=== PATIENT | female | born 1990 | race Caucasian/White ===

== ENCOUNTER 2019-12-07 15:26 | Emergency (ER) | payer MEDICAID, SELFPAY ==
[2019-12-07 15:29] VITALS: BP 119/71; PULSE 104; RESP 18; TEMP 37.4; O2SAT 96
--- NOTE | 2019-12-07 15:37 | ED.GENADUL_ITS ---
Discharge Plan Disposition Patient Disposition: HOME Condition: Stable Discharge Details Chief Complaint: DentalOral Clinical Impression: Dental infection, Left facial swelling, Dental caries Primary Care Provider: None,None ED Provider: Mely Tyler Home Meds and New Rx's Prescriptions: New penicillin V potassium 500 mg tablet 500 mg PO QID 7 Days Qty: 28 RF: 0 Continued methadone 10 MG/ML concentrate 155 mg PO DAILY RF: 0 No Action quetiapine 300 mg Tablet 300 mg PO HS RF: 0 clonidine HCl 0.3 mg Tablet 0.3 mg PO TID RF: 0 clonidine HCl 0.2 mg Tablet 0.2 mg PO QHS RF: 0 buspirone 30 mg Tablet 30 mg PO BID RF: 0 topiramate 100 mg Tablet 100 mg PO BID RF: 0 prazosin 2 mg Capsule 4 mg PO HS RF: 0 Discharge Instructions Instructions: Dental Abscess (ED), Dental Caries (ED) Additional Instructions: Take the antibiotics until finished. Alternate tylenol and motrin as needed and directed for pain. Take the tramadol for pain not relieved with Tylenol and Motrin. Call a dentist on Monday morning to schedule a follow-up appointment for reeval uation. Return to the emergency department if you develop any worsening or new concerning symptoms. Discharge Data Discharge Date/Time-TO BE ENTERED AT DEPARTURE: 12/07/19 16:08 Discharge Physician: Mely Tyler Medical Decision Making 29yo F with L upper and lower dental pain and L sided facial swelling since yesterday. Multiple missing teeth and dental caries throughout. She has moderate L sided fa cial swelling which is mildly tender but soft to palpation without induration or fluctance. No dental abscess. No drooling, trismus or submandibular swelling. Normal oropharynx. No lymphadenopathy. Patient appears uncomfortable. We will send home with 2 tabs of tramadol. She is taking methadone and followed at the [facility]. Too late to call [facility] at this time. We will send home with a prescription for penicillin. She was given dental follow up list. Advised to return to the ED if worse. Medical Records Medical records reviewed: Yes I reviewed the patient's medical records. HPI General Mode of arrival: ambulatory . Date/Time Provider Initiated Documentation: 12/07/19 15:30 . Limitations to Documentation: no limitations . Information obtained by: patient . HPI Narrative: Pt is 29yo F who presents to the ED w/ a c/o left upper and lower dental pain and left sided facial swelling since yesterday. Pt states she does not have a dentist. She states she has not taken care of her teeth for years and has poor dental habits and broken teeth. She denies any fever. She has taken tylenol and motrin w/o relief. She denies and difficulty swallowing, difficulty breathing, or neck pain. Related Data Home Medications Medication Instructions Recorded Confirmed methadone 155 mg PO DAILY 03/09/15 03/09/15 buspirone 30 mg PO BID 12/07/19 12/07/19 clonidine HCl 0.2 mg PO QHS 12/07/19 12/07/19 clonidine HCl 0.3 mg PO TID 12/07/19 12/07/19 penicillin V potassium 500 mg PO QID 7 Days #28 tab 12/07/19 prazosin 4 mg PO HS 12/07/19 12/07/19 quetiapine 300 mg PO HS 12/07/19 12/07/19 topiramate 100 mg PO BID 12/07/19 12/07/19 Previous Rx's Medication Instructions Recorded penicillin V potassium 500 mg PO QID 7 Days #28 tab 12/07/19 Allergies Allergy/AdvReac Type Severity Reaction Status Date / Time No Known Allergies Allergy Unverified 12/07/19 15:33 General Stated Complaint: DentalOral BRADY: 4 Review of Systems All systems reviewed & are unremarkable except as noted in HPI and below Constitutional Constitutional: Reports as per HPI, Denies chills and Denies fever(s) Eyes Eyes: Denies blurry vision ENT Ears, Nose, Mouth, and Throat: Denies dizziness, Denies sore throat and Denies throat swelling Cardiovascular Cardiovascular: Denies chest pain and Denies dyspnea Respiratory Respiratory: Denies cough and Denies dyspnea Gastrointestinal Gastrointestinal: Denies abdominal pain, Denies diarrhea and Denies vomiting Genitourinary Genitourinary: Denies hematuria and Denies dysuria Musculoskeletal Musculoskeletal: Denies back pain and Denies numbness Integumentary/Breasts Skin/Breast: Denies lesions and Denies rash Neurologic Neurologic: Denies dizziness, Denies localized weakness and Denies numbness Allergic/Immunologic Allergic/Immunologic: Denies throat swelling [facility] Medical History 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) Surgical History (Updated 12/07/19 @ 16:59 by Mely Tyler DO) History of tonsillectomy (Chronic) Social History Smoking/Tobacco Use Status: Current every day Tobacco Type: cigarettes Alcohol Intake: never Drug use: Current Sobriety Do you feel safe at home: Yes Do you feel safe in your relationship?: Yes Exam Const General: cooperative, healthy appearing and uncomfortable [facility] Head: normal to inspection Ears: hearing grossly normal bilaterally, external ears normal and TM's normal bilaterally General nose exam: external nose normal Face and sinus: other Face images: 1. Moderate L sided facial swelling. Soft. Moderately tender. No induration, fluctuance, erythema noted. Mouth: oral mucosae normal Teeth and gingiva: caries and poor dentition Teeth image: 1. Small base of tooth present, black in color, and tender to palpation of surr ounding mucosa. No edema, fluctuance or induration noted. 2. Tender to palpation. Multiple teeth missing and dental caries throughout. No edema, fluctuance, induration noted. Throat: posterior oropharynx normal Eyes General: appearance normal, both eyes and all related structures Neck Neck: normal visual inspection Resp Effort & Inspection: normal respiratory effort and able to speak in complete sentences Cardio Rate: regular rate Skin General skin exam: no rashes or lesions noted Neuro General: patient alert, patient awake and patient oriented x3 Motor: muscle tone normal throughout Extrem General: normal to inspection and full ROM Psych Appearance: grossly normal Affect: normal affect Course Vital Signs Vital signs: Vital Signs Temperature 99.3 F 12/07/19 15:29 Pulse 104 H 12/07/19 15:29 Respiratory Rate 18 12/07/19 15:29 Blood Pressure 119/71 12/07/19 15:29 Pulse Oximetry 96 12/07/19 15:29 Temperature 99.3 F 12/07/19 15:29 Temperature Source Temporal Artery Scan 12/07/19 15:29 Pulse 104 H 12/07/19 15:29 Respiratory Rate 18 12/07/19 15:29 Blood Pressure 119/71 12/07/19 15:29 Blood Pressure Position Sitting 12/07/19 15:29 Pulse Oximetry 96 12/07/19 15:29 Oxygen Delivery Method Room Air 12/07/19 15:29 Oxygen Flow Rate 0 12/07/19 15:29 Pain Level 8 12/07/19 15:29
== END 2019-12-07 16:08 | disposition home or self-care (01) ==
PROVIDERS: Emergency Provider Physician Assistant
DX: R22.0 Localized swelling, mass and lump, head (principal); R68.84 Jaw pain; K04.7 Periapical abscess without sinus
CPT/HCPCS: 99283

== ENCOUNTER 2020-04-26 06:17 | Emergency (ER) | payer MEDICAID, SELFPAY ==
[2020-04-26] VITALS (46 sets, daily range): BP systolic 96–139; BP diastolic 46–79; PULSE 62–120; RESP 10–29; TEMP 36.6–36.7; O2SAT 81–100
--- NOTE | 2020-04-26 06:35 | W.ED.GENAD ---
Discharge Plan Disposition Patient Disposition: HOME Condition: Stable Discharge Details Chief Complaint: Nausea/Vomit/Diar Clinical Impression: Vomiting during Primary Care Provider: None,None ED Provider: Vamshi Goel Home Meds and New Rx's Prescriptions: Continued methadone 10 mg/mL concentrate 80 mg PO DAILY RF: 0 quetiapine 300 mg Tablet 300 mg PO HS RF: 0 clonidine HCl 0.3 mg Tablet 0.3 mg PO TID RF: 0 No Action ondansetron 8 mg tablet,disintegrating 8 mg PO Q8H PRN (Reason: nausea and vomiting) Qty: 30 RF: 2 promethazine 25 mg suppository 25 mg GA Q6H PRN (Reason: nausea and vomiting) Qty: 12 RF: 0 Discharge Instructions Instructions: First Trimester (ED) Additional Instructions: Follow-up for outpatient ultrasound as previously scheduled tomorrow. Home to rest today. Small, frequent sips of fluids to maintain hydration. Return to the ER in the interim for any acute concern. Discharge Data Discharge Date/Time-TO BE ENTERED AT DEPARTURE: 04/26/20 13:15 Medical Decision Making <Néstor Malik MD - Last Filed: 04/30/20 20:32> Patient brought in by EMS with nausea and vomiting. IV fluids and IV Zofran have been given. Continues to have dry heaves here. Will try IV Phenergan. Has a benign abdomen. Denies pelvic pain or cramping. There is no vaginal bleeding. At this point I see no need for emergent ultrasound as she is here with just nausea, vomiting, dry heaves. She has no abdominal or pelvic pain and no vaginal bleeding. Medical Records Medical records reviewed: Yes I reviewed the patient's medical records. Lab Data Lab results reviewed: Yes I reviewed the patient's lab results. <Vamshi Goel MD - Last Filed: 04/26/20 12:49> Received signout from Dr. Malik. Please see his note regarding details of initial presentation, plan of care. Patient given additional antiemetics for some persistent vomiting. She received a liter of lactated Ringer's and then was placed on maintenance fluids with D5 NS. Her laboratories note a white count of 12, hematocrit 33, platelets 136, chemistries reassuring, note anion gap of 12. Glucose 119. She does have evidence of urinary tract infection but likely contaminated. As she is we will empirically treat and she was given an IV dose of antibiotics due to her vomiting. Patient separately was able to sleep, awoke feeling subjectively improved and was able to take liquids and a popsicle without difficulty. She has follow-up planned for tomorrow for first trimester dating ultrasound. With her and methadone use, will hold on any further antiemetics as an outpatient. She is stable and improving. Lab Data Lab results reviewed: Yes I reviewed the patient's lab results. Labs: Laboratory Results - last 24 hr 04/26/20 04/26/20 04/26/20 07:20 07:47 09:30 WBC 12.24 H RBC 4.52 Hgb 11.1 L Hct 33.6 L MCV 74.3 L MCH 24.6 L MCHC 33.0 RDW 14.1 Plt Count 136 MPV 12.8 H Immature Gran % 0.3 Neutrophils % 89.9 Lymphocytes % 7.5 Monocytes % 2.0 Eosinophils % 0.1 Basophils % 0.2 Absolute Neutrophils 11.00 H Absolute Lymphocytes 0.92 L Absolute Monocytes 0.24 Absolute Eosinophils 0.01 Absolute Basophils 0.02 RBC Morphology See below Anisocytosis 1+ Microcytosis 1+ Sodium 143 Potassium 3.5 Chloride 107 Carbon Dioxide 23.9 Anion Gap 12.1 H BUN 11 Creatinine 0.80 Estimated GFR/1.73 m2 >= 60.00 Glucose 119 H Calcium 9.2 Total Bilirubin 0.4 AST 23 ALT 22 Alkaline Phosphatase 64 Total Protein 7.7 Albumin 4.0 Urine Color Alee Urine Clarity Cloudy Urine pH 6.0 Ur Specific [place] >= 1.030 H Urine Protein Negative Urine Ketones Negative Urine Blood Negative Urine Nitrite Negative Urine Bilirubin Negative Urine Urobilinogen 0.2 Ur Leukocyte Esterase Moderate H Urine RBC 0-2 Urine WBC 20-50 H Ur Epithelial Cells Many Urine Crystals Few amorphous Urine Bacteria Few Urine Casts Negative Urine Mucus Trace Urine Other Ur Culture Indicated? No/sq. contamination Urine Glucose Negative HPI <Néstor Malik MD - Last Filed: 04/30/20 20:32> General Mode of arrival: EMS. Date/Time Provider Initiated Documentation: 04/26/20 06:30. Limitations to Documentation: no limitations. Information obtained by: patient, EMS and old records reviewed. HPI Narrative: Patient presents to ED with nausea vomiting. Patient is approximately 1 month with dating ultrasound supposed to be done tomorrow. She has been doing fine. She denies any previous symptoms of morning sickness. She denies any pelvic pain or cramping. There is no vaginal bleeding. Denies any abdominal pain. Woke up approximately 90 minutes ago and has not been able to stop vomiting and retching since. Related Data Home Medications Medication Instructions Recorded Confirmed clonidine HCl 0.3 mg PO TID 12/07/19 04/27/20 quetiapine 300 mg PO HS 12/07/19 04/27/20 methadone 10 mg/mL oral concentrate 80 mg PO DAILY ml 04/16/20 04/27/20 ondansetron 8 mg disintegrating 8 mg PO Q8H PRN #30 tab 04/29/20 tablet promethazine 25 mg rectal 25 mg GA Q6H PRN #12 each 04/29/20 suppository Previous Rx's Medication Instructions Recorded ondansetron 8 mg disintegrating 8 mg PO Q8H PRN #30 tab 04/29/20 tablet promethazine 25 mg rectal 25 mg GA Q6H PRN #12 each 04/29/20 suppository Allergies Allergy/AdvReac Type Severity Reaction Status Date / Time No Known Allergies Allergy Unverified 04/27/20 09:33 General Stated Complaint: Nausea/Vomit/Diar BRADY: 3 Review of Systems <Néstor Malik MD - Last Filed: 04/30/20 20:32> Narrative: As documented in HPI otherwise negative as below. 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 Const: WDWN female dry heaving into bag. HEENT: NC/AT. Normal facial exam. Eyes: Normal conjunctiva and sclera. Neck: Supple. Trachea midline. Lungs: Normal respiratory effort. GI: Soft. NT/ND. No guarding or rebound. Neuro: A+O x 3. Normal speech, mentation. Cranial nerves II - XII grossly intact. No gross motor or sensory deficit. Skin: Warm and dry. Course <Néstor Malik MD - Last Filed: 04/30/20 20:32> Vital Signs Vital signs: Vital Signs Temperature 97.9 F 04/26/20 06:17 Pulse 75 04/26/20 06:17 Respiratory Rate 16 04/26/20 06:17 Blood Pressure 139/79 04/26/20 06:17 Pulse Oximetry 100 04/26/20 06:17 Temperature 97.9 F 04/26/20 06:17 Temperature Source Temporal Artery Scan 04/26/20 06:17 Pulse 75 04/26/20 06:17 Respiratory Rate 16 04/26/20 06:17 Blood Pressure 139/79 04/26/20 06:17 Blood Pressure Position Sitting 04/26/20 06:17 Pulse Oximetry 100 04/26/20 06:17 Oxygen Delivery Method Room Air 04/26/20 06:17 Oxygen Flow Rate 0 04/26/20 06:17 Pain Level 8 04/26/20 06:17 Sign Out <Néstor Malik MD - Last Filed: 04/30/20 20:32> Sign Out Data: Sign Out Comment: pending labs and re-evaluation Last updated by Néstor Malik MD at 04/26/20 07:43
[2020-04-26] MEDS: Normal Saline 250 ML 500 ML IV (06:46)
[2020-04-26] MEDS: Lactated Ringers 1,000 ML 1000 ML IV (07:30)
[2020-04-26] MEDS: Normal Saline Flush 10 ML SYR IVP ×2 (07:30→09:20)
[2020-04-26 07:46] LABS: ALT 22 U/L (14-59); AST 23 U/L (15-37); Alkaline Phosphatase 64 U/L (46-116); Anion Gap 12.1 mmol/L (3-11); BUN 11 mg/dL (7-18); Bilirubin, Total 0.4 mg/dL (0.2-1.0); CO2 23.9 mmol/L (21.0-32.0); Calcium 9.2 mg/dL (8.5-10.1); Chloride 107 mmol/L (98-107); Glucose 119 mg/dL (74-106); Potassium 3.5 mmol/L (3.5-5.1); Sodium 143 mmol/L (136-145); Total Protein 7.7 g/dL (6.4-8.2)
[2020-04-26 07:54] LABS: Bilirubin Negative (Negative); Blood Negative (Negative); Clarity Cloudy (Clear); Glucose Negative (Negative); Ketones Negative (Negative); Leukocyte Esterase Moderate (Negative); Nitrite Negative (Negative); Specific Gravity >= 1.030 (1.005-1.025); Urobilinogen 0.2 EU/dL (Up TO 0.2)
[2020-04-26 08:08] LABS: Bacteria Few HPF (Negative); Casts Negative LPF (Negative); Crystals Few Amorphous HPF (Negative); Epithelial Cells Many HPF (Negative); Mucus Trace (Negative); RBC 0-2 HPF (0-2); WBC 20-50 HPF (0-5)
[2020-04-26 08:09] LABS: C & S Indicated? No/Sq. Contamination
[2020-04-26] MEDS: Ondansetron 4 MG/2 ML VIAL IVP (08:18)
[2020-04-26] MEDS: diphenhydrAMINE 50 MG/ML VIAL 25 MG IVP (08:21)
[2020-04-26] MEDS: DEXTROSE 5%-0.9% SALINE 1,000 ML 150 ML IV (09:22)
[2020-04-26] MEDS: cefTRIAXone 1 GM/50 ML BAG IVPB (09:22)
[2020-04-26 09:40] LABS: Abs Immature Grans 0.04 10^3/uL (0.0-0.06); Absolute Eosinophil Count 0.01 10^3/uL (0.0-0.7); Absolute Lymphocyte Count 0.92 10^3/uL (1.2-3.4); Absolute Monocyte Count 0.24 10^3/uL (0.1-0.8); Basophils % 0.2; Eosinophils % 0.1; HCT 33.6 % (36.0-46.0); HGB 11.1 g/dL (11.2-15.7); Immature Grans % 0.3; Lymphocytes % 7.5; MCH 24.6 pg (27.0-33.0); MCV 74.3 fL (80-95); MPV 12.8 fL (8.0-11.0); Neutrophils % 89.9; Nucleated RBC 0 %; Platelet Count 136 10^3/uL (130-400); RBC 4.52 10^6/uL (3.93-5.22); RDW 14.1 % (11.7-14.6); RDW-SD 37.3 fL; WBC 12.24 10^3/uL (4.4-10.8)
[2020-04-26 09:44] LABS: Absolute Basophil Count 0.02 10^3/uL (0.0-0.2)
[2020-04-26 09:58] LABS: Anisocytosis 1+; Diff Comment RBC Morph Reviewed; Microcytosis 1+
== END 2020-04-26 13:15 | disposition home or self-care (01) ==
PROVIDERS: Emergency Medicine; Emergency Provider Emergency Medicine
DX: O23.11 Infections of bladder in pregnancy, first trimester (principal); O21.9 Vomiting of pregnancy, unspecified; O99.321 Drug use complicating pregnancy, first trimester; O99.331 Smoking (tobacco) complicating pregnancy, first trimester; Z3A.01 Less than 8 weeks gestation of pregnancy; F17.210 Nicotine dependence, cigarettes, uncomplicated; F11.20 Opioid dependence, uncomplicated
CPT/HCPCS: 36415; 36416; 80053; 96361; 96365; 96367; 96375; 96376; 99284; 81003; 81015; 85025; J0696; J1200; J2405; J7042

== ENCOUNTER 2020-05-25 12:10 | Outpatient (CLI) | payer MEDICAID, SELFPAY ==
[2020-05-25 12:45] LABS: Kit/Specimen SENT
[2020-05-25 12:56] LABS: Abs Immature Grans 0.02 10^3/uL (0.0-0.06); Absolute Basophil Count 0.02 10^3/uL (0.0-0.2); Absolute Eosinophil Count 0.09 10^3/uL (0.0-0.7); Absolute Lymphocyte Count 1.33 10^3/uL (1.2-3.4); Absolute Monocyte Count 0.26 10^3/uL (0.1-0.8); Absolute Neutrophil Count 3.88 10^3/uL (1.2-6.7); Basophils % 0.4; Eosinophils % 1.6; HCT 37.9 % (36.0-46.0); HGB 12.4 g/dL (11.2-15.7); Immature Grans % 0.4; Lymphocytes % 23.8; MCH 24.7 pg (27.0-33.0); MCHC 32.7 % (32.0-36.0); MCV 75.5 fL (80-95); MPV 11.7 fL (8.0-11.0); Monocytes % 4.6; Neutrophils % 69.2; Nucleated RBC 0 %; Platelet Count 231 10^3/uL (130-400); RBC 5.02 10^6/uL (3.93-5.22); RDW 15.5 % (11.7-14.6); RDW-SD 41.8 fL
[2020-05-25 14:56] LABS: TSH (W/Ref FT4) 1.09 uIU/mL (0.36-3.74)
[2020-05-26 08:19] LABS: Hepatitis B Surface Ag Negative (Negative)
[2020-05-26 08:49] LABS: HIV-1/2 Ag & Ab Screen Negative (Negative)
[2020-05-26 10:37] LABS: Rubella IgG Ab (UVM) Positive (See Note)
[2020-05-26 11:13] LABS: Hepatitis C Ab w Rflx HCV PCR Reactive (Negative)
[2020-05-26 13:42] LABS: Varicella IgG Antibody Equivocal (See Note)
[2020-05-27 11:08] LABS: Syphilis Total Ab w/Reflex Nonreactive (Nonreactive)
[2020-05-27 14:53] LABS: HCV RNA Qualitative Detected (Undetected)
[2020-06-01 06:37] LABS: Specimen WB Whole Blood
== END 2020-05-25 12:30 ==
PROVIDERS: Visit Provider Advanced Practice Midwife
DX: Z34.81 Encounter for supervision of other normal pregnancy, first trimester (principal); Z36.89 Encounter for other specified antenatal screening; Z11.4 Encounter for screening for human immunodeficiency virus [HIV]; Z11.59 Encounter for screening for other viral diseases; Z01.84 Encounter for antibody response examination
CPT/HCPCS: 36415; 86787; 86803; 86850; 86900; 86901; 87340; 87389; 87522; 81220; 84443; 85025; 86762; 86780; 86870

== ENCOUNTER 2020-05-25 14:28 | Outpatient (REF) | payer MEDICAID, SELFPAY ==
[2020-05-25 16:25] LABS: *AMPHETAMINES SCREEN URINE POSITIVE (Negative); *BARBITURATES SCREEN URINE Negative (Negative); *BENZODIAZEPINES SCREEN URINE Negative (Negative); Cannabinoids THC POSITIVE (Negative); Cocaine Screen,Urine POSITIVE (Negative); METHADONE URINE SCREEN Negative (Negative); OPIATES URINE SCREEN POSITIVE (Negative)
[2020-05-25 16:43] LABS: Tricyclic Antidepressants Negative (Negative)
[2020-05-26 14:52] LABS: Chlamydia Result Negative (Negative); GC Result Negative (Negative)
[2020-05-29 03:49] LABS: Benzoylecgonine 743 ng/mL (Cutoff: 50); Cocaine Negative ng/mL (Cutoff: 50); Cocaine Interpretation Positive.
[2020-05-29 06:05] LABS: Carboxy-THC Interpretation Positive.; Delta-9 CarboxyThc by LC-MS/MS 85 ng/mL (Cutoff:<3)
[2020-05-29 09:31] LABS: Amphetamine 771 ng/mL (Cutoff: 25); Amphetamines Interpretation Positive.; MDA (Ecstasy Metabolite) Negative ng/mL (Cutoff: 25); MDMA (Ecstasy) Negative ng/mL (Cutoff: 25); Methamphetamine 1826 ng/mL (Cutoff: 25); Phentermine Negative ng/mL (Cutoff: 25); Pseudoephedrine/Ephedrine Negative ng/mL (Cutoff: 25)
[2020-05-29 10:55] LABS: Buprenorphine Negative; Norbuprenorphine Negative
[2020-05-30 07:23] LABS: Codeine 279 ng/mL (Cutoff: 25); Dihydrocodeine Negative ng/mL (Cutoff: 25); Hydrocodone Negative ng/mL (Cutoff: 25); Hydromorphone 95 ng/mL (Cutoff: 25); Morphine 13966 ng/mL (Cutoff: 25); Naloxone Negative ng/mL (Cutoff: 25); Norhydrocodone Negative ng/mL (Cutoff: 25); Noroxycodone Negative ng/mL (Cutoff: 25); Noroxymorphone Negative ng/mL (Cutoff: 25); Opiates Interpretation Positive.
== END 2020-05-25 14:48 ==
LOC: LBN 14:28
PROVIDERS: Obstetrics & Gynecology; Visit Provider Advanced Practice Midwife
DX: Z34.91 Encounter for supervision of normal pregnancy, unspecified, first trimester (principal)
CPT/HCPCS: 80307; 80324; 80349; 80361; 87491; 87591; 80353; 87086

== ENCOUNTER 2020-10-15 08:48 | Emergency (ER) | payer MEDICAID, SELFPAY ==
[2020-10-15] VITALS (9 sets, daily range): BP systolic 123; BP diastolic 109; PULSE 64–79; RESP 12–28; TEMP 36.7; O2SAT 99–100
--- NOTE | 2020-10-15 08:55 | W.ED.GENAD ---
Discharge Plan Disposition Patient Disposition: HOME Condition: Stable Discharge Details Clinical Impression: Vomiting, Narcotic abuse Primary Care Provider: None,None ED Provider: Vamshi Goel Home Meds and New Rx's Prescriptions: Continued metoclopramide HCl [Reglan] 10 mg tablet 10 mg PO DAILY Qty: 30 RF: 0 quetiapine 300 mg Tablet 400 mg PO HS RF: 0 clonidine HCl 0.3 mg Tablet 0.3 mg PO TID RF: 0 methadone 10 mg/5 mL Solution 125 mg PO DAILY RF: 0 methylphenidate HCl 20 mg tablet 20 mg PO QID RF: 0 gabapentin 400 mg capsule 400 mg PO BID RF: 0 Discharge Instructions Additional Instructions: Methadone clinic advised she may take your home dose today Use the provided Reglan and Phenergan as needed for nausea. Please go to your scheduled obstetrics appointment later today. Return to the ER for any acute concerns Medical Decision Making 30-year-old female with estimated date of delivery of December 20, 2020. She has history of polysubstance abuse, hepatitis C, nausea of for which she has been taking Zofran and Reglan. Presents today with ongoing nausea and vomiting for 12 hours. She admits to some use of illicit fentanyl via injection into her hands. Currently on methadone, today has been unable to hold down her daily prescribed medications. Most concern for ketosis, dehydration, electrolyte abnormalities. IV access was established, fluids initiated as well as antiemetics. Screening laboratories obtained. heart tones 140s. Laboratories note a white count of 8, hematocrit 36, platelets 177. Chemistries with sodium 137, potassium 3.2, chloride 100, bicarb 22, BUN 10, creatinine 0.8. LFTs unremarkable. Lipase negative at 119. Potassium was supplemented until the IV infiltrated. Patient was given a warm pack. There is no induration, no erythema and no tenderness. Patient had only received seconds worth of infusion after the IV displaced. She was subsequently given oral antiemetics. She remains with emesis controlled. She requests discharge from the ER to attend her scheduled obstetrics appointment this afternoon in [place], [place]. Patient was recommended by methadone clinic to take her extra 'take home dose' today. She was given antiemetics for home use prior to discharge. HPI General Mode of arrival: ambulatory. Date/Time Provider Initiated Documentation: 10/15/20 08:49. Limitations to Documentation: no limitations. Information obtained by: patient. History of Present Illness 30 year old F presents to the emergency department with the chief complaint of Vomiting x12 hours, described as moderate and similar to prior episodes, Quality is described as dull, and is localized to the abdomen. Patient reports no radiation. Patient started experiencing this hour(s) and it has been intermittent. No relieving factors improve symptom(s), Eating worsens symptoms . Patient notes denies fever/chills. Patient did receive the following treatments prior to arrival, other (Rx) Related Data Home Medications Medication Instructions Recorded Confirmed clonidine HCl 0.3 mg PO TID 12/07/19 10/15/20 quetiapine 400 mg PO HS 12/07/19 10/15/20 metoclopramide HCl 10 mg tablet 10 mg PO DAILY #30 tab 05/22/20 10/15/20 gabapentin 400 mg PO BID 10/15/20 10/15/20 methadone 125 mg PO DAILY 10/15/20 10/15/20 methylphenidate HCl 20 mg PO QID 10/15/20 10/15/20 Previous Rx's Medication Instructions Recorded metoclopramide HCl 10 mg tablet 10 mg PO DAILY #30 tab 05/22/20 Allergies Allergy/AdvReac Type Severity Reaction Status Date / Time No Known Allergies Allergy Unverified 10/15/20 09:26 General Stated Complaint: Nausea/Vomit/Diar BRADY: 3 Review of Systems Narrative: no trauma, no vaginal bleeding or discharge. [facility] Medical History Drug abuse of mother Hepatitis C History of pyelonephritis Kidney infection Narcotic abuse in remission Surgical History History of tonsillectomy Family History Mother Diabetes Maternal Grandmother Bipolar 1 disorder Asthma COPD with asthma Maternal Grandfather Cancer Social History Smoking/Tobacco Use Status: Current every day Tobacco Type: cigarettes Tobacco: How many years used: 15 Smoking risk assessment performed?: Yes Alcohol Intake: never Drug use: Daily Substance use type: marijuana Details: pt has been using fentanyl IV x 1 year, last use 3 days ago. Methadone 125mg , last taken yesterday- take home doses from [facility] Current gender identity: female Do you feel safe at home: Yes Do you feel safe in your relationship?: Yes History History 4 Para 3 Hx # Term Pregnancies 3 Multiple births 0 Hx # Pregnancies 0 Ectopic pregnancies 0 AB induced 0 Hx Number of Living Children 3 AB spontaneous 0 Past Pregnancies Del. Date GA/Weeks # Outcome Route Wgt Sex Labor Lgth Anesthesia Location Prov [facility] 03/03/10 38 No Successful vaginal 3005.049 g Male 48 hrs [facility] 02/18/11 38 No Successful vaginal 3033.399 g Female 48 hrs [facility] 02/28/17 37 No Successful vaginal 4195.729 g Male 48 hrs [facility] other Delivery Date: 03/03/10 long labor w/o c/o. [facility] Delivery Date: 02/18/11 long labor w/o c/o. [facility] Delivery Date: 02/28/17 probable pre-eclampsia low platelets thus no epidural denies seizure. ? if mgso4 given. [facility] Exam Narrative Exam Narrative: GEN: awake, alert, oriented 3. Interactive, intermittently vomiting. HEAD: Normocephalic, atraumatic ENT: Mucous membranes dry, oropharynx with poor dentition, numerous dental caries, External ear exam unremarkable EYES: PERRL, EOMI NECK: Full ROM, no CAROLINE, no menigismus CHEST/RESP: Nontender, clear to auscultation bilateral, no wheeze/rhonchi/rales CARDIOVASCULAR: RRR, no murmur, rub rufus. 2+ Rad pulse bilateral ABDOMEN: Soft, nontender, gravid. +Bowel sounds EXT: Full ROM, no edema, no rash Neuro: Grossly normal neurologic exam, conversant, interactive. Psych: Speech fluent, thoughts congruent, affect agitated at times Course Vital Signs Vital signs: Vital Signs Temperature 36.7 C 10/15/20 08:52 Temperature 36.7 C 10/15/20 08:52 Temperature Source Skin 10/15/20 08:52
[2020-10-15] MEDS: Ondansetron 4 MG/2 ML VIAL IVP (09:17)
[2020-10-15] MEDS: Lactated Ringers 1,000 ML 1000 ML IV (09:20)
[2020-10-15 09:32] LABS: Abs Immature Grans 0.03 10^3/uL (0.0-0.06); Absolute Basophil Count 0.03 10^3/uL (0.0-0.2); Absolute Eosinophil Count 0.04 10^3/uL (0.0-0.7); Absolute Lymphocyte Count 1.36 10^3/uL (1.2-3.4); Absolute Monocyte Count 0.22 10^3/uL (0.1-0.8); Absolute Neutrophil Count 6.97 10^3/uL (1.2-6.7); Basophils % 0.3; Eosinophils % 0.5; HCT 36.7 % (36.0-46.0); HGB 11.5 g/dL (11.2-15.7); Immature Grans % 0.3; Lymphocytes % 15.7; MCHC 31.3 % (32.0-36.0); MCV 73.4 fL (80-95); Monocytes % 2.5; Neutrophils % 80.7; Nucleated RBC 0 %; Platelet Count 177 10^3/uL (130-400); RDW 14.3 % (11.7-14.6); RDW-SD 37.8 fL; WBC 8.65 10^3/uL (4.4-10.8)
--- NOTE | 2020-10-15 09:42 | NUR.NOTE ---
Nursing Note: called [facility] clinic and spoke to Nurse Amita. Pt current methadone dose was verified @ 125mg. Pt has a take home dose for todays dosing, and [facility] would prefer her to utilize that dose if she is not being admitted. Dr. Goel aware
[2020-10-15 09:44] LABS: ALT 20 U/L (14-59); AST 18 U/L (15-37); Albumin 3.6 g/dL (3.4-5.0); Alkaline Phosphatase 163 U/L (46-116); Anion Gap 14.2 mmol/L (3-11); BUN 10 mg/dL (7-18); Bilirubin, Total 0.7 mg/dL (0.2-1.0); CO2 22.8 mmol/L (21.0-32.0); Calcium 9.2 mg/dL (8.5-10.1); Chloride 100 mmol/L (98-107); Glucose 109 mg/dL (74-106); Lipase 119 U/L (73-393); Potassium 3.2 mmol/L (3.5-5.1); Sodium 137 mmol/L (136-145); Total Protein 9.2 g/dL (6.4-8.2)
[2020-10-15 09:45] LABS: CREATININE 0.8 mg/dL (0.55-1.02)
[2020-10-15] MEDS: POTASSIUM CHLORIDE 10 MEQ/100 ML BAG 100 MEQ IVPB (10:12)
[2020-10-15] MEDS: DEXTROSE 5%-0.9% SALINE 1,000 ML 100 ML IV (10:12)
[2020-10-15] MEDS: Ondansetron O.D.T. 4 MG TABEF PO (10:44)
[2020-10-15] MEDS: Metoclopramide 10 MG TAB PO (10:46)
--- NOTE | 2020-10-15 11:05 | NUR.NOTE ---
Nursing Note: Pt rang call light c/o burning at the IV site- states she had leaned forward to vomit, bent her arm and felt immediate burning in the site. All running fluids (possassium chloride and D5NS)were stopped and site has no palpable induration, no redness or warmth. Pt burning sensation did not subside after stopping of running lines. Flush attached to IV and unable to get blood return back, pain with flushing but no induration felt with 5ml normal saline . MD notified, orders received for hyaluronidase ID. Per Pharmacy medication is to be injected into an area of infiltrate- there is no obvious area of infiltrate and no longer tender or painful so per pharmacy ID injections will not be beneficial. Dr. Goel aware and cancelled order for ID injections, pt is resting quietly at this time states she has no pain at the area and refusing warm pack at this time, arm is elevated.
[2020-10-15] MEDS: Metoclopramide 10 MG TAB 20 MG PO (12:38)
== END 2020-10-15 12:40 | disposition home or self-care (01) ==
PROVIDERS: Emergency Provider Emergency Medicine
DX: O21.2 Late vomiting of pregnancy (principal); O99.283 Endocrine, nutritional and metabolic diseases complicating pregnancy, third trimester; O99.323 Drug use complicating pregnancy, third trimester; Z3A.36 36 weeks gestation of pregnancy; E87.6 Hypokalemia; O99.333 Smoking (tobacco) complicating pregnancy, third trimester; F11.20 Opioid dependence, uncomplicated; F17.210 Nicotine dependence, cigarettes, uncomplicated
CPT/HCPCS: 36415; 80053; 83690; 96361; 96365; 96367; 96375; 99284; 85025; J2405; J3480; J7042

== ENCOUNTER 2022-05-22 00:39 | Emergency (ER) | payer MEDICAID, SELFPAY ==
[2022-05-22 00:40] VITALS: BP 101/60; PULSE 81; RESP 19; TEMP 36; O2SAT 95
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
[2022-05-22 01:33] LABS: Bilirubin Small (Negative); Blood Negative (Negative); Clarity Clear (Clear); Glucose Negative (Negative); Ketones Negative (Negative); Leukocyte Esterase Negative (Negative); Nitrite Negative (Negative); Specific Gravity >= 1.030 (1.005-1.025)
[2022-05-22 01:38] LABS: Bacteria Rare HPF (Negative); C & S Indicated? No; Casts Negative LPF (Negative); Crystals Mod Calcium Oxalate HPF (Negative); Epithelial Cells Rare HPF (Negative); Mucus Moderate (Negative); RBC Negative HPF (0-2); WBC Negative HPF (0-5)
--- OUTSIDE RECORDS SUMMARY | 2022-05-22 03:24 | XMS_ITS | Encounter Summary ---
:1990 Author Organization [facility] Address [address] [place] [address] Care Team Providers Name Role Phone None, Provider Primary Care Provider Unavailable Reason for Visit Reason Onset Date Comments Pre-visit Planning 02/03/2017 Encounter Details Date Type Department Care Team Description 02/03/2017 Orders Only [facility] Jo Song [facility] of Women's Services - high-risk , Main [place] third trimester [address] (Primary Dx) [place], [place] [id number] Social History Tobacco Use Types Packs/Day Years Used Date Current Every Day Smoker Cigarettes 1.5 Justino t: 07/08/2016 Smokeless Tobacco: Never Used Comments: Smoker for years until recentl y incarcerated again Alcohol Use Standard Drinks/Week Comments No 0 (1 standard drink = 0.6 oz pure alcoho l) Sex Assigned at Date Recorded Not on file documented as of this encounter Functional Status Cognitive Status Response Date of Assessment Because of a physical, mental, or emotional condition, do Ye s 12/01/2012 you have serious difficulty concentrating, remembering, or making decisions? (5 years old or older) documented as of this encounter Progress Notes Mahogany Whitmore - 02/03/2017 0833 EDT GBS ordered documented in this encounter Plan of Treatment Not on filedocumented as of this encounter Goals Goal Patient Goal Associated Recent Patient-Stated? Author Type Problems Progress Abstain from General No Albertina Substance Use Kia Note: Reduce Substance Use Goal: Practice copi ng skills to abstain from illicit drug use Confidence level (1= Not very confident; 10 = Very confident): Not assessed Sources of support: [facility] Barriers to change: None Counseling was provided to assess readin ess, confidence and/or barriers to self-care. To learn more about your health please v isit: [email or web address]/Wellness-Resources/Cdfyiugdz-Jfaxul-Gu documented as of this encounter Results GROUP B STREP PCR (02/07/2017 11:38 EDT) Pathologist Sig nature GROUP B STREP PCR Negative [facility] Specimen Other (qualifier value) - Other Performing Organization Address City/State/ZIP Code Phon e Number [facility] [address] [place] [address] SERVICES documented in this encounter Visit Diagnoses Diagnosis Supervision of high-risk , thir d trimester - Primary documented in this encounter Care Teams Mid Level Project Manager Relationship Specialty Start Date End Date None, Provider PCP - General 02/03/17 documented as of this encounter
--- OUTSIDE RECORDS SUMMARY | 2022-05-22 03:24 | XMS_ITS | Encounter Summary ---
:1990 Author Organization [facility] Address [address] [place] [address] Care Team Providers Name Role Phone Unknown, Provider Primary Care Provider Reason for Visit Reason Comments Depression Encounter Details Date Type Department Care Team Description 02/01/2017 Office Visit [facility] Emilia Caal MD PTSD (post-traumatic stress disorder) (P rimary Dx); [facility] [address] [facility], [address] [place] [address] [place], [place] [phone] (Wo rk) Social History Tobacco Use Types Packs/Day Years [...] or older) documented as of this encounter Ordered Prescriptions Prescription Sig Dispensed Refills Start Date End Date QUEtiapine (SEROQUEL) 200 Take 1 Tab by mouth 30 Tab 2 0 02/01/2017 mg tablet at bedtime. documented in this encounter Progress Notes Emilia Caal MD - 02/01/2017 1130 EDT [facility] Psychiatry Follow Up Name: Amaya Mary : 1990 Chief Complaint: Chief Complaint Patient presents with ??? Depression Interim History: Amaya reports a very difficult last week. She lost a friend in a car accident, had an aunt pass away and she regretfully admits getting together with her ex-, who is still using. Amaya tested positive for cocaine and states that was likely secondary to kissing her ex- who had been using heavily. Amaya feels very low now because she is receiving strong consequences for the positive UA, including with her fire management officer and she is realizing she may not be able to moveto [place] when the baby is born. She says that before that her mood had been fairly stable though her sleep had been very poor. Amaya believes that more seroquel would be helpful for sleep and she will pursue an increase in her subutex, which she also hopes will help with sleep. Amaya is also upset that her clinical shoe caser is leaving [place]. She feels very connected with[facility], saying she hasn't been able to open up to anyone the way she has with [facility]. Amaya is apprehensive about the potential match they have offered her as a replacement and plans to advocate forsomeone else she knows from her groups. Current Medications: Current Outpatient Prescriptions Medication Sig Dispense Refill ??? acetaminophen (TYLENOL) 500 mg tablet Take 2 Tabs by mouth every 6 hours as needed for Pain. (Patient not taking: Reported on 01/09/2017) 200 Tab 3 ??? buprenorphine HCl (SUBUTEX) [address] 2 Tabs under the tongue daily for 7 days. Daily Max: 4 mg 14 Tab 0 ??? buprenorphine HCl (SUBUTEX) [address] 1 Tab under the tongue daily for 2 days. Daily Max: 8 mg 2 Tab 0 ??? diphenhydrAMINE (BENADRYL) 25 mg capsule Take 50 mg by mouth at bedtime as needed. ??? multivitamin vit-iron fumarate-FA (STUARTNATAL) 27 mg iron- 1 mg tablet tablet Take 1 Tab by mouth daily. 100 Tab 2 ??? omeprazole (PRILOSEC OTC) 20 mg tablet Take 1 Tab by mouth daily. 28 Tab 1 ??? ondansetron (ZOFRAN-ODT) 4 mg disintegrating tablet Take 1 Tab by mouth daily as needed for Nausea. 30 Tab 1 ??? pyridoxine, vitamin B6, (VITAMIN B6) 50 mg tablet Take 1 Tab by mouth daily. 90 Tab 4 ??? QUEtiapine (SEROQUEL XR) 200 mg XR tablet Take 1 Tab by mouth daily. 30 Tab 2 ??? QUEtiapine (SEROQUEL) 200 mg tablet Take 1 Tab by mouth at bedtime. 30 Tab 2 No current facility-administered medications for this visit. Other Health & Personal Information: Amaya is actively in a relationship with a female partner who plans to help raise the child when Amaya graduates from the [employer]. Physical Examination: Vital Signs: There were no vitals taken for this visit. Musculoskeletal: Muscle strength: Normal and Gait: Normal Mental Status Exam: Orientation: Person, Time, Place and Situation Attention: able to focus during the interview Concentration: Normal, though looked like attention would start to wander on a topic for too long Appearance: multiple piercings and tattoos on her neck. she is casually groomed with good hygeine, wearing makeup. 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 Assessment: Formulation: This is a 26 year old woman presenting with depression and anxiety. She has been diagnosed with Bipolar Disorder in the past as well as PTSD and ADHD. Amaya appears anxious and depressed in the context of a series of stressful events. She denies relapse, but nevertheless she appears athigher risk for relapse at this point, given her level of disappointment. She will benefit from the therapeutic groups at [place], and we agreed to an increase of 100 mg of seroquel at night to improve sleep, which should also help with depression and anxiety. In terms of her new shoe caser, I encouraged her to advocate for herself as her instinct to find someone she connects with might be best. Irma nging through relationships that are difficult is a great clinical skill, but Amaya may be too fragile at this time. She is already aware of the potential risks of seroquel during . Initial Treatment Plan/Goals: 1. Medication: Seroquel 200 mg XL formulation (to better cover the daytime); Seroquel 200 mg IR (forsleep); 2. Continue [place] Programming; 20-25 min of brisk walking daily 3. Therapy with [facility] (will have new shoe caser) 4. Subutex through MAT 5. Return in 3 weeks to psychiatry Emilia Caal MD 02/02/2017, 21:43 I spent a total of 25 minutes in face to face time with this patient today and 18 minutes of that time was spent in counseling and coordination of care as described in the progress note. documented in this encounter Plan of Treatment Not on filedocumented as of this encounter Goals Goal Patient Goal Associated Recent Patient-Stated? Author Type Problems Progress Abstain from General No Zimnie, Substance Use Kia Note: Reduce Substance Use Goal: Practice copi ng skills to abstain from illicit drug use Confidence level (1= Not very confident; 10 = Very confident): Not assessed Sources of support: [facility] Barriers to change: None Counseling was provided to assess readin ess, confidence and/or barriers to self-care. To learn more about your health please v isit: [email or web address]/Pages/Wellness-Resources/Mkxclghnn-Mqdrzo-Ek documented as of this encounter Visit Diagnoses Diagnosis PTSD (post-traumatic stress disorder) - Primary Posttraumatic stress disorder Primary insomnia Persistent disorder of initiating or juliana ntaining sleep documented in this encounter Discontinued Medications Medication Sig Discontinue Reason Start Date End Date QUEtiapine (SEROQUEL) 100 Take 1 Tab by mouth Reorder 12/20/19 17 02/01/2017 mg tablet at bedtime. documented as of this encounter Care Teams Personnel Supervisor Relationship Specialty Start Date End Date Unknown, Provider, PCP - General 01/23/17 02/02/17 documented as of this encounter
--- OUTSIDE RECORDS SUMMARY | 2022-05-22 03:24 | XMS_ITS | Encounter Summary ---
:1990 Author Organization [facility] Address [address] [place] [address] Care Team Providers Name Role Phone Unknown, Provider Primary Care Provider Reason for Visit Reason Onset Date Comments Medications Refill 02/01/2017 Encounter Details Date Type Department Care Team Description 02/01/2017 Orders Only [facility] Women's Fara Munroe , RN Services - [address] [address] Social History Tobacco Use Types Packs/Day Years [...] Sig Dispensed Refills Start Date End Date buprenorphine HCl Place 1 Tab under 2 Tab 0 02/01/2017 02/03/2017 (SUBUTEX) 8 mg sublingual the tongue daily tablet for 2 days. Daily Max: [address] 2 Tabs under 14 Tab 0 02/01/2017 02/07/2017 (SUBUTEX) 2 mg sublingual the tongue daily tablet for 7 days. Daily Max: 4 mg documented in this encounter Progress Notes Fara Munroe RN - 02/01/2017 0823 EDT Prescription called into pharmacy. Dispense 7 days of 2 mg tablets and 2 days of 8 mg tablets. Startdate 02/03/17. Delivery date 02/01/17. documented in this encounter Plan of Treatment Not on filedocumented as of this encounter Goals Goal Patient Goal Associated Recent Patient-Stated? Author Type Problems Progress Abstain from General No Zimnie, Substance Use Kia Note: Reduce Substance Use Goal: Practice copi ng skills to abstain from illicit drug use Confidence level (1= Not very confident; 10 = Very confident): Not assessed Sources of support: [facility] Barriers to change: None Counseling was provided to assess readin ess, confidence and/or barriers to self-care. To learn more about your health please v isit: [email or web address]/Pages/Wellness-Resources/Bdxewdueg-Kwwrew-Ne documented as of this encounter Visit Diagnoses Not on filedocumented in this encounter Discontinued Medications Medication Sig Discontinue Reason Start Date End Date buprenorphine HCl Place 2 Tabs under Reorder 01/19/201701/10 (SUBUTEX) 2 mg sublingual the tongue daily tablet for 14 days. Daily Max: [address] 1 Tab under Reorder 01/19/201702/01 (SUBUTEX) 8 mg sublingual the tongue daily tablet for 14 days. Daily Max: 8 mg documented as of this encounter Care Teams Hairspring Studder Relationship Specialty Start Date End Date Unknown, Provider, PCP - General 01/23/17 02/02/17 documented as of this encounter
--- OUTSIDE RECORDS SUMMARY | 2022-05-22 03:24 | XMS_ITS | Encounter Summary ---
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 those at HIGH MODERATE RISK: N/A RAPT TOOL: N/A SBIRT: SASQ (Single Alcohol Screening Question) How many times in the past year have you had 4 or more drinks in a single day?: Never How many times in the past year have you used an illegal drug or used a prescription medication for non-medical reasons?: More than once Intervention in place/initiated?: No, not indicated, deferred- pt incarcerated, will have full assessment by outpatient providers. FUNCTIONAL STATUS: Activities patient requires assistance: None Assistive Device: None COMMUNITY RESOURCES/SUPPORTS: Primary Care Provider: Provider None PCP Verified: No Specialists: None Type of Home Health Services: None DME Provider: None Pharmacy: [facility] 600 [facility] 600 [facility] [id number] - [place] [facility] [address] [facility] [id number] [id number] - [place], [place] - [address] [place] [address] [address] [facility] [id number] Home Health: None Other: DCF/CPS, Other (enter in comments) ([facility]) POST HOSPITAL TRANSITION PLAN: Amaya will d/c back to [facility], baby will d/c following 96 hour MELITA scoring and placement by [facility]. Pushpa Toscano [facility] 03/01/2017 10:13 #[id number] Addendum 10:51: ARABELLA received message from Maicol Michele at [facility]- court will be happening at 1pm and Maicol will call pt. She will update SW after court. Anita Aguilar MD - 03/01/2017 0646 EDT Progress Note CC: s/p Vaginal delivery S: Doing well. Having some pain from cramping while nursing. Tolerating regular diet without nausea/vomiting, ambulating and voiding independently without difficulty. Lochia minimal. Breast feeding going well. The patient denies CP/SOB/N/V/PEÑA/Dizziness/F/C/LE pain. O: BP 110/67 (BP Cuff Location: Left arm, Patient Position: Semi fowlers) Temp 37.2 ??C (99 ??F) (Tympanic) Resp 18 Ht 157.5 cm (62.01) Wt 73.1 kg (161 lb 2.5 oz) SpO2 97% ? Unknown BMI 29.47 kg/m2 Intake/Output Summary (Last 24 hours) at 03/01/17 0646 Last data filed at 03/01/17 0600 Gross per 24 hour Intake 3000 ml Output 4175 ml Net -1175 ml Gen: NAD Resp: Non-labored breathing CV: Regular pulse Abd: soft, nondistended, nontender, fundus firm @ umbilicus Ext: WWP, 2+DPs, 2+ edema bilaterally A/P: Amaya Mary is a 26 y.o. PPD#1 s/p at 39w3d. *Continue routine post-op/post- care. *Febrile to 38.2 at 0244 on 03/01: subsequently defervesced. Has been afebrile since. Continue to closely monitor. *Bipolar disorder: continue seroquel. * depression: pt aware of si/sx of pp depression. At particularly high risk given infant is being taken into custody and she is going to correction. Will continue to closely monitor *GHTN: Based on elevated blood pressures, met criteria for GHTN. Most recently normotensive, although intermittent mild range overnight. Will continue to closely watch blood pressures. If persistently mild range pressures, would treat with antihypertensives. *Gestational thrombocytopenia: Last platelets stable at 94. No need to further trend during this admission. Will follow up post . *Contraception: discussed with patient on PPD#1. Since she is in a same sex relationship, patient states that she does not need contraception. *Opiate Dependence: continue subutex 14 mg daily. *Varicella non-immune: Varivax prior to discharge *LSIL pap: needs colposcopy 6 wk pp *Continue current pain regimen. *Encourage ambulation, PO intake, support . *Dispo: to Intermediate pending clinical course Carissa MD Clari CHANGE BOOTH ATTENDANT PGY-4 03/01/17 6:52 Pt seen and agree with above. Likely gestational thrombocytopenia; needs pp follow up of plts -- no NSAIDs. Anita Lora MD Fara Major RN - 03/01/2017 0043 EDT 0:43 vomited her tylenol and motrin. Mery Corley RN - 02/28/2017 2343 EDT DCF made aware of the . Plan is for baby to remain with Mom throughout stay until medically clear. Pt plans on breast feeding. There is a court hearing set for tomorrow. Call DCF if anything concerning comes up. Jammie Felix MD - 02/28/2017 2200 EDT Labor Progress Note S: Comfortable with epidural, just reporting some discomfort with catheter. O: BP 112/60 Temp 36.4 ??C (97.5 ??F) (Tympanic) Resp 16 Ht 157.5 cm (62.01) Wt 73.1 kg (161 lb 2.5 oz) BMI 29.47 kg/m2 EFM: BL 120 bpm, mod variability, pos accels, no decels, Cat I FHT TOCO: q 1.5-3 min SVE: 5/100/-1, AROM for clear fluid at 22:00 I&O By Type - 3 Shifts Including Current In: 3000 [I.V.:3000] Out: 2124 [Urine:2124] Recent Labs 02/27/17 1704 02/28/17 0630 WBC 7.02 6.55 HCT 33.7* 34.1* HGB 11.8 12.0 PLT 94* 94* CREATININE 0.59 -- ALT 28 -- AST 41 -- URICACID 6.5 -- LDH 458 -- FIBRINOGEN 464* -- A/P: 26 y.o. at 39w3d with c/b opioid dependence, hep C, bipolar disorder, h/o infective endocarditis undergoing IOL for gestational thrombocytopenia. Cat I FHT IOL - s/p buccal miso x2, now on pitocin at 10, increase per protocol as tolerated - anticipate progress per multigravida once in labor ?? Gestational thrombocytopenia - platelets 141 in beginning of -> 94 on presentation and stable on repeat - normal PT, PTT ?? 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 Pain - comfortable with epidural - hx of opioid dependence, thrombocytopenia Flank pain - no dysuria, but reports hx of recurrent UTIs - UA pending ?? Hx of elevated BPs - one severe range BP, one mild range BP taken at correction, no further elevated BPs seen, no hx of priorelevated BPs - PEC labs largely wnl, with neg P/C, with exception of platelets - continue to monitor, low suspicion for hypertensive disease currently ?? Hx of bacterial endocarditis - nl echo this - plan for 2g amoxicillin 30-60 min prior to delivery ?? Opioid dependence - continue subutex 14 mg daily - neg UDS on admission ?? Hep C - viral load pending, last 2.3 million - AST/ALT wnl - avoid prolonged ROM, FSE, OVD - GI referral ?? Bipolar disorder/PTSD - continue seroquel 300 mg QHS ?? Tobacco dependence - nicotine replacement PRN ?? Global hemorrhage risk: Medium Rh neg, cord blood at delivery GBS neg Immunizations indicated : Varicella Jammie Golden MD 02/28/2017 22:00 Tiffany David RN - 02/28/20171927 EDT 1921 Received report from Becki Deleon RN. Patient here for IOL for thrombocytopenia. Patient currently very uncomfortable with contractions. Plan for epidural. Turned pitocin down to 4ml/hr until epidural in. FHR Cat 1. 1927 Anesthesia said they would be in soon, fluid bolus started. 1934 patient up to bathroom to void and change into gown 1953 epidural placed, patient positioned to left side. 2158 AROM for clear by Dr. Chico ROTH 5/100/-1 [address] Ch[place] ROTH 7/100/0 anesthesia notified for top off 2249 Anesthesia at bedside for top off. 0 Dr. Chico Roth 10100/+1 starting to push Jammie Felix MD - 02/28/20171925 EDT Labor Progress Note S: Teary with contractions, requesting epidural. Also reporting right flank pain. O: BP 128/78 Temp 36.3 ??C (97.3 ??F) (Tympanic) Resp 20 Ht 157.5 cm (62.01) Wt 73.1 kg (161 lb 2.5 oz) BMI 29.47 kg/m2 EFM: BL 120 bpm, mod variability, pos accels, no decels, Cat I FHT TOCO: q 1-3 min SVE: 3/-1 I&O By Type - 3 Shifts Including Current In: 1999 [I.V.:1999] Out: 2124 [Urine:2124] Recent Labs 02/27/17 1704 02/28/17 0630 WBC 7.02 6.55 HCT 33.7* 34.1* HGB 11.8 12.0 PLT 94* 94* CREATININE 0.59 -- ALT 28 -- AST 41 -- URICACID 6.5 -- LDH 458 -- FIBRINOGEN 464* -- A/P: 26 y.o. at 39w3d with c/b opioid dependence, hep C, bipolar disorder, h/o infective endocarditis undergoing IOL for gestational thrombocytopenia. Cat I FHT IOL - s/p buccal miso x2, now on pitocin at 6 with occasional tachy-systole, FHT tolerating well; continue to increase pitocin per protocol and watch FHT for distress - delayed AROM due to Hep C, plan to AROM once in good pattern again after epidural placement - anticipate progress per multigravida once in labor ?? Gestational thrombocytopenia - platelets 141 in beginning of -> 94 on presentation and stable on repeat - s/p anesthesia consult, normal PT, PTT ?? 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 Pain - s/p anesthesia consult, requesting epidural now, anesthesia notified - hx of opioid dependence, thrombocytopenia Flank pain - no dysuria, but reports hx of recurrent UTIs - UA pending ?? Hx of elevated BPs - one severe range BP, one mild range BP taken at correction, no further elevated BPs seen, no hx of priorelevated BPs - PEC labs largely wnl, with neg P/C, with exception of platelets - continue to monitor, low suspicion for hypertensive disease currently ?? Hx of bacterial endocarditis - nl echo this - plan for 2g amoxicillin 30-60 min prior to delivery ?? Opioid dependence - continue subutex 14 mg daily - neg UDS on admission ?? Hep C - viral load pending, last 2.3 million - AST/ALT wnl - avoid prolonged ROM, FSE, OVD - GI referral ?? Bipolar disorder/PTSD - continue seroquel 300 mg QHS ?? Tobacco dependence - nicotine replacement PRN ?? Global hemorrhage risk: Medium Rh neg, cord blood at delivery GBS neg Immunizations indicated : Varicella Jammie Golden MD 02/28/2017 19:26 Kenneth Reyna - 02/28/2017 1743 EDT Labor Progress Note S: Feeling contractions but no change in intensity, no rectal pressure. Urinating frequently. O: BP 125/80 Temp 36.1 ??C (97 ??F) (Tympanic) Resp 18 Ht 157.5 cm (62.01) Wt 73.1 kg (161 lb 2.5 oz) BMI 29.47 kg/m2 EFM: BL 135 bpm, mod variability, pos accels, no decels, Cat I FHT TOCO: q 1-3 min SVE: deferred - last /-3 I&O By Type - 3 Shifts Including Current In: 1999 [I.V.:1999] Out: 1525 [Urine:1525] Recent Labs 02/27/17 1704 02/28/17 0630 WBC 7.02 6.55 HCT 33.7* 34.1* HGB 11.8 12.0 PLT 94* 94* CREATININE 0.59 -- ALT 28 -- AST 41 -- URICACID 6.5 -- LDH 458 -- FIBRINOGEN 464* -- A/P: 26 y.o. at 39w3d with c/b opioid dependence, hep C, bipolar disorder, h/o infective endocarditis undergoing IOL for gestational thrombocytopenia. Cat I FHT IOL - s/p buccal miso x2, now on pitocin at 3 with occasional tachy-systole but no cervical change. Willattempt to increase pit past 3 and watch strip for distress -delayed arom due to Hep C but if can not increase pit would plan for AROM in next 1-2 hours. - anticipate progress per multigravida once in labor ?? Gestational thrombocytopenia - platelets 141 in beginning of -> 94 on presentation and stable on repeat - s/p anesthesia consult, normal PT, PTT ?? 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 Pain - s/p anesthesia consult, desires epidural in labor - hx of opioid dependence, thrombocytopenia ?? Hx of elevated BPs - one severe range BP, one mild range BP taken at correction, no further elevated BPs seen, no hx of priorelevated BPs - PEC labs largely wnl, with neg P/C, with exception of platelets - continue to monitor, low suspicion for hypertensive disease currently ?? Hx of bacterial endocarditis - nl echo this - plan for 2g amoxicillin 30-60 min prior to delivery ?? Opioid dependence - continue subutex 14 mg daily - neg UDS on admission ?? Hep C - viral load pending, last 2.3 million - AST/ALT wnl - avoid prolonged ROM, FSE, OVD - GI referral ?? Bipolar disorder/PTSD - continue seroquel 300 mg QHS ?? Tobacco dependence - nicotine replacement PRN ?? Global hemorrhage risk: Medium Rh neg, cord blood at delivery GBS neg Immunizations indicated : Varicella Kenneth Pedro MD 02/28/2017 17:43 Kenneth Reyna - 02/28/2017 1411 EDT Labor Progress Note S: Feeling contractions still not uncomfortable. Really not ready to have her baby but knows it willhappen soon. O: BP 114/70 Temp 36 ??C (96.8 ??F) (Tympanic) Resp 18 Ht 157.5 cm (62.01) Wt 73.1 kg (161 lb 2.5 oz) BMI 29.47 kg/m2 EFM: BL 135 bpm, mod variability, pos accels, no decels, Cat I FHT - has had some late decels over the past few hours, but currently cat I TOCO: q 1-3 min SVE: 2/80/-3 Recent Labs 02/27/17 1704 02/28/17 0630 WBC 7.02 6.55 HCT 33.7* 34.1* HGB 11.8 12.0 PLT 94* 94* CREATININE 0.59 -- ALT 28 -- AST 41 -- URICACID 6.5 -- LDH 458 -- FIBRINOGEN 464* -- A/P: 26 y.o. at 39w3d with c/b opioid dependence, hep C, bipolar disorder, h/o infective endocarditis undergoing IOL for gestational thrombocytopenia. Cat I FHT IOL - s/p buccal miso x2, now on pitocin at 3 with occasional tachy-systole -delayed arom due to Hep C - anticipate progress per multigravida once in labor -hold pit temporarily for food. ?? Gestational thrombocytopenia - platelets 141 in beginning of -> 94 on presentation and stable on repeat - s/p anesthesia consult, normal PT, PTT ?? 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 Pain - s/p anesthesia consult, desires epidural in labor - hx of opioid dependence, thrombocytopenia ?? Hx of elevated BPs - one severe range BP, one mild range BP taken at correction, no further elevated BPs seen, no hx of priorelevated BPs - PEC labs largely wnl, with neg P/C, with exception of platelets - continue to monitor, low suspicion for hypertensive disease currently ?? Hx of bacterial endocarditis - nl echo this - plan for 2g amoxicillin 30-60 min prior to delivery ?? Opioid dependence - continue subutex 14 mg daily - neg UDS on admission ?? Hep C - viral load pending, last 2.3 million - AST/ALT wnl - avoid prolonged ROM, FSE, OVD - GI referral ?? Bipolar disorder/PTSD - continue seroquel 300 mg QHS ?? Tobacco dependence - nicotine replacement PRN ?? Global hemorrhage risk: Medium Rh neg, cord blood at delivery GBS neg Immunizations indicated : Varicella Kenneth Pedro MD 02/28/2017 14:11 Pushpa Mckenzie - 02/28/2017 1123 EDT ARABELLA notified DCF worker (Maicol Michele) that pt is here to deliver. She will be in contact with ARABELLA regarding the plan for this baby. ARABELLA will meet with Amaya post delivery. Please page with any needs. Pushpa Toscano, [id number] Kenneth Reyna - 02/28/2017 1120 EDT Labor Progress Note S: Feeling contractions but not too uncomfortable. No LOF. Still okay without an epidural. O: BP 115/76 Temp 36.5 ??C (97.7 ??F) (Tympanic) Resp 18 Ht 157.5 cm (62.01) Wt 73.1 kg (161 lb 2.5 oz) BMI 29.47 kg/m2 EFM: BL 135 bpm, mod variability, pos accels, no decels, Cat I FHT - has had some late decels over the past few hours, but currently cat I TOCO: q 1-3 min SVE: deferred Recent Labs 02/27/17 1704 02/28/17 0630 WBC 7.02 6.55 HCT 33.7* 34.1* HGB 11.8 12.0 PLT 94* 94* CREATININE 0.59 -- ALT 28 -- AST 41 -- URICACID 6.5 -- LDH 458 -- FIBRINOGEN 464* -- A/P: 26 y.o. at 39w3d with c/b opioid dependence, hep C, bipolar disorder, h/o infective endocarditis undergoing IOL for gestational thrombocytopenia. Cat I FHT IOL - s/p buccal miso x2, now on pitocin at 2.5 with occasional tachy-systole -delayed arom due to Hep C - anticipate progress per multigravida once in labor ?? Gestational thrombocytopenia - platelets 141 in beginning of -> 94 on presentation and stable on repeat - s/p anesthesia consult, normal PT, PTT ?? 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 Pain - s/p anesthesia consult, desires epidural in labor - hx of opioid dependence, thrombocytopenia ?? Hx of elevated BPs - one severe range BP, one mild range BP taken at correction, no further elevated BPs seen, no hx of priorelevated BPs - PEC labs largely wnl, with neg P/C, with exception of platelets - continue to monitor, low suspicion for hypertensive disease currently ?? Hx of bacterial endocarditis - nl echo this - plan for 2g amoxicillin 30-60 min prior to delivery ?? Opioid dependence - continue subutex 14 mg daily - neg UDS on admission ?? Hep C - viral load pending, last 2.3 million - AST/ALT wnl - avoid prolonged ROM, FSE, OVD - GI referral ?? Bipolar disorder/PTSD - continue seroquel 300 mg QHS ?? Tobacco dependence - nicotine replacement PRN ?? Global hemorrhage risk: Medium Rh neg, cord blood at delivery GBS neg Immunizations indicated : Varicella Kenneth Pedro MD 02/28/2017 11:21 Radha العلي RN - 02/28/2017 4986 EDT 0730: assume care of the pt from Mayank Luna RN from carding supervisor. Pt is a here for IOL at 39+3 weeks. Pt is incarcerated for violation of her parol. There is a senior network security engineer present in the room. Start pitocin at 2 mu/min at this time. Pt is requesting an anesthesia consult at this time. Pt has NKDA. GBS-, A- blood type. Pt PLT are 94 this am labs. 0737: DCF is involved social work has been notified of pt being admitted. Pt is pleasant and answering questions freely. Pt had breakfast this am prior to pitocin augmentation. 0800:Dr. Pedro in room to assess pt and discuss plan of care 0910: 14 mg of buprenorphine given SL. 0933: Decrease pitocin to 2 mu/min due to hyperstimulation. 1330:pitocin is off for pt to eat. 1346: EFM off for pitocin being off. 1500:Pitocin started at 2 mu/min EFM placed on. 1900: Pt requesting anesthesia at this time. 191: dr. Golden in room to assess pt. 1915: Anesthesia called by Dr. Golden. 2: Report off to Elayne Cummins RN Jammie Felix MD - 02/28/2017 0613 EDT R3 Labor Progress Note S: Starting to feel some contractions. Would like to eat breakfast this morning O: BP 115/71 Temp 36 ??C (96.8 ??F) (Tympanic) Resp 16 Ht 157.5 cm (62.01) Wt 73.1 kg (161 lb 2.5 oz) BMI 29.47 kg/m2 EFM: BL 135 bpm, mod variability, no accels, no decels, Cat I FHT TOCO: q 3-4 min SVE: 2/80/-2 Recent Labs 02/27/17 1704 WBC 7.02 HCT 33.7* HGB 11.8 PLT 94* CREATININE 0.59 ALT 28 AST 41 URICACID 6.5 LDH 458 FIBRINOGEN 464* A/P: 26 y.o. at 39w3d with c/b opioid dependence, hep C, bipolar disorder, h/o infective endocarditis undergoing IOL for gestational thrombocytopenia. Cat I FHT IOL - s/p buccal miso x2, now lana too frequently for additional dose - start pitocin after breakfast, titrate up per protocol, AROM when able - anticipate progress per multigravida once in labor ?? Gestational thrombocytopenia - platelets 141 in beginning of -> 94 on presentation - s/p anesthesia consult - repeat CBC pending ?? 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 Pain - s/p anesthesia consult, desires epidural in labor - hx of opioid dependence, thrombocytopenia ?? Hx of elevated BPs - one severe range BP, one mild range BP taken at correction this morning, no further elevated BPs seen, no hx of prior elevated BPs - PEC labs largely wnl, with neg P/C, with exception of platelets - continue to monitor, low suspicion for hypertensive disease currently ?? Hx of bacterial endocarditis - nl echo this - plan for 2g amoxicillin 30-60 min prior to delivery ?? Opioid dependence - continue subutex 14 mg daily - neg UDS on admission ?? Hep C - viral load pending, last 2.3 million - AST/ALT wnl - avoid prolonged ROM, FSE, OVD - GI referral ?? Bipolar disorder/PTSD - continue seroquel 300 mg QHS ?? Tobacco dependence - nicotine replacement PRN ?? Global hemorrhage risk: Medium Rh neg, cord blood at delivery GBS neg Immunizations indicated : Varicella Pitocin Augmentation Bundle 39w3d Indication: gestational thrombocytopenia EFW: 7.5 lbs Reassuring FHT?: Y Tachysystole?: N Assessment of Pelvic Adequacy: Y Active T&S? Y Informed Consent: Y Attending Concurs: Y Jammie Golden MD 02/28/2017 7:06 Carlie Wheeler MD - 02/28/2017 0010 EDT R3 Labor Progress Note S: Very comfortable. Coming to terms with the need for induction in labor. Reminiscing about labor courses with prior infants. She was in labor for 4 days with the first and had a fast labor with the second. She is not feeling contractions. O: BP 127/70 Temp 36.7 ??C (98.1 ??F) Resp 16 Ht 157.5 cm (62.01) Wt 73.1 kg (161 lb 2.5 oz) BMI 29.47 kg/m2 EFM: BL 135 bpm, mod variability, prolonged accel to 160-170s for 16 min with return to new bl 150 ,no decels, Cat I FHT TOCO: Irritable ctx q 2-4 min SVE: deferred Recent Labs 02/27/17 1704 WBC 7.02 HCT 33.7* HGB 11.8 PLT 94* CREATININE 0.59 ALT 28 AST 41 URICACID 6.5 LDH 458 FIBRINOGEN 464* A/P: 26 y.o. at 39w3d with c/b opioid dependence, hep C, bipolar disorder, h/o infective endocarditis undergoing IOL for gestational thrombocytopenia. Cat I FHT #IOL: S/p buccal miso x1 at 2200, continue q 4hr hours. Plan pit to AROM with cervical dilation. # Gestational thrombocytopenia. Plts 141 08/2016--> 94 on admission. Severe range bps at correction, but normotensive here. Pre-eclampsia labs otherwise wnl and P:C 0.12. Monitor closely for elevated bps. # H/o infective endocarditis: mitral valve vegetation . Bl echo wnl. Plan amoxicillin for SBE ppx when in active labor. #FWB: Cat I FHT, CEFM. EFW 36%ile at 32 wks with posterior placenta. # Opioid dependence: Continue subutex 14mg, UDS neg # Hep C: LFTs enl, VL 2 million 12/12 # Bipolar disorder: Continue seroquel 100mg IR qhs # Hemorrhage Risk: medium risk due toIOL, active T&S, HCT 33.7 #Global:GBS neg, Rh neg #Pain: S/p anesthesia consult. Will need plt level prior to epidural. Consider early catheter placement. Carlie Bains M.D. PGY3 Pager [phone] Mayank Saldaña RN - 02/27/2017 7983 EDT 2309: Report from DOMO Aldana, care assumed. Patient resting in bed. 232: Pt resting in bed; states that she is not feeling ctx 0216: Ok to give 2nd miso dose per MD Golden, patient resting in bed. States she does not feel contractions. 0500: Patient continues to rest in bed; states that she does not feel contractions and is able to sleep. MD Golden states ok for patient to have toast/crackers. 0610: Dr. Golden in room to see patient; SVE=2/80/-2. Plan to have patient order and eat breakfast, and then start pitocin. Patient ordered food and it will arrive to unit at 0700. 07: Report given to DOMO Deleon. Care transferred ion, Willa Jones RN - 02/27/20171957 EDT 1924 assumed care of pt. Pt is a at 39+2 wga admitted for evaluation of elevated BP. Pt's plt 94, Dr. Calderon and Dr. Golden at bedside discussing with pt the POC. Per Dr. Calderon the pt will be admitted for IOL. Pt denies VB, n/v, epigastric pain, vision change at this time. Pt states she has had h/a through out the . Pt is currently incarcerated with a air pollution inspector at bedside. Pt states that she does not want to have her baby yet until she figures out what is going to happen to her.).. Ptstates that she knows that she will have to hand her baby off to [facility]. Pt stated that she went to correction on after being kicked out of [facility] after a person reported that she had a strip of subutex2 months ago. RN gave support, and is waiting for pt to call out with her decision. 1999 pt requesting primary c/s. RN explained that that would not be the best option for her with thecircumstances (subutex). Explained to pt that she will having a harder time with pain control after c/s, and risks to future pregnancies. D/W Dr. Golden. Dr. Golden will talk with pt if needed. 2054 Anes resident Cristian COHEN at bedside 2123 Dr. Golden at bedside. SVE unable to reach cerix 2127 vertex by U/S 2140 pt moved to room 6 for IOL 2211 PIV placed x 3 attempts 2215 miso 25 mcg placed buccal HYATKaur Wright RN - 02/27/2017 1803 EDT Pt here for increased BP's-incarcerated.120/68 and 121/76.Pre-eclamptic labs sent off Urine obtained at 1810.Security here with pt. 1809-Urine sent off 1822-114/[id number] 185-Eating dinner HYATClari, Carissa Dietz MD - 02/27/2017 1718 EDT L&D Triage Note C/C: Elevated blood pressures HPI: Amaya Mary is a 26 y.o. @ 39w2d who presents with elevated blood pressures at the correction. The first one was this morning and it was 166/110, and the second one was 156/92. At that point the correction called the nursing line who advised her to come into L&D. On L&D, she feels well. She is hungry, because she was about to eat dinner but then had to leave. She states that she has daily headaches since being , but they improve with tylenol and shehas had nothing outside of the norm for her recently. She denies any abdominal pain, chest pain, or SOB. She endorses good movement. She denies any contractions, LOF, or VB. O: BP 120/68 Temp 36.7 ??C (98.1 ??F) Resp 18 FHT: 120 baseline, mod variability, - accels, - decels; Category I tracing [place]: none Gen: NAD, appears comfortable Lungs: no increased work of breathing Heart: Regular pulse Abd: soft, gravid uterus, non-tender to palpation Ext: WWP, NT, 1+ PE bilaterally; 2+ patellar DTRs A/P: Amaya Mary is a 26 y.o. @ 39w2d presenting for a pre- eclampsia workup after having elevated blood pressures at correction. Category I tracing. Normotensive on admission, AVSS. - Will obtain preE labs, urine P:C - Based on the results of labs, will either discharge home or admit for induction of labor. 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 Discussed with Dr. Fantasma Montague MD [employer] ATTENDANT PGY-4 02/27/17 17:18 documented in this encounter H&P Notes Hudson Calderon MD - 02/27/2017 EDT Department of Obstetrics History & Physical Admit Date: 02/27/2017 Chief Complaint Patient presents with ??? Hypertension first high BP in correction today around 11am Admission indication: Other (comment) Maternal transport/Outside delivery: No HPI: Amaya Mary is a 26 y.o. at 39w2d by 8+4 week scan who presents to L&D from correction after two documented high blood pressures, 166/110 followed by 156/92. After these blood pressures it was advised that she come to L&D for further evaluation. On presentation she feels well. She has the same daily headache that she has had throughout , and she denies abdominal pain, chest pain, or SOB. She endorses good movement and denies contractions, loss of fluid or vaginalbleeding. She is stating she is not ready to have her baby because she does not have infant childcare provider set up for him yet and she is still incarcerated. 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 8) arrhythmia seen on detailed US, with normal echo 9) current incarceration Review of Systems: See HPI Current Complications: Does patient have any current complications?: No Substance abuse: Opioids - buprenorphine- COGS Substance abuse treatment: Treatment started prepregnancy Prior admission for PTL (this ): No Prior : None growth abnormality: None Multiple gestation: No, Adames Second or third trimester bleeding: Other (comment) (Subchorionic hematoma noted early in ) Abnormal placentation/cord: None Alloimmunization: None Testing: Genetic screening: None Genetic screening abnormalities: None Maternal/ imaging: First trimester US; echo;Detailed US (Underwent a echo for PACs on detailed) Congenital anomalies: Renal (Duplicated renal collecting system) Dx requiring follow-up: Renal procedures: None procedures: None Selective reduction: None Medication Exposure: Significant medication exposure: Other (comment) (Seroquel) Labs: Rh neg/ Antibody screen neg / Rubella immune / Varicella non-immune / RPR NR / Gonorrhea neg / Chlamydia neg / Hepatitis B neg/ Hepatitis C pos / HIV neg / 1hr GTT not done / GBS neg Ultrasound Date GA EFW BRYCE An[facility] Dopplers 10/17/2016 20+2 Subchorionic hemorrhage, male fetus, infrequent PACs, R kidney duplicated collecting system 01/09/2017 32+2 1966g, 36%ile 19 Posterior placenta, FOB History: Father of the baby medical history: Unknown OB History Para Term AB SAB TAB Ectopic Multiple Living 3 2 2 2 # Outcome Date GA Lbr Getachew/2nd Weight Sex Delivery Anes PTL Lv 3 Current 2 Term 02/2011 3033 g (6 lb 11 oz) F Vag-Spont Y 1 Term 02/2010 3005 g (6 lb 10 oz) M Vag-Spont Y Previous Complications: Has patient had any prior complications?: No Prior delivery: None : None growth abnormality: None Multiple gestation: No, Adames Past Medical History Past Surgical History Past Medical History: Diagnosis Date ??? Bipolar affective ??? Endocarditis, bacterial, acute/subacute 4 years ago/ will need PPX on delivery ??? Hepatitis C virus Past Surgical History: Procedure Laterality Date ??? TONSILLECTOMY AND ADENOIDECTOMY 12yo Past Gynecological History Social History Most recent pap LGSIL, HR HPV, plan for PP colpo No hx of HSV Social History Substance Use Topics ??? Smoking status: Current Every Day Smoker Packs/day: 1.50 Types: Cigarettes Last attempt to quit: 07/08/2016 ??? Smokeless tobacco: Never Used Comment: Smoker for years until recently incarcerated again ??? Alcohol use No has no drug history on file. Medications Allergies Prescriptions Prior to Admission Medication Sig Dispense Refill Last Dose ??? acetaminophen (TYLENOL) 500 mg tablet Take 2 Tabs by mouth every 6 hours as needed for Pain. 200Tab 3 02/27/2017 ??? buprenorphine HCl (SUBUTEX) [address] 3 Tabs under the tongue daily for 6 days. Daily Max: 6 mg 18 Tab 0 02/27/2017 ??? buprenorphine HCl (SUBUTEX) [address] 1 Tab under the tongue daily for 7 days. Daily Max: 8 mg 7 Tab 0 02/27/2017 ??? diphenhydrAMINE (BENADRYL) 25 mg capsule Take 50 mg by mouth at bedtime as needed. 02/27/2017 ??? multivitamin vit-iron fumarate-FA (STUARTNATAL) 27 mg iron- 1 mg tablet tablet Take 1 Tab by mouth daily. 100 Tab 2 02/27/2017 ??? naloxone 4 mg/actuation spray,non-aerosol 4 mg by nasal route as needed (Daily). 2 Each 3 ??? omeprazole (PRILOSEC OTC) 20 mg tablet Take 1 Tab by mouth daily. 28 Tab 1 02/27/2017 ??? ondansetron (ZOFRAN-ODT) 4 mg disintegrating tablet Take 1 Tab by mouth daily as needed for Nausea. 12 Tab 1 Past Month ??? pyridoxine, vitamin B6, (VITAMIN B6) 50 mg tablet Take 1 Tab by mouth daily. 90 Tab 4 02/27/2017 ??? QUEtiapine (SEROQUEL XR) 200 mg XR tablet Take 1 Tab by mouth daily. 30 Tab 2 02/27/2017 ??? QUEtiapine (SEROQUEL) 100 mg tablet Take 1 Tab by mouth at bedtime. 30 Tab 2 02/27/2017 ??? QUEtiapine (SEROQUEL) 200 mg tablet Take 1 Tab by mouth at bedtime. 30 Tab 2 02/27/2017 Allergies Allergen Reactions ??? Bee Pollens Objective: Weights Weight : 73.1 kg (161 lb 2.5 oz) Patient Vitals for the past 8 hrs: BP Heart Rate Resp Temp 02/27/172021 127/70 86 BPM - 02/27/17 1931 115/64 77 BPM 16 - 02/27/17 1821 - - - 02/27/17 1746 121/76 77 BPM - 02/27/17 1731 - - 02/27/17 1652 120/68 78 BPM 18 36.7 ??C (98.1 ??F) General: NAD Cardiovascular: regular rate Respiratory: no increased work of breathing Abdomen: soft, gravid, non-tender cephalic by Portillo's, EFW 7 lbs Extremities: wwp, 1+ PE bilaterally, 2+ patellar DTR Physical Lie: Longitudinal Presentation: Vertex FHT: 125 baseline. mod variability, + accels, - decels; Cat I tracing. TOCO: flat SSE: deferred SVE: 1/60/-2, cephalic by bedside US 02/27/2017 17:04 Sodium 134 (L) Potassium 4.3 CO2 22 Chloride 103 Creatinine 0.59 ALT 28 GFR, Calculated 128 Glucose, Serum 112 (H) AST 41 LDH 458 Uric Acid 6.5 02/27/2017 17:04 WBC 7.02 RBC 4.08 Hemoglobin 11.8 HCT 33.7 (L) MCV 83 MCH 28.9 MCHC 35.0 RDW-CV 13.3 RDW-SD 40.0 PLT 94 (L) MPV 13.2 (H) Smear scan only: Slide was examine... Fibrinogen 464 (H) 02/27/2017 17:05 Color Yellow Clarity, UA Clear Specific [place], Urine 1.015 pH, UA 6.0 Glucose, UA Neg Bilirubin, UA Neg Ketones Neg Blood, UA Neg Protein, UA Neg Urobilinogen, UA 1.0 Nitrite, UA Neg Leuk Esterase 1+ (A) Culture if Indicated Culture indicated... BACTERIAL CULTURE, URINE Rpt (IN PROCESS) Creatinine, Urn Elsie 74.9 Tot Prot,Ur Random 9 UPRO mg/mg Cr, Ur 0.12 Assessment/Problems/Plan: Amaya Brenda Mary is a 26 y.o. at 39w2d by 8 week scan presentingfor pre-eclampsia work-up. Low concern for pre-eclampsia given largely normal labs and normal blood pressures on L&D, however with new gestational thrombocytopenia. Plan for induction given decreasing platelets, concern for previously elevated BPs in correction, and term . Cat I FHT. IOL - admit to L&D, T&S, place IV - given low justice score and that patient lana less than 3/10 min, plan to start induction with misoprostol - re-evaluate in four hours for additional misoprostol vs transition to pitocin - anticipate progress per multigravida once in labor Gestational thrombocytopenia - platelets 141 in beginning of -> 94 on presentation - early consult with anesthesia for epidural FWB - continuous EFM 2/2 induction, cat I FHT - suspected cardiac arrhythmia, with normal echo - suspected right renal duplicated collecting system - 32+2: 1966g, 36%ile, posterior placenta Pain - consult anesthesia, as patient would like epidural in labor - hx of opioid dependence, thrombocytopenia Hx of elevated BPs - one severe range BP, one mild range BP taken at correction this morning, no further elevated BPs seen, no hx of prior elevated BPs - PEC labs all wnl, with neg P/C, with exception of platelets - continue to monitor, low suspicion for hypertensive disease currently Hx of bacterial endocarditis - nl echo this - plan for 2g amoxicillin 30-60 min prior to delivery Opioid dependence - continue subutex 14 mg daily - neg UDS on admission Hep C - viral load pending, last 2.3 million - AST/ALT wnl - avoid prolonged ROM, FSE, OVD - GI referral Bipolar disorder/PTSD - continue seroquel 300 mg QHS Tobacco dependence - nicotine replacement PRN Patient plans to breastfeed?: Yes Breastmilk contraindication: None Planning: Prior uterine surgery: No candidate?: Not applicable Waterbirth planned: No Home : No Global hemorrhage risk: Medium Rh neg, cord blood at delivery GBS neg Immunizations indicated : Varicella Discussed with Carlie Bains MD and Hudson Calderon MD. Jammie Golden MD 02/27/2017 21:36 OB Attending Attestation Attestation: I saw and examined the patient myself on 02/27/17 and I agree with the findings and plan of care documented in the resident's note. Plan to admit for likely gestational thrombocytopenia at 39+2 in the setting of elevated pressures at an outside facility and poor access to care given incarcerated status. Plan for anesthesia consult and timing of antibiotics for bacterial endocarditis. Hudson Calderon MD 02/28/2017 7:09 documented in this encounter Miscellaneous Notes Plan of Care - Radha Yuan RN - 03/03/2017 1719 EDT Problem: Daily Care Plan Goals Goal: Care Plan Documentation 03/03/17 0829 Care Plan Focus Area of Focus Discharge Plan Goal This Shift Discharge plan to be established today D: Day 3 s/p vaginal delivery. Pt is a stable PP. Pt is appropriately upset about leaving baby here. A: Asked MDs about keeping pt as a boarder to care for baby. SW asked corrections and they declined. Foster mom here at bedside and supportive. Report given to [facility] charge nurse Dony. R: Teary mom at discharge. Discharged at 1730 to correctional facility with guards. Plan of Care - Pita Hickman RN - 03/03/2017 0318 EDT Problem: Daily Care Plan Goals Goal: Care Plan Documentation Outcome: Ongoing 03/02/17 2121 Care Plan Focus Area of Focus Pain/ Comfort Goal This Shift patient will become more comfortable Data: Patient is a , GBS -, A- mother who had an on 02/28/17 at 2321 at 39 weeks 3 days afterIOL for gestational hypertension and gestation thrombocytopenia. Patient has stable vitals and assessments. Patient rates pain at a 5-8/10 for lower back pain/uterine cramping and has taken t ylenol 1000 mg for it, does not want ice or heat therapy. Patient is . Patient has a history of opiate dependence and is on subutex 14 mg daily. She is currently incarcerated and DCF has taken custody of baby, but she is still allowed to care for him while in the hospital. She has hepatitis C with a high viral load. She has a history of bipolar disorder with PTSD, bacterial endocarditis (received antibiotics prior to delivery), and was exposed to parovirus. Action: Vitals and assessments per orders, 1000 mg tylenol PO q 6, patient educated on and assistance given as needed, encouragement of a low stimulation environment, heat packs and ice packs offered, emotional support given, hourly rounding completed. Response: Pain level high but we cannot given ibuprofen due to platelet level and patient has statedshe does not want narcotics (and we do not have any order for them anyway), patient is also declining non-pharmacological interventions, is voiding well, verbalized understanding of MELITA education and is doing well at keeping a low stimulation environment/reporting symptoms to RN, is napping for short periods of time in between needs. Mother understands she might be discharged today but was hoping not to be because she wants to be here while the is still a patient so she can breastfeed and take care of . Stable, continue current care and education. Pita Hickman RN 03/03/2017 3:10 Problem: Lifecycle: : Goal: Chance of risk for complications during the period will decrease Outcome: Met This Shift lan of Care - Radha Yuan RN - 03/02/2017 1720 EDT Problem: Daily Care Plan Goals Goal: Care Plan Documentation 03/02/17 0841 Care Plan Focus Area of Focus Education Goal This Shift PP education completed D: Day 2 . complicated by opiate dependence: subutex. Also: chronic HCV; Bipolar disorder; PTSD; low platelets; other more remote issues. Pt. Incarcerated and baby boy in DCF custody. Pt has stable PP check and VS wnl. Likely return to [facility] tomorrow. A: Observed positive, safe and supportive infant care. Pt was appropriate at all times today. Gave verbal maternal discharge education and will reinforce with video. Gave positive reinforcement and encouragement. Plan in place for close friend to have foster custody at discharge. R: Pt appears to be coping well and verbalizes a hopeful future after her release. Continued awareness of high risk for Post Depression. Plan of Care - Pita Hickman RN - 03/02/2017 0350 EDT Problem: Daily Care Plan Goals Goal: Care Plan Documentation Outcome: Met This Shift 03/01/17 2106 Care Plan Focus Area of Focus Pain/ Comfort Goal This Shift plan will be made w/ pt and treatment team about which pain interventions are appropriate Data: Patient is a , GBS -, A- mother who had an on 02/28/17 at 2321 at 39 weeks 3 days afterIOL for gestational hypertension and gestation thrombocytopenia. Patient has stable vitals and assessments. Patient rates pain at a 3-7/10 for lower back pain/uterine cramping and has taken t ylenol 1000 mg for it as well as using [employer] heat pads. Patient plans to exclusively breastfeed. Patient has a history of opiate dependence and is on subutex 14 mg daily. She is currently incarcerated and DCF has taken custody of baby, but she is still allowed to care for him while in the hospital. She has hepatitis C with a high viral load. She has a history of bipolar disorder with PTSD, bacterial endocarditis (received antibiotics prior to delivery), and was exposed to parovirus. Action: Vitals and assessments per orders, patient was unhappy that she could not have motrin due to platelet level, this RN asked charge nurse to page MD to see if we could have another level drawn to see if we could restart motrin, 1000 mg tylenol PO given per MD order, patient educated on and assistance given as needed, MELITA scoring education (emphasizing on low stimulationenvironment), hourly rounding completed. Response: Pain level tolerable at this moment, is voiding well, verbalized understanding of MELITA education and is doing well at keeping a low stimulation environment/reporting symptoms to RN, is nappingfor short periods of time in between needs. Mother understands she might be discharged todaybut was hoping not to be because she wants to be here while the is still a patient so she can breastfeed and take care of . Stable, continue current care and education. Pita Hickman RN 03/02/2017 3:30 Problem: Lifecycle: : Goal: Chance of risk for complications during the period will decrease Outcome: Met This Shift lan of Care - Chanda Givens RN - 03/01/2017 1740 EDT Problem: Daily Care Plan Goals Goal: Care Plan Documentation Outcome: Ongoing 03/01/17 1600 Care Plan Focus Area of Focus Pain/ Comfort Goal This Shift pain will be managable D: Patient delivered yesterday at 2326, reports her pain between 3 & 5/10. Pain worse with breast feading & also reports coccyx pain.Medicated with tylenol at 1524. A: Offered heat or ice for her back pain, or heat to her abdomen. Both were declined. Motrin was discontinued today due to her platelets. R: Dr Montague was called to see if the motrin could be reordered. Continue offering the tylenol & comfort measures for now. lan of Omid - Milena Kilgore RN - 03/01/2017 1446 EDT Problem: Daily Care Plan Goals Goal: Care Plan Documentation Outcome: Met This Shift 03/01/17 0719 Care Plan Focus Area of Focus Pain/ Comfort Goal This Shift Pain will be well controlled Data: Stable Day 1 s/p IOL for gestational hypertension and gestation thrombocytopenia. Hx opiate dependence and is on subutex 14 mg daily. She is currently incarcerated and DCF is involved. Hepatitis C + /c high viral load. Hx bipolar disorder with PTSD, bacterial endocarditis (received antibiotics prior to delivery), and was exposed to parovirus while . Action: Vitals and assessments per orders, assistance PRN. Response: Pain level tolerable. Stable, continue current care and education. nesthesia Post-Eval - Filiberto Lopez DO - 03/01/2017 1322 EDT Anesthesia Post op Note Amaya Mary [id number] Anesthesia received: Neuraxial; No residual block Vital Signs: Temp: 36.6 ??C (97.9 ??F), Heart Rate: 70 BPM, BP: 109/76, Resp: 18, SpO2: 97 % Vital signs Stable: Yes Consciousness: Recovered to baseline Patient's participation in evaluation:Able to participate Temperature Status: Normothermic Respiratory Status: Airway patent Supplemental O2: Room air Oxygen Saturation: Within patient's normal range Cardiovascular Status: Within patient's normal range Post-op Hydration: Adequate Nausea / Vomiting: None Pain Control: Adequate Current Pain Score: Numeric Pain Level (Scale 1-10): 4 Post-op Assessment: Tolerated procedure well Disposition: Inpatient Complications: No apparent anesthetic complications Filiberto Lopez DO 03/01/2017 13:22 lan of Care - Pita Hickman RN - 03/01/2017 0546 EDT Problem: Daily Care Plan Goals Goal: Care Plan Documentation Outcome: Met This Shift 03/01/17 0244 Care Plan Focus Area of Focus Pain/ Comfort Goal This Shift will achieve adequate pain level and patient will experience periods of rest Data: Patient is a , GBS -, A- mother who had an on 02/28/17 at 2321 at 39 weeks 3 days afterIOL for gestational hypertension and gestation thrombocytopenia. Patient has stable vitals and assessments (intact perineum), with exception of a temperature of 38.3 and then a recheck of 37.8 (patient has miso buccal 1 hr post delivery for multiple gushes). Patient rates pain at a 4-6/10 for perineal pain and took tylenol and motrin after giving zofran time to work since she was nauseous and vomiting after delivery. Patient plans to exclusively breastfeed. Patient has a history of opiatedependence and is on subutex 14 mg daily. She is currently incarcerated and DCF is involved. She hashepatitis C with a high viral load. She has a history of bipolar disorder with PTSD, bacterial endocarditis (received antibiotics prior to delivery), and was exposed to parovirus. Action: Admitted to unit and room (call tsai, emergency button, staff badges, hugs system, safe sleep, hourly rounding, schedule of vital signs, bathroom/pram contents), vitals and assessments per orders, intake and output recorded, tylenol/motrin given, zofran given for nausea, patient educated on and assistance given with attempt, MELITA scoring education, hourlyrounding completed, will get POCT glucose, will encourage patient to get up and void again. Response: Pain level tolerable, has voided once for 700 mL, nausea resolved, understood MELITA education, has had one nap since delivery. Stable, continue current care and education. Pita Hickman RN 03/01/2017 5:23 Problem: Lifecycle: : Goal: Chance of risk for complications during the period will decrease Outcome: Met This Shift &D Delivery Note - Hudson Calderon MD - 02/28/2017 4957 EDT Delivery Information Amaya Mary is a 26 y.o. at 39w3d delivered by Spontaneous Vaginal Delivery . Labor and Delivery comments: Amaya Mary is a 26 yo at 39+3 with complicated by opioid dependence, hepatitis C, PTSD, history of bacterial endocarditis, and suspected arrhythmia and duplicated collecting system who presented to L&D from correction with reports of severe range blood pressures. Her blood pressures were normal here, and pre-eclampsia workup was negative, but she was found to have gestational thrombocytopenia. The decision was made to proceed with induction oflabor. Induction was started with two doses of buccal misoprostol. She then was started on pitocin. She received an epidural for pain control, was AROMed for clear fluid, and progressed to complete. She received 2 g of amoxicillin for a history of bacterial endocarditis approximately 45 minutes prior to delivery. She pushed effectively to deliver a vigorous male infant weighing 3868 g with apgars of 7/9. pitocin was started, placenta was delivered spontaneously intact, and she was found to have no lacerations. EBL was 250 cc. Stephanie Mary [phone] at Gestational Age: 39w3d delivered by Spontaneous Vaginal Delivery weighed 3868 g (8 lb 8.4 oz), 7 /9 , sent to nursery after delivery. Maternal: Delivery Plan Outcome Planned home ? Not planned External cephalic version attempt indicated? Not indicated Delivery as waterbirth? No MADELAINE after : Not applicable Delivery Indications Maternal Indications for delivery/comments: Other (Comment) gestational thrombocytopenia Indications for delivery/comments: Not applicable Intrapartum Medication Intrapartum preeclampsia: No Intrapartum Mg: No Intrapartum Mg Indication: N/A Labor Labor onset: Induced Cervical ripening/induction agent: Misoprostol;AROM;Oxytocin Labor augmentation: None Augmentation indication/comments: N/A Infection/Risk of Sepsis GBS Status: Negative GBS treatment: PROM > or = 18 Hours: N/A Maternal Fever > or = 38 C: N/A Maternal Tachycardia > 100 bpm: N/A Tachycardia > 160 bpm: N/A Uterine tenderness: N/A Foul odor of amniotic fluid: N/A Chorioamnionitis: N/A HIV Status/treatment: Not indicated Hepatitis B Surface Antigen: Negative Assessment monitoring: Contiunous - External heart rate characteristics/comments: Cat 1 demise: N/A Anesthesia Labor analgesia: Epidural, Delivery anesthesia: Epidural, Adjunctive analgesia: None Anesthetic complications: None Additional comments: Maternal Delivery Delivery type: Spontaneous Vaginal Delivery Presentation: Vertex Position: MARCUS indication: Forceps Attempted: No Vacuum Attempted: No Operative Vaginal Delivery Indication: N/A Station ??? Initial Application: N/A Details of Shoulder Dystocia (if applicable) Dystocia Present? No Maneuvers Performed (if applicable) Placenta Delivered: 02/28 23:35 Delivery method: Spontaneous;Controlled Cord Traction Morphology: Normal Disposition: Refrigerator Cord Details Vessels: 3 Vessels Complications: None Nuchal intervention: Nuchal cord description: Cord around: Number of loops: Gases Sent? No Cord Blood Sent: Blood type / Rh Stem cell collection (by )? No Comments: Lacerations/Episiotomy Lacerations: No Periurethral: N/A Additional Lacerations: N/A Episiotomy: None Indication: N/A Repair Suture: None Procedures Additional Procedures: None Hemorrhage (if applicable) hemorrhage: None Estimated blood loss (mL): 250.00 Uterotonics/PPH Procedures: Uterine massage, Oxytocin, Blood Products Transfused: (if applicable) Labor Length Duration of 1st Stage: hours minutes Duration of 2nd Stage: hours minutes Duration of 3rd Stage: 0 hours 13 minutes Duration of Cord Clamp Delay: 240 seconds Precipitous Labor (<3 hours): No Prolonged Labor (>20 hours): No [place]: Date of : 02/28/2017 Time of : 2321 Sex: male Weight (grams): 3868 g (8 lb 8.4 oz) Length (in): 20.5 Head circumference (in): 14.173 Observed anomalies, comments: Meconium Present at Delivery: No (<37 wks): No Late (34-37 wks): No Steroid Course: Not indicated Indication: N/A PPROM Gestational Age: N/A APGARS Totals: 7 /9 /-/-/- Resuscitation Resuscitation: N/A Delivery Personnel Delivering Clinician: HUDSON CALDERON Additional Personnel: JAMMIE GOLDEN;FARA HAMLIN;TIFFANY CUMMINS ROM Duration: (Delivered) 1h 22m Induction Duration (if applicable): Attestation statement: I was present for the entire delivery procedure. I agree with the documentation as stated by the resident. Hudson Calderon MD 03/01/2017 7:18 nesthesia Pre-Eval - Bennett Fall 02/27/2017 2111 EDT Obstetric Anesthesia Consult Name: AMAYA MARY : 1990 Date: 02/27/2017 Age: 26 y.o. GA: 39w2d Marine Superintendent: Anita Lora MD Obstetric History: Obstetric History Complications during : Complicated By: Complicated by: gestational thrombocytopenia, hypertension Allergies Allergen Reactions ??? Bee Pollens Anesthetic History: Anesthesia History Previous Patient or Family Problems with Anesthesia: None Airway Evaluation: Airway Evaluation Mallampati: 1 Mouth Opening: Normal Jaw Thrust: Normal Thyro-Mental Distance: Normal Neck Eval: ROM Normal Teeth: Endentulous Review of Systems: Smoker: Quit Productive Cough: No Quit Date: 02/20/17 History of Respiratory Infections: No Asthma: No Heart Murmur: No history of endocarditis a few years ago, resolved with antibiotics, no residual problems High Blood Pressure: Yes Onset of Hypertension: Only with Angina/Palpitations: No Blood Vessel Disease: No Neurological Disease: No PTSD, depression, BPD Backpain/Neckpain: No Reflux/Heartburn/Hiatial Hernia: Yes GI Additional Info: Taking Medication, Controlled Liver Disease: Yes Type of Liver Disease: Hep C Thyroid Disease: No Kidney Disease: No Diabetes: No Anemia: Yes Onset of Anemia: Preganacy Induced gestational thrombocytopenia, platelets 94 Bleeding Disorders: No Previous Anesthesia for Childbirth: Yes Previous Types of Anesthesia: Epidural, Worked Well Infectious Disease: Yes Type of Infectious Disease: Hep C. Controlled without medications Opioid Dependency: Yes, on buprenorphine since June Past Surgical History: Procedure Laterality Date ??? TONSILLECTOMY AND ADENOIDECTOMY 12yo No current facility-administered medications for this encounter. Outpatient Prescriptions Marked as Taking for the 02/27/17 encounter (Hospital Encounter) with Anita Lora MD Medication Sig Dispense Refill ??? acetaminophen (TYLENOL) 500 mg tablet Take 2 Tabs by mouth every 6 hours as needed for Pain. 200Tab 3 ??? buprenorphine HCl (SUBUTEX) [address] 3 Tabs under the tongue daily for 6 days. Daily Max: 6 mg 18 Tab 0 ??? buprenorphine HCl (SUBUTEX) [address] 1 Tab under the tongue daily for 7 days. Daily Max: 8 mg 7 Tab 0 ??? diphenhydrAMINE (BENADRYL) 25 mg [...] by mouth daily as needed for Nausea. 12 Tab 1 ??? pyridoxine, vitamin B6, (VITAMIN B6) 50 mg tablet Take 1 Tab by mouth daily. 90 Tab 4 ??? QUEtiapine (SEROQUEL XR) 200 mg XR tablet Take 1 Tab by mouth daily. 30 Tab 2 ??? QUEtiapine (SEROQUEL) 100 mg tablet Take 1 Tab by mouth at bedtime. 30 Tab 2 ??? QUEtiapine (SEROQUEL) 200 mg tablet Take 1 Tab by mouth at bedtime. 30 Tab 2 Vital Signs: BP 127/70 Temp 36.7 ??C (98.1 ??F) Resp 16 Ht 157.5 cm (62.01) Wt 73.1 kg (161 lb 2.5 oz) BMI 29.47 kg/m2 Labs: Lab Results Component Value Date WBC 7.02 02/27/2017 HGB 11.8 02/27/2017 HCT 33.7 (L) 02/27/2017 MCV 83 02/27/2017 PLT 94 (L) 02/27/2017 NA 134 (L) 02/27/2017 K 4.3 02/27/2017 CL 103 02/27/2017 CO2 22 02/27/2017 BUN 13 12/04/2012 CREATININE 0.59 02/27/2017 INR 1.0 12/04/2012 PROTIME 11.9 12/04/2012 Blood/Cultures: Recent Results (from the past 1008 hour(s)) GROUP B STREP PCR Collection Time: 02/07/17 11:38 Result Value Ref Range Status GROUP B STREP PCR Negative Final ASA Classification: Grade III Plan: epidural, general, spinal mode(s) of anesthesia were discussed. Risks discussed included: Bleeding, Infection, Nerve Injury, Spinal headaches, low blood pressures with underperfusion, high spinals, hematomas, failure and replacement. All of Amaya Mary's questions were answered to her satisfaction. Unless otherwise noted, follow standard anesthesia pre-operative protocol. Gabriella Foster MD 02/27/2017 Attestation statement: I saw and examined the patient with the resident/fellow. I agree with the findings and plan of care documented in the resident's/fellow's note. documented in this encounter Plan of Treatment Scheduled Referrals Name Type Priority Associated Diagnoses Order S chedule AMB CONS/FOLLOW UP Outpatient Routine Low grade squamous Ord ered: GYNECOLOGY Referral intraepithelial lesion 03/03 on cytologic smear of cervix (LGSIL) PROVIDER FOLLOW-UP Outpatient Routine Ordered: INSTRUCTIONS Referral 03/03/2017 documented as of this encounter Goals Goal Patient Goal Associated Recent Patient-Stated? Author Type Problems Progress Abstain from General No Zimnie, Substance Use Kia Note: Reduce Substance Use Goal: Practice copi ng skills to abstain from illicit drug use Confidence level (1= Not very confident; 10 = Very confident): Not assessed Sources of support: [facility] Barriers to change: None Counseling was provided to assess readin ess, confidence and/or barriers to self-care. To learn more about your health please v isit: [email or web address] documented as of this encounter Procedures Procedure Name Priority Date/Time Associated Comments Diagnosis URINALYSIS WITH Routine 03/03/2017 11:55 Results for this MICROSCOPIC IF EDT procedure are in POSITIVE the results section. UA REFLEX Routine 03/03/2017 11:55 Results for this EDT procedure are i n the results section. URINE CULTURE IF Routine 03/03/2017 11:55 Results for this POSITIVE EDT procedure are i n the results section. BACTERIAL CULTURE, Routine 03/03/2017 11:55 Resul ts for this URINE EDT procedure are i n the results section. COMPLETE BLOOD COUNT Routine 03/01/2017 22:51 Res ults for this EDT procedure are i n the results section. GLUCOSE, GLUCOMETER Routine 03/01/2017 6:12 Resul ts for this EDT procedure are i n the results section. PTT Routine 02/28/2017 8:20 Results for this EDT procedure are i n the results section. PROTIME Routine 02/28/2017 8:20 Results for this EDT procedure are i n the results section. SMEAR REVIEW Routine 02/28/2017 6:30 Results for this EDT procedure are i n the results section. COMPLETE BLOOD COUNT STAT 02/28/2017 6:30 Resu lts for this EDT procedure are i n the results section. INPATIENT ADD-ON Routine 02/28/2017 2:45 Results for this EDT procedure are i n the results section. INPATIENT ADD-ON Routine 02/28/2017 1:10 Results for this EDT procedure are i n the results section. INPATIENT ADD-ON STAT 02/27/2017 18:10 Results for this EDT procedure are i n the results section. INPATIENT ADD-ON STAT 02/27/2017 18:05 Results for this EDT procedure are i n the results section. BLOOD BANK HOLD STAT 02/27/2017 17:20 Results for this EDT procedure are i n the results section. TYPE AND SCREEN Routine 02/27/2017 17:20 Results for this EDT procedure are i n the results section. PROTEIN/CREATININE STAT 02/27/2017 17:05 Resul ts for this RATIO, URINE EDT procedure are i n the results section. DRUG SCREEN 11, URINE Routine 02/27/2017 17:05 Re sults for this EDT procedure are i n the results section. URINALYSIS WITH STAT 02/27/2017 17:05 Results for this MICROSCOPIC IF EDT procedure are in POSITIVE the results section. UA REFLEX Routine 02/27/2017 17:05 Results for this EDT procedure are i n the results section. URINE CULTURE IF STAT 02/27/2017 17:05 Results for this POSITIVE EDT procedure are i n the results section. BACTERIAL CULTURE, Routine 02/27/2017 17:05 Resul ts for this URINE EDT procedure are i n the results section. HCV RNA DETECT QUANT Routine 02/27/2017 17:04 Res ults for this EDT procedure are i n the results section. SMEAR REVIEW Routine 02/27/2017 17:04 Results for this EDT procedure are i n the results section. FIBRINOGEN STAT 02/27/2017 17:04 Results for this EDT procedure are i n the results section. COMPLETE BLOOD COUNT STAT 02/27/2017 17:04 Res ults for this EDT procedure are i n the results section. URIC ACID STAT 02/27/2017 17:04 Results for this EDT procedure are i n the results section. ALT Routine 02/27/2017 17:04 Results for this EDT procedure are i n the results section. AST STAT 02/27/2017 17:04 Results for this EDT procedure are i n the results section. LDH STAT 02/27/2017 17:04 Results for this EDT procedure are i n the results section. GLUCOSE, SERUM Routine 02/27/2017 17:04 Results f or this EDT procedure are i n the results section. CREATININE STAT 02/27/2017 17:04 Results for this EDT procedure are i n the results section. ELECTROLYTES STAT 02/27/2017 17:04 Results for this EDT procedure are i n the results section. documented in this encounter Results BACTERIAL CULTURE, URINE (03/03/2017 11:55 EDT) Pathologist Sig nature Result No growth [facility] SERVICES Specimen Urine Performing Organization Address City/State/ZIP Code Phon e Number [facility] [address] [phone] SERVICES UA REFLEX (03/03/2017 11:55 EDT) Pathologist Sig nature UA Billing Microscopic not [facility] indicated. LABORATORY SERVICES Specimen Urine Performing Organization Address City/[facility]/ZIP Code Phon e Number [facility] [address] [place] [address] SERVICES (ABNORMAL) URINALYSIS WITH MICROSCOPIC IF POSITIVE (03/03/2017 11:55 EDT) Pathologist Sig nature Color, UA Yellow [facility] SERVICES Clarity, UA Hazy [facility] SERVICES Glucose, UA Neg Neg [facility] SERVICES Bilirubin, UA Neg Neg [facility] SERVICES Ketones, UA Neg [facility] LABORATORY SERVICES Specific [place], <1.005 1.001 - 1.035 [facility] Urine LABORATORY SERVICES Blood, UA 3+ (A) [facility] LABORATORY SERVICES pH, UA 7.0 4.6 - 8.0 [facility] SERVICES Protein, UA 1+ (A) [facility] LABORATORY SERVICES Urobilinogen, UA 0.2 0.2 - 1.0 [facility] E.U./dl LABORATORY SERVICES Nitrite, UA Neg Neg [facility] SERVICES Leuk Esterase 3+ (A) [facility] LABORATORY SERVICES Specimen Urine Performing Organization Address City/[facility]/ZIP Code Phon e Number [facility] [address] [place] [address] SERVICES URINE CULTURE IF UA POSITIVE - NON POCT URINALYSIS ONLY (03/03/2017 11:55 EDT) Culture if Culture indicated [facility] Indicated by urinalysis LABORATORY SERVICES results. Specimen Urine (substance) - Other Performing Organization Address City/State/ZIP Code Phon e Number [facility] [address] [place] [address] SERVICES (ABNORMAL) HEMAGRAM (03/01/2017 22:51 EDT) Pathologist Sig nature WBC 11.65 4.0 - 12.4 K/cmm [facility] SERVICES RBC 3.83 (L) 3.86 - 5.04 M/cmm [facility] SERVICES Hemoglobin 11.1 (L) 11.6 - 15.2 gm/dl [facility] SERVICES HCT 31.5 (L) 34.9 - 44.4 % [facility] SERVICES MCV 82 81 - 98 fl [facility] SERVICES MCH 29.0 26.7 - 33.3 pg [facility] SERVICES MCHC 35.2 32.1 - 35.9 gm/dl [facility] SERVICES RDW-CV 13.2 <14.7 % [facility] SERVICES RDW-SD 39.4 <50.4 fl [facility] SERVICES PLT 97 (L) 141 - 377 K/cmm [facility] SERVICES MPV 12.8 (H) 9.5 - 12.7 fl [facility] SERVICES Specimen Blood Performing Organization Address [facility] e Number [facility] [address] [place] [address] SERVICES GLUCOSE, GLUCOMETER (03/01/2017 6:12 EDT) Glucose, 94 70 - 100 [facility] Fingerstick mg/dl LABORATORY SERVICES Proj Engineer ID [id number]: [facility] Test Performed by LABORATORY Nursing Services SERVICES Specimen Blood Performing Organization Address [facility] e [facility] LABORATORY [address] [place] [address] SERVICES (ABNORMAL) PROTIME (02/28/2017 8:20 EDT) Pro Time 10.2 (L) 10.3 - 13.1 [facility] secs LABORATORY SERVICES I.N.R. 0.9 0.9 - 1.1 [facility] Comment: Ratio LABORATORY SERVICES Moderate Intensity Coumadin INR = 2.0-3.0 Adjustments in anticoagulant therapy dose should be based upon the INR and NOT the Pro Time. Specimen Blood specimen (specimen) - Blood Performing Organization Address [facility] Phon e Number [facility] [address] [phone] SERVICES PTT (02/28/2017 8:20 EDT) Pathologist Sig nature PTT 28 26 - 37 secs [facility] Specimen Blood specimen (specimen) - Blood Performing Organization Address City/[facility] Phon e Number [facility] [address] [place] [address] SERVICES SMEAR REVIEW (02/28/2017 6:30 EDT) Smear scan only: Slide was examined by [facility] a technologist to LABORATORY verify the WBC and/or SERVICES platelet count. Specimen Other Performing Organization Address [facility] Phon e Number [facility] [address] [place] [address] SERVICES (ABNORMAL) HEMAGRAM (02/28/2017 6:30 EDT) Pathologist Sig nature WBC 6.55 4.0 - 12.4 K/cmm [facility] SERVICES RBC 4.16 3.86 - 5.04 M/cmm [facility] SERVICES Hemoglobin 12.0 11.6 - 15.2 gm/dl [facility] SERVICES HCT 34.1 (L) 34.9 - 44.4 % [facility] SERVICES MCV 82 81 - 98 fl [facility] SERVICES MCH 28.8 26.7 - 33.3 pg [facility] SERVICES MCHC 35.2 32.1 - 35.9 gm/dl [facility] SERVICES RDW-CV 13.5 <14.7 % [facility] SERVICES RDW-SD 40.0 <50.4 fl [facility] SERVICES PLT 94 (L) 141 - 377 K/cmm [facility] SERVICES MPV 12.9 (H) 9.5 - 12.7 fl [facility] SERVICES Specimen Blood specimen (specimen) - Blood Performing Organization Address City/[facility]/ZIP [facility] Phon e Number [facility] [address] [place] [address] SERVICES INPATIENT ADD-ON (02/28/2017 2:45 EDT) Pathologist Sig nature Tests to be added HEP C VIRAL [facility] LOAD LABORATORY SERVICES Number for problems Not Given [facility] SERVICES Accession number [id number] [facility] SERVICES Specimen Other Performing Organization Address [facility]/ZIP Code Phon e Number [facility] [address] [place] [address] SERVICES INPATIENT ADD-ON (02/28/2017 1:10 EDT) Pathologist Sig nature Tests to be added GLUCOSE [facility] SERVICES Number for problems Not Given [facility] SERVICES Accession number [id number] [facility] SERVICES Specimen Other Performing Organization Address City/[facility]/ZIP Code Phon e Number [facility] [address] [place] [address] SERVICES INPATIENT ADD-ON (02/27/2017 18:10 EDT) Pathologist Sig nature Tests to be added UDSComment: 6 [facility] SERVICES Number for problems [id number] [facility] SERVICES Accession number [id number] ORDER [facility] UDS11 LABORATORY SERVICES Specimen Other Performing Organization Address City/[facility]/ZIP Code Phon e Number [facility] [address] [place] [address] SERVICES INPATIENT ADD-ON (02/27/2017 18:05 EDT) Pathologist Sig nature Tests to be added ALT [facility] SERVICES Number for problems [id number] [facility] SERVICES Accession number [id number] [facility] SERVICES Specimen Other Performing Organization Address City/[facility]/ZIP Code Phon e Number [facility] [address] [place] [address] SERVICES TYPE AND SCREEN (02/27/2017 17:20 EDT) ABO A [facility] BLOOD B[facility] Rh Factor Negative [facility] Antibody Screen Negative [facility] Specimen Expires: 03/02/2017 @ 23:59 [facility] R BLOOD BANK Specimen Performing Organization Address City/[facility]/ZIP Code Phon e Number [facility] BLOOD BANK [address] [place], [place] [phone] [place] [address] BLOOD BANK BLOOD BANK SPECIMEN HOLD (02/27/2017 17:20 EDT) Pathologist Sig nature Hold BB Spec will exp at [facility] 23:59, 3 days from BLOOD BANK collect date Specimen Blood specimen (specimen) Performing Organization Address City/[facility]/ZIP Code Phon e Number [facility]OD [facility] [address] [place], [place] [phone] [place] [address] BLOOD BANK BACTERIAL CULTURE, URINE (02/27/2017 17:05 EDT) Pathologist Sig nature Result No growth [facility] Specimen Urine Performing Organization Address City/[facility]/ZIP Code Phon e Number [facility] [address] [place] [address] SERVICES UA REFLEX (02/27/2017 17:05 EDT) Pathologist Sig nature UA Billing Microscopic not [facility] indicated. LABORATORY SERVICES Specimen Urine Performing Organization Address City/State/ZIP Code Phon e Number [facility] [address] [place] [address] SERVICES DRUG SCREEN 11, URINE (02/27/2017 17:05 EDT) Amphetamine Screen Negative screen. [facility] Comment: [facility]ORY Confirmation testing available upon request. SERVICES New methodology in use 01/18/17. Suitable for medical purposes only. Will not detect all drugs within class. Cutoff = 500 ng/ml Specimen type is urine. Barbituate Screen Negative screen. [facility] Comment: [facility] Confirmation testing available upon request. SERVICES New methodology in use 01/18/17. Suitable for medical purposes only. Will not detect all drugs within class. Cutoff = 200 ng/ml Specimen type is urine. Benzodiazepine Scrn Negative screen. [facility] Comment: [facility] Confirmation testing available upon request. SERVICES New methodology in use 01/18/17. Suitable for medical purposes only. Will not detect all drugs within class. Cutoff = 150 ng/ml Specimen type is urine. Cannabinoids Screen Negative screen. [facility] Comment: [facility] Confirmation testing available upon request. SERVICES New methodology in use 01/18/17. Suitable for medical purposes only. Will not detect all drugs within class. Cutoff = 50 ng/ml Specimen type is urine. Methadone Screen Negative screen. [facility] Comment: [facility] Confirmation testing available upon request. SERVICES New methodology in use 01/18/17. Suitable for medical purposes only. Will not detect all drugs within class. Cutoff = 200 ng/ml Specimen type is urine. Opiates Screen Negative screen. [facility] Comment: [facility] Confirmation testing available upon request. SERVICES New methodology in use 01/18/17. Suitable for medical purposes only. Will not detect all drugs within class. Cutoff = 100 ng/ml Specimen type is urine. Oxycodone Screen Negative screen. [facility] Comment: [facility] Confirmation testing available upon request. SERVICES New methodology in use 01/18/17. Suitable for medical purposes only. Will not detect all drugs within class. Cutoff = 100 ng/ml Specimen type is urine. Cocaine Metabolites Negative screen. [facility] Comment: [facility] Confirmation testing available upon request. SERVICES New methodology in use 01/18/17. Suitable for medical purposes only. Will not detect all drugs within class. Cutoff = 150 ng/ml Specimen type is urine. Buprenorph and Metab Presumptive positive, interpret with caution. [facility] Comment: [facility] Confirmation testing available upon request. SERVICES New methodology in use 01/18/17. Suitable for medical purposes only. Will not detect all drugs within class. Cutoff = 10 ng/ml Specimen type is urine. Methamphetamine Scrn Negative screen. [facility] Comment: [place] [facility] Confirmation testing available upon request. SERVICES New methodology in use 01/18/17. Suitable for medical purposes only. Will not detect all drugs within class. Cutoff = 500 ng/ml Specimen type is urine. Propoxyphene Screen Negative screen. [facility] Comment: [place] [facility] Confirmation testing available upon request. SERVICES New methodology in use 01/18/17. Suitable for medical purposes only. Will not detect all drugs within class. Cutoff = 300 ng/ml Specimen type is urine. Specimen Urine Performing Organization Address City/[facility]/ZIP Code Phon e Number [facility] [address] [place] [address] SERVICES PROTEIN/CREATININE RATIO, URINE (02/27/2017 17:05 EDT) Tot Prot,Ur 9Comment: Note mg/dl [facility] Random original LABORATORY methodology back in SERVICES use 01/26/17 Creatinine, Urn 74.9 mg/dl [facility] Elsie LABORATORY SERVICES UPRO mg/mg Cr, Ur 0.12 <0.16 mg/mg [facility] Crea LABORATORY SERVICES Specimen Urine (substance) - Urine Performing Organization Address City/State/ZIP Code Phon e Number [facility] [address] [place] [address] SERVICES URINE CULTURE IF UA POSITIVE - NON POCT URINALYSIS ONLY (02/27/2017 17:05 EDT) Culture if Culture indicated [facility] Indicated by urinalysis LABORATORY SERVICES results. Specimen Urine (substance) - Other Performing Organization Address City/State/ZIP Code Phon e Number [facility] [address] [place] [address] SERVICES (ABNORMAL) URINALYSIS WITH MICROSCOPIC IF POSITIVE (02/27/2017 17:05 EDT) Pathologist Sig nature Color, UA Yellow [facility] SERVICES Clarity, UA Clear [facility] SERVICES Glucose, UA Neg Neg [facility] SERVICES Bilirubin, [facility] LABORATORY SERVICES Ketones, Neg [facility] LABORATORY SERVICES Specific [place], 1.015 1.001 - 1.035 [facility] Urine LABORATORY SERVICES Blood, UA Neg [facility] LABORATORY SERVICES pH, UA 6.0 4.6 - 8.0 [facility] SERVICES Protein, UA Neg Neg [facility] SERVICES Urobilinogen, UA 1.0 0.2 - 1.0 [facility] E.U./dl LABORATORY SERVICES Nitrite, UA [facility] LABORATORY SERVICES Leuk Esterase 1+ (A) Neg [facility] SERVICES Specimen Urine (substance) - Urine Performing Organization Address [facility] Phon e Number [facility] LABORATORY [address] [place] [address] SERVICES (ABNORMAL) HCV RNA DETECT QUANT (02/27/2017 17:04 EDT) Pathologist [facility] HCV RNA Detect [id number] (A) Undetected IU/mL [facility] Comment: CENTER Reference Range: ??Undetected LABORATORY The quantification range of this assay is 15 SERVICES IU/mL to 100,000,000 IU/mL. Testing was performed by the [employer] Ampliprep/Fabi TaqMan HCV v2.0 ([employer] Specimen Blood Performing Organization Address [facility]/ZIP [facility] Phon e Number [facility] [address] [place] [address] SERVICES (ABNORMAL) GLUCOSE, SERUM (02/27/2017 17:04 EDT) Glucose, Serum 112 (H) 70 - 100 mg/dl [facility] Comment: LABORATORY SERVICES Slight hemolysis Results may be affected due to hemolysis. Specimen Blood Performing Organization Address [facility]/ZIP [facility] Phon e Number [facility] [address] [place] [address] SERVICES ALT (02/27/2017 17:04 EDT) Pathologist Sig nature ALT 28 <53 U/L [facility] Comment: LABORATORY SERVICES Slight hemolysis Results may be affected due to hemolysis. Specimen Blood Performing Organization Address [facility]/ZIP [facility] Phon e Number [facility] [address] [place] [phone] SERVICES SMEAR REVIEW (02/27/2017 17:04 EDT) Smear scan only: Slide was examined by [facility] a technologist to LABORATORY verify the WBC and/or SERVICES platelet count. Specimen Other Performing Organization Address [facility]/ZIP Code Phon e Number [facility] [address] [place] [address] SERVICES LDH (02/27/2017 17:04 EDT) Pathologist Sig nature LDH [phone] U/L [facility] Comment: LABORATORY SERVICES Slight hemolysis Results may be affected due to hemolysis. Specimen Blood specimen (specimen) - Blood Performing Organization Address [facility]/ZIP [facility] Phon e Number [facility] [address] [place] [address] SERVICES (ABNORMAL) FIBRINOGEN (02/27/2017 17:04 EDT) Pathologist Sig nature Fibrinogen 464 (H) 171 - 384 mg/dl [facility] SERVICES Specimen Blood specimen (specimen) - Blood Performing Organization Address [facility] Phon e Number [facility] [address] [place] [address] SERVICES AST (02/27/2017 17:04 EDT) Pathologist Sig [facility] AST 41 15 - 46 U/L [facility] Comment: LABORATORY SERVICES Slight hemolysis Results may be affected due to hemolysis. Specimen Blood specimen (specimen) - Blood Performing Organization Address [facility]/ZIP [facility] Phon e Number [facility] [address] [place] [address] SERVICES URIC ACID (02/27/2017 17:04 EDT) Pathologist Sig nature Uric Acid 6.5Comment: Slight 2.2 - 7.7 mg/dl [facility] hemolysis LABORATORY SERVICES Specimen Blood specimen (specimen) - Blood Performing Organization Address [facility]/ZIP [facility] [place] Number [facility] [address] [place] [address] SERVICES (ABNORMAL) ELECTROLYTES (02/27/2017 17:04 EDT) Pathologist Sig nature Sodium 134 (L)Comment: 136 - 145 mEq/L [facility] Slight hemolysis LABORATORY SERVICES Potassium 4.3 3.5 - 5.0 mEq/L [facility] Comment: LABORATORY SERVICES Slight hemolysis Hemolysis may elevate potassium result. Chloride 103Comment: Slight 96 - 110 mEq/L [facility] hemolysis LABORATORY SERVICES CO2 22Comment: Slight 22 - 32 mEq/L [facility] hemolysis LABORATORY SERVICES Specimen Blood specimen (specimen) - Blood Performing Organization Address City/[facility]/ZIP Code Phon e Number [facility] [address] [place] [address] SERVICES CREATININE (02/27/2017 17:04 EDT) Creatinine 0.59Comment: Slight 0.52 - 1.04 [facility] hemolysis mg/dl LABORATORY SERVICES GFR, Calculated 128 >60 [facility] Comment: ml/min/1.73m2 LABORATORY eGFR calculated using CKD-EPI equation for SERVICES non Americans. Multiply eGFR by 1.16 for Americans. Specimen Blood specimen (specimen) - Blood Performing Organization Address [facility] Phon e Number [facility] [address] [place] [address] SERVICES (ABNORMAL) HEMAGRAM (02/27/2017 17:04 EDT) Pathologist Sig nature WBC 7.02 4.0 - 12.4 K/cmm [facility] SERVICES RBC 4.08 3.86 - 5.04 M/cmm [facility] SERVICES Hemoglobin 11.8 11.6 - 15.2 gm/dl [facility] SERVICES HCT 33.7 (L) 34.9 - 44.4 % [facility] SERVICES MCV 83 81 - 98 fl [facility] SERVICES MCH 28.9 26.7 - 33.3 pg [facility] SERVICES MCHC 35.0 32.1 - 35.9 gm/dl [facility] SERVICES RDW-CV 13.3 <14.7 % [facility] SERVICES RDW-SD 40.0 <50.4 fl [facility] SERVICES PLT 94 (L) 141 - 377 K/cmm [facility] SERVICES MPV 13.2 (H) 9.5 - 12.7 fl [facility] SERVICES Specimen Blood specimen (specimen) - Blood Performing Organization Address City/State/ZIP [facility] Phon e Number [facility] [address] [place] [address] SERVICES documented in this encounter Visit Diagnoses Diagnosis Supervision of high risk in th ird trimester - Primary Unspecified high-risk Elevated blood pressure affecting pregna ncy in third trimester, antepartum Supervision of high risk in rst trimester Unspecified high-risk Low grade squamous intraepithelial lesio n on cytologic smear of cervix (LGSIL) Papanicolaou smear of cervix with low gr chantel squamous intraepithelial lesion (LGSIL) documented in this encounter Administered Medications Inactive Administered Medications - up to 3 most recent administrations Medication Order MAR Action Action Date Dose Rate Site acetaminophen (TYLENOL) tablet Given 03/03/2017 6:05 EDT 1,000 m g 1,000 mg 1,000 mg, oral, EVERY 6 HOURS, First dose (after last modification) on Varsha 03/02/17 at 0015, Until Discontinued, Routine Given 03/03/2017 0:46 EDT 1,000 mg Given 03/02/2017 19:49 EDT 1,000 mg acetaminophen (TYLENOL) tablet 325-650 m g Given 03/01/2017 15:24 EDT 650 mg 325-650 mg, oral, EVERY 4 HOURS PRN, Starting on Mon03/01/17 at 0245, Until Mon03/01/17 at 2348, Pain, Routine Given 03/01/2017 8:28 EDT 650 mg Given 03/01/2017 4:30 EDT 650 mg acetaminophen (TYLENOL) tablet 650 mg Given 03/01/2017 0:38 EDT 650 mg 650 mg, oral, PRN, Starting on 02/27/17 at 2117, Until Mon03/01/17 at 0246, Pain, , Routine Given 02/28/2017 12:54 EDT 650 mg amoxicillin (AMOXIL) capsule 2,000 mg Given 02/28/2017 22:30 EDT 2,000 mg 2,000 mg, oral, Once (NO Time Specified), 1 dose, Starting on Mon02/28/17 at 0000, Until Mon02/28/17 at 2230, Routine bupivacaine-fentanyl in NS 0.0625 %-2 mcg/mL 250 New Bag 7 20:07 EDT mL epidural epidural, CONTINUOUS, Starting on Mon02/28/17 at 1945, Until Mon03/01/17 at 0245, PCEA Dose: 8 mL LOCKOUT Interval: 10 minutes ONE HOUR Dose Limit: 36 mL BASAL Rate: 10 mL/hr, Routine, Recovery (only) buprenorphine HCl (SUBUTEX) SUBLINGUAL TABLET 14 Given 03/03/2017 8:12 EDT 14 mg mg 14 mg, sublingual, DAILY, First dose on Mon02/28/17 at 0900, Until Discontinued, Routine Given 03/02/2017 8:54 EDT 14 mg Given 03/01/2017 8:27 EDT 14 mg ibuprofen (MOTRIN) tablet 400 mg Given 03/01/2017 0:39 EDT 400 mg 400 mg, oral, PRN, Starting on Mon02/27/17 at 2117, Until Mon03/01/17 at 0246, Pain, , Routine ibuprofen (MOTRIN) tablet 400 mg Given 03/01/2017 4:31 EDT 400 mg 400 mg, oral, EVERY 4 HOURS PRN, Starting on Mon03/01/17 at 0245, Until Mon03/01/17 at 0653, Pain, Routine ibuprofen (MOTRIN) tablet 400 mg Given 03/01/2017 8:27 EDT 400 mg 400 mg, oral, EVERY 4 HOURS, First dose (after last modification) on Mon03/01/17 at 0845, Until Discontinued, Routine lactated ringers (LR) infusion New Bag 02/28/2017 20:18 EDT 200 mL/hr at 150-200 mL/hr, intravenous, CONTINUOUS, Starting on Mon02/28/17 at 0945, Until Mon03/01/17 at 0246, Routine New Bag 02/28/2017 17:31 EDT 150 mL/hr miSOPROStol (CYTOTEC) tablet 200 mcg Given 03/01/2017 0:11 EDT 200 mcg 200 mcg, buccal, PRN, Starting on Mon02/27/17 at 2117, Until Mon03/01/17 at 0246, Other, , Routine misoprostol (CYTOTEC) tablet 25 mcg Given 02/28/2017 2:16 EDT 25 mcg 25 mcg, buccal, EVERY 4 HOURS, First dose on Mon02/27/17 at 2215, Until Discontinued, Routine Given 02/27/2017 22:16 EDT 25 mcg multivitamin vit-iron fumarate-FA Given 03/02/2017 8:54 EDT 1 Tablet (STUARTNATAL) 27 mg iron- 1 mg tablet 1 Tab 1 Tablet, oral, DAILY, First dose on Mon03/01/17 at 0900, Until Discontinued, Routine Given 03/01/2017 8:27 EDT 1 Tablet ondansetron (ZOFRAN-ODT) disintegrating tablet 4 Given 03/01 3:02 EDT 4 mg mg 4 mg, oral, EVERY 4 HOURS PRN, Starting on Mon03/01/17 at 0259, Until Mon03/03/17 at 1939, Nausea, Routine oxyCODONE (ROXICODONE) immediate release tablet 5 Given 03/01/2017 18:16 EDT 5 mg mg 5 mg, oral, Once (NO Time Specified), 1 dose, Starting on Mon03/01/17 at 1739, Until Mon03/01/17 at 1816, Routine oxytocin in lactated ringers 30 Given 02/28/2017 23:35 EDT 1 2 Units/hr 200 mL/hr units/500 ml 200 mL/hr, intravenous, Once (NO Time Specified), 1 dose, Starting on Mon02/27/17 at 2117, Until Mon02/28/17 at 2335, Routine oxytocin in lactated ringers 30 Given 03/01/2017 0:35 EDT 8. 1 Units/hr 135 mL/hr units/500 ml 135 mL/hr, intravenous, Once (NO Time Specified), 1 dose, Starting on Mon02/27/17 at 2117, Until Mon03/01/17 at 0035, Routine oxytocin in lactated Rate Change 02/28/2017 21:32 10 bernard-units/min 10 mL/hr ringers 30 units/500 ml EDT 1-30 bernard-units/min (1-30 mL/hr), intravenous, CONTINUOUS, Starting on Mon02/28/17 at 0730, Until Mon03/01/17 at 0246, Routine Rate Change 02/28/2017 20:50 EDT 8 bernard-units/min 8 mL/hr Rate Change 02/28/2017 20:18 EDT 6 bernard-units/min 6 mL/hr QUEtiapine (SEROQUEL) tablet 300 mg Given 02/27/2017 22:51 EDT 300 mg 300 mg, oral, AT BEDTIME, First dose on Mon02/27/17 at 2215, Until Discontinued, Routine documented in this encounter Discontinued Medications Medication Sig Discontinue Reason Start Date End Date diphenhydrAMINE (BENADRYL) Take 50 mg by 03/03/2017 25 mg capsule mouth at bedtime as needed. QUEtiapine (SEROQUEL XR) Take 1 Tab by 02/13/2017 200 mg XR tablet mouth daily. documented as of this encounter Active and Recently Administered Medications Times are shown in EDT. Scheduled Medication Order 03/01/2017 03/02/2017 03/03/2017 acetaminophen (TYLENOL) tablet 1,000 mg 0001 (Given - Provider: Pita Hickman RN)0555 (Given - Provider: Pita Hickman RN)1213 (Given - Provider: Radha Yuan, DOMO)1949 (Given - Provider: Pita Hickman, RN) 0046 (Given - Provider: Pita Hickman RN)0605 (Given - Provider: Pita Hickman RN)1200 (Canceled Entry - Provider: Jhoan Job User Admin - Comment: Automatically canceled at discontinue of medication order) 1,000 mg, oral, EVERY 6 HOURS, First dos e on Mon03/02/17 at 0015, Until Discontinued, Routine buprenorphine HCl (SUBUTEX) SUBLINGUAL TABLET 14 mg 08 27 (Given - Provider: Milena Kilgore RN) 0854 (Given - Provider: Radha Yuan RN) 0812 (Given - Provider: Radha Yuan RN) 14 mg, sublingual, DAILY, First dose on Mon02/28/17 at 0900, Until Discontinued, Routine ibuprofen (MOTRIN) tablet 400 mg (CANCELED) 08 (Give n - Provider: Milena Kilgore RN) 400 mg, oral, EVERY 4 HOURS, First dose on Mon03/01/17 at 0845, Until Discontinued, Routine multivitamin vit-iron fumarate- FA (STUARTNATAL) 27 mg iron- 1 mg tablet 1 Tab 08 (Given - Provider: Milena Kilgore RN) 0854 (Giv en - Provider: Radha Yuan RN) 0900 (Canceled Entry - Provider: Jhoan J ob User Admin - Comment: Automatically canceled at discontinue of medication order) 1 Tab, oral, DAILY, First dose on Mon at 0900, Until Discontinued, Routine oxyCODONE (ROXICODONE) immediate release tablet 5 mg ( COMPLETED) 1815 (Given - Provider: Chanda Givens RN) 5 mg, oral, ONCE, 1 dose, Starting Mon at 1739, Until Mon03/01/17 at 1816, Routine oxytocin in lactated ringers 30 units/500 ml (COMPLETE D) 0035 (Given - Provider: Fara Hamlin RN) 135 mL/hr, intravenous, ONCE, 1 dose, St arting Mon02/27/17 at 2117, Until Discontinued, Routine QUEtiapine (SEROQUEL) tablet 300 mg 43 (Hold - Provi citlaly: Fara Hamlin RN - Reason: Patient/family refused)2137 (Not Given - Provider: Pita Hickman RN - Reason: Patient/family refused) 2100 (Not Given - Provider: Pita Hickman RN - Reason: Patient/family refused) 300 mg, oral, AT BEDTIME, First dose on Mon02/27/17 at 2215, Until Discontinued, Routine varicella vaccine live (PF) (VARIVAX) 1, 350 unit/0.5 mL subcutaneous injection 0.5 mL 0.5 mL, subcutaneous, ONCE, 1 dose, Star ting Mon03/01/17 at 0245, Until Mon03/03/17 at 1939, Routine PRN Medication Order 03/01/2017 03/02/2017 03/03/2017 acetaminophen (TYLENOL) tablet 325-650 mg (CANCELED) 0 430 (Given - Provider: Pita Hickman RN)0828 (Given - Provider: Milena Kilgore RN)1524 (Given - Provider: Milena Kilgore RN) 325-650 mg, oral, EVERY 4 HOURS PRN, Sta rting Mon03/01/17 at 0245, Until Mon03/01/17 at 2348, Pain, Routine acetaminophen (TYLENOL) tablet 650 mg (CANCELED) 0038 (Given - Provider: Fara Hamlin RN) 650 mg, oral, PRN, Starting Mon02/27/17 at 2117, Until Mon03/01/17 at 0246, Pain, , Routine calcium carbonate (TUMS) 200 mg calcium (500 mg) per chewable tablet tablet,chewable 1-2 Tab 1-2 Tab, oral, EVERY 2 HOURS PRN, Starti ng Mon03/01/17 at 0245, Until Mon03/03/17 at 1939, Heartburn, Indigestion, Routine docusate sodium (COLACE) capsule 100 mg 100 mg, oral, 2 TIMES DAILY PRN, Startin g Mon03/01/17 at 0245, Until Mon03/03/17 at 1939, Constipation, Routine ibuprofen (MOTRIN) tablet 400 mg (CANCELED) 0039 (Give n - Provider: Fara Hamlin, DOMO) 400 mg, oral, PRN, Starting 02/27/17 at 2117, Until Mon03/01/17 at 0246, Pain, , Routine ibuprofen (MOTRIN) tablet 400 mg (CANCELED) 0431 (Give n - Provider: Pita Hickman, DOMO) 400 mg, oral, EVERY 4 HOURS PRN, Startin g Mon03/01/17 at 0245, Until Mon03/01/17 at 0653, Pain, Routine lansinoh HPA lanolin topical, PRN, Starting Mon03/01/17 at 0245, Until Mon03/03/17 at 1939, Other miSOPROStol (CYTOTEC) tablet 200 mcg (CANCELED) 0011 ( Given - Provider: Fara Hamlin RN) 200 mcg, buccal, PRN, Starting Mon at 2117, Until Mon03/01/17 at 0246, Other, , Routine ondansetron (ZOFRAN-ODT) disintegrating tablet 4 mg 03 02 (Given - Provider: Pita Hickman, DOMO) 4 mg, oral, EVERY 4 HOURS PRN, Starting Mon03/01/17 at 0259, Until Mon03/03/17 at 1939, Nausea, Routine documented in this encounter Orders Medications Ordered That Might Not Have Count Last Ord ered Date First Ordered Date Been Administered calcium carbonate (TUMS) 200 mg calcium 1 03/01/20 17 (500 mg) per chewable tablet tablet,chewable 1-2 Tab docusate sodium (COLACE) capsule 100 mg 1 03/01/20 17 lansinoh HPA lanolin 1 03/01/2017 varicella vaccine live (PF) (VARIVAX) 1 03/01/2017 1,350 unit/0.5 mL subcutaneous injection 0.5 mL bupivacaine (PF) (MARCAINE) 0.25 % (2.5 1 02/29/20 17 mg/mL) injection lidocaine (XYLOCAINE) 2 % jelly 1 02/28/2017 buprenorphine HCl (SUBUTEX) 2 mg 1 02/27/2017 SUBLINGUAL TABLET 6 mg buprenorphine HCl (SUBUTEX) 8 mg 1 02/27/2017 SUBLINGUAL TABLET 8 mg carboprost (HEMABATE) intramuscular 1 02/27/2017 injection 250 mcg methylergonovine (METHERGINE) injection 1 02/28/20 17 200 mcg miSOPROStol (CYTOTEC) tablet 800 mcg 1 02/27/2017 QUEtiapine (SEROQUEL) tablet 100 mg 1 02/27/2017 QUEtiapine (SEROQUEL) tablet 200 mg 1 02/27/2017 Lab Orders Without Results Count Last Ordered Date Fir st Ordered Date POCT GLUCOSE 1 03/01/2017 Diet Count Last Ordered Date First Ordered Date DISCHARGE DIET 1 03/03/2017 Nursing Count Last Ordered Date First Ordered Date ACTIVITY INSTRUCTIONS 3 03/03/2017 BATHING INSTRUCTIONS 2 03/03/2017 Admission Count Last Ordered Date First Ordered Date STATUS: NON-MEDICARE OB INPATIENT 1 02/27/2017 ADMISSION STATUS: OUTPATIENT OBSERVATION SERVICES 1 02/28/20 17 Transfer Count Last Ordered Date First Ordered Date NOTIFY PPS OF DISCHARGE COMPLETE 03/03/2017 UR LEVEL OF CARE CHANGE INPATIENT STATUS 1 017 PPS NOTIFICATION OF PATIENT ARRIVAL ON 7 UNIT PPS NOTIFICATION OF SENDING PATIENT OFF 1 03/01/20 17 THE UNIT NOTIFY PPS OF ROOM CHANGE COMPLETE 02/27/2017 Discharge Count Last Ordered Date First Ordered Date DISCHARGE PATIENT 1 03/03/2017 Legal Count Last Ordered Date First Ordered Date MISCELLANEOUS DISCHARGE INSTRUCTIONS 3 03/03/2017 documented in this encounter Care Teams Team Assembly Line Machine Operator Relationship Specialty Start Date End Date None, Provider PCP - General 02/03/17 documented as of this encounter
--- OUTSIDE RECORDS SUMMARY | 2022-05-22 03:24 | XMS_ITS | Encounter Summary ---
:1990 Author Organization [facility] Address [address] [place] [address] Care Team Providers Name Role Phone None, Provider Primary Care Provider Unavailable Encounter Details Date Type Department Care Team Description 05/25/2020 Lab Requisition [facility] Outr Resulting Lab, Pathology & Laboratory Provider [facility] [address] [place] [address] Social History Tobacco Use Types Packs/Day Years Used Date Never Assessed Sex Assigned at Date Recorded Not on file documented as of this encounter Functional Status Cognitive Status Response Date of Assessment Because of a physical, mental, or emotional condition, do Ye s 12/01/2012 you have serious difficulty concentrating, remembering, or making decisions? (5 years old or older) documented as of this encounter Plan of Treatment Not on filedocumented as of this encounter Goals Goal Patient Goal Associated Recent Patient-Stated? Author Type Problems Progress Abstain from General No Zimnie, Substance Use Kia Note: Reduce Substance Use Goal: Practice copi ng skills to abstain from illicit drug use Confidence level (1= Not very confident; 10 = Very confident): Not assessed Sources of support: [facility] Barriers to change: None Counseling was provided to assess readin ess, confidence and/or barriers to self-care. To learn more about your health please v isit: [email or web address] documented as of this encounter Procedures Procedure Name Priority Date/Time Associated Diagnosis Comme nts RUBELLA IGG Routine 05/25/2020 12:25 Results for this ANTIBODY EDT procedure are i n the results section. VARICELLA IGG Routine 05/25/2020 12:25 Results fo r this ANTIBODY EDT procedure are i n the results section. documented in this encounter Results VARICELLA IGG ANTIBODY (05/25/2020 12:25 EDT) Varicella IgG Ab EquivocalComment: See Note [facility] Recommend LABORATORY SERVICES collecting a second sample for testing in no less than one to two weeks. Specimen Blood - Venous blood (substance) Performing Organization Address City/[facility]/ZIP Code Phon e Number [facility] [address] [place] [address] SERVICES RUBELLA IGG ANTIBODY (05/25/2020 12:25 EDT) Rubella IgG Ab PositiveComment: See Note [facility] Positive for IgG LABORATORY SERVICES antibodies to Rubella virus. Specimen Blood - Venous blood (substance) Performing Organization Address [facility] Phon e Number [facility] [address] [place] [address] SERVICES documented in this encounter Visit Diagnoses Not on filedocumented in this encounter Care Teams Chief Technical Officer Relationship Specialty Start Date End Date None, Provider PCP - General 02/03/17 documented as of this encounter
--- OUTSIDE RECORDS SUMMARY | 2022-05-22 03:24 | XMS_ITS | Encounter Summary ---
:1990 Author Organization [facility] Address [address] [place] [address] Care Team Providers Name Role Phone None, Provider Primary Care Provider Unavailable Encounter Details Date Type Department Care Team Description 05/25/2020 Lab Requisition [facility] Outr Resulting Lab, Pathology & Laboratory Provider [facility] [address] [place] [address] Social History Tobacco Use Types [...] Very confident): Not assessed Sources of support: [facility] Barriers to change: None Counseling was provided to assess readin ess, confidence and/or barriers to self-care. To learn more about your health please v isit: [email or web address] documented as of this encounter Procedures Procedure Name Priority Date/Time Associated Comments Diagnosis CHLAMYDIA/N. Routine 05/25/2020 11:35 Results for this GONORRHOEAE AMPLIFIED EDT proced ure are in RNA the results section. documented in this encounter Results CHLAMYDIA/N. GONORRHOEAE AMPLIFIED RNA (05/25/2020 11:35 EDT) Pathologist Sig nature Gonococcus Result Negative Negative [facility] Chlamydia Result Negative Negative [facility] SERVICES Specimen Swab - Entire wall of cervix (body struc ture) Performing Organization Address City/State/ZIP Code Phon e Number [facility] [address] [place] [address] SERVICES documented in this encounter Visit Diagnoses Not on filedocumented in this encounter Care Teams Employee Operations Examiner Relationship Specialty Start Date End Date None, Provider PCP - General 02/03/17 documented as of this encounter
--- OUTSIDE RECORDS SUMMARY | 2022-05-22 03:24 | XMS_ITS | Encounter Summary ---
:1990 Author Organization [facility] Address [address] [place] [address] Care Team Providers Name Role Phone None, Provider Primary Care Provider Unavailable Encounter Details Date Type Department Care Team Description 05/25/2020 Lab Requisition [facility] Outr Resulting Lab, Pathology & Laboratory Provider [facility] [address], [place] [id number] Social History Tobacco Use Types Packs/Day Years [...] Not assessed Sources of support: [facility] Barriers to change: None Counseling was provided to assess readin ess, confidence and/or barriers to self-care. To learn more about your health please v isit: [email or web address] documented as of this encounter Procedures Procedure Name Priority Date/Time Associated Comments Diagnosis HIV 1/2 ANTIGEN AND Routine 05/25/2020 12:25 Resu lts for this ANTIBODY, 4TH EDT procedure are in GENERATION the results section. documented in this encounter Results HIV 1/2 ANTIGEN AND ANTIBODY, 4TH GENERATION (05/25/2020 12:25 EDT) HIV 1 and 2 Negative Negative [facility] Antibody/p24 Comment: LABORATORY Antigen, 4th If acute HIV-1 infection is suspected in a high risk ??patient, submit plasma specimen for HIV-1 RNA quantitation test. SERV ICES Generation Fourth Generation assay performed on the Siemens Where's Upa ur. Specimen Blood - Venous blood (substance) Performing Organization Address City/State/ZIP Code Phon e Number [facility]OR[facility]ORY [address] [place] [address] SERVICES documented in this encounter Visit Diagnoses Not on filedocumented in this encounter Care Teams Fuels Sales Representative Relationship Specialty Start Date End Date None, Provider PCP - General 02/03/17 documented as of this encounter
--- OUTSIDE RECORDS SUMMARY | 2022-05-22 03:24 | XMS_ITS | Encounter Summary ---
:1990 Author Organization [facility] Address [address] [place] [address] Care Team Providers Name Role Phone None, Provider Primary Care Provider Unavailable Encounter Details Date Type Department Care Team Description 05/02/2017 Documentation Visit [facility] Sa mariela Babcock MD Women's Services - [address] [place] [address] [address] [place] [address] [phone] Social History Tobacco Use Types Packs/Day Years [...] this encounter Progress Notes Mahogany Whitmore - 05/02/2017 0957 EDT Refusal of treatment letter received from [facility] 05/02/2017. Sentto scans. Mahogany Whitmore MA documented in this encounter Plan of Treatment Not on filedocumented as of this encounter Goals Goal Patient Goal Associated Recent Patient-Stated? Author Type Problems Progress Abstain from General No Zimnie, Substance Use Kia Note: Reduce Substance Use Goal: Practice copi ng skills to abstain from illicit drug use Confidence level (1= Not very confident; 10 = Very confident): Not assessed Sources of support: [facility] Barriers to change: None Counseling was provided to assess readin ess, confidence and/or barriers to self-care. To learn more about your health please v isit: https://www.[facility].org/medcenter/Pages/Wellness-Resources/Iazoaxbtf-Ongwjj-Zg documented as of this encounter Visit Diagnoses Not on filedocumented in this encounter Care Teams Robotics Systems Engineer Relationship Specialty Start Date End Date None, Provider PCP - General 02/03/17 documented as of this encounter
--- OUTSIDE RECORDS SUMMARY | 2022-05-22 03:24 | XMS_ITS | Encounter Summary ---
:1990 Author Organization [facility] Address [address] [place] [address] Care Team Providers Name Role Phone Unknown, Provider Primary Care Provider Reason for Visit Reason Onset Date Comments Results 02/02/2017 Encounter Details Date Type Department Care Team Description 02/02/2017 Telephone [facility] Women's Letty Kennedy RN Results Services - [facility] [address] [place], [place] [id number] Social History Tobacco Use Types Packs/Day Years [...] or older) documented as of this encounter Miscellaneous Notes Telephone Encounter - Jackie Kennedy - 02/02/2017 1343 EDT Call from Shana Rangel RN at [facility]. On 01/30 Amaya had a preliminary + UDS for cocaine. Awaitingconfirmation. [facility] will update DCF following confirmation. Pt denies use. Will review dangers of cocaine use in with pt at next visit. documented in this encounter Plan of Treatment Not on filedocumented as of this encounter Goals Goal Patient Goal Associated Recent Patient-Stated? Author Type Problems Progress Abstain from General No Albertina, Substance Use Kia Note: Reduce Substance Use Goal: Practice copi ng skills to abstain from illicit drug use Confidence level (1= Not very confident; 10 = Very confident): Not assessed Sources of support: [facility] Barriers to change: None Counseling was provided to assess readin ess, confidence and/or barriers to self-care. To learn more about your health please v isit: https://[facility].org/medcenter/Pages/Wellness-Resources/Huxzdaate-Ctfyvs-Zy documented as of this encounter Visit Diagnoses Not on filedocumented in this encounter Care Teams Levelman Relationship Specialty Start Date End Date Unknown, Provider, PCP - General 01/23/17 02/02/17 documented as of this encounter
--- OUTSIDE RECORDS SUMMARY | 2022-05-22 03:24 | XMS_ITS | Encounter Summary ---
:1990 Author Organization [facility] Address [address] [place] [address] Care Team Providers Name Role Phone Unknown, Provider Primary Care Provider Reason for Visit Reason Comments Routine Visit -LOF, -VB, -CTX, +FM Encounter Details Date Type Department Care Team Description 01/23/2017 Routine [facility] Perla Phillip MD [address] [place] [phone] GA: 34w2d Women's Services - Jammie Wallace MD [address] [place] [address] [place] [address] [place], [place] [id number] Social History Tobacco Use Types Packs/Day Years [...] Sign Reading Time Taken Comments Blood Pressure 108/80 01/23/2017 1127 EDT Pulse - - Temperature - - Respiratory Rate - - Oxygen Saturation - - Inhaled Oxygen Concentration - - Weight 69.9 kg (154 lb) 01/23/2017 1127 EDT Height 157.5 cm (5' 2.01) 01/23/2017 1127 EDT Body Mass Index 28.16 01/23/2017 1127 EDT documented in this encounter Functional Status Cognitive Status Response Date of Assessment Because of a physical, mental, or emotional condition, do Ye s 12/01/2012 you have serious difficulty concentrating, remembering, or making decisions? (5 years old or older) documented as of this encounter Ordered Prescriptions Prescription Sig Dispensed Refills Start Date End Date omeprazole (PRILOSEC OTC) Take 1 Tab by mouth 28 Tab 1 0 01/23/2017 20 mg tablet daily. documented in this encounter Progress Notes Mike Phillip MD - 01/23/2017 1120 EDT Attestation statement: I discussed the patient with the resident at the time of the visit. I agree with the findings and the plan of care documented in the resident's note. Mike Phillip MD Jammie Felix MD - 01/23/2017 1120 EDT Antepartum [facility] Note CC: Amaya Mary is a 26 y.o. @ 34w2d by 8+4 wk US Subjective: Amaya is feeling okay. She reports increasing heartburn that is not relieved by zantac. She was on L&D last week for nausea and vomiting, and has been feeling much better since then.She reports good movement and denies vaginal bleeding, loss of fluid, and contractions. She issick of being . Objective: Vitals: BP: 108/80 Height: 157.5 cm (62.01) Weight : 69.9 kg (154 lb) BMI: 28.219 Fundal Height (cm): 34 cm Heart Rate: 130 Movement: Present Assessment/Plan: Amaya Mary is a 26 y.o. @ 34w2d by 8+4 wk US Bipolar disease in - mood stable on Seroquel XL 200 mg/seroquel IR 100 mg, denies SI/HI - sees Dr. Caal, last saw 12/19 - patient instructed to make follow up appointment w Dr. Caal, per notes was to be seen q 3 weeks Opiate dependence - stable on subutex 12 mg through [facility] - UDS collected at [facility] due to PTSD Tobacco use - continue to encourage cessation, no interest in cutting back further at this time - 32 week growth scan 36%ile Chronic hepatitis C virus infection - GI referral PP History of bacterial endocarditis - SBE prophylaxis in labor Supervision of high risk in first trimester - encouraged to complete GTT after visit today, patient reports she will go to lab - Rh neg, s/p rhogam - discussed GBS collection at next visit - still having heartburn symptoms, zantac dc'd, omeprazole ordered to pharmacy Exposure to parvovirus - child with parvovirus at [facility] home - Ab testing pending RTC [address] Phillip. Jammie Golden MD 01/23/2017 14:17 MD Opiate Dependence Visit Chief Complaint: Opiate Dependence in Withdrawal Symptoms: none Used drugs in last 2 weeks? No Seen substance abuse counselor in past 2 weeks? Yes Seen social work faculty member in past 4 weeks? Yes UDS: done at [facility] If the patient does not have a substance abuse counselor, she must see the social work faculty member or have a nurse from our office arrange counseling through [facility] Assessment: Stable Rx called in for: 12 mg Jammie Golden MD documented in this encounter Miscellaneous Notes Assessment & Plan Note - Jammie Golden MD - 01/23/2017 1416 EDTAssociated Problem(s): Exposure to parvovirus - child with parvovirus at [facility] home - Ab testing pending ssessment & Plan Note - Jammie Golden MD - 01/23/2017 1350 EDT Associated Problem(s): Supervision of high risk in third trimester - encouraged to complete GTT after visit today, patient reports she will go to lab - Rh neg, s/p rhogam - discussed GBS collection at next visit - still having heartburn symptoms, zantac dc'd, omeprazole ordered to pharmacy ssessment & Plan Note - Jammie Golden MD - 01/23/2017 1348 EDTAssociated Problem(s): History of bacterial endocarditis - SBE prophylaxis in labor ssessment & Plan Note - Jammie Golden MD - 01/23/2017 1348 EDTAssociated Problem(s): Chronic hepatitis C virus infection (HCC-CMS) ([facility]) - GI referral PP ssessment & Plan Note - Jammie Golden MD - 01/23/2017 1347 EDTAssociated Problem(s): Tobacco use - continue to encourage cessation, no interest in cutting back further at this time - 32 week growth scan 36%ile ssessment & Plan Note - Jammie Golden MD - 01/23/2017 1347 EDTAssociated Problem(s): Opiate dependence ([facility]-CMS) ([facility]) - stable on subutex 12 mg through [facility] - UDS collected at [facility] due to PTSD ssessment & Plan Note - Jammie Golden MD - 01/23/2017 1344 EDTAssociated Problem(s): Bipolar disease in ([facility]) ([facility]) - mood stable on Seroquel XL 200 mg/seroquel IR 100 mg, denies SI/HI - sees Dr. Caal, last saw 12/19 - patient instructed to make follow up appointment w Dr. Caal, per notes was to be seen q 3 weeks documented in this encounter Plan of Treatment [...] Not assessed Sources of support: [facility] Barriers to change: None Counseling was provided to assess readin ess, confidence and/or barriers to self-care. To learn more about your health please v isit: https://www.[facility].org/medcenter/Pages/Wellness-Resources/Rtejzkppr-Znwony-Bq documented as of this encounter Visit Diagnoses Diagnosis Supervision of high-risk , thir d trimester - Primary documented in this encounter Discontinued Medications Medication Sig Discontinue Reason Start Date End Date ranitidine (ZANTAC) 150 Take 1 Tab by mouth Alternate therapy 12/2601/23/2017 mg tablet at bedtime. documented as of this encounter Care Teams Sponge Clipper Relationship Specialty Start Date End Date Unknown, Provider, PCP - General 01/23/17 02/02/17 documented as of this encounter
--- OUTSIDE RECORDS SUMMARY | 2022-05-22 03:24 | XMS_ITS | Encounter Summary ---
:1990 Author Organization [facility] Address [address] [place] [address] Care Team Providers Name Role Phone None, Provider Primary Care Provider Unavailable Encounter Details Date Type Department Care Team Description 08/27/2019 Lab Requisition [facility] Cornelio Sow E ncounter for other Pathology & MD general examination Laboratory Medicine [facility] [address] [place] [address], [place] [address] Social History Tobacco Use Types Packs/Day Years [...] more about your health please v isit: https://www.[facility].org/medcenter/Pages/Wellness-Resources/Oihoizcsc-Blplsx-Rb documented as of this encounter Procedures Procedure Name Priority Date/Time Associated Diagnosis Comme nts METHADONE AND Today 08/27/2019 8:22 EST Encounter for other Results for this METABOLITES, SERUM general examination pr ocedure are in the results section. documented in this encounter Results METHADONE AND METABOLITES, SERUM (08/27/2019 8:22 EST) Methadone, S 822.2 Not Established [facility] ng/mL LABORATORIES EDDP 105.3 Not Established [facility] Comment: ng/mL LABORATORIES Test Performed by: [facility] [address] [place] [id number] Physics Tutor: Andre Villafana M.D. Ph.D.; CLIA# [id number] Specimen Blood - Venous blood (substance) Performing Organization Address City/State/ZIP Code Phon e Number [facility] [address] [place] [address] documented in this encounter Visit Diagnoses Diagnosis Encounter for other general examination documented in this encounter Care Teams Bushel Worker Relationship Specialty Start Date End Date None, Provider PCP - General 02/03/17 documented as of this encounter
--- OUTSIDE RECORDS SUMMARY | 2022-05-22 03:24 | XMS_ITS | Encounter Summary ---
:1990 Author Organization [facility] Address [address] [place] [address] Care Team Providers Name Role Phone Md NOEL Castle Primary Care Provider Unavailable Reason for Visit Reason Onset Date Comments Other 01/19/2017 Exposure to parvovir us Encounter Details Date Type Department Care Team Description 01/19/2017 Telephone [facility] Radha Kennedy (Ex posure to Women's Services - Cade Mejia RN par vovirus) [place] [address] [place], [place] [phone] Social History Tobacco Use Types Packs/Day Years [...] Notes Telephone Encounter - Jackie Kennedy - 01/19/2017 1337 EDT Call from DOMO Bustamante at [facility]. [facility] had a child with recent parvovirus infection. Child has been removed from [facility] for duration of acute infection per recommendations of Dept of Health. Amaya is currently 33w5d with possible exposure d/t close contact with virus. Discussed with Dr. Bailey, will order an tibody screen for pts at [facility] to determine immunity. Order placed. Reviewed importance of hand hygiene and general exposure precautions. documented in this encounter Plan of Treatment Not on filedocumented as of this encounter Goals Goal Patient Goal Associated Recent Patient-Stated? Author Type Problems Progress Abstain from General No Albertina Substance Use Kia Note: Reduce Substance Use Goal: Practice copi ng skills to abstain from illicit drug use Confidence level (1= Not very confident; 10 = Very confident): Not assessed Sources of support: [facility] Barriers to change: None Counseling was provided to assess readin ess, confidence and/or barriers to self-care. To learn more about your health please v isit: https://www.[facility].org/medcenter/Pages/Wellness-Resources/Bqbnaakar-Mwgvga-Sq documented as of this encounter Visit Diagnoses Not on filedocumented in this encounter Care Teams Geotechnical Field Technician Relationship Specialty Start Date End Date Md Castle MD PCP - General 10/06/16 01/22/17 documented as of this encounter
--- OUTSIDE RECORDS SUMMARY | 2022-05-22 03:24 | XMS_ITS | Encounter Summary ---
:1990 Author Organization [facility] Address [address] [place] [address] Care Team Providers Name Role Phone None, Provider Primary Care Provider Unavailable Reason for Visit Reason Onset Date Comments Drug Screen 02/22/2017 Encounter Details Date Type Department Care Team Description 02/22/2017 Telephone [facility] Women's Letty Kennedy RN Drug Screen Services - [facility] [address] [place], [place] [address] Social History Tobacco Use Types Packs/Day Years [...] Notes Telephone Encounter - Jackie Kennedy - 02/22/2017 1216 EDT Call from Shana OLIVEROS at [facility] to report + naloxone in recent UDS. [facility] will make DCF report. Notified MAT Team. documented in this encounter Plan of Treatment Not on filedocumented as of this encounter Goals Goal Patient Goal Associated Recent Patient-Stated? Author Type Problems Progress Abstain from General No Albertina, Substance Use Kia Note: Reduce Substance Use Goal: Practice copi ng skills to abstain from illicit drug use Confidence level (1= Not very confident; 10 = Very confident): Not assessed Sources of support: [facility] Barriers to change: None Counseling was provided to assess readin ess, confidence and/or barriers to self-care. To learn more about your health please v isit: https://www.[facility].org/medcenter/Pages/Wellness-Resources/Xigpbmirz-Xvyzag-Db documented as of this encounter Visit Diagnoses Not on filedocumented in this encounter Care Teams Director Cpg Relationship Specialty Start Date End Date None, Provider PCP - General 02/03/17 documented as of this encounter
--- OUTSIDE RECORDS SUMMARY | 2022-05-22 03:24 | XMS_ITS | Encounter Summary ---
:1990 Author Organization [facility] Address [address] [place] [address] Care Team Providers Name Role Phone None, Provider Primary Care Provider Unavailable Encounter Details Date Type Department Care Team Description 02/13/2017 Orders Only [facility] Hermilo's Emilia Caal MD Services - Main [facility] [address] [facility] [address] [facility] [place] [address] [place] [phone] (Wo rk) Social History Tobacco Use [...] Dispensed Refills Start Date End Date QUEtiapine (SEROQUEL XR) Take 1 Tab by mouth 30 Tab 2 03/03/2017 200 mg XR tablet daily. documented in this encounter Plan of Treatment [...] more about your health please v isit: https://www.[facility].org/medcenter/Pages/Wellness-Resources/Bonhhrygr-Dmyuhx-Tn documented as of this encounter Visit Diagnoses Not on filedocumented in this encounter Discontinued Medications Medication Sig Discontinue Reason Start Date End Date QUEtiapine (SEROQUEL XR) Take 1 Tab by mouth Reorder 7 02/13/2017 200 mg XR tablet daily. documented as of this encounter Care Teams Apparel Rental Clerk Relationship Specialty Start Date End Date None, Provider PCP - General 02/03/17 documented as of this encounter
--- OUTSIDE RECORDS SUMMARY | 2022-05-22 03:24 | XMS_ITS | Encounter Summary ---
:1990 Author Organization [facility] Address [address] [place] [address] Care Team Providers Name Role Phone Unknown, Provider Primary Care Provider Reason for Referral Referral (Routine/Next Available) - Closed Specialty Diagnoses / Procedures Referred By Contact Refer red To Contact Chiropractic Medicine Diagnoses related back pain, antepartum, third trimester Patricia Layne, Radha Dominguez MD [place] [address] [facility] [address] [place] [address] 4 [phone] [place], [place] Phone: [phone] Referral ID Status Reason Start Date Expiration Date Visits V isits Requested Authorized [id number] Closed Specialty 01/25/2017 1 1 Services Required Question Answer Reason for Request: 34 weeks with back/ neck pain Comments Chiropractor's phone number is [phone]. RN called, but no answer. LM for return call with fax # to send referral. KF Reason for Visit Reason Onset Date Comments Prior Auth, Other (i.e. radiology, etc.) 01/25/2017 Encounter Details Date Type Department Care Team Description 01/25/2017 Telephone [facility] Stephane, Aut h, Other (i.e. Women's Services - [facility] DOMO Witt radi ology, etc.) [place] [address] [place], [place] [address] Social History Tobacco Use Types Packs/Day Years [...] this encounter Miscellaneous Notes Telephone Encounter - Miryam Calderón RN - 01/25/2017 1133 EDT Received call back from Shana @ [facility]. Confirmed that reason for chiropractic appt was back pain/general discomfort. Referral placed to Radha Martins's office per patient's request. Called Chiropractor's phone # [phone] with no answer. LM for her to call back with fax # to received referral. elephone Encounter - Miryam Calderón RN - 01/25/2017 1042 EDT Received TC from Shana at [facility] who is wanting to know the status of the PA that was sent on 01/18 for Chiropractic services. Referral was not placed at that time. Spoke with [facility] staff who advised that PA is not needed for this service. Call placed to Shana and a message was left asking the reasonfor the referral and where the patient intends to go for these services. Awaiting call back for thisinformation and then will place referral in [facility]. documented in this encounter Plan of Treatment Scheduled Referrals Name Type Priority Associated Order Schedule Diagnoses AMB CONS/FOLLOW UP Outpatient Referral Routine relat ed Ordered: CHIROPRACTIC back pain, 01/25/2017 antepartum, third trimester documented as of this encounter Goals Goal Patient Goal Associated Recent Patient-Stated? Author Type Problems Progress Abstain from General No Zimnie, Substance Use Kia Note: Reduce Substance Use Goal: Practice copi ng skills to abstain from illicit drug use Confidence level (1= Not very confident; 10 = Very confident): Not assessed Sources of support: [facility] Barriers to change: None Counseling was provided to assess readin ess, confidence and/or barriers to self-care. To learn more about your health please v isit: https://www.[facility].org/medcenter/Pages/Wellness-Resources/Hcxzbzjrx-Qksolw-Nh documented as of this encounter Visit Diagnoses Diagnosis related back pain, antepartum, third trimester - Primary documented in this encounter Care Teams Brands Editor Relationship Specialty Start Date End Date Unknown, Provider, PCP - General 01/23/17 02/02/17 documented as of this encounter
--- OUTSIDE RECORDS SUMMARY | 2022-05-22 03:24 | XMS_ITS | Encounter Summary ---
:1990 Author Organization [facility] Address [address] [place] [address] Care Team Providers Name Role Phone Unselected, Md COHEN Primary Care Provider Unavailable Unknown, Provider Primary Care Provider None, Provider Primary Care Provider Unavailable Encounter Details Date Type Department Care Team Description 01/20/2017 Phlebotomy Only [facility] Advertising Vice President, Expos ure to - [facility] Outpatient parvovirus (Primary [address]) [place] [address] Social History Tobacco Use Types Packs/Day Years [...] Not assessed Sources of support: [facility] Barriers to change: None Counseling was provided to assess readin ess, confidence and/or barriers to self-care. To learn more about your health please v isit: https://www.[facility].org/medcenter/Pages/Wellness-Resources/Nrsnakitr-Cuyeuo-Ze documented as of this encounter Procedures Procedure Name Priority Date/Time Associated Comments Diagnosis PARVOVIRUS B19 AB, Routine 01/20/2017 14:31 Exposure to Resul ts for this IGG, IGM, S EDT parvovirus procedure are i n the results section. documented in this encounter Results (ABNORMAL) PARVOVIRUS ANTIBODY (01/20/2017 14:31 EDT) Parvovirus B19 Ab, 7.43 (H) <0.90 index [facility] IgG, S Comment: [facility] (Note) SERVICES Positive Parvovirus B19 Ab, 0.07 <0.90 index [facility] IgM, S Comment: [facility] (Note) SERVICES Negative Parvovirus (Note) [facility] Interpretation Comment: [facility] Results suggest past infection. SERVICES Performed by: [facility]: [address], [place] [address], Lab Dir: Andre Villafana II, M.D., Ph.D. Specimen Blood specimen (specimen) - Blood Performing Organization Address City/State/[facility] Code Phon e Number [facility] [address] [place] [address] SERVICES documented in this encounter Visit Diagnoses Diagnosis Exposure to parvovirus - Primary Contact with or exposure to other viral diseases documented in this encounter Care Teams Receiving Weigher Relationship Specialty Start Date End Date Md Castle MD PCP - General 10/06/16 01/22/17 Unknown, MD Joey PCP - General 01/23/17 02/02/17 None, Provider PCP - General 02/03/17 documented as of this encounter
--- OUTSIDE RECORDS SUMMARY | 2022-05-22 03:24 | XMS_ITS | Encounter Summary ---
:1990 Author Organization [facility] Address [address] [place] [address] Care Team Providers Name Role Phone None, Provider Primary Care Provider Unavailable Reason for Visit Reason Onset Date Comments Hypertension 02/27/2017 Encounter Details Date Type Department Care Team Description 02/27/2017 Telephone [facility] Women's Letty Kennedy, Hypertension Services - [facility] RN [address], [place] [id number] Social History Tobacco Use Types Packs/Day Years [...] Notes Telephone Encounter - Jackie Kennedy - 02/27/2017 1604 EDT Call from nurse at [facility] reporting that Amaya, 39w2d, has had 2 elevated blood pressure readings today, 166/110 this am and 156/92 this afternoon. Advised that pt should come to L&D for evaluation. Nurse voices understanding and notes that transport should take ~20-[address] Montague and L&D aware. documented in this encounter Plan of Treatment Not on filedocumented as of this encounter Goals Goal Patient Goal Associated Recent Patient-Stated? Author Type Problems Progress Abstain from General No Albertina Substance Use Kia Note: Reduce Substance Use Goal: Practice copi ng skills to abstain from illicit drug use Confidence level (1= Not very confident; 10 = Very confident): Not assessed Sources of support: [facility] Barriers to change: None Counseling was provided to assess readin ess, confidence and/or barriers to self-care. To learn more about your health please v isit: https://www.[facility].org/medcenter/Pages/Wellness-Resources/Hxpruzkfk-Akaerp-Sd documented as of this encounter Visit Diagnoses Not on filedocumented in this encounter Care Teams Disulfurizer Tender Relationship Specialty Start Date End Date None, Provider PCP - General 02/03/17 documented as of this encounter
--- OUTSIDE RECORDS SUMMARY | 2022-05-22 03:24 | XMS_ITS | Encounter Summary ---
:1990 Author Organization [facility] Address [address] [place] [address] Care Team Providers Name Role Phone None, Provider Primary Care Provider Unavailable Reason for Visit Reason Onset Date Comments Medications Refill 02/22/2017 Encounter Details Date Type Department Care Team Description 02/22/2017 Orders Only [facility] Women's Fara Munroe , RN Services - [address] [id number] Social History Tobacco Use Types Packs/Day Years [...] Date buprenorphine HCl Place 1 Tab under 7 Tab 0 02/23/2017 03/02/2017 (SUBUTEX) 8 mg sublingual the tongue daily tablet for 7 days. Daily Max: [address] 3 Tabs under 18 Tab 0 02/23/2017 03/01/2017 (SUBUTEX) 2 mg sublingual the tongue daily tablet for 6 days. Daily Max: 6 mg documented in this encounter Progress Notes Fara Munroe, RN - 02/22/2017 1028 EDT Prescription called into pharmacy. Dispense 7 days worth of 8 mg tablets with no refills. Dispense 6days worth of 2 mg tablets with no refills- patient should have 3 extra 2 mg tablets at [facility] due to not being dosed at 14mg on 02/17, 02/18, and 02/19. Delivery date 02/22/17. Start date 02/23/17. documented in this encounter Plan of Treatment [...] Not assessed Sources of support: [facility] Barriers to change: None Counseling was provided to assess readin ess, confidence and/or barriers to self-care. To learn more about your health please v isit: https://www.[facility].org/medcenter/Pages/Wellness-Resources/Usnsdffzj-Lvwkmw-Tf documented as of this encounter Visit Diagnoses Not on filedocumented in this encounter Discontinued Medications Medication Sig Discontinue Reason Start Date End Date buprenorphine HCl Place 3 Tabs under Reorder 02/16/201702/09 (SUBUTEX) 2 mg sublingual the tongue daily tablet for 7 days. Daily Max: [address] 1 Tab under Reorder 02/16/201702/22 (SUBUTEX) 8 mg sublingual the tongue daily tablet for 7 days. Daily Max: 8 mg documented as of this encounter Care Teams Microfilm Clerk Relationship Specialty Start Date End Date None, Provider PCP - General 02/03/17 documented as of this encounter
--- OUTSIDE RECORDS SUMMARY | 2022-05-22 03:24 | XMS_ITS | Encounter Summary ---
:1990 Author Organization [facility] Address [address] [place] [address] Care Team Providers Name Role Phone None, Provider Primary Care Provider Unavailable Reason for Visit Reason Comments Mood Problems Encounter Details Date Type Department Care Team Description 02/20/2017 Office Visit [facility] Emilia Caal MD PTSD (post-traumatic stress disorder) (P rimary Dx); Women's Services - [address] [facility] [address] [facility] [address] [facility], [address] [place], [place] [id number] [place] [address] [phone] (Wo rk) Social History Tobacco Use [...] Refills Start Date End Date QUEtiapine (SEROQUEL) 100 Take 1 Tab by mouth 30 Tab 2 0 02/20/2017 mg tablet at bedtime. documented in this encounter Progress Notes Emilia Caal MD - 02/20/2017 1300 EDT [facility] Psychiatry Follow Up Name: Amaya Mary : 1990 Chief Complaint: Chief Complaint Patient presents with ??? Mood Problems Interim History: Amaya still is having a hard time sleeping at night. She wakes about eight times a night, finallysleeping soundly from about 5 am on. She believes the long acting seroquel is making things worse for her as she has never been on it before now. She is down a lot during the day, partly tired, but also having a hard time to find things to look forward to and feeling badly that people believe she had a drug slip when she is adamant that she didn't. On she will find out what the court is going to do with her [place]. She is hoping once the baby is born she will feel a little better, and looks forward to having the break from the programming at [place] that comes with maternity leave. Current Medications: Current Outpatient Prescriptions Medication Sig Dispense Refill ??? acetaminophen (TYLENOL) 500 mg tablet Take 2 Tabs by mouth every 6 hours as needed for Pain. (Patient not taking: Reported on 02/20/2017) 200 Tab 3 ??? buprenorphine HCl (SUBUTEX) [address] 3 Tabs under the tongue daily for 7 days. Daily Max: 6 mg 21 Tab 0 ??? buprenorphine HCl (SUBUTEX) 8 [...] the child when Amaya graduates from the [employer]. Physical Examination: Vital Signs: There were no [...] Judgement: good Language: Normal Fund of Knowledge: credit representative of her education level Short-term Memory: [...] as well as PTSD and ADHD. Amaya continues to appear slightlydepressed as well as fatigued. She has stated that in the past, the short acting seroquel has been most helpful for mood and sleep so we will stop the XR and switch to 300 mg IR at night. We discussed how this may not help as much during the day for her, but she feels so tired that she is struggling to get through the day as it is. Initial Treatment Plan/Goals: 1. Medication: Discontinue Seroquel 200 mg XL formulation; Increase Seroquel to 300 mg IR (for sleep); May need to increase to 400 mg IR but didn't want to change that dose too abruptly before the babyis born. 2. Continue [facility] Programming; 20-25 min of brisk walking daily; recommend napping in the day 3. Therapy with [facility] Donato (will have new briefcase sewer) 4. Subutex through [facility] 5. Return in 3 weeks to psychiatry Emilia Caal MD 02/20/2017, 14:10 I spent a total of 30 minutes in face to face time with this patient today and 20 minutes of that time was spent in [...] confident): Not assessed Sources of support: [facility] Barriers to change: None Counseling was provided to assess readin ess, confidence and/or barriers to self-care. To learn more about your health please v isit: https://www.[facility].org/medcenter/Pages/Wellness-Resources/Rbeigpfqw-Bundcj-Iq documented as of this encounter Visit Diagnoses Diagnosis PTSD (post-traumatic stress disorder) - Primary Posttraumatic stress disorder Primary insomnia Persistent disorder of initiating or juliana ntaining sleep documented in this encounter Care Teams Fine Artist Relationship Specialty Start Date End Date None, Provider PCP - General 02/03/17 documented as of this encounter
--- OUTSIDE RECORDS SUMMARY | 2022-05-22 03:24 | XMS_ITS | Encounter Summary ---
:1990 Author Organization [facility] Address [address] [place] [address] Care Team Providers Name Role Phone None, Provider Primary Care Provider Unavailable Encounter Details Date Type Department Care Team Description 08/27/2019 Lab Requisition [facility] Cornelio Sow E ncounter for other Pathology & MD general examination Laboratory Medicine [facility] [address] [place] [id number], [place] [address] Social History Tobacco Use Types Packs/Day Years [...] Not assessed Sources of support: [facility] Barriers to change: None Counseling was provided to assess readin ess, confidence and/or barriers to self-care. To learn more about your health please v isit: https://www.[facility].org/medcenter/Pages/Wellness-Resources/Dcpulmbbn-Dyzfgl-Xn documented as of this encounter Procedures Procedure Name Priority Date/Time Associated Diagnosis Comme nts METHADONE AND Today 08/27/2019 4:20 EST Encounter for other Results for this METABOLITES, SERUM general examination pr ocedure are in the results section. documented in this encounter Results METHADONE AND METABOLITES, SERUM (08/27/2019 4:20 EST) Methadone, S 434.1 Not Established [facility] ng/mL LABORATORIES EDDP 53.4 Not Established [facility] Comment: ng/mL LABORATORIES Test Performed by: [facility] [address] [place] [address] Director Commercial Sales: Andre Villafana M.D. Ph.D.; CLIA# [id number] Specimen Blood - Venous blood (substance) Performing Organization Address City/State/ZIP Code Phon e Number [facility] [address] [place] [address] documented in this encounter Visit Diagnoses Diagnosis Encounter for other general examination documented in this encounter Care Teams Usability Architect Relationship Specialty Start Date End Date None, Provider PCP - General 02/03/17 documented as of this encounter
--- OUTSIDE RECORDS SUMMARY | 2022-05-22 03:24 | XMS_ITS | Encounter Summary ---
:1990 Author Organization [facility] Address [address] [place] [address] Care Team Providers Name Role Phone None, Provider Primary Care Provider Unavailable Reason for Visit Reason Comments Routine Visit Woud like to talk about incr ease in Subutex Encounter Details Date Type Department Care Team Description 02/13/2017 Routine [facility] Perla Phillip MD [address] [address] [place]: 37w2d Women's Services - Pushpa Schumacher MD [place] [address] [place] [phone] Social History Tobacco Use Types Packs/Day Years [...] Sign Reading Time Taken Comments Blood Pressure 118/70 02/13/2017 1122 EDT Pulse - - Temperature - - Respiratory Rate - - Oxygen Saturation - - Inhaled Oxygen Concentration - - Weight 72.1 kg (159 lb) 02/13/2017 1122 EDT Height - - Body Mass Index 29.07 01/23/2017 1127 EDT documented in this encounter Functional Status Cognitive Status Response Date of Assessment Because of a physical, mental, or emotional condition, do Ye s 12/01/2012 you have serious difficulty concentrating, remembering, or making decisions? (5 years old or older) documented as of this encounter Progress Notes Mike Phillip MD - 02/13/2017 1120 EDT Attestation statement: I discussed the patient with the resident at the time of the visit. I agree with the findings and the plan of care documented in the resident's note. Mike Phillip MD Pushpa Peacock MD - 02/13/2017 1120 EDT Antepartum COGS Clinic Note CC: Amaya Mary is a 26 y.o. @ 37w2d Subjective: Very ready to have her baby. Had several hours of regular contractions over the weekend but these spontaneously resolved. No VB or LOF. Normal movement. Does feel shaky, restless, andhaving increased yawning; wondering about a dose increase of Subutex. Objective: Vitals: BP: 118/70 Weight : 72.1 kg (159 lb) Fundal Height (cm): 37 cm Heart Rate: 130 Movement: Present Assessment/Plan: Amaya Mary is a 26 y.o. @ 37w2d arrhythmia affecting , antepartum Normal echocardiogram. Normal hear trate today on dop tones. Opiate dependence Receives Subutex via [facility]. Has been having increasing symptoms of withdrawal. Recommend dosage increase. Will increase from 12 mg to 14 mg daily; to start on 02/17/17 due to medication dispensing rules at [place]. Bipolar disease in Mood stable. No SI/HI. Currently on Seroquel XL 200 mg daily and IR 200 mg daily, as managed by Dr. Caal. Tobacco use Still smoking several cigarettes per day. Fetus AGA at 32 week growth. Chronic hepatitis C virus infection Consider obtaining viral load and LFTs at next visit (not ordered). Patient unable to go to the lab today. LFTs on 12/12 were WNL. Detectable viral load; avoid operative vaginal delivery/FSC if possible. Supervision of high risk in first trimester Has not gotten glucose tolerance test yet. POC glucose last week was 124. Patient left clinic beforeobtaining POC glucose at today's visit could be discussed. Otherwise, care is UTD. GBS negative. Discussed labor precautions. Will give SBE prophylaxis in labor. RTC [address] Phillip. Pushpa Simon MD 02/13/2017 11:57 MD Opiate Dependence Visit Chief Complaint: Opiate Dependence in Withdrawal Symptoms: Yes, see HPI Used drugs in last 2 weeks? No Seen substance abuse counselor in past 2 weeks? Yes Seen social work faculty member in past 4 weeks? Yes UDS: Collected at [place] If the patient does not have a substance abuse counselor, she must see the social work faculty member or have a nurse from our office arrange counseling through [place] or [facility] Assessment: Stable Rx given for: 12 mg -- will increase to 14 mg on 02/17/17 Pushpa Simon MD documented in this encounter Miscellaneous Notes Assessment & Plan Note - Pushpa Simon MD - 02/13/2017 1154 EDTAssociated Problem(s): Supervision of high risk in third trimester Has not gotten glucose tolerance test yet. POC glucose last week was 124. Patient left clinic beforeobtaining POC glucose at today's visit could be discussed. Otherwise, care is UTD. GBS negative. Discussed labor precautions. Will give SBE prophylaxis in labor. ssessment & Plan Note - Pushpa Simon MD - 02/13/2017 1152 EDTAssociated Problem(s): Chronic hepatitis C virus infection (HCC-CMS) (HCC) Consider obtaining viral load and LFTs at next visit (not ordered). Patient unable to go to the lab today. LFTs on 12/12 were WNL. Detectable viral load; avoid operative vaginal delivery/FSC if possible. Assessment & Plan Note - Pushpa Simon MD - 02/13/2017 1150 EDTAssociated Problem(s): Tobacco use Still smoking several cigarettes per day. Fetus AGA at 32 week growth. ssessment & Plan Note - Pushpa Simon MD - 02/13/2017 1150 EDTAssociated Problem(s): Bipolar disease in ([facility] Mood stable. No SI/HI. Currently on Seroquel XL 200 mg daily and IR 200 mg daily, as managed by Dr. Caal. Assessment & Plan Note - Pushpa Simon MD - 02/13/2017 1148 EDTAssociated Problem(s): Opiate dependence ([facility] ([facility]) Receives Subutex via [facility]. Has been having increasing symptoms of withdrawal. Recommend dosage increase. Will increase from 12 mg to 14 mg daily; to start on 02/17/17 due to medication dispensing rules at [place]. ssessment & Plan Note - Pushpa Simon MD - 02/13/2017 1147 EDTAssociated Problem(s): arrhythmia affecting , antepartum Normal echocardiogram. Normal hear trate today on dop tones. documented in this encounter Plan of Treatment Not on filedocumented as of this encounter Goals Goal Patient Goal Associated Recent Patient-Stated? Author Type Problems Progress Abstain from General No Zimnie, Substance Use Kia Note: Reduce Substance Use Goal: Practice copi ng skills to abstain from illicit drug use Confidence level (1= Not very confident; 10 = Very confident): Not assessed Sources of support: [facility] Barriers to change: None Counseling was provided to assess readin ess, confidence and/or barriers to self-care. To learn more about your health please v isit: https://www.[facility].org/medcenter/Pages/Wellness-Resources/Nciiedzrr-Pkmzca-Qt documented as of this encounter Visit Diagnoses Diagnosis Supervision of high risk in th ird trimester - Primary Unspecified high-risk documented in this encounter Care Teams Votator Machine Operator Relationship Specialty Start Date End Date None, Provider PCP - General 02/03/17 documented as of this encounter
--- OUTSIDE RECORDS SUMMARY | 2022-05-22 03:24 | XMS_ITS | Encounter Summary ---
:1990 Author Organization [facility] Address [address] [place] [address] Care Team Providers Name Role Phone None, Provider Primary Care Provider Unavailable Encounter Details Date Type Department Care Team Description 02/07/2017 Orders Only [facility] Women's Letty Kennedy, [facility] RN [address] [place] [address] Social History Tobacco Use Types [...] Date buprenorphine HCl Place 1 Tab under 9 Tab 0 02/07/2017 02/15/2017 (SUBUTEX) 8 mg sublingual the tongue daily. tablet Daily Max: [address] 2 Tabs under 12 Tab 0 02/07/2017 02/13/2017 (SUBUTEX) 2 mg sublingual the tongue daily tablet for 6 days. Daily Max: 4 mg documented in this encounter Progress Notes Jackie Kennedy - 02/07/2017 1555 EDT Subutex 8 mg x 9 days, subutex 4 mg x 3 days called in to pharmacy per MAT DOMO, Fara Munroe. documented in this encounter Plan of Treatment Not on filedocumented as of this encounter Goals Goal Patient Goal Associated Recent Patient-Stated? Author Type Problems Progress Abstain from General No Albertina Substance Use Kia Note: Reduce Substance Use Goal: Practice copi ng skills to abstain from illicit drug use Confidence level (1= Not very confident; 10 = Very confident): Not assessed Sources of support: [facility] Barriers to change: None Counseling was provided to assess readin ess, confidence and/or barriers to self-care. To learn more about your health please v isit: https://[facility]org/medcenter/Pages/Wellness-Resources/Cwepggmuq-Nakvhf-Ti documented as of this encounter Visit Diagnoses Not on filedocumented in this encounter Discontinued Medications Medication Sig Discontinue Reason Start Date End Date buprenorphine HCl Place 2 Tabs under Reorder 02/01/201701/11 (SUBUTEX) 2 mg sublingual the tongue daily tablet for 7 days. Daily Max: 4 mg documented as of this encounter Care Teams Program Director Scouting Relationship Specialty Start Date End Date None, Provider PCP - General 02/03/17 documented as of this encounter
--- OUTSIDE RECORDS SUMMARY | 2022-05-22 03:24 | XMS_ITS | Encounter Summary ---
:1990 Author Organization [facility] Address [address] [place] [address] Care Team Providers Name Role Phone None, Provider Primary Care Provider Unavailable Reason for Visit Reason Onset Date Comments Coordination Of Care 02/23/2017 Encounter Details Date Type Department Care Team Description 02/23/2017 Telephone [facility] Axel Kennedy [facility] Women's Services - Cade Mejia RN [place] [address] [place] [address] Social History Tobacco Use Types Packs/Day [...] Notes Telephone Encounter - Jackie Kennedy - 02/23/2017 1144 EDT Call from Shana Rangel RN at [facility], to report that Amaya was incarcerated this am. She was dosed with 14 mg of subutex prior to incarceration. Will coordinate upcoming APVs with [facility]. documented in this encounter Plan of Treatment [...] Not assessed Sources of support: [facility] Barriers to change: None Counseling was provided to assess readin ess, confidence and/or barriers to self-care. To learn more about your health please v isit: https://www.[facility].org/medcenter/Pages/Wellness-Resources/Prsrikndd-Nlugfc-My documented as of this encounter Visit Diagnoses Not on filedocumented in this encounter Care Teams It Technical Support Specialist Relationship Specialty Start Date End Date None, Provider PCP - General 02/03/17 documented as of this encounter
--- OUTSIDE RECORDS SUMMARY | 2022-05-22 03:24 | XMS_ITS | Encounter Summary ---
:1990 Author Organization [facility] Address [address] [place] [address] Care Team Providers Name Role Phone None, Provider Primary Care Provider Unavailable Encounter Details Date Type Department Care Team Description 07/18/2018 Hospital Encounter [facility]- Jose Terry MD [address] [phone] (Wo rk) Social History Tobacco Use Types [...] as of this encounter Discharge Diagnoses Diagnosis B18.2 Chronic viral hepatitis C-B18.2[IC D-10-CM] documented in this encounter Medications at Time [...] for Pain. multivitamin Take 1 Tab by mouth 100 Tab 2 10/26 vit-iron fumarate-FA daily. (STUARTNATAL) 27 mg iron- 1 mg tablet tablet naloxone 4 mg/actuation 4 mg by nasal route 2 Each 3 spray,non-aerosol as needed (Daily). omeprazole (PRILOSEC OTC) 20 Take 1 Tab by mouth 28 Tab 1 01/23/2017 mg tablet daily. ondansetron (ZOFRAN-ODT) 4 Take 1 Tab by mouth 12 Tab 1 02/20/2017 mg disintegrating tablet daily as needed for Nausea. pyridoxine, vitamin B6, Take 1 Tab by mouth 90 Tab 4 02/2017 (VITAMIN B6) 50 mg tablet daily. QUEtiapine (SEROQUEL) 100 mg Take 1 Tab by mouth 30 Tab 2 02/20/2017 tablet at bedtime. QUEtiapine (SEROQUEL) 200 mg Take 1 Tab by mouth 30 Tab 2 02/01/2017 tablet at bedtime. documented as of this encounter Discharge Disposition Disposition Code Departure Means Destination Home or Self Care documented in this encounter Plan of Treatment Not on filedocumented as of this encounter Goals Goal Patient Goal Associated Recent Patient-Stated? Author Type Problems Progress Abstain from General No Albertina Substance Use Kia Note: Reduce Substance Use Goal: Practice copi ng skills to abstain from illicit drug use Confidence level (1= Not very confident; 10 = Very confident): Not assessed Sources of support: [facility] Barriers to change: None Counseling was provided to assess readin ess, confidence and/or barriers to self-care. To learn more about your health please v isit: https://www.[facility].org/medcenter/Pages/Wellness-Resources/Ftspbtqgd-Kfbrst-Mi documented as of this encounter Visit Diagnoses Not on filedocumented in this encounter Care Teams Mainframe Applications Developer Relationship Specialty Start Date End Date None, Provider PCP - General 02/03/17 documented as of this encounter
--- OUTSIDE RECORDS SUMMARY | 2022-05-22 03:24 | XMS_ITS | Encounter Summary ---
:1990 Author Organization [facility] Address [address] [place] [address] Care Team Providers Name Role Phone None, Provider Primary Care Provider Unavailable Reason for Visit Reason Onset Date Comments Appointment Related 05/10/2017 Encounter Details Date Type Department Care Team Description 05/10/2017 Telephone [facility] Edward Kennedy nt Related Women's Services - Cade Mejia RN [place] [address], [place] [id number] Social History Tobacco Use Types Packs/Day Years [...] Notes Telephone Encounter - Jackie Kennedy - 05/10/2017 3907 EDT TC to Ledy at DOC to follow up on Amaya's recent cancelled colpo. Ledy had checked in with Amaya to see if she wanted to reschedule. Pt declines to reschedule at this time. Per Ledy, pt aware of recommendation to have colposcopy. Pt/DOC may call back anytime to reschedule. documented in this encounter Plan of Treatment Not on filedocumented as of this encounter Goals Goal Patient Goal Associated Recent Patient-Stated? Author Type Problems Progress Abstain from General No Albertina Substance Use Kia Note: Reduce Substance Use Goal: Practice copi ng skills to abstain from illicit drug use Confidence level (1= Not very confident; 10 = Very confident): Not assessed Sources of support: [facility] Barriers to change: None Counseling was provided to assess readin ess, confidence and/or barriers to self-care. To learn more about your health please v isit: [email or web address]/medcenter/Pages/Wellness-Resources/Xlxpxlilf-Agqkqp-Am documented as of this encounter Visit Diagnoses Not on filedocumented in this encounter Care Teams Training Assistant Relationship Specialty Start Date End Date None, Provider PCP - General 02/03/17 documented as of this encounter
--- OUTSIDE RECORDS SUMMARY | 2022-05-22 03:24 | XMS_ITS | Encounter Summary ---
:1990 Author Organization [facility] Address [address] [place] [address] Care Team Providers Name Role Phone None, Provider Primary Care Provider Unavailable Reason for Visit Reason Onset Date Comments Medications Refill 02/15/2017 Encounter Details Date Type Department Care Team Description 02/15/2017 Orders Only [facility] Women's Fara Munroe , RN Services - [address] [phone] Social History Tobacco Use Types Packs/Day Years [...] Date buprenorphine HCl Place 3 Tabs under 21 Tab 0 02/16/2017 02/22/2017 (SUBUTEX) 2 mg sublingual the tongue daily tablet for 7 days. Daily Max: [address] 1 Tab under 7 Tab 0 02/16/2017 02/22/2017 (SUBUTEX) 8 mg sublingual the tongue daily tablet for 7 days. Daily Max: 8 mg documented in this encounter Progress Notes Fara Munroe, RN - 02/15/2017 0856 EDT Prescription called into pharmacy. Dispense 7 days with no refills. Delivery date 02/16/17. Start date6/9/17. documented in this encounter Plan of Treatment Not on filedocumented as of this encounter Goals Goal Patient Goal Associated Recent Patient-Stated? Author Type Problems Progress Abstain from General No Albertina Substance Use Kia Note: Reduce Substance Use Goal: Practice copi ng skills to abstain from illicit drug use Confidence level (1= Not very confident; 10 = Very confident): Not assessed Sources of support: [facility] Barriers to change: None Counseling was provided to assess readin ess, confidence and/or barriers to self-care. To learn more about your health please v isit: https://www.[email or web address]/medcenter/Pages/Wellness-Resources/Utzeultxj-Rjmklu-Eu documented as of this encounter Visit Diagnoses Not on filedocumented in this encounter Discontinued Medications Medication Sig Discontinue Reason Start Date End Date buprenorphine HCl Place 1 Tab under Reorder 02/07/201702/15 (SUBUTEX) 8 mg sublingual the tongue daily. tablet Daily Max: 8 mg documented as of this encounter Care Teams Multimedia Authoring Specialist Relationship Specialty Start Date End Date None, Provider PCP - General 02/03/17 documented as of this encounter
--- OUTSIDE RECORDS SUMMARY | 2022-05-22 03:25 | XMS_ITS | Encounter Summary ---
:1990 Author Organization [facility] Address [address] [place] [address] Care Team Providers Name Role Phone Md NOEL Castle Primary Care Provider Unavailable Encounter Details Date Type Department Care Team Description 01/18/2017 Documentation Visit [facility] Humberto Hebert, Women's Services - RN [address] [facility] [address] [place] [address] [place], [place] [id number] Social History Tobacco Use Types Packs/Day Years [...] documented as of this encounter Progress Notes Ena Hebert RN - 01/18/2017 1236 EDT Prior authorization for Chiropractic Services submitted. documented in this encounter Plan of Treatment [...] more about your health please v isit: [email or web address]/medcenter/Pages/Wellness-Resources/Grfdmahsq-Fpwneb-Lv documented as of this encounter Visit Diagnoses Not on filedocumented in this encounter Care Teams Furnace Erector Relationship Specialty Start Date End Date Md Castle MD PCP - General 10/06/16 01/22/17 documented as of this encounter
--- OUTSIDE RECORDS SUMMARY | 2022-05-22 03:25 | XMS_ITS | Encounter Summary ---
:1990 Author Organization [facility] Address [address] [place] [address] Care Team Providers Name Role Phone Md NOEL Castle Primary Care Provider Unavailable Reason for Referral (Routine) - Closed Specialty Diagnoses / Procedures Referred By Contact Refer red To Contact Amanda Garcia M D [address] [place] [address] Referral ID Status Reason Start Date Expiration Date Visits V isits Requested Authorized [id number] Closed Specialty 01/16/2017 1 1 Services Required Reason for Visit Reason Comments Emesis Encounter Details Date Type Department Care Team Description 01/15/2017 - Hospital [facility] Medical [place] Kenneth Mcfadden MD [address] [place] [phone] Supervision of high risk in fi rst trimester (Primary Dx); 01/16/2017 Encounter [facility] Jose Ware MD [address] [phone] Vomiting of , after 22 weeks, a ntepartum Unit [address] [place] [phone] Social History Tobacco Use Types Packs/Day Years [...] Sign Reading Time Taken Comments Blood Pressure 110/65 01/15/2017 2247 EDT Pulse - - Temperature 35.9 ??C (96.6 ??F) 01/15/2017 2130 EDT Respiratory Rate 18 01/15/2017 2247 EDT Oxygen Saturation - - Inhaled Oxygen Concentration - - Weight - - Height - - Body Mass Index - - documented in this encounter Functional Status Cognitive Status Response Date of Assessment Because of a physical, mental, or emotional condition, do Ye s 12/01/2012 you have serious difficulty concentrating, remembering, or making decisions? (5 years old or older) documented as of this encounter Discharge Diagnoses Diagnosis O26.893 Other specified relate d conditions, third trimester-O26.893[ICD-10-CM] R11.2 Nausea with vomiting, unspecified- R11.2[ICD-10-CM] F31.9 Bipolar disorder, unspecified-F31. 9[ICD-10-CM] O99.323 Drug use complicating , third trimester-O99.323[ICD-10-CM] F11.20 Opioid dependence, uncomplicated- F11.20[ICD-10-CM] Z3A.33 33 weeks gestation of -Z 3A.33[ICD-10-CM] Z79.899 Other senior living (current) drug t herapy-Z79.899[ICD-10-CM] documented in this encounter Medications at Time [...] 27 mg iron- 1 mg tablet tablet pyridoxine, vitamin B6, Take 1 Tab by 90 Tab 4 7 (VITAMIN B6) 50 mg tablet mouth daily. buprenorphine HCl (SUBUTEX) Place 3 Tabs under 18 Tab 0 03/03/2017 03/09/2017 2 mg sublingual tablet the tongue daily for 6 days. Daily Max: 6 mg buprenorphine HCl (SUBUTEX) Place 2 Tabs under 28 Tab 0 01/05/2017 01/19/2017 2 mg sublingual tablet the tongue daily for 14 days. Daily Max: 4 mg buprenorphine HCl (SUBUTEX) Place 1 Tab under 7 Tab 0 0 03/03/2017 03/10/2017 8 mg sublingual tablet the tongue daily for 7 days. Daily Max: 8 mg buprenorphine HCl (SUBUTEX) Place 1 Tab under 14 Tab 0 0 01/05/2017 01/19/2017 8 mg sublingual tablet the tongue daily for 14 days. Daily Max: 8 mg diphenhydrAMINE (BENADRYL) Take 50 mg by 0 03/03/2017 25 mg capsule mouth at bedtime as needed. ondansetron (ZOFRAN-ODT) 4 Take 1 Tab by 30 Tab 1 201602/20/2017 mg disintegrating tablet mouth daily as needed for Nausea. QUEtiapine (SEROQUEL XR) Take 1 Tab by 30 Tab 2 10/31/19 17 02/13/2017 200 mg XR tablet mouth daily. QUEtiapine (SEROQUEL) 100 Take 1 Tab by 30 Tab 2 017 02/01/2017 mg tablet mouth at bedtime. ranitidine (ZANTAC) 150 mg Take 1 Tab by 30 Tab 1 201601/23/2017 tablet mouth at bedtime. documented as of this encounter Discharge Disposition Disposition Code Departure Means Destination Home or Self Care documented in this encounter Progress Notes Amanda Garcia MD - 01/15/2017 2213 EDT L&D Triage Note C/C: nausea/vomiting Amaya Mary is a 26 y.o. @ 33w1d HPI: Patient reports vomiting since 8am this morning. The patient reports taking dramamine, zofran and still having vomiting and can't keep liquids or solids down. Patient declines diarrhea, fever, reports feeling warm. Patient has voided twice today. Thinks someone at [facility] has a stomach flu, doesn't think she ate anything that was bad or could give her food poisoning. complicated by opiatedependence on subutex through [facility], h/o BPD on seroquel, and early first trimester bleeding with a retroplacental hematoma. O: BP 117/76 Temp 35.9 ??C (96.6 ??F) (Tympanic) Resp 20 FHT: 140 baseline, mod variability, no accels, no decels; Category I tracing [place]: flat SSE: n/a SVE: n/a GEN: NAD, pale Resp: CTAB CV: RRR ABD: soft, gravid, nontender, +BS A/P: Amaya Mary is a 26 y.o. @ 33w1d presenting with nausea/vomiting related to . Category I tracing. *Admit for observation *Place IV, 1,000cc LR bolus, PO/IV zofran and IV phenergan *Electrolytes, U/A to evaluate level of dehydration *Monitor and rehydrate and discharge once able to tolerate PO fluids/crackers Discussed with Dr. Jeanie Garcia MD 01/15/2017 22:13 Addendum: - Patient feeling much better after 3L of IVF, zofran, phenergan. Tolerating PO fluids and crackers - Cat I FHT, however with single variable deceleration to 100 then immediate return to baseline, 20+min after with Cat I FHT - Patient requesting melt-away tablets for zofran for home, a start pack was given Discussed with Dr. Jeanie Garcia MD 01/16/2017 1:21 documented in this encounter Miscellaneous Notes Plan of Care - Atiya Russ, RN - 01/15/2017 2308 EDT 21:43 Pt admitted to [facility] for N/V from [facility]. Pt denies headache, blurred vision, ctx, vaginal bleeding, gush of vaginal fluid. Reports not being able to tolerate any PO since AM; vomiting throughout day. Abdomen soft upon palpation. EFM and toco in place. FHT cat 1. Uterus irritable. 22:08 Pt vomitting. IV nurse to bedside. PIV placed; labs drawn per . LR bolus. 22:24 IM Phenergan and IV Zofran per MD orders. 22:50 Pt states she is 'feeling better'. No vomit since IV medications. Given [place] and crackers. 0:04 Pt oob to void. Clean catch urine sample obtained and to lab per . Urine tea colored. MD Garcia aware. 1:05 Cont monitor removed after reactive fht. MD Garcia aware. Pt given Tums and Zofran tablet perMD orders. 1:24 Reviewed AVS w/ patient. IV removed. Pt given Zofran starter pack per MD Garcia. Pt ambulatedoff unit with [facility] Rep to return to [facility]. Will continue to monitor and intervene as needed. documented in this encounter Plan of Treatment Scheduled Referrals Name Type Priority Associated Order Schedule Diagnoses PROVIDER FOLLOW-UP Outpatient Referral Routine Or dered: INSTRUCTIONS 01/16/2017 documented as of this encounter Goals Goal Patient Goal Associated Recent Patient-Stated? Author Type Problems Progress Abstain from General No Zimnie, Substance Use Kia Note: Reduce Substance Use Goal: Practice copi ng skills to abstain from illicit drug use Confidence level (1= Not very confident; 10 = Very confident): Not assessed Sources of support: [facility] Barriers to change: None Counseling was provided to assess readin ess, confidence and/or barriers to self-care. To learn more about your health please v isit: https://www.[email or web address]/medcenter/Pages/Wellness-Resources/Nypdhdqui-Istrxs-Ff documented as of this encounter Procedures Procedure Name Priority Date/Time Associated Comments Diagnosis URINALYSIS WITH STAT 01/15/2017 23:56 Results for this MICROSCOPIC IF EDT procedure are in POSITIVE the results section. UA REFLEX Routine 01/15/2017 23:56 Results for this EDT procedure are i n the results section. URINE CULTURE IF STAT 01/15/2017 23:56 Results for this POSITIVE EDT procedure are i n the results section. BACTERIAL CULTURE, Routine 01/15/2017 23:56 Resul ts for this URINE EDT procedure are i n the results section. ELECTROLYTES STAT 01/15/2017 22:13 Results for this EDT procedure are i n the results section. documented in this encounter Results BACTERIAL CULTURE, URINE (01/15/2017 23:56 EDT) Pathologist Sig nature Result Less than 10,000 CFU/ml [facility] Usual urogenital jose m. LABORATORY SERVIC ES Specimen Urine Performing Organization Address [facility]/ZIP Code Phon e Number [facility] [address] [place] [address] SERVICES UA REFLEX (01/15/2017 23:56 EDT) Pathologist Sig nature UA Billing Microscopic not [facility] indicated. LABORATORY SERVICES Specimen Urine Performing Organization Address [facility] Phon e Number [facility] [address] [place] [address] SERVICES URINE CULTURE IF UA POSITIVE - NON POCT URINALYSIS ONLY (01/15/2017 23:56 EDT) Culture if Culture indicated [facility] Indicated by urinalysis LABORATORY SERVICES results. Specimen Urine (substance) - Other Performing Organization Address [facility] Phon e Number [facility] [address] [place] [address] SERVICES (ABNORMAL) URINALYSIS WITH MICROSCOPIC IF POSITIVE (01/15/2017 23:56 EDT) Color, UA Yellow [facility] SERVICES Clarity, UA Hazy [facility] SERVICES Glucose, UA Neg [facility] LABORATORY SERVICES Bilirubin, UA 1+ (A) [facility] LABORATORY SERVICES Ketones, UA 2+ (A) [facility] LABORATORY SERVICES Specific Hester, >1.030 1.001 - 1.035 [facility] Urine LABORATORY SERVICES Blood, UA Trace (A) [facility] LABORATORY SERVICES pH, UA 6.0 4.6 - 8.0 [facility] SERVICES Protein, UA 1+ (A) [facility] LABORATORY SERVICES Urobilinogen, UA 2.0 (H) 0.2 - 1.0 [facility] E.U./dl LABORATORY SERVICES Nitrite, UA Neg [facility] LABORATORY SERVICES Leuk Esterase Trace (A) [facility] LABORATORY SERVICES Refractometer SG,Urine 1.030 1.001 - 1.035 [facility] LABORAT[facility] SERVICES Specimen Urine (substance) - Urine Performing Organization Address City/[facility]/ZIP Code Phon e Number [facility] [address] [place] [address] SERVICES (ABNORMAL) ELECTROLYTES (01/15/2017 22:13 EDT) Pathologist Sig nature Sodium 137Comment: Slight 136 - 145 mEq/L [facility] hemolysis LABORATORY SERVICES Potassium 4.3 3.5 - 5.0 mEq/L [facility] Comment: LABORATORY SERVICES Slight hemolysis Hemolysis may elevate potassium result. Chloride 104Comment: Slight 96 - 110 mEq/L [facility] hemolysis LABORATORY SERVICES CO2 20 (L)Comment: 22 - 32 mEq/L [facility] Slight hemolysis LABORATORY SERVICES Specimen Blood specimen (specimen) - Blood Performing Organization Address City/State/ZIP Code Phon e Number [facility] [address] [place] [address] SERVICES documented in this encounter Visit Diagnoses Diagnosis Vomiting of , after 22 weeks, a ntepartum - Primary Late vomiting of , antepartum Supervision of high risk in rst trimester Unspecified high-risk documented in this encounter Administered Medications Inactive Administered Medications - up to 3 most recent administrations Medication Order MAR Action Action Date Dose Rate Site calcium carbonate (TUMS) 200 mg Given 01/16/2017 1:06 EDT 1 Tabl et calcium (500 mg) per chewable tablet tablet,chewable 1 Tab 1 Tablet, oral, 4 TIMES DAILY PRN, Starting on Mon01/16/17 at 0052, Until Mon01/16/17 at 0339, Heartburn, Routine lactated ringers (LR) infusion New Bag 01/15/2017 23:13 EDT 200 mL/hr at 150-200 mL/hr, intravenous, CONTINUOUS, Starting on Mon01/15/17 at 2215, Until Mon01/16/17 at 0339, Routine New Bag 01/15/2017 22:30 EDT 200 mL/hr lactated ringers BOLUS 1,000 mL Given 01/15/2017 22:12 EDT 1,000 mL 1,000 mL, intravenous, NOW X1, 1 dose, On Mon01/15/17 at 2215, Routine ondansetron (PF) (ZOFRAN) injection 4 mg Given 01/15/2017 22:23 EDT 4 mg 4 mg, intravenous, EVERY 4 HOURS PRN, Starting on Mon01/15/17 at 2150, Until Mon01/16/17 at 0339, Nausea, Routine ondansetron (ZOFRAN-ODT) disintegrating tablet 4 Given 01/16 1:06 EDT 4 mg mg 4 mg, oral, EVERY 4 HOURS PRN, Starting on 01/15/17 at 2212, Until Mon01/16/17 at 0339, Nausea, Routine ondansetron 4 mg ODT tab STARTER PACK 1 Package, oral, Once (NO Time Specified ), 1 dose, Starting on 01/16/17 at 0111, Until Mon01/16/17 at 0339, STAT promethazine (PHENERGAN) injection 12.5 mg Given 01/15/2017 22:22 EDT 12.5 mg 12.5 mg, intramuscular, EVERY 6 HOURS PRN, Starting on 01/15/17 at 2150, Until Mon01/16/17 at 0339, Nausea, Routine documented in this encounter Active and Recently Administered Medications Times are shown in EDT. Scheduled Medication Order 01/14/2017 01/15/2017 01/16/2017 lactated ringers BOLUS 1,000 mL (COMPLETED) 2212 (Given - Provider: Atyia Russ RN) 1,000 mL, intravenous, NOW X1, 1 dose, 01/15/17 at 2215, Routi ne ondansetron 4 mg ODT tab STARTER PACK 1 Package, oral, ONCE, 1 dose, Starting 01/16/17 at 0111, Until Mon01/16/17 at 0339, STAT Continuous Medication Order 01/14/2017 01/15/2017 01/16/2017 lactated ringers (LR) infusion 2230 (New Bag - Provider: Socorro George RN)2313 (New Bag - Provider: Socorro George RN) at 150-200 mL/hr, intravenous, CONTINUOU S, Starting 01/15/17 at 2215, Until Mon01/16/17 at 0339, Routine PRN Medication Order 01/14/2017 01/15/2017 01/16/2017 calcium carbonate (TUMS) 200 mg calcium (500 mg) per chewable tablet tablet,chewable 1 Tab 0106 (Given - Prov ider: Atiya Russ RN) 1 Tab, oral, 4 TIMES DAILY PRN, Starting 01/16/17 at 0052, Until 01/16/17 at 0339, Heartburn, Routine ondansetron (PF) (ZOFRAN) injection 4 mg 2223 (Given - Provider: Atiya Russ RN) 4 mg, intravenous, EVERY 4 HOURS PRN, St arting 01/15/17 at 2150, Until 01/16/17 at 0339, Nausea, Routine ondansetron (ZOFRAN-ODT) disintegrating tablet 4 mg 0106 (Given - Provider: Atiya Russ RN) 4 mg, oral, EVERY 4 HOURS PRN, Starting 01/15/17 at 2212, Until 01/16/17 at 0339, Nausea, Routine promethazine (PHENERGAN) injection 12.5 mg 2222 (Given - Provider: Atiya Russ RN) 12.5 mg, intramuscular, EVERY 6 HOURS RI N, Starting 01/15/17 at 2150, Until 01/16/17 at 0339, Nausea, Routine documented in this encounter Orders Medications Ordered That Might Not Have Count Last Ord ered Date First Ordered Date Been Administered ondansetron 4 mg ODT tab STARTER PACK 1 01/16/2017 Diet Count Last Ordered Date First Ordered Date DISCHARGE DIET 2 01/16/2017 Nursing Count Last Ordered Date First Ordered Date ACTIVITY INSTRUCTIONS 1 01/16/2017 BATHING INSTRUCTIONS 1 01/16/2017 IV Count Last Ordered Date First Ordered Date IV REQUEST 1 01/15/2017 Admission Count Last Ordered Date First Ordered Date STATUS: OUTPATIENT OBSERVATION SERVICES 1 01/16/20 17 Transfer Count Last Ordered Date First Ordered Date NOTIFY PPS OF DISCHARGE COMPLETE 1 01/16/2017 Discharge Count Last Ordered Date First Ordered Date DISCHARGE PATIENT 1 01/16/2017 Legal Count Last Ordered Date First Ordered Date MISCELLANEOUS DISCHARGE INSTRUCTIONS 1 01/16/2017 documented in this encounter Care Teams Mains And Service Supervisor Relationship Specialty Start Date End Date Md Castle MD PCP - General 10/06/16 01/22/17 documented as of this encounter
--- OUTSIDE RECORDS SUMMARY | 2022-05-22 03:25 | XMS_ITS | Encounter Summary ---
:1990 Author Organization [facility] Address [address] [place] [address] Care Team Providers Name Role Phone Md NOEL Castle Primary Care Provider Unavailable Encounter Details Date Type Department Care Team Description 10/06/2016 Documentation Visit [facility] Women's Services - Cade Mejia RN [place] [address] [place] [address] Social History Tobacco Use Types Packs/Day Years Used Date Former Smoker Cigarettes 1.5 Quit: 07/08/20 16 Smokeless Tobacco: Never Used Comments: Smoker for [...] documented as of this encounter Progress Notes Jackie Kennedy - 10/06/2016 0929 EST Notes from [facility] Medical r/t vaginal bleeding - which was presumed to be self harm and therefore pt did not get rhogam - see scans/media. Added to results console. In scans/media. documented in this encounter Plan of Treatment Not on filedocumented as of this encounter Goals Goal Patient Goal Associated Recent Patient-Stated? Author Type Problems Progress Abstain from General No Nicholase, Substance Use Kia Note: Reduce Substance Use Goal: Practice copi ng skills to abstain from illicit drug use Confidence level (1= Not very confident; 10 = Very confident): Not assessed Sources of support: [facility] Barriers to change: None Counseling was provided to assess readin ess, confidence and/or barriers to self-care. To learn more about your health please v isit: [email or web address]/medcenter/Pages/Wellness-Resources/Ywastjgor-Cungjt-Mc documented as of this encounter Procedures Procedure Name Priority Date/Time Associated Diagnosis Comme nts PAP TEST- RESULT ONLY Routine 07/14/2016 Result s for this procedure are i n the results section . documented in this encounter Results PAP TEST- RESULT ONLY (07/14/2016) Pathologist Sig nature Other Pap Screen, LGSILComment: POINT OF CARE External +HRHPV; Tested too early - needs repeat co-testing 07/2017 Specimen Performing Organization Address City/State/ZIP Code Phon e Number [facility] POINT OF CARE POINT OF CARE documented in this encounter Visit Diagnoses Not on filedocumented in this encounter Care Teams Buzzsaw Operator Relationship Specialty Start Date End Date Md Castle MD PCP - General 10/06/16 01/22/17 documented as of this encounter
--- OUTSIDE RECORDS SUMMARY | 2022-05-22 03:25 | XMS_ITS | Encounter Summary ---
:1990 Author Organization [facility] Address [address] [place] [address] Care Team Providers Name Role Phone Md NOEL Castle Primary Care Provider Unavailable Reason for Visit Reason Onset Date Comments Medication Management 11/25/2016 Seroquel Encounter Details Date Type Department Care Team Description 11/25/2016 Telephone [facility] Edyta Calderón Women's Services - Cade Witt RN (Ser oquel) [place] [address] [place] [address] Social History Tobacco Use Types [...] Telephone Encounter - Miryam Calderón RN - 11/25/2016 1143 EDT Received TC from Amaya who states that she has not been able to start the Seroquel 200 mg XL. They are having trouble getting the PA approved. She would like permission to be able to the the Seroquel 200 mg (short acting) until she can get the other dosing. Advised that I would speak with Dr. Caal and call Shana (AJ) back with her recommendations. Spoke with Dr. Caal re: Seroquel. She states that she can take 200 mg of her current medication until she can get the XL. PSS staff working on PA now. Shana is aware. documented in this encounter Plan of [...] Very confident): Not assessed Sources of support: [facility] Barriers to change: None Counseling was provided to assess readin ess, confidence and/or barriers to self-care. To learn more about your health please v isit: https://www[facility].org/medcenter/Pages/Wellness-Resources/Frfibjtjb-Msuhrn-Bi documented as of this encounter Visit Diagnoses Not on filedocumented in this encounter Care Teams Cream Cheese Maker Relationship Specialty Start Date End Date Md Castle MD PCP - General 10/06/16 01/22/17 documented as of this encounter
--- OUTSIDE RECORDS SUMMARY | 2022-05-22 03:25 | XMS_ITS | Encounter Summary ---
:1990 Author Organization [facility] Address [address] [place] [address] Care Team Providers Name Role Phone Md NOEL Castle Primary Care Provider Unavailable Reason for Visit Reason Onset Date Comments Medications Refill 12/21/2016 Encounter Details Date Type Department Care Team Description 12/21/2016 Orders Only [facility] Women's Fara Munroe , RN Services - [address] [id number] Social History Tobacco Use Types Packs/Day Years [...] Date buprenorphine HCl Place 1 Tab under 14 Tab 0 12/22/2016 01/05/2017 (SUBUTEX) 8 mg sublingual the tongue daily tablet for 14 days. Daily Max: [address] 1 Tab under 14 Tab 0 12/22/2016 01/05/2017 (SUBUTEX) 2 mg sublingual the tongue daily tablet for 14 days. Daily Max: 2 mg documented in this encounter Progress Notes Fara Munroe, RN - 12/21/2016 1017 EDT Prescription called into pharmacy. Dispense 14 days with no refills. Start date 12/23/16. Delivery date to [place] 12/22/16. documented in this encounter Plan of Treatment [...] health please v isit: https://www.[facility].org/medcenter/Pages/Wellness-Resources/Qspplxkeo-Gayfjr-Yg documented as of this encounter Visit Diagnoses Not on filedocumented in this encounter Care Teams Video Operator Relationship Specialty Start Date End Date Md Castle MD PCP - General 10/06/16 01/22/17 documented as of this encounter
--- OUTSIDE RECORDS SUMMARY | 2022-05-22 03:25 | XMS_ITS | Encounter Summary ---
:1990 Author Organization Health system Address [address] [place] [address] Care Team Providers Name Role Phone Md NOEL Castle Primary Care Provider Unavailable Reason for Visit Reason Comments Addiction Problem Encounter Details Date Type Department Care Team Description 10/06/2016 Nurse Only [facility] Romina Mccarthy, Opioid dependence Women's Services - ELECTRONICS INSTRUCTOR with withdrawal [facility] [address] [facility] ([facility]) (Primary [address] [facility], Main Dx) [place] [address] [address], [place] [phone] (Wo rk) Social History Tobacco Use Types [...] Sign Reading Time Taken Comments Blood Pressure 124/64 10/06/2016 1350 EST Pulse - - Temperature - - Respiratory [...] or older) documented as of this encounter Patient Instructions Patient InstructionsRomina Mccarthy ANP - 10/06/2016 13:45 EST Images from the original note were not included. [facility] Patient Instructions During : Exercises Your Care Instructions Here are some examples of exercises to do during your . Start each exercise slowly. Ease off the exercise if you start to have pain. Your doctor or physical therapist will tell you when you can start these exercises and which ones will work best for you. How to do the exercises Neck rotation 1. Sit in a firm chair, or stand up straight. 2. Keeping your chin level, turn your head to the right, and hold for 15 to 30 seconds. 3. Turn your head to the left and hold for 15 to 30 seconds. 4. Repeat 2 to 4 times to each side. Forward neck flexion 1. Sit in a firm chair, or stand up straight. 2. Bend your head forward. 3. Hold for 15 to 30 seconds. 4. Repeat 2 to 4 times. Back press 1. Place your feet 10 to 12 inches from the wall. 2. Rest your back flat against the wall and slide down the wall until your knees are slightly bent. 3. Press your lower back against the wall by pulling in your stomach muscles. 4. Hold for 6 seconds, and then relax your stomach muscles and slide back up the wall. 5. Repeat 8 to 12 times. Full body twist 1. Sit with your legs crossed. 2. Reach your left hand toward your right foot, and place your right hand at your side for support. 3. Slowly twist your torso to your right. 4. Switch your hands and twist to your left. 5. Repeat 2 to 4 times. Pelvic rocking 1. Kneeling on hands and knees, place your hands directly under your shoulders and your knees under your hips. 2. Breathe in deeply. Tuck your head downward and round your back up, making a curve with your back in the shape of the letter C. Hold this position for a count of 6. 3. Breathe out slowly and bring your head back up. Relax, keeping your back straight (don't allow itto curve toward the floor). Hold this for a count of 6. 4. Do this exercise 8 times or to your comfort level. Pelvic tilt Note: This exercise strengthens your lower back and pelvis. It is for use during the first 4 months of . After this point, lying on your back is not recommended, because it can cause blood flow problems for you and your baby. 1. Lie on your back. 2. Keep your knees relaxed. 3. Tighten your belly and buttocks muscles. 4. At the same time, gently shift your pelvis upward. This should flatten the curve in your back. 5. Hold for 6 seconds and then relax. 6. Gradually increase the number of tilts you do each day, to your comfort level. Backward stretch 1. Kneel on hands and knees with your knees 8 to 10 inches apart, hands directly under your shoulders, and arms and back straight. 2. Keeping your arms straight, slowly lower your buttocks toward your heels and tuck your head toward your knees. Hold for 15 to 30 seconds. 3. Slowly return to the kneeling position. 4. Repeat 2 to 4 times. Forward bend 1. Sit comfortably in a chair, with your arms relaxed. 2. Slowly bend forward, allowing your arms to hang down in front of you. Lean only as far as you canwithout feeling discomfort or pressure on your belly. 3. Hold for 15 to 30 seconds and then slowly sit up straight. 4. Repeat 2 to 4 times or to your comfort level. Leg lift crawl 1. Kneeling on hands and knees, place your hands directly under your shoulders and straighten your arms. 2. Tighten your belly muscles by pulling in your belly button toward your spine. Be sure you continue to breathe normally and do not hold your breath. 3. Lift your left knee and bring it toward your elbow. 4. Slowly extend your leg behind you without completely straightening it. Be careful not to let yourhip drop down. Avoid arching your back. 5. Hold your leg behind you for about 6 seconds. 6. Return to your starting position. 7. Do the same exercise with your other leg. 8. Repeat 8 to 12 times for each leg. Tailor sitting 1. Sit on the floor. 2. Bring your feet close to your body while crossing your ankles. 3. Hold this position for as long as you are comfortable. Tailor stretching 1. Sit on the floor with your back straight, legs about 12 inches apart, and feet relaxed outward. 2. Stretch your hands forward toward your left foot, then sit up. 3. Stretch your hands straight forward, then sit up. 4. Stretch your hands forward toward your right foot, then sit up. 5. Hold each stretch for 15 to 30 seconds. 6. Repeat 2 to 4 times. documented in this encounter Ordered Prescriptions Prescription Sig Dispensed Refills Start Date End Date ondansetron (ZOFRAN) 4 mg Take 1-2 Tabs by 20 Tab 1 09/1210/10/2016 tablet mouth daily as needed for Nausea. documented in this encounter Discharge Disposition Disposition Code Departure Means Destination Auto Discharge documented in this encounter Progress Notes Romina Mccarthy ANP - 10/06/2016 1345 EST [facility] / Nurse or ELECTRONICS INSTRUCTOR Chief Complaint: Opiate Dependence in Amaya Mary 18w5d presents for opiate addiction visit. Currently taking 4 mg subutex daily. Was on [address]oxone pills but has been on 4 mg subutex for approximately 2 months while incarcerated. States initially was placed on 2 mg but eventually was able to get 4 mg daily. Current Outpatient Prescriptions Medication Sig Dispense Refill ??? acetaminophen (TYLENOL) 325 mg tablet Take 650 mg by mouth 2 times daily. Reported on 10/06/2016 ??? buprenorphine HCl (SUBUTEX) [address] 2 Tabs under the tongue daily for 1 dose. Daily Max: 4 mg 2 Tab 0 ??? ondansetron (ZOFRAN) 4 mg tablet Take 1-2 Tabs by mouth daily as needed for Nausea. 20 Tab 1 ??? PNV95/FERROUS FUMARATE/FA ( ORAL) Take by mouth. ??? QUEtiapine (SEROQUEL) 50 mg tablet Take 50 mg by mouth 2 times daily 75mg in am/125mg in pm . No current facility-administered medications for this visit. Vitals: 10/06/16 1350 BP: 124/64 Withdrawal Symptoms: Sweating, Diarrhea and vomiting, anorexia, chills. Also c/o low back pain radiating down right buttock. Urine Screen Results: none Has the patient used drugs in the last 2 weeks? no Name of Counselor: [facility] Frequency: weekly Counseling Compliance: Yes-per patient Assessment:Withdrawal - needs increased dose. Patient Education: use vaseline to perianal area before diarrhea to protect skin. String cheese for snacks is good protein, calcium and helps with diarrhea. Right buttock/back pain sounds like sciatica, common in . Given recommended stretching exercises to do during . See patient inst ructions. Notes for MD to review:needs zofran renewed; may need preauthorization for more. Currently has no money to buy OTC B6 or pyridoxine. Witnessed UDS collection: yes Prescription given: will call in script for 6 mg to begin tomorrow Days: 4. May need more on Monday,but can re-evaluate then. Flow sheet updated: yes Next Appointment: Monday Nurse: no MD: yes Face to face encounter lasted 25 minutes; 25 minutes spent in counseling, teaching and coordination of care documented in this encounter Plan of Treatment [...] Not assessed Sources of support: [facility] Barriers to change: None Counseling was provided to assess readin ess, confidence and/or barriers to self-care. To learn more about your health please v isit: https://www.[facility].org/medcenter/Pages/Wellness-Resources/Lroucvkoh-Fgnpss-Ws documented as of this encounter Visit Diagnoses Diagnosis Opioid dependence with withdrawal (HCC-C MS) (HCC) - Primary Drug withdrawal documented in this encounter Discontinued Medications Medication Sig Discontinue Reason Start Date End Date citalopram (CELEXA) 20 Take 20 mg by mouth Patient Stopped 10/06/2016 mg tablet daily. Reported on Taking 10/06/2016 cetirizine (ZYRTEC) 10 Take 10 mg by mouth Patient Stopped 10/06/2016 mg tablet daily. Reported on Taking 09/22/2016 pantoprazole (PROTONIX) Take 40 mg by mouth Patient Stopped 10/06/2016 20 mg tablet daily. Reported on Taking 10/06/2016 ranitidine (ZANTAC) 150 Take 150 mg by Patient Stopped 10/06/2016 mg tablet mouth 2 times Taking daily. Reported on 10/06/2016 ondansetron (ZOFRAN) 4 Take 1-2 Tabs by Reorder 08/15/2016 0 10/06/2016 mg tablet mouth daily as needed for Nausea. documented as of this encounter Care Teams Public Works Technician Relationship Specialty Start Date End Date Md Castle MD PCP - General 10/06/16 01/22/17 documented as of this encounter
--- OUTSIDE RECORDS SUMMARY | 2022-05-22 03:25 | XMS_ITS | Encounter Summary ---
:1990 Author Organization [facility] Address [address] [place] [address] Care Team Providers Name Role Phone Md NOEL Castle Primary Care Provider Unavailable Reason for Visit Reason Comments Depression Encounter Details Date Type Department Care Team Description 12/19/2016 Office Visit [facility] Unknown, Lorne manjarrez MD PTSD (post-traumatic stress disorder) (P rimary Dx); Women's Services - Mike Phillip MD [address] [place] [phone] Primary insomnia [place] Emilia Caal MD [address] [facility], [address] [place] [phone] [address] [place], [place] [phone] Social History Tobacco Use Types Packs/Day Years [...] Tab by mouth 30 Tab 2 0 12/19/2016 02/01/2017 mg tablet at bedtime. documented in this encounter Progress Notes Emilia Caal MD - 12/19/2016 1330 EDT [facility] Psychiatry Follow Up Name: Amaya Mary : 1990 Chief Complaint: Chief Complaint Patient presents with ??? Depression Interim History: Amaya says she has been having a harder time sleeping since starting the seroquel XR. She used to have fragmented sleep but now she can't fall asleep at all until 2 am or so, and always has to wake up by 8. She notes that her mood is generally good- she has the energy to attend groups and she has started school. Her anxiety is about the same, and she finds it manageable. She is only concerned that her sleep deprivation will continue and make it hard when the baby is born and she is waking to breastfeed. Amaya notes she has tried many strategies- she walks for over an hour a day, she doesn't use screens before bed, and she doesn't take naps. [place] has supported her in locking her door (to feel safe) turning lights on and leaving the closet door open to help from a trauma point of view, but nothing has helped. The prazosin hasn't made a difference. Amaya doesn't like relaxation or meditation exercises. Current Medications: Current Outpatient Prescriptions Medication Sig Dispense Refill ??? acetaminophen (TYLENOL) 500 mg tablet Take 2 Tabs by mouth every 6 hours as needed for Pain. 200Tab 3 ??? buprenorphine HCl (SUBUTEX) [address] 1 Tab under the tongue daily for 14 days. Daily Max: 2 mg 14 Tab 0 ??? buprenorphine HCl (SUBUTEX) [address] 1 Tab under the tongue daily for 14 days. Daily Max: 8 mg 14 Tab 0 ??? diphenhydrAMINE (BENADRYL) 25 mg capsule Take 50 mg by mouth at bedtime as needed. ??? hydrocortisone (ANUSOL-HC) 2.5 % rectal cream Apply to hemorrhoid 2-4 times daily as needed after washing and drying area 1 Tube 1 ??? multivitamin vit-iron fumarate-FA (STUARTNATAL) 27 mg iron- 1 mg tablet tablet Take 1 Tab by mouth daily. 100 Tab 2 ??? ondansetron (ZOFRAN-ODT) 4 mg disintegrating tablet Take 1 Tab by mouth daily as needed for Nausea. 30 Tab 1 ??? Prazosin (MINIPRESS) 1 mg capsule Take 1 Cap by mouth at bedtime for 30 days. 30 Cap 2 ??? pyridoxine, vitamin B6, (VITAMIN B6) 50 [...] the child when Amaya graduates from the [employer]. 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 Amaya looks brighter today and reports fairly stable mood and anxiety and she is functioning fairly well but concerned about worsening insomnia. She was sleeping marginally better with the IR dose of seroquel, so we discussed adding IR to the XR, as the XR seems to have improved her mood and anxiety and daily functioning. At her last visit she had said she had been spending most of her day in her room. We will try the mixed seroquel strategy to avoid polypharmacy and discontinue the prazosin. Initial Treatment Plan/Goals: 1. Medication: Seroquel 200 mg XL formulation (to better cover the daytime); Add Seroquel 100 mg IR;Discontinue Prazosin 1 mg qHS 2. Continue [place] Programming; 20-25 min of brisk walking daily; body scan meditations at night 3. Therapy with Shell Donato 4. Subutex through MAT 5. Return in 3 weeks to psychiatry Emilia aCal MD 12/20/2016, 13:39 I spent a total of 30 minutes [...] Very confident): Not assessed Sources of support: [facility] Barriers to change: None Counseling was provided to assess readin ess, confidence and/or barriers to self-care. To learn more about your health please v isit: https://www.[facility].org/medcenter/Pages/Wellness-Resources/Mrkbcquus-Yvdehq-Fe documented as of this encounter Visit Diagnoses Diagnosis PTSD (post-traumatic stress disorder) - Primary Posttraumatic stress disorder Primary insomnia Persistent disorder of initiating or juliana ntaining sleep documented in this encounter Care Teams Psychodramatist Relationship Specialty Start Date End Date Md Castle MD PCP - General 10/06/16 01/22/17 documented as of this encounter
--- OUTSIDE RECORDS SUMMARY | 2022-05-22 03:25 | XMS_ITS | Encounter Summary ---
:1990 Author Organization [facility] Address [address] [place] [address] Care Team Providers Name Role Phone Md NOEL Castle Primary Care Provider Unavailable Reason for Visit Reason Comments Addiction Problem Encounter Details Date Type Department Care Team Description 11/21/2016 Nurse Only [facility] Mary Mendoza, SAP BUSINESS OBJECTS DEVELOPER Drug addiction Women's Services - [address] [facility] (Primary [place], [place] ) [address] [facility], [address] [place], [place] [id number] [place] [address] [phone] (Wo rk) Social History Tobacco Use Types [...] Sign Reading Time Taken Comments Blood Pressure 118/72 11/21/2016 1123 EDT Pulse - - Temperature - - [...] documented as of this encounter Progress Notes Ирина Mendoza FNP - 11/21/2016 1100 EDT [facility] Drug Evaluation / Nurse or SAP BUSINESS OBJECTS DEVELOPER Chief Complaint: Opiate Dependence in Amaya Mary 26w2d presents for opiate addiction visit. Taking Subutex 10mg daily. FHR regularand 146 bpm. Outpatient Encounter Prescriptions as of 11/21/2016 Medication Sig Dispense Refill ??? acetaminophen (TYLENOL) [...] tablet Take 1 Tab by mouth daily. (Patient not taking: Reported on 11/07/2016) 30 Tab 2 ??? QUEtiapine (SEROQUEL) 50 mg tablet Take 1 Tab by mouth 2 times daily for 14 days. 28 Tab 1 No facility-administered encounter medications on file as of 11/21/2016. Withdrawal Symptoms: none Urine Screen Results: UDS negative 10/27/16. Has the patient used drugs in the last 2 weeks? no Name of Counselor: Shell Cabrera at [place] [facility] Frequency: weekly Counseling Compliance: Yes-per patient Assessment: Stable dose - no change/. Patient Education: continue counseling Notes for MD to review: 26w2d presents for opiate addiction visit. Taking Subutex 10mg daily. FHR regular and 146 bpm. Witnessed UDS collection: no. U'As done at [place] Prescription given: no Days: 7 Flow sheet updated: no Next Appointment: 1 week Nurse: yes MD: no PERNELL Lovelace I spent a total of 15 minutes in face to face time with this patient and 15 minutes of that time wasspent in counseling and coordination of care as [...] Very confident): Not assessed Sources of support: [facility] Barriers to change: None Counseling was provided to assess readin ess, confidence and/or barriers to self-care. To learn more about your health please v isit: https://www.[facility].org/medcenter/Pages/Wellness-Resources/Yxlnyqrye-Muzpkp-Am documented as of this encounter Visit Diagnoses Diagnosis Drug addiction (HCC-CMS) (HCC) - Primary Unspecified drug dependence, unspecified documented in this encounter Care Teams Supervisor Microbiology Technologists Relationship Specialty Start Date End Date Md Castle MD PCP - General 10/06/16 01/22/17 documented as of this encounter
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
--- OUTSIDE RECORDS SUMMARY | 2022-05-22 03:25 | XMS_ITS | Encounter Summary ---
:1990 Author Organization [facility] Address [address] [place] [address] Care Team Providers Name Role Phone Md NOEL Castle Primary Care Provider Unavailable Reason for Referral Consult (Routine) - Specialty Report Received Specialty Diagnoses / Procedures Referred By Contact Refer red To Contact Neonatology Diagnoses Addiction to drug ([facility]) ([facility]) Lotus Rodriguez MD Ep[facility] [address] [place] [id number] [facility], [address] [place], [place] Fax: [phone] Referral ID Status Reason Start Expiration Visits Visits Date Date Requested Authorized [id number] Specialty Specialty 10/31/2016 1 1 Report Services Received Required Question Answer Reason for Request: COGS pt, living at [place], re uests [facility] visit. Scheduling Comments (optional ? UZMA 03/04/17 describe specific scheduling needs if applicable): Encounter Details Date Type Department Care Team Description 10/27/2016 Orders Only [facility] Stella Akhtar, Addic tion to drug Women's Services - [facility] ([facility]) (Primary Dx) [place] [address] [place] [address] [phone] Social History Tobacco Use Types Packs/Day Years [...] as of this encounter Plan of Treatment Scheduled Referrals Name Type Priority Associated Order Schedule Diagnoses AMB CONS/FOLLOW UP Outpatient Referral Routine Addiction to dr guerrero Ordered: NEONATOLOGY ([facility] 10/31/2016 documented as of this encounter Goals Goal Patient Goal Associated Recent Patient-Stated? Author Type Problems Progress Abstain from General No Albertina, Substance Use Kia Note: Reduce Substance Use Goal: Practice copi patel skills to abstain from illicit drug use Confidence level (1= Not very confident; 10 = Very confident): Not assessed Sources of support: [facility] Barriers to change: None Counseling was provided to assess readin ess, confidence and/or barriers to self-care. To learn more about your health please v isit: https://www.[facility].org/medcenter/Pages/Wellness-Resources/Umqugmfby-Sldfuk-Cy documented as of this encounter Procedures Procedure Name Priority Date/Time Associated Diagnosis Comme nts DRUG SCREEN 11, Routine 10/27/2016 16:47 Addiction to drug Res ults for this URINE EST ([facility]) procedure are i n the results section. documented in this encounter Results DRUG SCREEN COMPREHENSIVE (10/27/2016 16:47 EST) Amphetamine Screen, Negative screen. [facility] Urine Comment: [facility] Confirmation testing available upon request. SERVICES Suitable for medical purposes only. Will not detect all drugs within class. Cutoff = 1000 ng/ml Specimen type is urine. Barbiturate Screen, Negative screen. [facility] Urine Comment: [facility] Confirmation testing available upon request. SERVICES Suitable for medical purposes only. Will not detect all drugs within class. Cutoff = 300 ng/ml Specimen type is urine. Benzodiazepine Negative screen. [facility] Screen, Urine Comment: [facility] Confirmation testing available upon request. SERVICES Suitable for medical purposes only. Will not detect all drugs within class. Assay less sensitive to Lorazepam and metabolites. Cutoff = 200 ng/ml Specimen type is urine. Cannabinoid Scrn, Ur Negative screen. [facility] Comment: [facility] Confirmation testing available upon request. SERVICES Suitable for medical purposes only. Will not detect all drugs within class. Cutoff = 50 ng/ml Specimen type is urine. Methadone Screen Negative screen. [facility] Comment: [facility] Confirmation testing available upon request. SERVICES Suitable for medical purposes only. Will not detect all drugs within class. Cutoff = 300 ng/ml Specimen type is urine. Opiate Scrn, Ur Negative screen. [facility] Comment: [facility] Confirmation testing available upon request. SERVICES Suitable for medical purposes only. Will not detect all drugs within class. Cutoff = 300 ng/ml Assay less sensitive to oxycodone and metabolites. Assay does not detect methadone. Specimen type is urine. Oxycodone Screen Negative screen. [facility] Comment: [facility] Confirmation testing available upon request. SERVICES Suitable for medical purposes only. Will not detect all drugs within class. Cutoff = 300 ng/ml Specimen type is urine. Cocaine Metabolites, Negative screen. [facility] Ur Comment: [facility] Confirmation testing available upon request. SERVICES Suitable for medical purposes only. Will not detect all drugs within class. Cutoff = 300 ng/ml Specimen type is urine. Specimen Urine (substance) - Urine Performing Organization Address City/State/[facility] Code Phon e Number [facility] [address] [place] [address] SERVICES documented in this encounter Visit Diagnoses Diagnosis Addiction to drug ([facility]) (HCC) - Prim micheal Unspecified drug dependence, unspecified documented in this encounter Care Teams Sdv Pilot/Navigator/Dds Operator Relationship Specialty Start Date End Date Md Castle MD PCP - General 10/06/16 01/22/17 documented as of this encounter
--- OUTSIDE RECORDS SUMMARY | 2022-05-22 03:25 | XMS_ITS | Encounter Summary ---
:1990 Author Organization [facility] Address [address] [place] [address] Care Team Providers Name Role Phone Md NOEL Castle Primary Care Provider Unavailable Reason for Visit Reason Onset Date Comments Medications Refill 10/10/2016 Encounter Details Date Type Department Care Team Description 10/10/2016 Orders Only [facility] Women's Fara Munroe , RN Services - [facility] [address] [place], [place] [id number] Social History Tobacco Use Types Packs/Day Years [...] Date buprenorphine HCl Place 1 Tab under 6 Tab 0 10/11/2016 10/17/2016 (SUBUTEX) 8 mg sublingual the tongue daily tablet for 6 days. Daily Max: 8 mg documented in this encounter Progress Notes Fara Munroe RN - 10/10/2016 1433 EST Prescription called into pharmacy. Dispense 6 days with no refills. Start date 10/11/16. documented in this encounter Plan of Treatment [...] confident): Not assessed Sources of support: [facility] Barriers to change: None Counseling was provided to assess readin ess, confidence and/or barriers to self-care. To learn more about your health please v isit: https://www.[facility].org/medcenter/Pages/Wellness-Resources/Rcyyebfom-Vjdmiv-Px documented as of this encounter Visit Diagnoses Not on filedocumented in this encounter Care Teams [employer] Relationship Specialty Start Date End Date Md Castle MD PCP - General 10/06/16 01/22/17 documented as of this encounter
--- OUTSIDE RECORDS SUMMARY | 2022-05-22 03:25 | XMS_ITS | Encounter Summary ---
:1990 Author Organization [facility] Address [address] [place] [address] Care Team Providers Name Role Phone Md NOEL Castle Primary Care Provider Unavailable Reason for Visit Reason Onset Date Comments Medication Problem 10/21/2016 Encounter Details Date Type Department Care Team Description 10/21/2016 Telephone [facility] Ena Hebert M edication Problem Women's Services - [facility] [place] [address] [facility] [address] [place] [address] [place] [address] Social History Tobacco Use Types Packs/Day Years [...] this encounter Miscellaneous Notes Telephone Encounter - Ena Hebert, RN - 10/21/2016 1817 EST Amaya states that the nurse did several evaluations for withdrawal sx and was to communicate her findings to this office so that her dose could be increased. Am unable to locate any documentation at this time. Call to [facility] nurse who said that there would be communication from [place] Nurse and this office on Monday, 10/24 at which time a decision would be made regarding a dose increase. This was communicated to Amaya. documented in this encounter Plan of Treatment Not on filedocumented as of this encounter Goals Goal Patient Goal Associated Recent Patient-Stated? Author Type Problems Progress Abstain from General Marychuy Eng Substance Use Kia Note: Reduce Substance Use Goal: Practice copi ng skills to abstain from illicit drug use Confidence level (1= Not very confident; 10 = Very confident): Not assessed [facility] support[facility] Barriers to change: None Counseling was provided to assess readin ess, confidence and/or barriers to self-care. To learn more about your health please v isit: https://www.[facility].org/medcenter/Pages/Wellness-Resources/Bsumgpiuz-Lcmpti-Lq documented as of this encounter Visit Diagnoses Not on filedocumented in this encounter Care Teams Cracker Off Relationship Specialty Start Date End Date Md Castle MD PCP - General 10/06/16 01/22/17 documented as of this encounter
--- OUTSIDE RECORDS SUMMARY | 2022-05-22 03:25 | XMS_ITS | Encounter Summary ---
:1990 Author Organization [facility] Address [address] [place] [address] Care Team Providers Name Role Phone Md NOEL Castle Primary Care Provider Unavailable Encounter Details Date Type Department Care Team Description 01/12/2017 Orders Only [facility] Women's KennedyLetty clemons, [facility] RN [address] [place] [address] Social History Tobacco Use Types [...] Very confident): Not assessed Sources of support: [facility] Barriers to change: None Counseling was provided to assess readin ess, confidence and/or barriers to self-care. To learn more about your health please v isit: https://www.[facility].org/medcenter/Pages/Wellness-Resources/Yxgwyruiz-Pwarvc-Kn documented as of this encounter Visit Diagnoses Not on filedocumented in this encounter Discontinued Medications Medication Sig Discontinue Reason Start Date End Date hydrocortisone Apply to hemorrhoid Error 01/09/20172016 (ANUSOL-[facility]) 2.5 % rectal 2-4 times daily as cream needed after washing and drying area PEG 3350-Electrolytes Take 17 g by mouth Error 01/09/2017 01/12/2017 (MIRALAX) 17 gram packet daily. documented as of this encounter Care Teams Cutting Supervisor Relationship Specialty Start Date End Date Md Castle MD PCP - General 10/06/16 01/22/17 documented as of this encounter
--- OUTSIDE RECORDS SUMMARY | 2022-05-22 03:25 | XMS_ITS | Encounter Summary ---
:1990 Author Organization [facility] Address [address] [place] [address] Care Team Providers Name Role Phone Md NOEL Castle Primary Care Provider Unavailable Reason for Referral Cardiology (Routine/Next Available) - Closed Specialty Diagnoses / Procedures Referred By Contact Refer red To Contact Pediatric Cardiology Diagnoses arrhythmia affecting , antepartum Kenneth Mcfadden Ep4 P susana Cardiology Procedures [facility] ECHOCARDIOGRAM (PEDI CARD) MD Becca [address] [facility] [address] [place], [place] [address] [facility] Fax: [place], [address] [place] [address] Referral ID Status Reason Start Date Expiration Date Visits Requ ested Visits Authorized [id number] Closed 10/17/2016 1 1 Reason for Visit Reason Comments Advice Only Encounter Details Date Type Department Care Team Description 10/17/2016 Initial consult [facility] Kenneth Mcfadden arrhythmia Obstetrics & MD Becca affecting , Midwifery - [address] antepart[address] m (Primary [address]) [address] [place], [place], [address] [address] [place], [place] [phone] (Wo rk) Social History Tobacco Use [...] documented as of this encounter Progress Notes Kenneth Mcfadden MD - 10/17/2016 1000 EST October 17, 2016 Lotus Rodriguez MD COGS Re: Amaya Mary Dear Dr. Rodriguez: I had the pleasure of meeting with Ms. Mary. As you know, she is a 26-year-old woman, 3 para 2001, presently at 20w2d. She was referred for a follow-up ultrasound with the request we consult on abnormal findings. She says she has a cousin that had multiple heart surgeries. Otherwise, she denies a family history for herself or her partner of aneuploidy, genetic diseases/syndromes, defects, multiple miscarriage, stillbirth or mental retardation/developmental delay She underwent a detailed scan today after an arrhythmia was noted. Please see the separate enclosed report. The findings were normal with the exception of infrequent irregular premature atrial contractions (PACs) and a right kidney that was suspicious for a duplicated collecting system. PACs are generally a benign arrhythmia that resolves at or soon after . Occasionally it resolves prenatally. It can rarely trigger a supraventricular tachycardia (SVT). Given that remote possibility, the appropriate follow-up is weekly heart rate checks (as is done at normal visits). An SVT is usually ?240 bpm. Should that be detected, referral for a repeat echocardiogram is warranted. There are a few environmental factors that may increase the risk of PACs. They include smoking (nicotine), decongestants (eg, pseudoephedrine), caffeine and other stimulants. Consequently, we have toldher to avoid decongestants and drink only decaffeinated beverages. She says she has one cup of coffee per day. That would seem unlikely to cause this, but it would still be best to avoid caffeine. The right kidney appears to have 2 small pelves that do not connect rather than one central pelvis. Neither is abnormally dilated. This is suggestive of a duplicated collecting system, which is a benign variant so long as there is no obstruction. If this appearance persists throughout the , Iwould recommend a scan of the to sort it out after . As noted above, the findings we observed are generally. Thank you for referring this nice couple andallowing me to participate in their care. I spent entire 15- minute session counseling her on the themanagement of PACs and a possible duplicated collecting system. She indicated that she understood the issues that we discussed and that her questions had been answered. Should you have any questions or concerns, please feel free to contact me. Best regards, Kenneth Mcfadden MD Director, Diagnostic Center Professor of Obstetrics, Gynecology & Reproductive Sciences [facility], Dept. of OBGYN Division of Maternal??? Medicine [phone] documented in this encounter Plan of Treatment [...] more about your health please v isit: https://www.[email or web address].org/medcenter/Pages/Wellness-Resources/Tdzftqowv-Bmrbju-Vh documented as of this encounter Procedures Procedure Name Priority Date/Time Associated Comments Diagnosis [facility] Routine 11/02/2016 10:49 arrhythmia Results for this ECHOCARDIOGRAM (PEDI EST affecting procedu re are in CARD) , the results antepartum section. documented in this encounter Results [facility] ECHOCARDIOGRAM (PEDI CARD) (11/02/2016 10:49 EST) Specimen Narrative [facility] [facility] - 11/02/2016 13:01 EST Pediatric Cardiology [address] [place] [address] Date of study: 11/02/2016 Transabdominal Echocardiography Complete 2D, complete spectral Doppler, and color Doppler *STUDY CONCLUSIONS* Summary: - echocardiogram at 22weeks +4days gestation. - Normal chamber size and function. - Normal arterial and venous connections . - Normal Doppler study. - No arrhythmias noted during the exam. No evidence of premature atrial ??or ventricular contractions. - No evidence of hydrops. - The results of the study, its limitati ons and the limitations of ??echocardiography in general were revi ewed. The inability to diagnose ??patent ductus arteriosus, some atrial defects, ventricular septal ??defects and coarctation was discussed . Further echocardiography ??is not recommended unless new concern s arise. *PATIENT PRESENTATION* Age: ?26yr Height: ? () S/D Pressure: Weight: ? () BSA: Location: Facility: ? [facility] Attending: ?Kenneth Mcfadden Referring: ?Md Kenneth Mcfadden Performing: ?? Md Landry Ordering: ? Kenneth Mcfadden Test start time: ??Test start time: 10:3 5 AM. Test stop time: ??Test stop time: 11:20 AM. *PROCEDURE DATA* Procedure information: ??Pertinent image s and digital data are archived for permanent storage and are available for subsequent review. ??Study status: ??Routine. Transabdominal echocardiography. ??Complete 2D, complete spectral Doppler, and color Dop pler. ??Transabdominal echocardiography for congenital heart di sease evaluation. Views were limited by position and acti vity. ??Maternal age: ?26yr. : ?3. ??Parity: ?2. ??E xpected delivery date: ?03/04/2017. Gestational age: ?22wk. ??Study comp letion: ??The patient tolerated the procedure well. *INDICATIONS AND HISTORY* Indications: ??(I49.1) Atrial premature depolarization. Suspected history of PACs. *CARDIAC ANATOMY* DESCRIPTION ? One fetus is pre sent. Fetus: The rhythm is sinus rhythm, with no apparent ectopy, an atrial rate of 146bpm, an AV conduction interval of 124ms, a ventricular rate of 146bpm, and a heart rate of 146b pm. No evidence of premature atrial or ventricular contractions. Norm al Doppler pattern of the ductus venosus, umbilical artery, and vein VEINS AND ATRIA Atrial septum: ??There is a patent regis en ovale. There is a muvkf-vt-emxh shunt. Left atrium: ??The atrium is normal in s ize. Right atrium: ??The atrium is normal in size. Systemic veins: ??Normal systemic venous drainage. Pulmonary veins: ??At least one pulmonar y vein is seen entering the left atrium from each side. A-V CANAL Tricuspid valve: ??The annulus is normal -sized. ?There is normal biphasic inflow spectral Doppler. There is no significant regurgitation. Mitral valve: ??The annulus is normal-si zed. ?There is normal biphasic inflow spectral Doppler. There is no reg urgitation. VENTRICLES Right ventricle: ??The cavity size is no rmal. Systolic function is qualitatively normal. Ventricular septum: ?? No evidence for a significant ventricular septal defect. Left ventricle: ??The cavity size is nor mal. Systolic function is qualitatively normal. CONOTRUNCUS Aortic valve: ? Transvalvular veloci ty is within the normal range. There is no regurgitation. Pulmonary valve: ?Transvalvular v elocity is within the normal range. There is no regurgitation. GREAT ARTERIES Aorta: ?? Normal unobstructed left-sided aortic arch. Pulmonary arteries: ?? The proximal bran ch pulmonary arteries are normal. Systemic-pulmonary shunts: Patent ductus arteriosus. Shunt flow is right to left. PERICARDIUM There is no significant pericardial effu scott. *MEASUREMENT TABLES* Fetus ? Value ?Referen ce ?? Z TrV annulus ? 0.65 ??cm 0.44 - 0.71 1.1 MiV annulus ? 0.59 ??cm 0.43 - 0.68 0.5 Legend: (L) ??and ??(H) ??william values outside sp ecified reference range. I have personally reviewed the images an d have reviewed and edited the reported findings. Electronically signed by Raheem Alatorre 11/02/2016 13:01 Procedure Note Raheem Alatorre MD - 11/02/2016 Pediatric Cardiology [address] [place] [address] Date of study: 11/02/2016 Transabdominal Echocardiography Complete 2D, complete spectral Doppler, and color Doppler *STUDY CONCLUSIONS* Summary: - echocardiogram at 22weeks +4days gestation. - Normal chamber size and function. - Normal arterial and venous connections . - Normal Doppler study. - No arrhythmias noted during the exam. No evidence of premature atrial or ventricular contractions. - No evidence of hydrops. - The results of the study, its limitati ons and the limitations of echocardiography in general were review ed. The inability to diagnose patent ductus arteriosus, some atrial d efects, ventricular septal defects and coarctation was discussed. Further echocardiography is not recommended unless new concerns arise. *PATIENT PRESENTATION* Age: 26yr Height: () S/D Pressure: Weight: () BSA: Location: Facility: [facility] Attending: Kenneth Mcfadden Referring: Md Kenneth Mcfadden Performing: Md Landry Ordering: Kenneth Mcfadden Test start time: Test start time: 10:35 AM. Test stop time: Test stop time: 11:20 AM . *PROCEDURE DATA* Procedure information: Pertinent images and digital data are archived for permanent storage and are available for subsequent review. Study status: Routine. Transabdominal ec hocardiography. Complete 2D, complete spectral Doppler, and color Dop pler. Transabdominal echocardiography for congenital heart di [facility] evaluation. Views were limited by position and acti vity. Maternal age: 26yr. : 3. Parity: 2. Expected delive ry date: 03/04/2017. Gestational age: 22wk. Study completion: The patient tolerated the procedure well. *INDICATIONS AND HISTORY* Indications: (I49.1) Atrial premature de polarization. Suspected history of PACs. *CARDIAC ANATOMY* DESCRIPTION One fetus is present. Fetus: The rhythm is sinus rhythm, with no apparent ectopy, an atrial rate of 146bpm, an AV conduction interval of 124ms, a ventricular rate of 146bpm, and a heart rate of 146b pm. No evidence of premature atrial or ventricular contractions. Norm al Doppler pattern of the ductus venosus, umbilical artery, and vein VEINS AND ATRIA Atrial septum: There is a patent foramen ovale. There is a hnqfa-kt-iomh shunt. Left atrium: The atrium is normal in siz e. Right atrium: The atrium is normal in si ze. Systemic veins: Normal systemic venous d rainage. Pulmonary veins: At least one pulmonary vein is seen entering the left atrium from each side. A-V CANAL Tricuspid valve: The annulus is normal-s ized. There is normal biphasic inflow spectral Doppler. There is no significant regurgitation. Mitral valve: The annulus is normal-size d. There is normal biphasic inflow spectral Doppler. There is no reg urgitation. VENTRICLES Right ventricle: The cavity size is norm al. Systolic function is qualitatively normal. Ventricular septum: No evidence for a si gnificant ventricular septal defect. Left ventricle: The cavity size is ellen l. Systolic function is qualitatively normal. CONOTRUNCUS Aortic valve: Transvalvular velocity is within the normal range. There is no regurgitation. Pulmonary valve: Transvalvular velocity is within the normal range. There is no regurgitation. GREAT ARTERIES Aorta: Normal unobstructed left-sided ao rtic arch. Pulmonary arteries: The proximal branch pulmonary arteries are normal. Systemic-pulmonary shunts: Patent ductus arteriosus. Shunt flow is right to left. PERICARDIUM There is no significant pericardial effu scott. *MEASUREMENT TABLES* Fetus Value Reference Z TrV annulus 0.65 cm 0.44 - 0.71 1.1 MiV annulus 0.59 cm 0.43 - 0.68 0.5 Legend: (L) and (H) william values outside specifie d reference range. I have personally reviewed the images an d have reviewed and edited the reported findings. Electronically signed by Raheem Alatorre 11/02/2016 13:01 Performing Organization Address City/State/ZIP Code Phon e Number [facility] [place] documented in this encounter Visit Diagnoses Diagnosis arrhythmia affecting , an tepartum - Primary Abnormality in heart rate/rhythm, antepartum condition or complication documented in this encounter Care Teams Optimization Consultant Relationship Specialty Start Date End Date Md Castle MD PCP - General 10/06/16 01/22/17 documented as of this encounter
--- OUTSIDE RECORDS SUMMARY | 2022-05-22 03:25 | XMS_ITS | Encounter Summary ---
:1990 Author Organization [facility] Address [address] [place] [address] Care Team Providers Name Role Phone Md NOEL Castle Primary Care Provider Unavailable Reason for Visit Reason Onset Date Comments Medications Refill 11/10/2016 Encounter Details Date Type Department Care Team Description 11/10/2016 Orders Only [facility] Women's Fara Murnoe , RN Services - [address] [phone] Social History Tobacco Use Types Packs/Day Years [...] Place 1 Tab under 14 Tab 0 11/12/2016 11/26/2016 (SUBUTEX) 8 mg sublingual the tongue daily tablet for 14 days. Daily Max: [address] 1 Tab under 14 Tab 0 11/12/2016 11/26/2016 (SUBUTEX) 2 mg sublingual the tongue daily tablet for 14 days. Daily Max: 2 mg documented in this encounter Progress Notes Fara Munroe, RN - 11/10/2016 1530 EST Prescription called into pharmacy. Dispense 14 days worth of medication with no refills. Start date 11/14/16. Pharmacy asked to deliver medication on 11/12/16 so patient will have it in the morning on 11/14/16. documented in this encounter Plan of Treatment [...] confident): Not assessed Sources of support: [facility] Barriers to change: None Counseling was provided to assess readin ess, confidence and/or barriers to self-care. To learn more about your health please v isit: https://www.[facility].org/medcenter/Pages/Wellness-Resources/Gaunzivjg-Bmyiof-Sc documented as of this encounter Visit Diagnoses Not on filedocumented in this encounter Care Teams Personal Property Assessor Relationship Specialty Start Date End Date Md Castle MD PCP - General 10/06/16 01/22/17 documented as of this encounter
--- OUTSIDE RECORDS SUMMARY | 2022-05-22 03:25 | XMS_ITS | Encounter Summary ---
:1990 Author Organization [facility] Address [address] [place] [address] Care Team Providers Name Role Phone Md NOEL Castle Primary Care Provider Unavailable Reason for Visit Reason Onset Date Comments Medications Refill 10/07/2016 Encounter Details Date Type Department Care Team Description 10/07/2016 Refill [facility] Ena Hebert, RN Medications Refill Women's Services - Main [address] [place] [address] [address] [place] [address] Social History Tobacco Use Types Packs/Day Years [...] Date buprenorphine HCl Place 3 Tabs under 12 Tab 0 10/07/2016 10/11/2016 (SUBUTEX) 2 mg sublingual the tongue daily tablet for 4 days. Daily Max: 6 mg documented in this encounter Miscellaneous Notes Telephone Encounter - Ena Hebert, RN - 10/07/2016 8758 EST /subutex 6 mg X 4 days [address] signed by Ena Hebert, RN at 10/07/2016 10:00 ESTdocumented in this encounter Plan of Treatment Not [...] Not assessed Sources of support: [facility] Barriers to change: None Counseling was provided to assess readin ess, confidence and/or barriers to self-care. To learn more about your health please v isit: https://www.[facility].org/medcenter/Pages/Wellness-Resources/Isihpvqdl-Qmzfzx-Un documented as of this encounter Visit Diagnoses Not on filedocumented in this encounter Discontinued Medications Medication Sig Discontinue Reason Start Date End Date buprenorphine HCl Place 2 Tabs under Order modification 10/06/2016 10/07/2016 (SUBUTEX) 2 mg sublingual the tongue daily tablet for 1 dose. Daily Max: 4 mg documented as of this encounter Care Teams Mint Wafer Depositor Relationship Specialty Start Date End Date Md Castle MD PCP - General 10/06/16 01/22/17 documented as of this encounter
--- OUTSIDE RECORDS SUMMARY | 2022-05-22 03:25 | XMS_ITS | Encounter Summary ---
:1990 Author Organization [facility] Address [address] [place] [address] Care Team Providers Name Role Phone Md NOEL Castle Primary Care Provider Unavailable Reason for Visit Reason Onset Date Comments Medications Refill 01/04/2017 Encounter Details Date Type Department Care Team Description 01/04/2017 Orders Only [facility] Women's Fara Munroe , RN Services - [address] [phone] Social History Tobacco Use Types Packs/Day Years [...] Place 1 Tab under 14 Tab 0 01/05/2017 01/19/2017 (SUBUTEX) 8 mg sublingual the tongue daily tablet for 14 days. Daily Max: [address] 2 Tabs under 28 Tab 0 01/05/2017 01/19/2017 (SUBUTEX) 2 mg sublingual the tongue daily tablet for 14 days. Daily Max: 4 mg documented in this encounter Progress Notes Fara Munroe, RN - 01/04/2017 1311 EDT Prescription called into pharmacy. Dispense 14 days with no refills. Start date 01/05/17. documented in this encounter Plan of Treatment Not on filedocumented as of this encounter Goals Goal Patient Goal Associated Recent Patient-Stated? Author Type Problems Progress Abstain from General No Albertina Substance Use Kia Note: Reduce Substance Use Goal: Practice copi ng skills to abstain from illicit drug use Confidence level (1= Not very confident; 10 = Very confident): Not assessed Sources of support: [facility] Barriers to change: None Counseling was provided to assess readin ess, confidence and/or barriers to self-care. To learn more about your health please v isit: https://www.[facility].org/medcenter/Pages/Wellness-Resources/Zyrecfsdd-Ornjks-Pi documented as of this encounter Visit Diagnoses Not on filedocumented in this encounter Care Teams Residential Real Estate Agent Relationship Specialty Start Date End Date Md Castle MD PCP - General 10/06/16 01/22/17 documented as of this encounter
--- OUTSIDE RECORDS SUMMARY | 2022-05-22 03:25 | XMS_ITS | Encounter Summary ---
:[address] [facility] Address [address] [place] [address] Care Team Providers Name Role Phone Md NOEL Castle Primary Care Provider Unavailable Encounter Details Date Type Department Care Team Description 11/10/2016 Documentation Visit [facility] Fara Munroe RN Women's [facility] [address] [place] [address] Social History Tobacco Use Types [...] documented as of this encounter Progress Notes Fara Munroe RN - 11/10/2016 0908 EST Fax received from [employer] with confirmation results of 11/04/16 UDS. Positive Buprenorphine and Norbuprenorphine. Sent to scans. documented in this encounter Plan of Treatment Not on filedocumented as of this encounter Goals Goal Patient Goal Associated Recent Patient-Stated? Author Type Problems Progress Abstain from General No Albertina, Substance Use Kia Note: Reduce Substance Use Goal: Practice copi ng skills to abstain from illicit drug use Confidence level (1= Not very confident; 10 = Very confident): Not assessed Sources of support: [facility] Barriers to change: None Counseling was provided to assess readin ess, confidence and/or barriers to self-care. To learn more about your health please v isit: https://www.[facility].org/medcenter/Pages/Wellness-Resources/Nxeyekkdw-Yeqcdk-Wf documented as of this encounter Visit Diagnoses Not on filedocumented in this encounter Care Teams Marketing Research Intern Relationship Specialty Start Date End Date Md Castle MD PCP - General 10/06/16 01/22/17 documented as of this encounter
--- OUTSIDE RECORDS SUMMARY | 2022-05-22 03:25 | XMS_ITS | Encounter Summary ---
:1990 Author Organization [facility] Address [address] [place] [address] Care Team Providers Name Role Phone Md NOEL Castle Primary Care Provider Unavailable Reason for Visit Reason Onset Date Comments Medications Refill 10/28/2016 Encounter Details Date Type Department Care Team Description 10/28/2016 Orders Only [facility] Women's Fara Munroe , RN Services - [address] [phone] Social History Tobacco Use Types Packs/Day Years [...] Date buprenorphine HCl Place 1 Tab under 17 Tab 0 10/28/2016 11/14/2016 (SUBUTEX) 2 mg sublingual the tongue daily tablet for 17 days. Daily Max: [address] 1 Tab under 14 Tab 0 10/28/2016 11/11/2016 (SUBUTEX) 8 mg sublingual the tongue daily tablet for 14 days. Daily Max: [address] 1 Tab under 16 Tab 0 10/28/2016 10/28/2016 (SUBUTEX) 2 mg sublingual the tongue daily tablet for 16 days. Daily Max: 2 mg documented in this encounter Progress Notes Fara Munroe, RN - 10/28/2016 1156 EST Patient approved for 2 mg dose increase, making daily dose 10 mg. Prescription called into pharmacy for 2 week supply of medication to start on 10/31/16 as well as 3 x 2 mg extra to be added to her doses for 10/28/16, 10/29/16, and 10/30/16. documented in this encounter Plan of Treatment Not on filedocumented as of this encounter Goals Goal Patient Goal Associated Recent Patient-Stated? Author Type Problems Progress Abstain from General No Albertina, Substance Use Kia Note: Reduce Substance Use Goal: Practice copi ng skills to abstain from illicit drug use Confidence level (1= Not very confident; 10 = Very confident): Not assessed Sources of support: [facility] [address] Barriers to change: None Counseling was provided to assess readin ess, confidence and/or barriers to self-care. To learn more about your health please v isit: https://www.[facility].org/medcenter/Pages/Wellness-Resources/Yfjydobrd-Xquirf-Mr documented as of this encounter Visit Diagnoses Not on filedocumented in this encounter Discontinued Medications Medication Sig Discontinue Reason Start Date End Date buprenorphine HCl Place 1 Tab under Order modification 10/28/2016 10/28/2016 (SUBUTEX) 2 mg sublingual the tongue daily tablet for 16 days. Daily Max: 2 mg documented as of this encounter Care Teams Panelboard Tank Pumper Relationship Specialty Start Date End Date Md Castle MD PCP - General 10/06/16 01/22/17 documented as of this encounter
--- OUTSIDE RECORDS SUMMARY | 2022-05-22 03:25 | XMS_ITS | Encounter Summary ---
:[address] [facility] Address [address] [place] [address] Care Team Providers Name Role Phone Md NOEL Castle Primary Care Provider Unavailable Reason for Visit Reason Onset Date Comments Medications Refill 11/08/2016 Encounter Details Date Type Department Care Team Description 11/08/2016 Refill [facility] Ena Hebert RN Medications Refill Women's Services - Main [address] [place] [address] [address] [place] [address] Social History Tobacco Use Types Packs/Day Years [...] Refills Start Date End Date QUEtiapine (SEROQUEL) 50 Take 1 Tab by mouth 28 Tab 1 11/21/2016 mg tablet 2 times daily for 14 days. documented in this encounter Plan of Treatment Not on filedocumented as of this encounter Goals Goal Patient Goal Associated Recent Patient-Stated? Author Type Problems Progress Abstain from General Marychuy Eng Substance Use Kia Note: Reduce Substance Use Goal: Practice copi ng skills to abstain from illicit drug use Confidence level (1= Not very confident; 10 = Very confident): Not assessed Sources of support: [facility] Barriers to change: None Counseling was provided to assess readin ess, confidence and/or barriers to self-care. To learn more about your health please v isit: https://www.[facility].org/medcenter/Pages/Wellness-Resources/Vhrbbxgad-Asaybr-Kg documented as of this encounter Visit Diagnoses Not on filedocumented in this encounter Discontinued Medications Medication Sig Discontinue Reason Start Date End Date QUEtiapine (SEROQUEL) Take 50 mg by mouth 2 Reorder 11/08/2016 50 mg tablet times daily. Reported on 11/07/2016 documented as of this encounter Care Teams Carroter Relationship Specialty Start Date End Date Md Castle MD PCP - General 10/06/16 01/22/17 documented as of this encounter
--- OUTSIDE RECORDS SUMMARY | 2022-05-22 03:25 | XMS_ITS | Encounter Summary ---
:[address] [facility] Address [address] [place] [address] Care Team Providers Name Role Phone Yadira Hernandez MD Primary Care Provider [phone] Reason for Visit Reason Onset Date Comments Medication Management 10/05/2016 Encounter Details Date Type Department Care Team Description 10/05/2016 Telephone [facility] Ena Hebert M edication Management Women's Services - RN Main [facility] [address] [facility] [address] [place], [place] [id number] [place] [id number] Social History Tobacco Use Types Packs/Day Years Used Date Former Smoker Cigarettes 1.5 Quit: 07/08/20 16 Comments: Smoker for years until recentl y [...] encounter Miscellaneous Notes Telephone Encounter - Ena Hebert RN - 10/05/2016 1344 EST Dianne called with Amaya present. Amaya reports that she is having insomnia, restless legs,sweating, nausea, vomiting, and weight loss. Dianne confirmed that she looks unwell. Will schedule COS Nurse appt.for tomorrow. Dianne will fax the last dose letter documenting present dose. documented in this encounter Plan of Treatment Not on filedocumented as of this encounter Visit Diagnoses Not on filedocumented in this encounter Care Teams Production Mechanic Relationship Specialty Start Date End Date Yadira Hernandez MD PCP - General 08/30/16 10/05/16 documented as of this encounter
--- OUTSIDE RECORDS SUMMARY | 2022-05-22 03:25 | XMS_ITS | Encounter Summary ---
:1990 Author Organization [facility] Address [address] [place] [address] Care Team Providers Name Role Phone Md NOEL Castle Primary Care Provider Unavailable Reason for Visit Reason Comments Addiction Problem Encounter Details Date Type Department Care Team Description 11/07/2016 Nurse Only [facility] Carole Butler vision of high- risk , second trimester (Primary Dx); Women's Services - KUSUM Fuchs Opioid dependence with withdrawal (CMS-H CC) [address] [place] [address] [address], [place] [id number] (Wo rk) Social History Tobacco Use Types [...] Sign Reading Time Taken Comments Blood Pressure 102/60 11/07/2016 1112 EST Pulse - - Temperature - - [...] documented as of this encounter Progress Notes Carole Butler PA - 11/07/2016 1100 EST [facility] Drug Evaluation / Nurse or TELEVISION ACTOR Chief Complaint: Opiate Dependence in Amaya Mary 23w2d presents for opiate addiction visit. 10 mg subutex, stable dose. Has questions today regarding Seraquel prescription, prescribed by Dr. Caal. Sounds as though needs clarification of prior authorization. Also has had increased N/V for past 2 days, also with URI symptoms, sounds as though GI bug has gonethrough [place]. One episode of emesis today. Also has FHT weekly due to detection of arryhythmia on her ultrasound. FHT 144 today Outpatient Encounter Prescriptions as of 11/07/2016 Medication Sig Dispense Refill ??? acetaminophen (TYLENOL) 325 mg tablet Take 650 mg by mouth 2 times daily. Reported on 10/06/2016 ??? buprenorphine HCl (SUBUTEX) [address] 1 Tab under the tongue daily for 17 days. Daily Max: 2 mg 17 Tab 0 ??? buprenorphine HCl (SUBUTEX) 8 [...] mouth daily. 100 Tab 2 ??? ondansetron (ZOFRAN) 4 mg tablet Take 1-2 Tabs by mouth daily as needed for Nausea. 20 Tab 1 ??? QUEtiapine (SEROQUEL XR) 200 mg XR tablet Take 1 Tab by mouth daily. (Patient not taking: Reported on 11/07/2016) 30 Tab 2 ??? QUEtiapine (SEROQUEL) 50 mg tablet Take 50 mg by mouth 2 times daily. Reported on 11/07/2016 No facility-administered encounter medications on file as of 11/07/2016. Withdrawal Symptoms: none Urine Screen Results: Amphetamine Screen, Urine Date Value Ref Range Status 10/27/2016 Negative screen. Final Comment: Confirmation testing available upon request. Suitable for medical purposes only. Will not detect all drugs within class. Cutoff = 1000 ng/ml Specimen type is urine. 09/10/2016 Negative screen. Final Comment: Confirmation testing available upon request. Suitable for medical purposes only. Will not detect all drugs within class. Cutoff = 1000 ng/ml Specimen type is urine. Barbiturate Screen, Urine Date Value Ref Range Status 10/27/2016 Negative screen. Final Comment: Confirmation testing available upon request. Suitable for medical purposes only. Will not detect all drugs within class. Cutoff = 300 ng/ml Specimen type is urine. 09/10/2016 Negative screen. Final Comment: Confirmation testing available upon request. Suitable for medical purposes only. Will not detect all drugs within class. Cutoff = 300 ng/ml Specimen type is urine. Benzodiazepine Screen, Urine Date Value Ref Range Status 10/27/2016 Negative screen. Final Comment: Confirmation testing available upon request. Suitable for medical purposes only. Will not detect all drugs within class. Assay less sensitive to Lorazepam and metabolites. Cutoff = 200 ng/ml Specimen type is urine. 09/10/2016 Negative screen. Final Comment: Confirmation testing available upon request. Suitable for medical purposes only. Will not detect all drugs within class. Assay less sensitive to Lorazepam and metabolites. Cutoff = 200 ng/ml Specimen type is urine. Cannabinoid Scrn, Ur Date Value Ref Range Status 10/27/2016 Negative screen. Final Comment: Confirmation testing available upon request. Suitable for medical purposes only. Will not detect all drugs within class. Cutoff = 50 ng/ml Specimen type is urine. 09/10/2016 Negative screen. Final Comment: Confirmation testing available upon request. Suitable for medical purposes only. Will not detect all drugs within class. Cutoff = 50 ng/ml Specimen type is urine. Cocaine Metabolites, Ur Date Value Ref Range Status 10/27/2016 Negative screen. Final Comment: Confirmation testing available upon request. Suitable for medical purposes only. Will not detect all drugs within class. Cutoff = 300 ng/ml Specimen type is urine. 09/10/2016 Negative screen. Final Comment: Confirmation testing available upon request. Suitable for medical purposes only. Will not detect all drugs within class. Cutoff = 300 ng/ml Specimen type is urine. Opiate Scrn, Ur Date Value Ref Range Status 10/27/2016 Negative screen. Final Comment: Confirmation testing available upon request. Suitable for medical purposes only. Will not detect all drugs within class. Cutoff = 300 ng/ml Assay less sensitive to oxycodone and metabolites. Assay does not detect methadone. Specimen type is urine. 09/10/2016 Negative screen. Final Comment: Confirmation testing available upon request. Suitable for medical purposes only. Will not detect all drugs within class. Cutoff = 300 ng/ml Assay less sensitive to oxycodone and metabolites. Assay does not detect methadone. Specimen type is urine. Oxycodone Screen Date Value Ref Range Status 10/27/2016 Negative screen. Final Comment: Confirmation testing available upon request. Suitable for medical purposes only. Will not detect all drugs within class. Cutoff = 300 ng/ml Specimen type is urine. 09/10/2016 Negative screen. Final Comment: Confirmation testing available upon request. Suitable for medical purposes only. Will not detect all drugs within class. Cutoff = 300 ng/ml Specimen type is urine. Methadone Screen Date Value Ref Range Status 10/27/2016 Negative screen. Final Comment: Confirmation testing available upon request. Suitable for medical purposes only. Will not detect all drugs within class. Cutoff = 300 ng/ml Specimen type is urine. 09/10/2016 Negative screen. Final Comment: Confirmation testing available upon request. Suitable for medical purposes only. Will not detect all drugs within class. Cutoff = 300 ng/ml Specimen type is urine. ] Has the patient used drugs in the last 2 weeks? no Name of Counselor: Shell Wagner at [place] Counseling Frequency: weekly plus daily as needed Counseling Compliance: Yes-per patient Assessment: Stable dose - no change/. Patient Education: Continue counseling, reviewed PRN dosing for Mary (was told could only take once daily, let her know as written can take twice daily, and if needed we can increase for her. Notes for MD to review: none Witnessed UDS collection: no , she does her UDS at [place] Prescription given: yes Days: 7 days, called in Flow sheet updated: yes Next Appointment: 7 days Nurse: no MD: yes I spent 15 minutes with patient; 15 minutes was spent in counseling and coordination of care. documented in this encounter Plan of Treatment Not on filedocumented as of this encounter Goals Goal Patient Goal Associated Recent Patient-Stated? Author Type Problems Progress Abstain from General No Albertina Substance Use Kia Note: Reduce Substance Use Goal: Practice copi ng skills to abstain from illicit drug use Confidence level (1= Not very confident; 10 = Very confident): Not assessed Sources of support: [facility] Barriers to change: None Counseling was provided to assess readin ess, confidence and/or barriers to self-care. To learn more about your health please v isit: https://www.[facility].org/medcenter/Pages/Wellness-Resources/Ubbtjbzgt-Eiysjd-Mx documented as of this encounter Visit Diagnoses Diagnosis Supervision of high-risk , seco nd trimester - Primary Opioid dependence with withdrawal (HCC-C [facility]) (HCC) Drug withdrawal documented in this encounter Care Teams Automobile Parker Relationship Specialty Start Date End Date Md Castle MD PCP - General 10/06/16 01/22/17 documented as of this encounter
--- OUTSIDE RECORDS SUMMARY | 2022-05-22 03:25 | XMS_ITS | Encounter Summary ---
:1990 Author Organization [facility] Address [address] [place] [address] Care Team Providers Name Role Phone Md NOEL Castle Primary Care Provider Unavailable Encounter Details Date Type Department Care Team Description 10/10/2016 Orders Only [facility] Stephani Kennedy isease in Women's Services - Cade Mejia RN pre gnancy, unspecified [place] trimester ([facility]) [address] [facility] (Primary Dx) [place], [place] [address] Social History Tobacco Use Types Packs/Day Years [...] Not assessed Sources of support: [facility] Barriers to change: None Counseling was provided to assess readin ess, confidence and/or barriers to self-care. To learn more about your health please v isit: https://www.[email or web address]/medcenter/Pages/Wellness-Resources/Vjrhfjjnc-Ezouyo-Zn documented as of this encounter Visit Diagnoses Diagnosis Bipolar disease in , unspecifie d trimester ([facility] ([facility]) - Primary documented in this encounter Care Teams Gardener Florist Relationship Specialty Start Date End Date Md Castle MD PCP - General 10/06/16 01/22/17 documented as of this encounter
--- OUTSIDE RECORDS SUMMARY | 2022-05-22 03:25 | XMS_ITS | Encounter Summary ---
:1990 Author Organization [facility] Address [address] [place] [address] Care Team Providers Name Role Phone Unselected, Md Primary Care Provider Unavailable Unknown, Provider MD Primary Care Provider None, Provider Primary Care Provider Unavailable Encounter Details Date Type Department Care Team Description 11/21/2016 Orders Only [facility] Hermilo'Emilia Harrison MD Services - Main [facility] 1 [facility] [address] [facility] [place] [address] [place] [phone] (Wo rk) Social History Tobacco Use [...] Date End Date QUEtiapine (SEROQUEL) 50 Take 2 Tabs by 60 Tab 1 017 12/05/2016 mg tablet mouth 2 times daily for 14 days. documented [...] Not assessed Sources of support: [facility] Barriers to change: None Counseling was provided to assess readin ess, confidence and/or barriers to self-care. To learn more about your health please v isit: https://www.[facility].org/medcenter/Pages/Wellness-Resources/Eukmrupet-Jzkmkr-Ej documented as of this encounter Visit Diagnoses Not on filedocumented in this encounter Discontinued Medications Medication Sig Discontinue Reason Start Date End Date QUEtiapine (SEROQUEL) 50 Take 1 Tab by mouth Reorder 7 11/21/2016 mg tablet 2 times daily for 14 days. documented as of this encounter Care Teams Material Engineer Relationship Specialty Start Date End Date Md Castle MD PCP - General 10/06/16 01/22/17 Unknown, ProviderMD PCP - General 01/23/17 02/02/17 None, Provider PCP - General 02/03/17 documented as of this encounter
--- OUTSIDE RECORDS SUMMARY | 2022-05-22 03:25 | XMS_ITS | Encounter Summary ---
:1990 Author Organization [facility] Address [address] [place] [address] Care Team Providers Name Role Phone Md NOEL Castle Primary Care Provider Unavailable Reason for Visit Reason Onset Date Comments Medication Management 12/22/2016 Encounter Details Date Type Department Care Team Description 12/22/2016 Orders Only [facility] Women's Fara Munroe , RN Services - [address] [phone] Social History Tobacco Use Types Packs/Day Years [...] Date buprenorphine HCl Place 2 Tabs under 14 Tab 0 12/29/2016 01/12/2017 (SUBUTEX) 2 mg sublingual the tongue daily tablet for 14 days. Daily Max: 4 mg documented in this encounter Progress Notes Fara Munroe, RN - 12/22/2016 0830 EDT Prior Authorization for dose increase to 12 mg approved. Prescription called into pharmacy to add to14 day supple of 10 mg called in on 12/21/16. Dispense 14 days worth of 2 mg tablets on 12/29/16 with no refills. This will have patient dosing through 01/05/17. documented in this encounter Plan of [...] Not assessed Sources of support: [facility] Barriers to change: None Counseling was provided to assess readin ess, confidence and/or barriers to self-care. To learn more about your health please v isit: https://www.[facility].org/medcenter/Pages/Wellness-Resources/Hhmqqreas-Dsdnfy-Fe documented as of this encounter Visit Diagnoses Not on filedocumented in this encounter Care Teams Body And Fender Mechanic Apprentice Relationship Specialty Start Date End Date Md Castle MD PCP - General 10/06/16 01/22/17 documented as of this encounter
--- OUTSIDE RECORDS SUMMARY | 2022-05-22 03:25 | XMS_ITS | Encounter Summary ---
:1990 Author Organization [facility] Address [address] [place] [address] Care Team Providers Name Role Phone Md NOEL Castle Primary Care Provider Unavailable Reason for Visit Reason Comments Routine Visit Encounter Details Date Type Department Care Team Description 10/10/2016 Routine [facility] Perla Phillip MD [address] [place] [address] [place]: 19w2d [facility] Jammie Golden MD [address] [place] [place] [address] [place] [address] [place] [address] Social History Tobacco Use Types Packs/Day Years [...] Reading Time Taken Comments Blood Pressure 102/60 10/10/2016 1133 EST Pulse - - Temperature - - Respiratory Rate - - Oxygen Saturation - - Inhaled Oxygen Concentration - - Weight 64.2 kg (141 lb 9.6 oz) 10/10/2016 1133 EST Height 157.5 cm (5' 2.01) 10/10/2016 1133 EST Body Mass Index 25.89 10/10/2016 1133 EST documented in this encounter Functional Status Cognitive [...] Take 1-2 Tabs by 20 Tab 1 09/1310/27/2016 tablet mouth daily as needed for Nausea. documented in this encounter Progress Notes Mike Phillip MD - 10/10/2016 1120 EST Attestation statement: I discussed the patient with the resident at the time of the visit. I agree with the findings and the plan of care documented in the resident's note. Mike Phillip MD Jammie Narvaez MD - 10/10/2016 1120 EST [facility] Note CC: Amaya Mary is a 26 y.o. @ 19w2d by 8+3 wk Subjective: Amaya has been feeling a lot of withdrawal symptoms. She feels her dose wear off around noon or 1 pm, and has a hard time participating in activities at [facility] after that. Feeling frustrated and a little smothered at [facility], but happy to have support. She feels good movement, hasn't had any vaginal bleeding since she was seen here last. No contractions, no loss of fluid. Objective: Vitals: BP: 102/60 Height: 157.5 cm (62.01) Weight : 64.2 kg (141 lb 9.6 oz) BMI: 25.946 Movement: Present Assessment/Plan: Amaya Mary is a 26 y.o. @ 19w2d by 8+6 wk US Bipolar disease in Currently on seroquel 100mg BID for bipolar disorder. Worrying that her mood has been too unstable and is interested in seeing Dr. Caal for dose adjustment - no SI/HI today Opiate dependence - reports withdrawal symptoms daily including nausea/vomiting, fatigue, muscle aches. Overall feels terrible starting around 1 pm after morning dose wears off - given increased plasma volume and kidney filtration during , need for increased dosing not surprising - consider increasing subutex dose Chronic hepatitis C virus infection - avoid OVD, FSE, prolonged ROM during labor - consider GI referral Subchorionic hemorrhage in second trimester - no bleeding for past two weeks - assess at routine scan next week - rhogam given 09/10/2016 Supervision of high risk in first trimester - patient plans to have blood work prior to 20w6d for quad marker screening - routine scan at 20 weeks - follow up with Dr. Caal regarding dosing of seroquel RTC [address] Phillip. Jammie Golden MD 10/10/2016 14:02 documented in this encounter Miscellaneous Notes Assessment & Plan Note - Jammie Golden MD - 10/10/2016 1355 ESTAssociated Problem(s): Supervision of high risk in third trimester - patient plans to have blood work prior to 20w6d for quad marker screening - routine scan at 20 weeks - follow up with Dr. Caal regarding dosing of seroquel ssessment & Plan Note - Jammie Golden MD - 10/10/2016 1355 ESTAssociated Problem(s): Subchorionic hemorrhage in second trimester - no bleeding since last visit - assess at routine scan next week - rhogam given 09/10/2016 ssessment & Plan Note - Jammie Golden MD - 10/10/2016 1354 EST Associated Problem(s): Chronic hepatitis C virus infection (HCC-CMS) (HCC) - avoid OVD, FSE, prolonged ROM during labor - consider GI referral postpartum ssessment & Plan Note - Jammie Golden MD - 10/10/2016 1352 ESTAssociated Problem(s): Opiate dependence (HCC-CMS) (HCC) - reports withdrawal symptoms daily including nausea/vomiting, fatigue, muscle aches. Overall feels terrible starting around 1 pm after morning dose wears off - given increased plasma volume and kidney filtration during , need for increased dosing not surprising - consider increasing subutex dose ssessment & Plan Note - Jammie Golden MD - 10/10/2016 1351 ESTAssociated Problem(s): Bipolar disease in ([facility]) (HCC) Currently on seroquel 100mg BID for bipolar disorder. Worrying that her mood has been too unstable and is interested in seeing Dr. Caal for dose adjustment - no SI/HI today documented in this encounter Plan of Treatment [...] more about your health please v isit: https://www.[facility].org/medcenter/Pages/Wellness-Resources/Nspacrhdy-Jzyord-Kn documented as of this encounter Visit Diagnoses Diagnosis Supervision of high-risk , unsp ecified trimester - Primary documented in this encounter Discontinued Medications Medication Sig Discontinue Reason Start Date End Date ondansetron (ZOFRAN) 4 mg Take 1-2 Tabs by Reorder 10/06/2016 10/10/2016 tablet mouth daily as needed for Nausea. documented as of this encounter Care Teams Quality Assurance Clerk Relationship Specialty Start Date End Date Md Castle MD PCP - General 10/06/16 01/22/17 documented as of this encounter
--- OUTSIDE RECORDS SUMMARY | 2022-05-22 03:25 | XMS_ITS | Encounter Summary ---
:1990 Author Organization [facility] Address [address] [place] [address] Care Team Providers Name Role Phone Md NOEL Castle Primary Care Provider Unavailable Reason for Visit Reason Comments Routine Visit Encounter Details Date Type Department Care Team Description 11/14/2016 Routine [facility] Perla Phillip MD [address] [place] [address] [place]: 24w2d Women's Services - Pushpa Schumacher MD [place] [address] [place] [id number] Social History Tobacco Use Types Packs/Day [...] Sign Reading Time Taken Comments Blood Pressure 124/62 11/14/2016 1131 EST Pulse - - Temperature - - Respiratory Rate - - Oxygen Saturation - - Inhaled Oxygen Concentration - - Weight 66.7 kg (147 lb) 11/14/2016 1131 EST Height 157.5 cm (5' 2.01) 11/14/2016 1131 EST Body Mass Index 26.88 11/14/2016 1131 EST documented in this encounter Functional Status Cognitive Status Response Date of Assessment Because of a physical, mental, or emotional condition, do Ye s 12/01/2012 you have serious difficulty concentrating, remembering, or making decisions? (5 years old or older) documented as of this encounter Ordered Prescriptions Prescription Sig Dispensed Refills Start Date End Date acetaminophen (TYLENOL) 500 Take 2 Tabs by 200 Tab 3 02/2017 mg tablet mouth every 6 hours as needed for Pain. pyridoxine, vitamin B6, Take 1 Tab by 90 Tab 4 7 (VITAMIN B6) 50 mg tablet mouth daily. ondansetron (ZOFRAN-ODT) 4 Take 1 Tab by 30 Tab 1 201602/20/2017 mg disintegrating tablet mouth daily as needed for Nausea. documented in this encounter Progress Notes Mike Phillip MD - 11/14/2016 1120 EST Attestation statement: I discussed the patient with the resident at the time of the visit. I agree with the findings and the plan of care documented in the resident's note. Mike Phillip MD Pushpa Sloan MD - 11/14/2016 1120 EST Antepartum [facility] Clinic Note CC: Amaya Mary is a 26 y.o. @ 24w2d by 8+3 week Subjective: Continues to struggle with nausea. States that the ODT form of Zofran worked better thanthe oral tablet. Also has been having daily headaches; pain retro-orbital and worsen as the day progresses. No visual disturbances. Was recently given reading glasses by her eye doctor but has been wearing them inconsistently. Only allowed to take 500 mg of acetaminophen daily at [facility]. No contractions, VB, or LOF. +FM. Needs refill of Seroquel - prior authorization from Dr. Caal's office denied. Objective: Vitals: BP: 124/62 Height: 157.5 cm (62.01) Weight : 66.7 kg (147 lb) BMI: 26.936 Fundal Height (cm): 24 cm Heart Rate: 140 Movement: Present Assessment/Plan: Amaya Mary is a 26 y.o. @ 24w2d by 8+3 week arrhythmia affecting , antepartum Normal echocardiogram. FHR 140 today. Has follow-up ultrasound scheduled. Opiate dependence Has some nausea but no other signs or symptoms of withdrawal. Stable on 10 mg Subutex. Bipolar disease in No SI/HI. Saw Dr. Caal recently who recommended 200 mg XL Seroquel. Prior authorization denied by Medicaid. Patient is out of Seroquel. Will discuss prescribing with Dr. Caal (the prescribing physician) this afternoon. Tobacco use Smoking 2 cigarettes daily. 32 week growth scan ordered today. Supervision of high risk in first trimester care up to date. Continues to decline flu vaccine. Will be due for RhoGam and glucose tolerance test in the next month. Given B6 and Zofran ODT for nausea. Patient taking diphenhydramine every night. Script for acetaminophen given; patient with retro-orbital pain/eye strain related to reading. Encouraged consistent use of reading glasses (prescribed by her eye doctor). RTC [address] Phillip. Pushpa Simon MD 11/14/2016 12:17 MD Opiate Dependence Visit Chief Complaint: Opiate Dependence in Withdrawal Symptoms: No (nausea appears to be isolated) Used drugs in last 2 weeks? No Seen substance abuse counselor in past 2 weeks? Yes Seen social service technician in past 4 weeks? Yes UDS: Collected If the patient does not have a substance abuse counselor, she must see the social service technician or have a nurse from our office arrange counseling through [facility] or [facility] Assessment: Stable Rx called in for: 12 mg Pushpa Simon MD documented in this encounter Miscellaneous Notes Assessment & Plan Note - Pushpa Simon MD - 11/14/2016 1215 EST Associated Problem(s): Supervision of high risk in third trimester care up to date. Continues to decline flu vaccine. Will be due for RhoGam and glucose tolerance test in the next month. Given B6 and Zofran ODT for nausea. Patient taking diphenhydramine every night. Script for acetaminophen given; patient with retro-orbital pain/eye strain related to reading. Encouraged consistent use of reading glasses (prescribed by her eye doctor). ssessment & Plan Note - Pushpa Simon MD - 11/14/2016 1214 ESTAssociated Problem(s): Tobacco use Smoking 2 cigarettes daily. 32 week growth scan ordered today. ssessment & Plan Note - Pushpa Simon MD - 11/14/2016 1213 ESTAssociated Problem(s): Bipolar disease in ([facility]) ([facility]) No SI/HI. Saw Dr. Caal recently who recommended 200 mg XL Seroquel. Prior authorization denied by Medicaid. Patient is out of Seroquel. Will discuss prescribing with Dr. Caal this afternoon. ssessment & Plan Note - Pushpa Simon MD - 11/14/2016 1212 ESTAssociated Problem(s): Opiate dependence ([facility]) ([facility]) Has some nausea but no other signs or symptoms of withdrawal. Stable on 10 mg Subutex. ssessment & Plan Note - Pushpa Simon MD - 11/14/2016 1212 ESTAssociated Problem(s): arrhythmia affecting , antepartum Normal echocardiogram. FHR 140 today. Has follow-up ultrasound scheduled. documented in this encounter Plan of Treatment [...] Not assessed Sources of support: [facility] Barriers to change: None Counseling was provided to assess readin ess, confidence and/or barriers to self-care. To learn more about your health please v isit: https://www.[facility].org/medcenter/Pages/Wellness-Resources/Gvasnivtm-Jovvii-Cc documented as of this encounter Visit Diagnoses Diagnosis Supervision of high risk in se cond trimester - Primary Unspecified high-risk documented in this encounter Discontinued Medications Medication Sig Discontinue Reason Start Date End Date acetaminophen (TYLENOL) Take 650 mg by Dose adjustment 11/14/2016 325 mg tablet mouth 2 times daily. Reported on 10/06/2016 ondansetron (ZOFRAN) 4 mg Take 1-2 Tabs by Dose adjustment 10/27/19 17 11/14/2016 tablet mouth daily as needed for Nausea. documented as of this encounter Care Teams Patrol Man Relationship Specialty Start Date End Date Md Castle MD PCP - General 10/06/16 01/22/17 documented as of this encounter
--- OUTSIDE RECORDS SUMMARY | 2022-05-22 03:25 | XMS_ITS | Encounter Summary ---
:[address] [facility] Address [address] [place] [address] Care Team Providers Name Role Phone Md NOEL Castle Primary Care Provider Unavailable Reason for Visit Reason Onset Date Comments Medications Refill 12/09/2016 Encounter Details Date Type Department Care Team Description 12/09/2016 Orders Only [facility] Women's Fara Munroe , RN Services - [address] [id number] Social History Tobacco Use Types Packs/Day Years [...] Place 1 Tab under 14 Tab 0 12/09/2016 12/23/2016 (SUBUTEX) 8 mg sublingual the tongue daily tablet for 14 days. Daily Max: [address] 1 Tab under 14 Tab 0 12/09/2016 12/23/2016 (SUBUTEX) 2 mg sublingual the tongue daily tablet for 14 days. Daily Max: 2 mg documented in this encounter Progress Notes aFra Munroe, RN - 12/09/2016 0945 EDT Prescription called into pharmacy. Dispense 14 days with no refills. Start date 12/09/16. documented in this encounter Plan of Treatment Not on filedocumented as of this encounter Goals Goal Patient Goal Associated Recent Patient-Stated? Author Type Problems Progress Abstain from General No Albertina Substance Use Kia Note: Reduce Substance Use Goal: Practice copi ng skills to abstain from illicit drug use Confidence level (1= Not very confident; 10 = Very confident): Not assessed Sources of support: [facility] Barriers to change: None Counseling was provided to assess readin ess, confidence and/or barriers to self-care. To learn more about your health please v isit: https://www.[facility].org/medcenter/Pages/Wellness-Resources/Aqbgvsgbb-Jsanvu-Jf documented as of this encounter Visit Diagnoses Not on filedocumented in this encounter Care Teams General Hardware Salesperson Relationship Specialty Start Date End Date Md Castle MD PCP - General 10/06/16 01/22/17 documented as of this encounter
--- OUTSIDE RECORDS SUMMARY | 2022-05-22 03:25 | XMS_ITS | Encounter Summary ---
:1990 Author Organization [facility] Address [address] [place] [address] Care Team Providers Name Role Phone Md NOEL Castle Primary Care Provider Unavailable Reason for Visit Reason Comments Depression Encounter Details Date Type Department Care Team Description 11/28/2016 Office Visit [facility] Unknown, Lorne manjarrez MD PTSD (post-traumatic stress disorder) (P rimary Dx); Women's Services - Emilia Caal MD [address] [place] [address], [address] [place] [phone] Bipolar 1 disorder, depressed ([facility] Main [place] [address] [place] [phone] Social History Tobacco Use Types Packs/Day Years [...] Sig Dispensed Refills Start Date End Date Prazosin (MINIPRESS) 1 mg Take 1 Cap by mouth 30 Cap 2 0 11/28/2016 12/02/2016 capsule 3 times daily. documented in this encounter Progress Notes Emilia Caal MD - 11/28/2016 1400 EDT [facility] Psychiatry Follow Up Name: Amaya Mary : 1990 Chief Complaint: No chief complaint on file. Interim History: Amaya is a 26 year old woman 26 weeks . She says she has had very little energy and has had a hard time engaging in the programming at [facility]. She has been sleeping very poorly at night, waking regularly. It has never been this bad before. She hadn't had nightmares for a couple of months but had one this week. Amaya says her mood is depressed much of the time, or up and down, but not upfor much of the time. Amaya also has a lot of anxiety about being in the milieu at [facility] and has been eating her dinner in her room. She isn't sure what the biggest racecar driver for her isolation is, whether it is poor sleep, depressed mood or anxiety but she says she was doing better when I was in halfway. She remains excited to have her baby and hopes that things improve when she delivers. She hasn't been walking much. Appetite is low, poor sleep. She is still taking short-acting seroquel as we haven't gotten the long-acting authorized. If not listed, the other features were negative. Current Medications: Current Outpatient Prescriptions Medication Sig [...] mg capsule Take 1 Cap by mouth 3 times daily. 30 Cap 2 ??? pyridoxine, vitamin B6, (VITAMIN B6) 50 mg tablet Take 1 Tab by mouth daily. 90 Tab 4 ??? QUEtiapine (SEROQUEL XR) 200 mg XR tablet Take 1 Tab by mouth daily. 30 Tab 2 ??? QUEtiapine (SEROQUEL) 50 mg tablet Take 2 Tabs by mouth 2 times daily for 14 days. (Patient not taking: Reported on 11/28/2016) 60 Tab 1 No current facility-administered medications for this visit. Other Health & Personal Information: Amaya is actively in a relationship with a female partner who plans to help raise the child when Amaya graduates from the [employer]. Physical Examination: Vital Signs: There [...] normal rate, tone and volume Psychomotor Activity: Slightly fidgety Mood: Depressed and Anxious Affect: Congruent and restricted Thought process: goal directed and tight associations Thought content: intact thought content and no evidence of perceptual distortion and/or psychosis Perceptual Disturbances: no perceptual disturbances Impulses: appropriately resists or modulates impulses Insight: Understands problem, causes and consequences Judgement: good Language: Normal Fund of Knowledge: operations representative of her education level Short-term Memory: Intact Long-term Memory: Intact Suicidal Ideation: did not express suicidal ideation or report suicidal intent or plan Suicide Risk Assessment Low risk acutely, chronic risk low to moderate (given family history and past attempt) would increase if patient returned to using. Initial Assessment: Formulation: This is a 26 year old woman presenting with depression and anxiety at 26 weeks gestation. She has been diagnosed with Bipolar Disorder in the past as well as PTSD and ADHD. She has been taking the seroquel 200 mg IR with little effect. If anything her mood appears more depressed than it has been. In the past she has found seroquel more helpful for mood, however because she is on the IR it has worn off by the day time. She finds it too sedating to take in the day so we will switch to XR. She has had such choppy, interrupted sleep at night, which she feels is undermining her ability to participate in programming. We discussed adding prazosin for PTSD symptoms at night (she understands that it is not well studied in ) and her blood pressure has been in normal range, so the BP lo wering effect is not likely to cause too much dizziness. She was given the option to try lifestyle changes such as 20 minutes of regular exercise per day and body scan meditations at night first, or start the medicine right away and she chose to start prazosin. Initial Treatment Plan/Goals: 1. Medication: Seroquel 200 mg XL formulation (to better cover the daytime); Prazosin 1 mg qHS 2. Continue [facility] Programming; 20-25 min of brisk walking daily; body scan meditations at night 3. Therapy with Shell Donato 4. Subutex through [facility] 5. Return in 3 weeks to psychiatry Emilia Caal MD 11/28/2016, 14:28 I spent a total of 30 minutes [...] Not assessed Sources of support: [facility] Barriers to change: None Counseling was provided to assess readin ess, confidence and/or barriers to self-care. To learn more about your health please v isit: https://www.[facility].org/medcenter/Pages/Wellness-Resources/Scsornzbb-Cbjciz-Fu documented as of this encounter Visit Diagnoses Diagnosis PTSD (post-traumatic stress disorder) - Primary Posttraumatic stress disorder Bipolar 1 disorder, depressed (HCC-CMS) (HCC) Bipolar I disorder, most recent episode (or current) depressed, unspecified documented in this encounter Care Teams Card Stripper Relationship Specialty Start Date End Date Md Castle MD PCP - General 10/06/16 01/22/17 documented as of this encounter
--- OUTSIDE RECORDS SUMMARY | 2022-05-22 03:25 | XMS_ITS | Encounter Summary ---
:[address] [facility] Address [address] [place] [address] Care Team Providers Name Role Phone Md NOEL Castle Primary Care Provider Unavailable Reason for Visit Reason Comments Addiction Problem Encounter Details Date Type Department Care Team Description 12/19/2016 Nurse Only [facility] Mary Mendoza, [facility] [employer] [facility] Drug addiction Women's Services - [address] [facility] (Primary [facility] [place] [facility] [place], Main ) [address] [facility], [address] [place], [place] [id number] [place] [address] [phone] (Wo rk) Social History Tobacco Use [...] Sign Reading Time Taken Comments Blood Pressure 126/68 12/19/2016 1042 EDT Pulse - - Temperature - - [...] encounter Progress Notes Ирина Mendoza FNP - 12/19/2016 1030 EDT Opiate Clinic Drug Evaluation / Nurse or [facility] [employer] [facility] Chief Complaint: Opiate Dependence in Amaya Mary 29w2d presents for opiate addiction visit. Taking Subutex 10mg daily. Starting tofeel like crap again in the afternoon. Feeling hot and cold sweats, restless, not sleeping. Restless, loss of appetite.Pt on every 2 week visits. FHR today is 136bpm. Outpatient Encounter Prescriptions as of 12/19/2016 Medication Sig Dispense Refill ??? acetaminophen (TYLENOL) [...] Tab by mouth daily. 30 Tab 2 No facility-administered encounter medications on file as of 12/19/2016. Withdrawal Symptoms: none Urine Screen Results: 10/27/16 UDS negative. Has the patient used drugs in the last 2 weeks? no Name of Counselor: Ana Lilia and appt with Dr. Caal Counseling Frequency: 2-3 times per week Counseling Compliance: Yes-per patient Assessment: Stable dose - no change/. Patient Education: continue counseling Notes for MD to review: 29w2d presents for opiate addiction visit. Taking Subutex 10mg daily. Starting to feel like crap again in the afternoon. Feeling hot and cold sweats, restless, not sleeping. Restless, loss of appetite.Pt on every 2 week visits. FHR today is 136bpm. Will increase pt's Subutex dose to 12mg daily starting this Monday12/23/16. Witnessed UDS collection: no Prescription given: no Days: has enough until 12/23. Flow sheet updated: yes Next Appointment: 2 weeks Nurse: no MD: yes PERNELL Lovelace I spent a total of [...] your health please v isit: https://www.[facility].org/medcenter/Pages/Wellness-Resources/Magqbazoy-Uhbwur-Ov documented as of this encounter Visit Diagnoses Diagnosis Drug addiction (HCC-CMS) (HCC) - Primary Unspecified drug dependence, unspecified documented in this encounter Care Teams Sandblaster Stone Relationship Specialty Start Date End Date Md Castle MD PCP - General 10/06/16 01/22/17 documented as of this encounter
--- OUTSIDE RECORDS SUMMARY | 2022-05-22 03:25 | XMS_ITS | Encounter Summary ---
:1990 Author Organization [facility] Address [address] [place] [address] Care Team Providers Name Role Phone Md NOEL Castle Primary Care Provider Unavailable Reason for Visit Reason Onset Date Comments Medications Refill 01/18/2017 Encounter Details Date Type Department Care Team Description 01/18/2017 Orders Only [facility] Women's Fara Munroe , RN Services - [address] [phone] Social History Tobacco Use Types Packs/Day Years [...] Place 1 Tab under 14 Tab 0 01/19/2017 02/01/2017 (SUBUTEX) 8 mg sublingual the tongue daily tablet for 14 days. Daily Max: [address] 2 Tabs under 28 Tab 0 01/19/2017 02/01/2017 (SUBUTEX) 2 mg sublingual the tongue daily tablet for 14 days. Daily Max: 4 mg documented in this encounter Progress Notes Fara Munroe, RN - 01/18/2017 0856 EDT Prescription called into pharmacy. Dispense 14 days with no refills. Start date 01/19/17. documented in this encounter Plan of Treatment [...] Not assessed Sources of support: [facility] Barriers to change: None Counseling was provided to assess readin ess, confidence and/or barriers to self-care. To learn more about your health please v isit: https://www.[facility].org/medcenter/Pages/Wellness-Resources/Ibevhcmlv-Ifeobz-Um documented as of this encounter Visit Diagnoses Not on filedocumented in this encounter Care Teams Continuous Still Operator Relationship Specialty Start Date End Date Md Castle MD PCP - General 10/06/16 01/22/17 documented as of this encounter
--- OUTSIDE RECORDS SUMMARY | 2022-05-22 03:25 | XMS_ITS | Encounter Summary ---
:1990 Author Organization [facility] Address [address] [place] [address] Care Team Providers Name Role Phone Md NOEL Castle Primary Care Provider Unavailable Reason for Visit Reason Onset Date Comments Paperwork request 11/04/2016 Encounter Details Date Type Department Care Team Description 11/04/2016 Telephone [facility] Women's Dillan Calderón, Paperwork request Services - [facility] RN [address] [place] [address] Social History Tobacco Use Types [...] encounter Miscellaneous Notes Telephone Encounter - Miryam Calderón, DOMO - 11/04/2016 1134 EST Refaxed high risk form per AJ's request to [phone]. Confirmation received. documented in this encounter Plan of Treatment Not on filedocumented as of this encounter Goals Goal Patient Goal Associated Recent Patient-Stated? Author Type Problems Progress Abstain from General No Nicholase, Substance Use Kia Note: Reduce Substance Use Goal: Practice copi ng skills to abstain from illicit drug use Confidence level (1= Not very confident; 10 = Very confident): Not assessed Sources of support: [facility] Barriers to change: None Counseling was provided to assess readin ess, confidence and/or barriers to self-care. To learn more about your health please v isit: https://www.[facility].org/medcenter/Pages/Wellness-Resources/Yedffqoew-Znlyzp-Bb documented as of this encounter Visit Diagnoses Not on filedocumented in this encounter Care Teams Laborer Rags Relationship Specialty Start Date End Date Md Castle MD PCP - General 10/06/16 01/22/17 documented as of this encounter
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
--- OUTSIDE RECORDS SUMMARY | 2022-05-22 03:25 | XMS_ITS | Encounter Summary ---
:1990 Author Organization [facility] Address [address] [place] [address] Care Team Providers Name Role Phone Md NOEL Castle Primary Care Provider Unavailable Encounter Details Date Type Department Care Team Description 12/12/2016 Phlebotomy Only [facility] Telesales Team Leader, Super vision of high- risk , unspecified trimester; - [facility] Supervision of high-risk pre gnancy, second trimester; [address] [facility] Hepatitis C virus infection without hepatic coma, [place] [address] Social History Tobacco Use Types Packs/Day Years [...] confident): Not assessed Sources of support: [facility] Barriers to change: None Counseling was provided to assess readin ess, confidence and/or barriers to self-care. To learn more about your health please v isit: [email or web address]/medcenter/Pages/Wellness-Resources/Iolquiyvo-Nkfwnv-Cj documented as of this encounter Procedures Procedure Name Priority Date/Time Associated Diagnosis Comme nts QUAD SCREEN (SECOND Routine 12/12/2016 13:16 Supervision of Re sults for this TRIMESTER) EDT high-risk , procedu re are in MATERNAL, S unspecified the results trimester section. COMPLETE BLOOD Routine 12/12/2016 13:16 Supervision of Results for this COUNT EDT high-risk , procedu re are in second trimester the results section. ALT Routine 12/12/2016 13:16 Hepatitis C virus Result s for this EDT infection without procedure are in hepatic coma, the results unspecified section. chronicity AST Routine 12/12/2016 13:16 Hepatitis C virus Result s for this EDT infection without procedure are in hepatic coma, the results unspecified section. chronicity ANTIBODY SCREEN Routine 12/12/2016 13:06 Supervision of Result s for this EDT high-risk , procedu re are in second trimester the results section. documented in this encounter Results AST (12/12/2016 13:16 EDT) Pathologist Sig nature AST 25 15 - 46 U/L [facility] LABORATOR Y SERVICES Specimen Blood specimen (specimen) - Blood Performing Organization Address City/State/ZIP Code Phon e Number [facility] [address] [place] [address] SERVICES ALT (12/12/2016 13:16 EDT) Pathologist Sig nature ALT 31 <53 U/L [facility] LABORATOR Y SERVICES Specimen Blood specimen (specimen) - Blood Performing Organization Address City/State/ZIP Code Phon e Number [facility] [address] [place] [address] SERVICES (ABNORMAL) HEMAGRAM (12/12/2016 13:16 EDT) Pathologist Sig nature WBC 6.09 4.0 - 12.4 K/cmm [facility] LABORATORY SERVICES RBC 3.92 3.86 - 5.04 M/cmm [facility] SERVICES Hemoglobin 11.3 (L) 11.6 - 15.2 gm/dl [facility] SERVICES HCT 32.4 (L) 34.9 - 44.4 % [facility]OR[facility]ORY SERVICES MCV 83 81 - 98 fl [facility] SERVICES MCH 28.8 26.7 - 33.3 pg [facility]ORATORY SERVICES MCHC 34.9 32.1 - 35.9 gm/dl [facility] LABORATORY SERVICES RDW-CV 12.6 11.7 - 14.6 % [facility] LABORATORY SERVICES RDW-SD 37.3 (L) 37.6 - 50.3 [facility] LABORATORY SERVICES PLT 133 (L) 141 - 377 K/cmm [facility] LABORATORY SERVICES MPV 11.6 9.5 - 12.7 [facility] LABORATORY SERVICES Specimen Blood specimen (specimen) - Blood Performing Organization Address City/State/ZIP Code Phon e Number [facility] [address] [place] [address] SERVICES QUAD SCREEN (SECOND TRIMESTER) MATERNAL, S (12/12/2016 13:16 EDT) Pts Estim Due Date ,[phone] [facility] SERVICES Method used for UZMA ULTRASOUND [facility] SERVICES Patient Weight 63 [facility] SERVICES Units KILOGRAM (KG) [facility] SERVICES Number of Chorions NOT APPLICABLE [facility] SERVICES IVF Egg Donor Blood [facility] SERVICES IVF Egg, Embryo Fr Dt Blood [facility] SERVICES Prev Down NO [facility] SERVICES Prev w NTD NO [facility] SERVICES Pt or Father has NTD NO [facility] SERVICES Phys Phone Number [phone] [facility] Comment: CENTER 847 LABORATORY 1400 SERVICES Calc age at UZMA 26 years [facility] SERVICES Maternal Weight lbs 139 lbs [facility] SERVICES Maternal Weight kg 63 kg [facility] SERVICES Insulin dep diabetes NO [facility] SERVICES Black race NON BLACK [facility] SERVICES Number of Fetuses 1 [facility] SERVICES IVF NO [facility] SERVICES UZMA by U/S scan 03/04/17 [facility] LABOR[facility] SERVICES GA on letty by U/S 28,2 wk,d [facility] SERVICES GA used in risk est Scan estimate [facility] LABOR[facility]ORY SERVICES AFP 85.8 ng/mL [facility] SERVICES uE3 3.47 ng/mL [facility] LABORATORY SERVICES hCG, Total 6.2 IU/mL [facility] SERVICES Inhibin 587 pg/mL [facility] LABORATORY SERVICES Interpretation Sample drawn too [facility] late. [facility] SERVICES Recommend Follow Up (Note) [facility] Comment: [facility] First-trimester screening is available between 10,0 an d LABORATORY 13,6 (weeks,days), which corresponds to CRL measuremen ts SERVICES between 31 and 80 mm. Second-trimester screening for D own syndrome and trisomy 18 is available between 14,0 and 22,6. Screening for neural tube defects is available between 15,0 and 22,6. General Test Info (Note) [facility] Comment: [facility] This screening provides an estimation of risk, not a LABORATORY diagnosis. Incorrect or incomplete information may SERVICES significantly alter results. Risks are adjusted for do nor eggs, frozen embryos, and IVF. . Results may be unreliable in twin pregnancies with a f etal demise. Results are not available for pregnancies with triplets and higher-order multiples. . A positive result occurs when the risk for Down syndro me equals or exceeds 1 in 270, when the risk for trisomy 18 equals or exceeds 1 in 100, or when the AFP MoM equals or exceeds 2.5. . Screen results and family history influence individual risk. If there is a family history of a neural tube de fect, chromosome abnormality, or other inherited condition, consider the option of a genetic consultation. . For further information, please contact the maternal screening laboratory at . . ADDITIONAL INFORMATION ------ This test was developed and its performance characteri stics determined by [facility] in a manner consistent with CLIA requirements. This test has not been cleared or approv ed by the U.S. Food and Drug Administration. Performed by: [facility] Labs: [address], [place] [address], Lab Dir: Andre Villafana II, M.D., Ph.D. Specimen Blood specimen (specimen) - Blood Performing Organization Address City/State/ZIP Code Phon e Number [facility] [address] [place] [address] SERVICES ANTIBODY SCREEN (12/12/2016 13:06 EDT) Antibody Screen Negative [facility] BLOOD BANK Specimen Expires: 12/15/2016 @ 23:59 [facility] BLOOD BANK Specimen Blood specimen (specimen) Performing Organization Address City/State/ZIP Code Phon e Number [facility] BLOOD BANK [address] [place], [place] [id number] [place] [address] BLOOD BANK documented in this encounter Visit Diagnoses Diagnosis Supervision of high-risk , unsp ecified trimester Supervision of high-risk , seco nd trimester Hepatitis C virus infection without hepa tic coma, unspecified chronicity documented in this encounter Care Teams Dba Manager Relationship Specialty Start Date End Date Md Castle MD PCP - General 10/06/16 01/22/17 documented as of this encounter
--- OUTSIDE RECORDS SUMMARY | 2022-05-22 03:25 | XMS_ITS | Encounter Summary ---
:1990 Author Organization [facility] Address [address] [place] [address] Care Team Providers Name Role Phone Md NOEL Castle Primary Care Provider Unavailable Reason for Visit Reason Onset Date Comments Medications Refill 10/14/2016 Encounter Details Date Type Department Care Team Description 10/14/2016 Orders Only [facility] Women's Fara Munroe , RN Services - [facility] [address] [place], [place] [address] Social History Tobacco Use Types Packs/Day Years [...] Place 1 Tab under 14 Tab 0 10/17/2016 10/31/2016 (SUBUTEX) 8 mg sublingual the tongue daily tablet for 14 days. Daily Max: 8 mg documented in this encounter Progress Notes Fara Munroe RN - 10/14/2016 0932 EST Prescription called into pharmacy. Dispense 14 days with no refills. Start date 10/17/16. Can be delivered to [facility] on 10/15/16. documented in this encounter Plan of Treatment Not on filedocumented as of this encounter Goals Goal Patient Goal Associated Recent Patient-Stated? Author Type Problems Progress Abstain from General No Albertina Substance Use Kia Note: Reduce Substance Use Goal: Practice copi ng skills to abstain from illicit drug use Confidence level (1= Not very confident; 10 = Very confident): Not assessed Sources of support: [facility] Barriers to change: None Counseling was provided to assess readin ess, confidence and/or barriers to self-care. To learn more about your health please v isit: https://www.[email or web address]/medcenter/Pages/Wellness-Resources/Zrehdzrgb-Mxdvuv-Xe documented as of this encounter Visit Diagnoses Not on filedocumented in this encounter Care Teams Physician Coding Specialist Relationship Specialty Start Date End Date Md Castle MD PCP - General 10/06/16 01/22/17 documented as of this encounter
--- OUTSIDE RECORDS SUMMARY | 2022-05-22 03:25 | XMS_ITS | Encounter Summary ---
:1990 Author Organization [facility] Address [address] [place] [address] Care Team Providers Name Role Phone Yadira Hernandez MD Primary Care Provider [phone] Reason for Visit Reason Onset Date Comments Vaginal Bleeding 09/14/2016 Encounter Details Date Type Department Care Team Description 09/14/2016 Telephone [facility] Women's Paco Gar, Vaginal Bleeding Services - Main [facility] RN [address] [place] [address] Social History Tobacco Use Types [...] this encounter Miscellaneous Notes Telephone Encounter - Vanessa Gar, RN - 09/14/2016 0920 EST PC from Lisa @ [facility] reporting that Amaya has resumed bleeding after none for 1 day. Seen in [facility] 09[facility]/16 and dx with subchorionic hemorrhage . Bleeding resumed last night, soaked through 5 pads over night per patient, not visualized by medical staff. She is mildly crampy. Vital signs stable, heart tones detected 140-[address] Layne. She advised bleeding may continue offand on and she could be monitored there for now. Should call back for heavy bright red bleeding, severe pain, or inability to detect FHT. Lisa and [facility] provider are in agreement and will call as needed. Amaya has previously scheduled appointment on 09/22/16 and can follow up at that time if not seen sooner. documented in this encounter Plan of Treatment Not on filedocumented as of this encounter Visit Diagnoses Not on filedocumented in this encounter Care Teams Floor Manager Relationship Specialty Start Date End Date Yadira Hernandez MD PCP - General 08/30/16 10/05/16 documented as of this encounter
--- OUTSIDE RECORDS SUMMARY | 2022-05-22 03:25 | XMS_ITS | Encounter Summary ---
:1990 Author Organization [facility] Address [address] [place] [address] Care Team Providers Name Role Phone Md NOEL Castle Primary Care Provider Unavailable Reason for Visit Reason Onset Date Comments Routine Visit 10/28/2016 Encounter Details Date Type Department Care Team Description 10/28/2016 Orders Only [facility] Jammie Golden MD Supervision of Women's Services - [address] second trimester [address] [place], [place] (Primary Dx) [place] [address] [phone] Social History Tobacco Use Types Packs/Day Years [...] this encounter Progress Notes Mahogany Whitmore - 10/28/2016 1028 EST 1hr GTT, CBC, and ABS ordered documented in this encounter Plan of [...] Very confident): Not assessed Sources of support: [facility] Barriers to change: None Counseling was provided to assess readin ess, confidence and/or barriers to self-care. To learn more about your health please v isit: [email or web address]/Pages/Wellness-Resources/Isgbslfim-Bwljqv-Am documented as of this encounter Results (ABNORMAL) HEMAGRAM (12/12/2016 13:16 EDT) Pathologist Sig nature WBC 6.09 4.0 - 12.4 K/cmm [facility] LABORATORY SERVICES RBC 3.92 3.86 - 5.04 M/cmm [facility] LABORATORY SERVICES Hemoglobin 11.3 (L) 11.6 - 15.2 gm/dl [facility] LABORATORY SERVICES HCT 32.4 (L) 34.9 - 44.4 % [facility] LABORATORY SERVICES MCV 83 81 - 98 fl [facility] LABORATORY SERVICES MCH 28.8 26.7 - 33.3 pg [facility] LABORATORY SERVICES MCHC 34.9 32.1 - 35.9 gm/dl [facility] LABORATORY SERVICES RDW-CV 12.6 11.7 - 14.6 % [facility] LABORATORY SERVICES RDW-SD 37.3 (L) 37.6 - 50.3 fl [facility] LABORATORY SERVICES PLT 133 (L) 141 - 377 K/cmm [facility] LABORATORY SERVICES MPV 11.6 9.5 - 12.7 fl [facility] LABORATORY SERVICES Specimen Blood specimen (specimen) - Blood Performing Organization Address City/State/ZIP Code Phon e Number [facility] LABORATORY [address] [place] [address] SERVICES ANTIBODY SCREEN (12/12/2016 13:06 EDT) Antibody Screen Negative [facility] BLOOD BANK Specimen Expires: 12/15/2016 @ 23:59 [facility] BLOOD BANK Specimen Blood specimen (specimen) Performing Organization Address City/[facility]/ZIP Code Phon e Number [facility] BLOOD BANK [address] [facility] [place] [address] [facility] BLOOD BANK documented in this encounter Visit Diagnoses Diagnosis Supervision of high-risk , seco nd trimester - Primary documented in this encounter Care Teams Salesperson Flying Squad Relationship Specialty Start Date End Date Md Castle MD PCP - General 10/06/16 01/22/17 documented as of this encounter
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
--- OUTSIDE RECORDS SUMMARY | 2022-05-22 03:25 | XMS_ITS | Encounter Summary ---
:1990 Author Organization [facility] Address [address] [place] [address] Care Team Providers Name Role Phone Md NOEL Castle Primary Care Provider Unavailable Reason for Referral Consult (Routine) - Closed Specialty Diagnoses / Procedures Referred By Contact Refer red To Contact Obstetrics Diagnoses Bipolar disease during , unspecified trimester ([facility]) ([facility]) Mike Phillip MD Guth, Sarah E, MD [address] [place], [place] [address] [facility] Level [address] [place] [address] Phone: Fax: Referral ID Status Reason Start Date Expiration Date Visits V isits Requested Authorized [id number] Closed Specialty 10/10/2016 1 1 Services Required Question Answer Reason for Request: bipolar disorder Encounter Details Date Type Department Care Team Description 10/10/2016 Orders Only [facility] [place], Bipolar d isease during Women's Services - Cade Mejia RN pre gnancy, unspecified [place] trimester ([facility]) [address] [facility] (Primary Dx) [place] [address] Social History Tobacco Use Types [...] Order S chedule AMB CONS/FOLLOW UP Outpatient Referral Routine Bipolar disease Ordered: PSYCH (ADULT during , 10/10/2016 PC/FAM unspecified trimester MED/OB/NEURO OR ([facility]) EXTERNAL REF) documented as of this encounter Goals Goal Patient Goal Associated Recent Patient-Stated? Author Type Problems Progress Abstain from General No Albertina Substance Use Kia Note: Reduce Substance Use Goal: Practice copi ng skills to abstain from illicit drug use Confidence level (1= Not very confident; 10 = Very confident): Not assessed Sources of support: [facility] Barriers to change: None Counseling was provided to assess readin ess, confidence and/or barriers to self-care. To learn more about your health please v isit: https://www.[facility].org/medcenter/Pages/Wellness-Resources/Oflnbgamz-Vtqsda-Ge documented as of this encounter Visit Diagnoses Diagnosis Bipolar disease during , unspec ified trimester ([facility]) ([facility]) - Primary documented in this encounter Care Teams Supervisor Gas Meter Repair Relationship Specialty Start Date End Date Md Castle MD PCP - General 10/06/16 01/22/17 documented as of this encounter
--- OUTSIDE RECORDS SUMMARY | 2022-05-22 03:25 | XMS_ITS | Encounter Summary ---
:1990 Author Organization [facility] Address [address] [place] [address] Care Team Providers Name Role Phone Md NOEL Castle Primary Care Provider Unavailable Reason for Visit Reason Onset Date Comments Medications Refill 12/02/2016 Encounter Details Date Type Department Care Team Description 12/02/2016 Refill [facility] Ena Hebert RN Medications Refill Women's Services - Main [address] [place] [address] [address] [place] [address] Social History Tobacco Use Types Packs/Day Years [...] Cap by mouth 30 Cap 2 0 12/02/2016 01/01/2017 capsule at bedtime for 30 days. documented in this encounter Plan of [...] Very confident): Not assessed Sources of support: [facility] Barriers to change: None Counseling was provided to assess readin ess, confidence and/or barriers to self-care. To learn more about your health please v isit: https://www.[facility] centerMedall[facility] Softwareth.org/medcenter/Pages/Wellness-Resources/Olezwzsla-Mqgbjl-Rh documented as of this encounter Visit Diagnoses Not on filedocumented in this encounter Discontinued Medications Medication Sig Discontinue Reason Start Date End Date Prazosin (MINIPRESS) 1 mg Take 1 Cap by mouth Error 11/29/19 17 12/02/2016 capsule 3 times daily. documented as of this encounter Care Teams Bench Assembler Battery Relationship Specialty Start Date End Date Md Castle MD PCP - General 10/06/16 01/22/17 documented as of this encounter
--- OUTSIDE RECORDS SUMMARY | 2022-05-22 03:25 | XMS_ITS | Encounter Summary ---
:1990 Author Organization [facility] Address [address] [place] [address] Care Team Providers Name Role Phone Md NOEL Castle Primary Care Provider Unavailable Encounter Details Date Type Department Care Team Description 10/26/2016 Orders Only [facility] Ena Hebert RN Women's Services - Main [address] [place] [address] [address] [place] [address] Social History Tobacco Use Types Packs/Day Years [...] Sig Dispensed Refills Start Date End Date multivitamin Take 1 Tab by mouth 100 Tab 2 10/26 vit-iron fumarate-FA daily. (STUARTNATAL) 27 mg iron- 1 mg tablet tablet documented in this encounter Plan of Treatment [...] more about your health please v isit: https://www.[facility].org/medcenter/Pages/Wellness-Resources/Vqudjzmhh-Hwihie-Iw documented as of this encounter Visit Diagnoses Not on filedocumented in this encounter Discontinued Medications Medication Sig Discontinue Reason Start Date End Date PNV95/FERROUS FUMARATE/FA Take by mouth. Alternate therapy 10/26/2016 ( ORAL) documented as of this encounter Care Teams Cloth Shrinking Tester Relationship Specialty Start Date End Date Md Castle MD PCP - General 10/06/16 01/22/17 documented as of this encounter
--- OUTSIDE RECORDS SUMMARY | 2022-05-22 03:25 | XMS_ITS | Encounter Summary ---
:1990 Author Organization [facility] Address [address] [place] [address] Care Team Providers Name Role Phone Md NOEL Castle Primary Care Provider Unavailable Reason for Visit Reason Onset Date Comments Medications Refill 11/02/2016 Encounter Details Date Type Department Care Team Description 11/02/2016 Orders Only [facility] Women's Fara Munroe , RN Services - [address] [id number] Social History Tobacco Use Types Packs/Day Years [...] Date buprenorphine HCl Place 1 Tab under 3 Tab 0 11/02/2016 11/05/2016 (SUBUTEX) 2 mg sublingual the tongue daily tablet for 3 days. Daily Max: 2 mg documented in this encounter Progress Notes Fara Munroe RN - 11/02/2016 0004 EST Per DOMO Saldana, patient needed 3 x 2 mg tablets delivered to [facility] as her last delivery was 3 tablets short. Prescription called into pharmacy for 3 x 2 mg tablets with no refills. OK to deliver on 11/03/16. documented in this encounter Plan of Treatment [...] more about your health please v isit: https://www.[facility].org/medcenter/Pages/Wellness-Resources/Rhvffusfa-Jggazb-Rj documented as of this encounter Visit Diagnoses Not on filedocumented in this encounter Care Teams Lobster Catcher Relationship Specialty Start Date End Date Md Castle MD PCP - General 10/06/16 01/22/17 documented as of this encounter
--- OUTSIDE RECORDS SUMMARY | 2022-05-22 03:25 | XMS_ITS | Encounter Summary ---
:1990 Author Organization [facility] Address [address] [place] [address] Care Team Providers Name Role Phone Yadira Hernandez MD Primary Care Provider [phone] Reason for Visit Reason Onset Date Comments Follow-up 09/26/2016 Encounter Details Date Type Department Care Team Description 09/26/2016 Orders Only [facility] Cleo Guthrie S upervision of Women's Services - high-risk , Main [place] [address] [facility] second trimester [address] [place] [address] (Primary Dx) [place] [address] [phone] Social History Tobacco Use Types Packs/Day Years [...] filedocumented as of this encounter Visit Diagnoses Diagnosis Supervision of high-risk , seco nd trimester - Primary documented in this encounter Care Teams Department Traffic Freight Router Relationship Specialty Start Date End Date Yadira Hernandez MD PCP - General 08/30/16 10/05/16 documented as of this encounter
--- OUTSIDE RECORDS SUMMARY | 2022-05-22 03:25 | XMS_ITS | Encounter Summary ---
:1990 Author Organization [facility] Address [address] [place] [address] Care Team Providers Name Role Phone Unselected, Md COHEN Primary Care Provider Unavailable Unknown, Provider Primary Care Provider None, Provider Primary Care Provider Unavailable Encounter Details Date Type Department Care Team Description 11/29/2016 Orders Only [facility] Sa mariela Caal MD Child Psychiatry - [address] [place] [address], Level [address] [place], [place] [phone] (Wo rk) Social History Tobacco Use [...] Not assessed Sources of support: [facility] Barriers to change: None Counseling was provided to assess readin ess, confidence and/or barriers to self-care. To learn more about your health please v isit: https://www.[facility].org/medcenter/Pages/Wellness-Resources/Bnekgnmtx-Ccqwzn-Cj documented as of this encounter Visit Diagnoses Not on filedocumented in this encounter Care Teams [facility] Relationship Specialty Start Date End Date Md Castle MD PCP - General 10/06/16 01/22/17 Unknown, ProviderMD PCP - General 01/23/17 02/02/17 None, Provider PCP - General 02/03/17 documented as of this encounter
--- OUTSIDE RECORDS SUMMARY | 2022-05-22 03:26 | XMS_ITS | Encounter Summary ---
:1990 Author Organization [facility] Address [address] [place] [address] Care Team Providers Name Role Phone None, Provider Primary Care Provider Unavailable Reason for Visit Reason Comments Initial Visit Encounter Details Date Type Department Care Team Description 08/15/2016 Initial [facility] Perla Phillip MD [address] [place] [address] [place]: 11w2d [facility] [address], [place] [id number] [place] [address], [place] [id number] Social History Tobacco Use Types Packs/Day Years [...] as of this encounter Discharge Diagnoses Diagnosis O09.91 Supervision of high risk pregnanc y, unspecified, first trimester-O09.91[ICD-10-CM] documented in this encounter Ordered Prescriptions Prescription Sig Dispensed Refills Start Date End Date ondansetron (ZOFRAN) 4 mg Take 1-2 Tabs by 20 Tab 1 12/01/201610/06/2016 tablet mouth daily as needed for Nausea. documented in this encounter Discharge Disposition Disposition Code Departure Means Destination Auto Discharge documented in this encounter Progress Notes Néstor Cai MD - 08/15/2016 0800 EST Attestation statement: I discussed the patient with the resident/fellow at the time of the visit. I agree with the findings and the plan of care documented in the resident's/fellow's note. Néstor Cai MD ips, Cleo Conde MD - 08/15/2016 0800 EST CC: Initial antepartum visit Subjective Amaya Mary is a 25 y.o. @ 11w2d by early US done at facility (facility now apparently not allowing US at [facility] as they are done at the correctional facility). She is feeling well except for nausea. No bleeding or cramping. Occasional flutters. Unintended but desired . Was incarcerated 4 years, then out for 6 months (pt states she was on escape), then re-incarcerated last month after using meth for 4 days straight. Thinks she will get out in a month's time and be living in [place]. Past Medical History: Past Medical History Diagnosis Date ??? Abnormal Pap smear of cervix 07/2016 LGSIL 07/2016 --> needs repeat cotesting 07/2017 ??? Bipolar affective ??? Hepatitis C ??? 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 with infective embolization to left radial artery, requiring Vanco --> Ceftriazone and Lovenox Past Surgical History: Tonsillectomy Obstetrical History: G1: 2009 IOL, at term, 6lb 10oz male - adopted out G2: 2010 labor, at term, 6lb 11 oz female infant - adopted out G3: current No h/o HTN or GDM in any pregnancies Gynecological History: ASCUS Pap + HRHPV (no 16/18) in 11/2015 LGSIL Pap + HRHPV in 07/2016 - repeated too early in fdc Needs 1 year cotesting in 07/2017 - no need for colpo at this time Denies h/o STIs No h/o HSV Family History: Unsure of Family history, but think unlikely h/o developmental disabilities, genetic disorders, bleeding or clotting disorders H/o cervical cancer but no uterine, breast, ovarian, colon, lung, pancreas Social History: Currently incarcerated Has in [place], happy relationship Feels safe at [facility]dc but thinks she'll get out in the next month and live in [facility] h/o IVDU - heroin/cocaine/meth (4 days straight prior to recent incarceration) and pill use (mainly percocet) - has been on maintenance therapy for years with suboxone or methadone Medications: Seroquel 100mg BID Subutex 4mg - Dr. Hernandez Tylenol PRN PNV Allergies: Allergies Allergen Reactions ??? Bee Pollens Objective BP 110/68 Gen: NAD, shackles on wrists and ankles, guards present except during breast exam HEENT: NCAT, no lymphadenopathy or thyroid mass, very poor dentition with many teeth missing but no active evidence of caries or infection Breast: No lumps, no axillary lymphadenopathy, normal nipples with no discharge or bleeding or inversion Resp: CTAB CV: RRR, no evidence of murmur Abdomen: Soft, NTTP, skin changes noted (spots of more pale skin) Speculum: deferred - recently done in fdc Pelvic exam: deferred - recently done in fdc Assessment/Plan Amaya Brenda Tyra is a 25 y.o. @ 11w2d by first trimester scan done at fdc History of bacterial endocarditis H/o Infective endocarditis in 2012 - related to IVDU Was hospitalized at [facility] for fevers to 104 F and arterial embolism in left radial artery 5x3mm vegetation on leaflet of mitral valve with embolization Treated with Vanco --> Ceftriaxone --> discontinued on discharge with no further abx treatment Treated with Lovenox inpatient --> discontinued and now no longer on anticoagulation [ ] No treatment at this time with , but will need to continue to discuss Supervision of high risk in first trimester Dating by fdc scan - apparently fdc not allowing pts to have regular scans at [facility] - always get canceled Sequential testing ordered today Detailed US at 20 wga ordered today Collected urine culture, sent to lab for labs, Hep C VL, ALT/AST, Cr Declined flu shot today. Written Rx for Zofran written for fdc due to nausea associated with Opiate dependence Currently 4mg subutex through facility- Dr. Hernandez Chronic hepatitis C virus infection Diagnosed Hep C at 20 yo - IVDU Never sought treatment, never seen specialist [ ] VL, ALT/AST q trimester - first set ordered today [ ] avoid OVD, FSE, prolonged ROM during labor [ ] consider GI referral Bipolar disease in H/o Bipolar, diagnosed at 11yo Has been on Seroquel 100mg BID for years, doing well on med Mood fluctuates: I can't ever predict it H/o suicide attempts as a teen but never since. Denies SI/HI at [facility], none for years. [ ] Check on SI/HI at each visit [ ] consider referral to [facility] if uncontrolled during Low grade squamous intraepithelial lesion on cytologic smear of cervix (lgsil) 11/2015 - ASCUS Pap with + HRHPV (but no 16 or 18) done in fdc 07/2016 - LGSIL with + HRHPV done in fdc [ ] Needs repeat cotesting 07/2017 Poor dentition Many teeth pulled No current caries or infections Encourage pt to see dentist regularly with any concerns in RTC 4 weeks for next MD visit but earlier for genetic testing Discussed with Dr. Néstor Cai. Cleo Guthrie MD 08/15/2016 9:58 documented in this encounter Miscellaneous Notes Addendum Note - Cleo Guthrie MD - 08/16/2016 1228 EST Addended by: CLEO GUTHRIE on: 08/16/2016 12:28 Modules accepted: Orders Assessment & Plan Note - Cleo Guthrie MD - 08/15/2016 0948 ESTAssociated Problem(s): Poor dentition Many teeth pulled No current caries or infections Encourage pt to see dentist regularly with any concerns in Assessment & Plan Note - Cleo Guthrie MD - 08/15/2016 0947 ESTAssociated Problem(s): Low grade squamous intraepithelial lesion on cytologic smear of cervix (LGSIL) 11/2015 - ASCUS Pap with + HRHPV (but no 16 or 18) done in fdc 07/2016 - LGSIL with + HRHPV done in fdc [ ] Needs repeat cotesting 07/2017 ssessment & Plan Note - Cleo Guthrie MD - 08/15/2016 0945 ESTAssociated Problem(s): Bipolar disease in ([facility] ([facility]) H/o Bipolar, diagnosed at 11yo Has been on Seroquel 100mg BID for years, doing well on med Mood fluctuates: I can't ever predict it H/o suicide attempts as a teen but never since. Denies SI/HI at [facility], none for years. [ ] Check on SI/HI at each visit [ ] consider referral to [facility] if uncontrolled during pregnancy ssessment & Plan Note - Cleo Guthrie MD - 08/15/2016 0943 ESTAssociated Problem(s): Chronic hepatitis C virus infection ([facility]) ([facility]) Diagnosed Hep C at 20 yo - IVDU Never sought treatment, never seen specialist [ ] VL, ALT/AST q trimester - first set ordered today [ ] avoid OVD, FSE, prolonged ROM during labor [ ] consider GI referral postpartum ssessment & Plan Note - Cleo Guthrie MD - 08/15/2016 0941 ESTAssociated Problem(s): Opiate dependence ([facility]) ([facility]) Currently 4mg subutex through facility- Dr. Hernandez ssessment & Plan Note - Cleo Guthrie MD - 08/15/2016 0937 ESTAssociated Problem(s): Supervision of high risk in third trimester Dating by fdc scan - apparently fdc not allowing pts to have regular scans at [facility] - always get canceled Sequential testing ordered today Detailed US at 20 wga ordered today Collected urine culture, sent to lab for labs, Hep C VL, ALT/AST, Cr Declined flu shot today. Written Rx for Zofran written for fdc due to nausea associated with Assessment & Plan Note - Cleo Guthrie MD - 08/15/2016 0937 ESTAssociated Problem(s): History of bacterial endocarditis H/o Infective endocarditis in 2013 - related to IVDU Was hospitalized at [facility] for fevers to 104 F and arterial embolism in left radial artery 5x3mm vegetation on leaflet of mitral valve with embolization Treated with Vanco --> Ceftriaxone --> discontinued on discharge with no further abx treatment Treated with Lovenox inpatient --> discontinued and now no longer on anticoagulation [ ] Baseline ECHO ordered after patient sent home (upon Curbside discussion with [facility]), will need to coordinate with correctional facility to schedule documented in this encounter Plan of Treatment Not on filedocumented as of this encounter Procedures Procedure Name Priority Date/Time Associated Diagnosis Comme nts [facility] ROUTINE Routine 09/22/2016 16:16 Results for this EST procedure are i n the results section. BACTERIAL CULTURE, Routine 08/15/2016 9:26 EST Supervision of Results for this URINE high-risk , procedu re are in first trimester the results section. documented in this encounter Results [facility] ROUTINE (09/22/2016 16:16 EST) Anatomical Region Laterality Modality Other Specimen Narrative [facility] MATERNAL [facility] - 09/22/2016 16:41 EST Indication 2nd trimester bleeding. History ======= Previous Outcomes ?3 Para ?? 2 Children born (T) ??0 Children born (P) ??2 Living children (L) ?2 Abortions (A) ??0 Other: Mode of last delivery: vaginal Number of fetuses: 1. Dating ======= Method of dating: ??based on the stated dating Stated Dating on: ?07/27/2016 GA at stated dating date 8 w + 4 d Stated dating by: ?CRL at outside facility GA by stated dating ??16 w + 5 d UZMA by stated dating: ?03/04/2017 Ultrasound examination on: 09/22/2016 GA by U/S based upon: ??AC, BPD, Femur, HC GA by U/S ??17 w + 0 d UZMA by U/S: ?03/02/2017 Assigned: ??Dating performed on 7, based on the stated dating (on 07/27/2016 by CRL at outside facility) Assigned GA ?16 w + 5 d Assigned UZMA: ??03/04/2017 General Evaluation Cardiac activity: present. FHR 145 bpm. movements: visualized. Presentation: cephalic. Placenta: posterior. Umbilical cord: Cord vessels: 3 vessel c ord. Cord insertion: placental insertion: normal. Amniotic fluid: Amount of AF: normal. Biometry Biometry BPD ?35.7 mm 61% 17w 0d Hadlock OFD ?48.3 mm 71% 16w 4d Nicolaides HC 135.9 mm ?57% 17w 0d Hadlock AC 120.2 mm ?81% 17w 5d Hadlock Femur ??21.1 mm 29% 16w 2d Hadlock Cerebellum tr ??16.9 mm 71% 16w 6d Sveta aides CM 3.7 mm ??34% Nicolaides Humerus ?20.2 mm 32% 16w 1d Jackson EFW ?179 g Calculated by: Hadlock ([id number]) EFW (lb) ?? 0 lb EFW (oz) ?? 6 oz Cephalic index 0.74 ?5% Chitty HC / AC ?1.13 FL / BPD ?? 0.59 ?20% Hadlock FL / AC ?0.18 ?3% Hadlock FHR ?145 bpm Anatomy Head / Brain Head: ??normal Head: ??Shape and size Brain: normal Brain: Cerebellum, choroid plexus, ciste rna magna, lateral cerebral ventricles, midline falx and cavum septi pellucidi Lateral ventricles: ?suboptimally vi sualized Cavum septi pellucidi: not visualized Face / Neck / Spine Face: ??normal Face: ??Upper lip Neck: ??normal Neck: ??No neck masses seen Spine: normal Spine: Cervical, thoracic, lumbar and sa cral spine and overlying soft tissue Sacral spine: ??suboptimally visualized Thorax / Heart / Great Vessels Thorax: ?normal Thorax: ?No thoracic abnormalities d etected Situs: normal 4-chamber view: ?normal 4-chamber view: ?septum suboptimal LVOT: ??normal RVOT: ??normal Abdomen Abdom. wall: ?? normal Abdom. wall: ?? Integrity of abdominal w all and cord insertion Stomach: ?? normal Stomach: ?? Presence, size and situs Urinary Tract / Genitals Kidneys: ?? suboptimally visualized Rt kidney: suboptimally visualized Lt kidney: suboptimally visualized Bladder: ?? normal Bladder: ?? Size and location Gender: ?male Wants to know gender: ??yes Genitals: ??normal Genitals: ??Normal appearing genitalia Extremities / Bony Structures Upper extrem.: normal Upper extrem.: Both upper extremities ar e seen and appear normal Lower extrem.: normal Lower extrem.: Both lower extremities ar e seen and appear normal Maternal Structures Uterus / Cervix Uterus: ?appears normal Cervix: ?appears normal Ovaries / Tubes / Adnexa Rt ovary: ??Ovary not identified, but ad nexa appears normal Lt ovary: ??appears normal Lt ovary D1 ?2.3 cm Lt ovary D2 ?2.0 cm Lt ovary D3 ?1.1 cm Lt ovary mean ??1.8 cm Lt ovary Vol. ??2.5 cm cubed Method ======== Voluson E10, Transabdominal ultrasound e xamination. Limited by early gestational age. Impression [id number] Obstetrical ultrasound with and maternal evaluation This is a vaughan gestation. Biometry is consistent with early ultras ound dating. The CSP, lateral ventricle, distal spine and card iac septum are not well seen due to early gestational age. Anatomy ot herwise appears normal as noted above; however, ultrasoun d cannot detect all anomalies. There is trunk and extr emity movement noted. The amniotic fluid volume appears normal. There is a large subchoronic hemorrhage overlying the cervix, measuring 5.9 x 3.6 x 10.9 cm. Follow-up We recommend follow-up ultrasound in 4 w eeks to reassess the CSP, lateral ventricle, distal spine and card iac septum. Procedure Note Cleo Centeno MD - 09/22/2016 Indication 2nd trimester bleeding. History ======= Previous Outcomes 3 Para 2 Children born (T) 0 Children born (P) 2 Living children (L) 2 Abortions (A) 0 Other: Mode of last delivery: vaginal Number of fetuses: 1. Dating ======= Method of dating: based on the stated d ating Stated Dating on: 07/27/2016 GA at stated dating date 8 w + 4 d Stated dating by: [facility] at [facility] [place] by stated dating 16 w + 5 d UZMA by stated datin03/04/2017 Ultrasound examination on: 09/22/2016 GA by U/S based upon: AC, BPD, Femur, HC GA by U/S 17 w + 0 d UZMA by U/S: 03/02/2017 Assigned: Dating performed on 09/22/2016, based on the stated dating (on 07/27/2016 by CRL at outside facility) Assigned GA 16 w + 5 d Assigned UZMA: 03/04/2017 General Evaluation Cardiac activity: present. FHR 145 bpm. movements: visualized. Presentation: cephalic. Placenta: posterior. Umbilical cord: Cord vessels: 3 vessel c ord. Cord insertion: placental insertion: normal. Amniotic fluid: Amount of AF: normal. Biometry Biometry BPD 35.7 mm 61% 17w 0d Hadlock OFD 48.3 mm 71% 16w 4d Nicolaides HC 135.9 mm 57% 17w 0d Hadlock AC 120.2 mm 81% 17w 5d Hadlock Femur 21.1 mm 29% 16w 2d Hadlock Cerebellum tr 16.9 mm 71% 16w 6d Norberto yasir CM 3.7 mm 34% Nicolaides Humerus 20.2 mm 32% 16w 1d Jackson EFW 179 g Calculated by: Hadlock ([id number]) EFW (lb) 0 lb EFW (oz) 6 oz Cephalic index 0.74 5% Chitty HC / AC 1.13 FL / BPD 0.59 20% Hadlock FL / AC 0.18 3% Hadlock FHR 145 bpm Anatomy Head / Brain Head: normal Head: Shape and size Brain: normal Brain: Cerebellum, choroid plexus, ciste rna magna, lateral cerebral ventricles, midline falx and cavum septi pellucidi Lateral ventricles: suboptimally visuali zed Cavum septi pellucidi: not visualized Face / Neck / Spine Face: normal Face: Upper lip Neck: normal Neck: No neck masses seen Spine: normal Spine: Cervical, thoracic, lumbar and sa cral spine and overlying soft tissue Sacral spine: suboptimally visualized Thorax / Heart / Great Vessels Thorax: normal Thorax: No thoracic abnormalities detect ed Situs: normal 4-chamber view: normal 4-chamber view: septum suboptimal LVOT: normal RVOT: normal Abdomen Abdom. wall: normal Abdom. wall: Integrity of abdominal wall and cord insertion Stomach: normal Stomach: Presence, size and situs Urinary Tract / Genitals Kidneys: suboptimally visualized Rt kidney: suboptimally visualized Lt kidney: suboptimally visualized Bladder: normal Bladder: Size and location Gender: male Wants to know gender: yes Genitals: normal Genitals: Normal appearing genitalia Extremities / Bony Structures Upper extrem.: normal Upper extrem.: Both upper extremities ar e seen and appear normal Lower extrem.: normal Lower extrem.: Both lower extremities ar e seen and appear normal Maternal Structures Uterus / Cervix Uterus: appears normal Cervix: appears normal Ovaries / Tubes / Adnexa Rt ovary: Ovary not identified, but adne xa appears normal Lt ovary: appears normal Lt ovary D1 2.3 cm Lt ovary D2 2.0 cm Lt ovary D3 1.1 cm Lt ovary mean 1.8 cm Lt ovary Vol. 2.5 cm cubed Method ======== Voluson E10, Transabdominal ultrasound e xamination. Limited by early gestational age. Impression [id number] Obstetrical ultrasound with and maternal evaluation This is a vaughan gestation. Biometry is consistent with early ultras ound dating. The CSP, lateral ventricle, distal spine and card iac septum are not well seen due to early gestational age. Anatomy ot herwise appears normal as noted above; however, ultrasoun d cannot detect all anomalies. There is trunk and extr emity movement noted. The amniotic fluid volume appears normal. There is a large subchoronic hemorrhage overlying the cervix, measuring 5.9 x 3.6 x 10.9 cm. Follow-up We recommend follow-up ultrasound in 4 w eeks to reassess the CSP, lateral ventricle, distal spine and card iac septum. Performing Organization Address [facility] e Number [facility] MATERNAL MEDICINE ACC (ABNORMAL) HCV RNA DETECT QUANT (08/15/2016 10:02 EST) [facility] [address] HCV RNA Detect [phone] (A) Undetected IU/mL [facility] Quant Comment: CENTER Reference Range: ??Undetected LABORATORY The quantification range of this assay is 15 SERVICES IU/mL to 100,000,000 IU/mL. Testing was performed by the Fab[employer] Ampliprep/Fabi TaqMan HCV v2.0 ([employer] Specimen Blood specimen (specimen) - Blood Performing Organization Address [facility] Phon e Number [facility] [address] [place] [address] SERVICES (ABNORMAL) CREATININE (08/15/2016 10:02 EST) [facility] [address] Creatinine 0.50 (L) 0.52 - 1.04 [facility] mg/dl LABORATORY SERVICES GFR, Calculated 136 >60 [facility] Comment: ml/min/1.73m2 LABORATORY eGFR calculated using CKD-EPI equation for SERVICES non Americans. Multiply eGFR by 1.16 for Americans. Specimen Blood specimen (specimen) - Blood Performing Organization Address [facility]/ZIP [facility] Phon e Number [facility] [address] [place] [address] SERVICES AST (08/15/2016 10:02 EST) Pathologist Sig nature AST 43 15 - 46 U/L [facility] LABORATOR Y SERVICES Specimen Blood specimen (specimen) - Blood Performing Organization Address [facility] e Number [facility] [address] [place] [address] SERVICES (ABNORMAL) ALT (08/15/2016 10:02 EST) Pathologist Sig nature ALT 89 (H) <53 U/L [facility] LABORATOR Y SERVICES Specimen Blood specimen (specimen) - Blood Performing Organization Address [facility] Phon e Number [facility] [address] [place] [address] SERVICES HIV 1/2 ANTIBODY (08/15/2016 10:02 EST) HIV 1/2 Antibody Negative [facility] Comment: CENTER LABORATORY If acute HIV-1 infection is suspected in a SERVICES high risk patient, submit plasma specimen for HIV-1 RNA quantification test. Reference Range: ??Negative Assayed utilizing [employer] chemiluminescent technology. Specimen Blood specimen (specimen) - Blood Performing Organization Address [facility] e [facility] LABORATORY [address] [place] [address] SERVICES (ABNORMAL) PROFILE AND VARICELLA (08/15/2016 10:02 EST) ABO and Rh Type A NEG [facility] SERVICES Antibody Screen Neg [facility] SERVICES Rubella IgG Ab Positive [facility] Comment: CENTER LABORATORY Positive results suggest immunity to Rubella SERVICES infection. WBC 5.89 4.0 - 12.4 [facility] LABORATORY SERVICES RBC 4.13 3.86 - 5.04 [facility] LABORATORY SERVICES Hemoglobin 11.9 11.6 - 15.2 [facility] gm/dl CENTER LABORATORY SERVICES HCT 34.1 (L) 34.9 - 44.4 % [facility] LAB[facility] SERVICES MCV 83 81 - 98 fl [facility] SERVICES MCH 28.8 26.7 - 33.3 [facility] pg [place] LABORATORY SERVICES MCHC 34.9 32.1 - 35.9 [facility] gm/dl CENTER LABORATORY SERVICES RDW-CV 13.7 11.7 - 14.6 % [facility] SERVICES RDW-SD 41.2 37.6 - 50.3 [facility] CENTER LABORATORY SERVICES PLT 141 141 - 377 [facility] LABORATORY SERVICES MPV 11.3 9.5 - 12.7 fl [facility] SERVICES Hepatitis B Surface NegativeComment: [facility] Ag Reference Range: CENTER LABORATORY Negative SERVICES Neutrophils 69.1 % [facility] SERVICES Lymphocytes 24.6 % [facility] SERVICES Monocytes 4.1 % [facility] SERVICES Eosinophils 1.4 % [facility] SERVICES Basophils 0.5 % [facility] SERVICES Immature Grans 0.3 % [facility] SERVICES ABS Neutrophils 4.07 2.20 - 8.85 [facility] LABORATORY SERVICES ABS Lymphs 1.45 1.09 - 3.30 [facility] LABORATORY SERVICES ABS Monocytes 0.24 0.1 - 0.8 [facility] LABORATORY SERVICES ABS Eosinophils 0.08 0.03 - 0.61 [facility] LABORATORY SERVICES ABS Basophils 0.03 0.01 - 0.11 [facility] LABORATORY SERVICES ABS Immature Grans 0.02 0 - 0.06 [facility] LABORATORY SERVICES Type of Diff: Automated [facility] SERVICES Syphilis Serology NegativeComment: [facility] Reference Range: CENTER LABORATORY Negative SERVICES Varicella IgG Ab Negative [facility] Comment: CENTER LABORATORY SERVICES Absence of detectable Varicella Zoster virus IgG antibodies. ??A negative result indicates no detectable antibody, but does not rule out acute infection. ??If VZV exposure is suspected, a second sample should be collected and tested in no less than one or two weeks later. Specimen Blood specimen (specimen) - Blood Performing Organization Address City/State/ZIP Code Phon e Number [facility] [address] [place] [address] SERVICES BACTERIAL CULTURE, URINE (08/15/2016 9:26 EST) Pathologist Sig nature Result Less than 10,000 CFU/ml [facility] NURIA R Usual urogenital jose m. LABORATORY SERVIC ES Specimen Urine (substance) - Urine Performing Organization Address City/State/ZIP Code Phon e Number [facility] [address] [place] [address] SERVICES documented in this encounter Visit Diagnoses Diagnosis Supervision of high-risk , firs t trimester - Primary documented in this encounter Historical Medications This list may reflect changes made after this encounter. Medication Sig Dispensed Refills Start Date End Date PNV95/FERROUS FUMARATE/FA Take by mouth. 0 10/26/2016 ( ORAL) BUPRENORPHINE HCL (SUBUTEX Place 4 mg under 0 10/06/2016 SL) the tongue daily. added in this encounter Care Teams Machinist Supervisor Relationship Specialty Start Date End Date None, Provider PCP - General 05/30/16 08/29/16 documented as of this encounter
--- OUTSIDE RECORDS SUMMARY | 2022-05-22 03:26 | XMS_ITS | Encounter Summary ---
:1990 Author Organization [facility] Address [address] [place] [address] Care Team Providers Name Role Phone Yadira Hernandez MD Primary Care Provider [phone] Reason for Visit Reason Onset Date Comments Ultrasound 09/13/2016 Encounter Details Date Type Department Care Team Description 09/13/2016 Orders Only [facility] Cleo Guthrie S upervision of Women's Services - high-risk , Main [place] [address] [facility] second trimester [address] [place] [address] (Primary Dx) [place] [address] [phone] Social History Tobacco Use Types Packs/Day Years [...] Name Priority Date/Time Associated Diagnosis Comme nts CORRECTION DETAILED Routine 10/17/2016 12:34 EST Results for this procedure are i n the results section . documented in this encounter Results CORRECTION DETAILED (10/17/2016 12:34 EST) Anatomical Region Laterality Modality Other Specimen Narrative [facility] - 10/17/2016 13:12 EST [place] [address] due to finding. History ======= General History Height 157 cm Height (ft) ?5 ft Height (in) ?2 in Previous Outcomes ?3 Para ?? 2 Children born (T) ??2 Children born (P) ??0 Living children (L) ?2 Abortions (A) ??0 Other: Mode of last delivery: vaginal Maternal Assessment Height 157 cm Height (ft) ?5 ft Height (in) ?2 in Physical Exam Initial weight 56 kg Initial weight (lb) ?124 lb Initial BMI ?22.68 kg/m? Screening Tests Wants to know gender: ??yes Number of fetuses: 1. Dating ======= Stated Dating on: ?07/27/2016 GA at stated dating date 8 w + 4 d Stated dating by: ?CRL at outside facility GA by stated dating ??20 w + 2 d UZMA by stated dating: ?03/04/2017 Ultrasound examination on: 10/17/2016 GA by U/S based upon: ??AC, BPD, Femur, HC GA by U/S ??20 w + 0 d UZMA by U/S: ?03/06/2017 Assigned: ??Dating performed on 7, based on the stated dating (on 07/27/2016 by CRL at outside facility) Assigned GA ?20 w + 2 d Assigned UZMA: ??03/04/2017 General Evaluation Cardiac activity: present. FHR 142 bpm. movements: visualized. Presentation: breech. Placenta: Subchorionic hemorrhage (Size 7.3 mm x 2.1 mm x 10.0 mm). Umbilical cord: Cord vessels: 3 vessel c ord. Cord insertion: placental insertion: normal. Amniotic fluid: Amount of AF: normal. Biometry Biometry BPD ?45.1 mm 23% 19w 4d Hadlock OFD ?63.3 mm 72% 20w 2d Nicolaides HC 173.9 mm ?26% 19w 6d Hadlock AC 161.5 mm ?75% 21w 2d Hadlock Femur ??30.1 mm 13% 19w 2d Hadlock Cerebellum tr ??20.8 mm 53% 19w 6d Sveta aides CM 5.1 mm ??50% Nicolaides Nuchal fold ?3.60 mm Humerus ?30.0 mm 39% 20w 0d Jackson EFW ?344 g Calculated by: Hadlock ([id number]) EFW (lb) ?? 0 lb EFW (oz) ?? 12 oz Cephalic index 0.71 ?2% Chitty HC / AC ?1.08 FL / BPD ?? 0.67 ?16% Hadlock FL / AC ?0.19 ?<1% Hadlock FHR ?142 bpm Head / Face / Neck Senior Financial Accountant 7.5 mm Nasal bone 6.8 mm Extremities / Bony Struc Radius 24.9 mm 19% 19w 2d Jackson Ulna ?? 28.8 mm 40% 20w 0d Jackson Tibia ??28.1 mm 53% 20w 3d Jackson Fibula 27.0 mm 33% 19w 4d Jackson Foot ?? 30.6 mm 2% 19w 1d Thurman Anatomy Head / Brain Head: ??normal Head: ??Shape and size Brain: normal Brain: Cerebellum, choroid plexus, ciste rna magna, lateral cerebral ventricles, midline falx and cavum septi pellucidi Face / Neck / Spine Profile: ?? normal Orbits: ?normal Nose: ??normal Lips: ??normal Maxilla: ?? normal Mandible: ??normal Neck: ??normal Neck: ??No neck masses seen Spine: normal Spine: Cervical, thoracic, lumbar and sa cral spine and overlying soft tissue Thorax / Heart / Great Vessels Thorax: ?normal Thorax: ?No thoracic abnormalities d etected Situs: normal 4-chamber view: ?normal LVOT: ??normal RVOT: ??normal 3-vessel - trachea view: ?? normal 3-vessel view: normal Aortic arch view: ??normal Cardiac rhythm: ?abnormal Cardiac rhythm: ?Arrhythmia Abdomen Abdom. wall: ?? normal Abdom. wall: ?? Integrity of abdominal w all and cord insertion GI tract: ??normal GI tract: ??Normal echogenicity Stomach: ?? normal Stomach: ?? Presence, size and situs Urinary Tract / Genitals Rt kidney: see comments Lt kidney: normal Bladder: ?? normal Bladder: ?? Size and location Gender: ?male Wants to know gender: ??yes Genitals: ??normal Genitals: ??Normal appearing genitalia Extremities / Bony Structures Upper extrem.: normal Upper extrem.: Normal architecture and p osition of long bones and hands Lower extrem.: normal Lower extrem.: Normal architecture and p osition of long bones and feet Skeleton: ??normal Skeleton: ??No evidence of skeletal abno rmalities Additional Cardiac Views Superior vena cava: Appears normal. Inferior vena cava: Appears normal. Aneuploidy Screening Age (at exam date) 25 yrs Display risk: ??Risk at time of screenin g Background risk at time of screening ?? 1,155 Background risk at term ?1,356 Short humerus: no Short femur: ?? no Nuchal fold: ?? normal Pyelectasis: ?? no Echogenic focus: ?? no Hyperechogenic bowel: ??no Major defects: no Include: ?? ultrasound findings Adjusted risk at time of screening 9,326 Adjusted risk at term ??10,950 Maternal Structures Uterus / Cervix Uterus: ?appears normal Cervix: ?appears normal Ovaries / Tubes / Adnexa Rt ovary: ??Appears normal Rt ovary D1 ?1.5 cm Rt ovary D2 ?1.4 cm Rt ovary D3 ?1.3 cm Rt ovary mean ??1.4 cm Rt ovary Vol. ??1.4 cm cubed Lt ovary: ??appears normal Lt ovary D1 ?1.4 cm Lt ovary D2 ?1.0 cm Lt ovary D3 ?0.8 cm Lt ovary mean ??1.1 cm Lt ovary Vol. ??0.6 cm cubed Method ======== Transabdominal ultrasound examination, V oluson E10. Sufficient. Impression [place] study [place] a 64828 but wa [place] extended to a 11190 [place] to [place]. [address] Obstetrical ultrasound with and maternal evaluation, including detailed anatomic examin ation This is a vaughan gestation. Biometry is consistent with prior ultras ound dating. There is an arrhythmia noted, which appears to be in frequent PACs. The right kidney could have a duplicated collectin g system. The remainder of the anatomy appears normal as noted abov e; however, ultrasound cannot detect all anoma lies. As per the SMFM guidelines, the followin g were evaluated and were normal: the cerebellum (including lobes and vermis), facial profile, the chest (including examination for mas ses, effusion, integrity of both sides of the diaphragm and lung par enchyma), abdomen for ascites, 12-long bones with normal archi tecture/position of limbs, hands and feet, placental insertion site of the umbilical cord and placenta for masses. The amniotic fluid volume is normal. The re is trunk and extremity movement noted. Please see separate consultation letter. Follow-up Recommend echocardiogram and follo w-up in the third trimester to reassess the right kidney. Comment ========= Only the echo has been ordered. Procedure Note Kenneth Mcfadden MD - 10/17/2016 [place] [address] due to finding. History ======= General History Height 157 cm Height (ft) 5 ft Height (in) 2 in Previous Outcomes 3 Para 2 Children born (T) 2 Children born (P) 0 Living children (L) 2 Abortions (A) 0 Other: Mode of last delivery: vaginal Maternal Assessment Height 157 cm Height (ft) 5 ft Height (in) 2 in Physical Exam Initial weight 56 kg Initial weight (lb) 124 lb Initial BMI 22.68 kg/m? Screening Tests Wants to know gender: yes Number of fetuses: 1. Dating ======= Stated Dating on: 07/27/2016 GA at stated dating date 8 w + 4 d Stated dating by: CRL at outside facil ity GA by stated dating 20 w + 2 d UZMA by stated datin03/04/2017 Ultrasound examination on: 10/17/2016 GA by U/S based upon: AC, BPD, Femur, HC GA by U/S 20 w + 0 d UZMA by U/S: 03/06/2017 Assigned: Dating performed on 09/22/2016, based on the stated dating (on 07/27/2016 by CRL at outside facility) Assigned GA 20 w + 2 d Assigned UZMA: 03/04/2017 General Evaluation Cardiac activity: present. FHR 142 bpm. movements: visualized. Presentation: breech. Placenta: Subchorionic hemorrhage (Size 7.3 mm x 2.1 mm x 10.0 mm). Umbilical cord: Cord vessels: 3 vessel c ord. Cord insertion: placental insertion: normal. Amniotic fluid: Amount of AF: normal. Biometry Biometry BPD 45.1 mm 23% 19w 4d Hadlock OFD 63.3 mm 72% 20w 2d Nicolaides HC 173.9 mm 26% 19w 6d Hadlock AC 161.5 mm 75% 21w 2d Hadlock Femur 30.1 mm 13% 19w 2d Hadlock Cerebellum tr 20.8 mm 53% 19w 6d Norberto yasir CM 5.1 mm 50% Nicolaides Nuchal fold 3.60 mm Humerus 30.0 mm 39% 20w 0d Jackson EFW 344 g Calculated by: Hadlock ([id number]) EFW (lb) 0 lb EFW (oz) 12 oz Cephalic index 0.71 2% Chitty HC / AC 1.08 FL / BPD 0.67 16% Hadlock FL / AC 0.19 <1% Hadlock FHR 142 bpm Head / Face / Neck Senior Financial Accountant 7.5 mm Nasal bone 6.8 mm Extremities / Bony Struc Radius 24.9 mm 19% 19w 2d Jackson Ulna 28.8 mm 40% 20w 0d Jackson Tibia 28.1 mm 53% 20w 3d Jackson Fibula 27.0 mm 33% 19w 4d Jackson Foot 30.6 mm 2% 19w 1d Thurman Anatomy Head / Brain Head: normal Head: Shape and size Brain: normal Brain: Cerebellum, choroid plexus, ciste rna magna, lateral cerebral ventricles, midline falx and cavum septi pellucidi Face / Neck / Spine Profile: normal Orbits: normal Nose: normal Lips: normal Maxilla: normal Mandible: normal Neck: normal Neck: No neck masses seen Spine: normal Spine: Cervical, thoracic, lumbar and sa cral spine and overlying soft tissue Thorax / Heart / Great Vessels Thorax: normal Thorax: No thoracic abnormalities detect ed Situs: normal 4-chamber view: normal LVOT: normal RVOT: normal 3-vessel - trachea view: normal 3-vessel view: normal Aortic arch view: normal Cardiac rhythm: abnormal Cardiac rhythm: Arrhythmia Abdomen Abdom. wall: normal Abdom. wall: Integrity of abdominal wall and cord insertion GI tract: normal GI tract: Normal echogenicity Stomach: normal Stomach: Presence, size and situs Urinary Tract / Genitals Rt kidney: see comments Lt kidney: normal Bladder: normal Bladder: Size and location Gender: male Wants to know gender: yes Genitals: normal Genitals: Normal appearing genitalia Extremities / Bony Structures Upper extrem.: normal Upper extrem.: Normal architecture and p osition of long bones and hands Lower extrem.: normal Lower extrem.: Normal architecture and p osition of long bones and feet Skeleton: normal Skeleton: No evidence of skeletal abnorm alities Additional Cardiac Views Superior vena cava: Appears normal. Inferior vena cava: Appears normal. Aneuploidy Screening Age (at exam date) 26 yrs Display risk: Risk at time of screening Background risk at time of screening 1,1 55 Background risk at term 1,356 Short humerus: no Short femur: no Nuchal fold: normal Pyelectasis: no Echogenic focus: no Hyperechogenic bowel: no Major defects: no Include: ultrasound findings Adjusted risk at time of screening 9,326 Adjusted risk at term 10,950 Maternal Structures Uterus / Cervix Uterus: appears normal Cervix: appears normal Ovaries / Tubes / Adnexa Rt ovary: Appears normal Rt ovary D1 1.5 cm Rt ovary D2 1.4 cm Rt ovary D3 1.3 cm Rt ovary mean 1.4 cm Rt ovary Vol. 1.4 cm cubed Lt ovary: appears normal Lt ovary D1 1.4 cm Lt ovary D2 1.0 cm Lt ovary D3 0.8 cm Lt ovary mean 1.1 cm Lt ovary Vol. 0.6 cm cubed Method ======== Transabdominal ultrasound examination, V oluson E10. Sufficient. Impression [place] [address] [place] [address] [place]. [address] Obstetrical ultrasound with and maternal evaluation, including detailed anatomic examin ation This is a vaughan gestation. Biometry is consistent with prior ultras ound dating. There is an arrhythmia noted, which appears to be in frequent PACs. The right kidney could have a duplicated collectin g system. The remainder of the anatomy appears normal as noted abov e; however, ultrasound cannot detect all anoma lies. As per the SMFM guidelines, the followin g were evaluated and were normal: the cerebellum (including lobes and vermis), facial profile, the chest (including examination for mas ses, effusion, integrity of both sides of the diaphragm and lung par enchyma), abdomen for ascites, 12-long bones with normal archi tecture/position of limbs, hands and feet, placental insertion site of the umbilical cord and placenta for masses. The amniotic fluid volume is normal. The re is trunk and extremity movement noted. Please see separate consultation letter. Follow-up Recommend echocardiogram and follo w-up in the third trimester to reassess the right kidney. Comment ========= Only the echo has been ordered. Performing Organization Address City/State/ZIP Code Phon e Number [facility] documented in this encounter Visit Diagnoses Diagnosis Supervision of high-risk , seco nd trimester - Primary documented in this encounter Care Teams Premix Concrete Batcher Relationship Specialty Start Date End Date Yadira Hernandez MD PCP - General 08/30/16 10/05/16 documented as of this encounter
--- OUTSIDE RECORDS SUMMARY | 2022-05-22 03:26 | XMS_ITS | Encounter Summary ---
:[address] [facility] Address [address] [place] [address] Care Team Providers Name Role Phone None, Provider Primary Care Provider Unavailable Encounter Details Date Type Department Care Team Description 07/28/2016 Results Only [facility] Christiano Cai MD Imaging Women's Services - [address] [place] [id number] [address] [facility] [place] [address] [phone] Social History Tobacco Use Types Packs/Day Years Used Date Current Every Day Smoker Cigarettes 1.5 Alcohol Use Standard Drinks/Week Comments No 0 [...] on filedocumented in this encounter Care Teams Oxygen Therapy Teacher Relationship Specialty Start Date End Date None, Provider PCP - General 05/30/16 08/29/16 documented as of this encounter
--- OUTSIDE RECORDS SUMMARY | 2022-05-22 03:26 | XMS_ITS | Encounter Summary ---
:1990 Author Organization [facility] Address [address] [place] [address] Care Team Providers Name Role Phone Yadira Hernandez MD Primary Care Provider Reason for Visit Reason Onset Date Comments Appointment Related 09/07/2016 Encounter Details Date Type Department Care Team Description 09/07/2016 Telephone [facility] Vanessa Gar Ap pointment Related Women's Services - Main RN [place] [address] [place] [address] Social History Tobacco Use Types [...] encounter Miscellaneous Notes Telephone Encounter - Vanessa Gar RN - 09/07/2016 1112 EST [facility] ultrasound and APV. Confirmed with Dr Vines who verified that the [facility] 1st trimester is the next ultrasound that is due (there are several ordered). Depending on the dating of her [facility] ultrasound she may still be able to have her ultrascreen done. Scheduled for 09/22/16 , this was not next available but was what Ledy was able to coordinate with the facility. documented in this encounter Plan of Treatment Not on filedocumented as of this encounter Visit Diagnoses Not on filedocumented in this encounter Care Teams Pocket Setter Lockstitch Relationship Specialty Start Date End Date Yadira Hernandez MD PCP - General 08/30/16 10/05/16 documented as of this encounter
--- OUTSIDE RECORDS SUMMARY | 2022-05-22 03:26 | XMS_ITS | Encounter Summary ---
:1990 Author Organization [facility] Address [address] [place] [address] Care Team Providers Name Role Phone Unavailable Primary Care Provider Unavailable Encounter Details Date Type Department Care Team Description 03/01/2007 Results Only [facility] - Kyree Ricardo FNP conversion [address] [place] [address] [place] [address] (Wo rk) Social History Tobacco Use Types Packs/Day Years Used Date Never Assessed Sex Assigned at Date Recorded Not on file documented as of this encounter Plan of Treatment Not on filedocumented as of this encounter Procedures Procedure Name Priority Date/Time Associated Diagnosis Comme [facility] CYTOPATHOLOGY Routine 03/01/2007 0:00 EDT Results for this procedure are i n the results section . documented in this encounter Results CYTOPATHOLOGY (03/01/2007 0:00 EDT) Pathology Report: CYTOPATHOLOGY REPORT [facility] Reports generated via electronic interface contain carlos ginal data; however they are lacking the format of the original re port. Caution should be taken when reading/interpreting unfo rmatted reports. Name: ? AMAYA MARY ? Accession #: ? [id number] : ? 1990 (Age: 16) ??F ?Collect Date: ? 02/10 Location: ? [facility] ? Receive Date : ? 03/05/2007 Provider: ?KYREE BARTH SUPERVISOR CIGAR PROCESSING Copy to: ? Specimen/Source: ? ThinPrep Pap Test, Cervix/Endocervix, processed on [employer] ThinPrep Imaging System, with manual evaluation Last Menstrual Period: ? 02/19/07 Other: ? HPVDX - HPV testing requested regardless of diag nosis on current ThinPrep Pap test. ? SPECIMEN ADEQUACY ? Satisfactory for Evaluation - transformation zone component present GENERAL CATEGORIZATION ? Negative for Intraepithelial Lesion or Malignan cy ? Document reviewed and electronically signed by: ? CHRIS Mcneal(ASCP) ? Report Date: ??03/08/2007 16:44 End of Report Specimen Performing Organization Address City/State/ZIP Code Phon e Number [facility] [address] [place] [address] SERVICES [facility] [address] [place] [address] documented in this encounter Visit Diagnoses Not on filedocumented in this encounter
--- OUTSIDE RECORDS SUMMARY | 2022-05-22 03:26 | XMS_ITS | Encounter Summary ---
:1990 Author Organization [facility] Address [address] [place] [address] Care Team Providers Name Role Phone None, Provider Primary Care Provider Unavailable Encounter Details Date Type Department Care Team Description 08/15/2016 Phlebotomy Only [facility] Laboratory Director, [facility] Outpatient high-risk , [address] [facility] first trimester [place], [place] (Primary Dx) [id number] Social History Tobacco Use Types Packs/Day Years [...] Name Priority Date/Time Associated Diagnosis Comme nts HCV RNA DETECT QUANT Routine 08/15/2016 10:02 Supervision of R esults for this EST high-risk , procedu re are in first trimester the results section. PROFILE AND Routine 08/15/2016 10:02 Supervision of R esults for this VARICELLA EST high-risk , procedu re are in first trimester the results section. HIV 1/2 ANTIGEN AND Routine 08/15/2016 10:02 Supervision of Nat johnson for this ANTIBODY, 4TH EST high-risk , proced ure are in GENERATION first trimester the results section. ALT Routine 08/15/2016 10:02 Supervision of Results f or this EST high-risk , procedu re are in first trimester the results section. AST Routine 08/15/2016 10:02 Supervision of Results f or this EST high-risk , procedu re are in first trimester the results section. CREATININE Routine 08/15/2016 10:02 Supervision of Results f or this EST high-risk , procedu re are in first trimester the results section. documented in this encounter Results (ABNORMAL) HCV RNA DETECT QUANT (08/15/2016 10:02 EST) HCV RNA Detect 935,961 (A) Undetected IU/mL [facility] Comment: CENTER Reference Range: ??Undetected LABORATORY The quantification range of this assay is 15 SERVICES IU/mL to 100,000,000 IU/mL. Testing was performed by the [employer] Ampliprep/Fabi TaqMan HCV v2.0 ([employer] Specimen Blood specimen (specimen) - Blood Performing Organization Address City/[facility]/ZIP Code Phon e Number [facility] LABORATORY [address] [place] [address] SERVICES (ABNORMAL) CREATININE (08/15/2016 10:02 EST) Pathologist [facility] Creatinine 0.50 (L) 0.52 - 1.04 [facility] mg/dl LABORATORY SERVICES GFR, Calculated 136 >60 [facility] Comment: ml/min/1.73m2 LABORATORY eGFR calculated using CKD-EPI equation for SERVICES non Americans. Multiply eGFR by 1.16 for Americans. Specimen Blood specimen (specimen) - Blood Performing Organization Address City/[facility]/ZIP Code Phon e Number [facility]OR[facility]ORY [address] [place] [address] SERVICES AST (08/15/2016 10:02 EST) Pathologist Sig nature AST 43 15 - 46 U/L [facility] LABORATOR Y SERVICES Specimen Blood specimen (specimen) - Blood Performing Organization Address City/[facility]/ZIP Code Phon e Number [facility] [address] [place] [address] SERVICES (ABNORMAL) ALT (08/15/2016 10:02 EST) Pathologist Sig nature ALT 89 (H) <53 U/L [facility] LABORATOR Y SERVICES Specimen Blood specimen (specimen) - Blood Performing Organization Address City/[facility]/ZIP [facility] Phon e Number [facility] LABORATORY [address] [place] [address] SERVICES HIV 1/2 ANTIBODY (08/15/2016 10:02 EST) HIV 1/2 Antibody Negative [facility] Comment: CENTER LABORATORY If acute HIV-1 infection is suspected in a SERVICES high risk patient, submit plasma specimen for HIV-1 RNA quantification test. Reference Range: ??Negative Assayed utilizing [employer] chemiluminescent technology. Specimen Blood specimen (specimen) - Blood Performing Organization Address City/State/ZIP Code Phon e Number [facility] LABOR[facility]ORY [address] [place] [address] SERVICES (ABNORMAL) PROFILE AND VARICELLA (08/15/2016 10:02 EST) ABO and Rh Type A NEG [facility] LABORATORY SERVICES Antibody Screen Neg [facility] LABORATORY SERVICES Rubella IgG Ab Positive [facility] Comment: CENTER LABORATORY Positive results suggest immunity to Rubella SERVICES infection. WBC 5.89 4.0 - 12.4 [facility] LABORATORY SERVICES RBC 4.13 3.86 - 5.04 [facility] LABORATORY SERVICES Hemoglobin 11.9 11.6 - 15.2 [facility] gm/dl [facility] SERVICES HCT 34.1 (L) 34.9 - 44.4 % [facility] LABORATORY SERVICES MCV 83 81 - 98 fl [facility] LABORATORY SERVICES MCH 28.8 26.7 - 33.3 [facility] LABORATORY SERVICES MCHC 34.9 32.1 - 35.9 [facility] gm/dl [facility]AT[facility] SERVICES RDW-CV 13.7 11.7 - 14.6 % [facility] LABORATORY SERVICES RDW-SD 41.2 37.6 - 50.3 [facility] LABORATORY SERVICES PLT 141 141 - 377 [facility] LABORATORY SERVICES MPV 11.3 9.5 - 12.7 fl [facility] LABORATORY SERVICES Hepatitis B Surface NegativeComment: [facility] Ag Reference Range: CENTER LABORATORY Negative SERVICES Neutrophils 69.1 % [facility] LABORATORY SERVICES Lymphocytes 24.6 % [facility] LABORATORY SERVICES Monocytes 4.1 % [facility] LABORATORY SERVICES Eosinophils 1.4 % [facility] LABORATORY SERVICES Basophils 0.5 % [facility] LABORATORY SERVICES Immature Grans 0.3 % [facility] LABORATORY SERVICES ABS Neutrophils 4.07 2.20 - 8.85 [facility] LABORATORY SERVICES ABS Lymphs 1.45 1.09 - 3.30 [facility] LABORATORY SERVICES ABS Monocytes 0.24 0.1 - 0.8 [facility] LABORATORY SERVICES ABS Eosinophils 0.08 0.03 - 0.61 [facility] LABORATORY SERVICES ABS Basophils 0.03 0.01 - 0.11 [facility] LABORATORY SERVICES ABS Immature Grans 0.02 0 - 0.06 [facility] LABORATORY SERVICES Type of Diff: Automated [facility] LABORATORY SERVICES Syphilis Serology NegativeComment: [facility] Reference Range: CENTER LABORATORY Negative SERVICES Varicella IgG Ab Negative [facility] Comment: CENTER LABORATORY SERVICES Absence of detectable Varicella Zoster virus IgG antibodies. ??A negative result indicates no detectable antibody, but does not rule out acute infection. ??If VZV exposure is suspected, a second sample should be collected and tested in no less than one or two weeks later. Specimen Blood specimen (specimen) - Blood Performing Organization Address City/State/ZIP Code Phon e Number [facility] [address] [place] [address] SERVICES documented in this encounter Visit Diagnoses Diagnosis Supervision of high-risk , firs t trimester - Primary documented in this encounter Care Teams Product Development Relationship Specialty Start Date End Date None, Provider PCP - General 05/30/16 08/29/16 documented as of this encounter
--- OUTSIDE RECORDS SUMMARY | 2022-05-22 03:26 | XMS_ITS | Encounter Summary ---
:1990 Author Organization [facility] Address [address] [place] [address] Care Team Providers Name Role Phone Unavailable Primary Care Provider Unavailable Encounter Details Date Type Department Care Team Description 07/01/2010 Results Only [facility] Tamir Preez MD Laboratory Services - [address] [place] [id number] [facility] [place] [address] [phone] Social History Tobacco Use Types Packs/Day Years Used Date Never Assessed Sex Assigned at Date Recorded Not on file documented as of this encounter Plan of Treatment Not on filedocumented as of this encounter Procedures Procedure Name Priority Date/Time Associated Diagnosis Comme [facility] CYTOPATHOLOGY Routine 07/01/2010 0:00 EDT Results for this procedure are i n the results section . documented in this encounter Results CYTOPATHOLOGY (07/01/2010 0:00 EDT) Pathology Report: CYTOPATHOLOGY REPORT ? [facility] ? LAB Reports generated via electr onic interface contain original data; ? however they are lacking the format of the original report. ? Caution should be taken when reading/interpreting unformatted reports. ? Name: ? YOLIS MARY E ? Accession #: ? [id number] ? : ? 1990 (Age: 19) ??F ?Collect Date: ? 07/01/2010 ? Location: ? [facility] ? R eceive Date: ? 07/02/2010 ? Provider: TAMIR PEREZ MD ? Copy to: ? Final Report ? SPECIMEN ADEQUACY ? Satisfactory for Eval uation ? - transformation zone compon ent present ? GENERAL CATEGORIZATION ? Epithelial Cell Abnor mality ? INTERPRETATION ? Squamous Cell Abnorma lity - Atypical squamous cells, undetermined ? significance (ASC-US). ? Shift in jose m present sugge stive of bacterial vaginosis. ? EDUCATIONAL NOTES/RECOMMENDA TIONS ? FA recommends follo wing the 2006 Consensus Guidelines for the Management of Women with Abnormal Cervi cholo Cancer Screening Tests (JLGTD, ? 2007;11(4):201-222). ??Conse nsus guidelines are available online at ? www.ASCCP.org. ? Last Menstural Period: 9/7/1 0 ? Menstural/ Status: ? Specimen/Source: ??Pap Test, Cervix/Endocervix, ThinPrep Imaging System with ? manual evaluation ? Document reviewed and electr onically signed by: ? ABDELMONEM ADALGISASSHILTON MD ? Report ??Date: 10/27/ 2010 17:40 ? HPV with Pap Test ? Date Ordered: ? 1 ? Status: ?? Signed Out ?Date Complete: ? 07/12/2010 ? By: ??System Interface ? Date Reported: ? 07/12/2010 ? Interpretation ? RESULT: Positive for one or more of HPV types 16,18,31,33,35,39,45, ? 51,52,56,58,59, or 68. These high/intermediate risk HPV ? types are associated with dy splasia and some cervical ? cancers. ? Comments ? Document reviewed and electr onically signed by: ? System Interface ? Report date: 07/12/20 10 ? By the signature above, the attending physician certifies that he/she has ? personally conducted a gross and/or microscopic examination of the described ? specimens and rendered or co nfirmed the above diagnosis. ? End of Report ? Specimen Performing Organization Address City/State/ZIP Code Phon e Number [facility] [address] [place] [address] SERVICES [facility] [address] [place] [address] documented in this encounter Visit Diagnoses Not on filedocumented in this encounter
--- OUTSIDE RECORDS SUMMARY | 2022-05-22 03:26 | XMS_ITS | Encounter Summary ---
:1990 Author Organization [facility] Address [address] [place] [address] Care Team Providers Name Role Phone Unavailable Primary Care Provider Unavailable Encounter Details Date Type Department Care Team Description 03/01/2007 Hospital Encounter [facility] FNP [address] [place], [place] [id number] Other Unknown, Provider, [address] [place], [place] [phone] Social History Tobacco Use Types Packs/Day Years Used Date Never Assessed Sex Assigned at Date Recorded Not on file documented as of this encounter Discharge Disposition Disposition Code Departure Means Destination Home or Self Care documented in this encounter Plan of Treatment Not on filedocumented as of this encounter Procedures Procedure Name Priority Date/Time Associated Comments Diagnosis CYTOPATHOLOGY Routine 07/23/2009 0:00 Results for this EST procedure are i n the results section. HPV DETECTION, HIGH Routine 03/01/2007 22:48 Resu lts for this RISK TYPES EDT procedure are i n the results section. documented in this encounter Results CYTOPATHOLOGY (07/23/2009 0:00 EST) Pathology Report: CYTOPATHOLOGY REPORT ? [facility] ? LAB Reports generated via electr onic interface contain original data; ? however they are lacking the format of the original report. ? Caution should be taken when reading/interpreting unformatted reports. ? Name: ? YOLIS MARY ? Accession #: ? [id number] ? : ? 1990 (Age: 18) ??F ?Collect Date: ? 07/23/2009 ? Location: ? [facility] ? Receive Date: ? 07/24/2009 ? Provider: ?JOANNA WOODWARD CNM ? Copy to: ? Specimen/Source: ? Pap Test, Cervix/Endocervix, ThinPrep Imaging System ? with manual evaluation ? Last Menstrual Period: ? 9/1/09 ? Menstrual/ Status: ? SPECIMEN ADEQUACY ? Satisfactory for Eval uation ? - transformation zone compon ent present ? GENERAL CATEGORIZATION ? Negative for Intraepi thelial Lesion or Malignancy ? Document reviewed and electr onically signed by: ? Brittany Verville,[place](ASCP) ? Report Date: ??11/20/ 2009 11:58 ? End of Report ? Specimen Performing Organization Address City/[facility]/ZIP Code Phon e Number [facility] [address] [place] [address] SERVICES [facility] [address] [place] [address] HUMAN PAPILLOMA VIRUS DNA TEST (03/01/2007 22:48 EDT) Specimen Description Cervix, ThinPrep ABRIL FERMIN L AB vial Result Negative for HPV [facility] MONSIVAIS types 16, 18, 31, 33, 35, 39, 45, 51, 52, 56, 58, 59, and 68. Report Status Final [facility] [id number] Specimen Performing Organization Address City/[facility]/ZIP Code Phon e Number [facility] [address] [place] [address] SERVICES [facility] [address] [place] [address] documented in this encounter Visit Diagnoses Not on filedocumented in this encounter
--- OUTSIDE RECORDS SUMMARY | 2022-05-22 03:26 | XMS_ITS | Encounter Summary ---
:1990 Author Organization [facility] Address [address] [place] [address] Care Team Providers Name Role Phone Yadira Hernandez MD Primary Care Provider [phone] Reason for Visit Reason Comments Cardiac Testing Cardiology (Routine) - Closed Specialty Diagnoses / Procedures Referred By Contact Refer red To Contact Diagnoses History of bacterial endocarditis during Néstor Cai MD Procedures ECHOCARDIOGRAM [address] [place] [address] Referral ID Status Reason Start Date Expiration Date Visits Requ ested Visits Authorized [id number] Closed 08/16/2016 1 1 Encounter Details Date Type Department Care Team Description 09/14/2016 Procedure visit [facility] Carissa Montague MD [address] [id number] Cardiology - [address] [place], [place] [address] Social History Tobacco Use Types Packs/Day Years [...] as of this encounter Discharge Diagnoses Diagnosis Z86.79 Personal history of other disease s of the circulatory system-Z86.79[ICD-10-CM] documented in this encounter Discharge Disposition Disposition Code Departure Means Destination Auto Discharge documented in this encounter Plan of Treatment Not on filedocumented as of this encounter Visit Diagnoses Not on filedocumented in this encounter Care Teams Yarn Handler Relationship Specialty Start Date End Date Yadira Hernandez MD PCP - General 08/30/16 10/05/16 documented as of this encounter
--- OUTSIDE RECORDS SUMMARY | 2022-05-22 03:26 | XMS_ITS | Encounter Summary ---
:1990 Author Organization [facility] Address [address] [place] [address] Care Team Providers Name Role Phone None, Provider Primary Care Provider Unavailable Reason for Visit Reason Onset Date Comments Labs Only 08/15/2016 Encounter Details Date Type Department Care Team Description 08/15/2016 Telephone [facility] Dillan Calderón, RN Labs Only Services - [facility] [address], [place] [phone] Social History Tobacco Use Types Packs/Day Years [...] Telephone Encounter - Miryam Calderón RN - 08/15/2016 1023 EST Received call from Yadira Hernandez who is wanting to confirm that the office has received recent pap smear and ultrasound from their facility. Also that she has not been able to draw her labs at the halfway and is hoping that she can be sent to the lab here after her visit. Advised that labs weredrawn after her visit today. No further questions or concerns at this time. documented in this encounter Plan of Treatment Not on filedocumented as of this encounter Visit Diagnoses Not on filedocumented in this encounter Care Teams Mobile Device Engineer Relationship Specialty Start Date End Date None, Provider PCP - General 05/30/16 08/29/16 documented as of this encounter
--- OUTSIDE RECORDS SUMMARY | 2022-05-22 03:26 | XMS_ITS | Encounter Summary ---
:1990 Author Organization [facility] Address [address] [place] [address] Care Team Providers Name Role Phone None, Provider Primary Care Provider Unavailable Reason for Referral Cardiology (Routine) - Closed Specialty Diagnoses / Procedures Referred By Contact Refer red To Contact Diagnoses History of bacterial endocarditis during Néstor Cai MD Procedures ECHOCARDIOGRAM [address] [place] [address] Referral ID Status Reason Start Date Expiration Date Visits Requ ested Visits Authorized [id number] Closed 08/16/2016 1 1 Encounter Details Date Type Department Care Team Description 08/16/2016 Orders Only [facility] Carissa Montague MD History of bacterial [address] [facility] [address] [place] [address] [address] (Primary Dx) [phone] [address] [place] [address] Social History Tobacco Use Types Packs/Day Years [...] Name Priority Date/Time Associated Diagnosis Comme nts ECHOCARDIOGRAM Routine 09/14/2016 15:08 EST History of bacteri al Results for this endocarditis during procedur e are in the results section. documented in this encounter Results ECHOCARDIOGRAM (09/14/2016 15:08 EST) Specimen Narrative [facility] [place] [facility] - 09/14/2016 16:13 EST *Interpreting Group:* *[facility]* [address] [place] [address] Date of study: 09/14/2016 Transthoracic Echocardiography M-mode, complete 2D, complete spectral D oppler, and color Doppler *STUDY CONCLUSIONS* Summary: 1. Left ventricle: The cavity size was n ormal. Wall thickness was ?? normal. Systolic function was normal . The estimated ejection fraction ?? was 60-65%. Wall motion was normal; there were no regional wall ?? motion abnormalities. 2. Right ventricle: The cavity size was normal. Wall thickness was ?? normal. Systolic function was normal . *PATIENT PRESENTATION* Height: ? 154.9cm ((61in) ) S/D Pressure: 113 / 64 Weight: ? 59.9kg ((131.7lb) ) BSA: ?1.62m^2 Test start time: ??02:10 PM. Test stop time: ??02:40 PM. ATTENDING ?Néstor Cai ORDERING ? Néstor Cai REFERRING ?Yadira Hernandez STEEL SPAR OPERATOR ??Ирина [employer] FELLOW ? Darrell Lambert MD PERFORMING ?? U[facility], Op *PROCEDURE DATA* Procedure information: ??This study was interpreted by [facility]. Pertin ent images and digital data are archived for permanent storage and are a vailable for subsequent review. Study status: ??Routine. Transthoracic e chocardiography. ??M-mode, complete 2D, complete spectral Doppler, and color Doppler. A Transthoracic Echocardiogram was perform ed. Scanning was performed from the parasternal, apical, subcostal, and suprasternal notch acoustic windows. Images were obtained using an [employer] piq 12 cardiac ultrasound machine. Image quality was adequate. ??Saroj hankins completion: ??The patient tolerated the procedure well. There were no complications. *INDICATIONS AND HISTORY* Indications: ?? Personal history of othe r diseases of the circulatory system (Z86.79). History: ?PMH: ??H/O endocarditis, n ow . Labs, prior tests, procedures, and surge ry: Transthoracic echocardiography (12/04/19). *CARDIAC ANATOMY* Left ventricle: ??The cavity size was no rmal. Wall thickness was normal. Systolic function was normal. [facility] ejection fraction was 60-65%. Wall motion was normal; there we re no regional wall motion abnormalities. Aortic valve: ?? Trileaflet; normal thic kness leaflets. Mobility was not restricted. ??Doppler: ??Transvalvular v elocity was within the normal range. There was no stenosis. There was no regurgitation. Aorta: ??Aortic root: The aortic root wa s normal in size. Mitral valve: ?? Structurally normal doretha ve. ?? Mobility was not restricted. ??Doppler: ??Transvalvular v elocity was within the normal range. There was no evidence for stenosi s. There was trivial regurgitation. ?Peak gradient (D): 2 .2mm Hg. Left atrium: ??The atrium was normal in size. Right ventricle: ??The cavity size was n ormal. Wall thickness was normal. Systolic function was normal. Pulmonic valve: ?The valve appears t o be grossly normal. ?Doppler: Transvalvular velocity was within the no rmal range. There was no evidence for stenosis. There was no regu rgitation. Tricuspid valve: ?? Structurally normal valve. ?Doppler: ??Transvalvular velocity was within the normal range. Th ere was no evidence for stenosis. There was no regurgitation. Pulmonary artery: ?Systolic pressure could not be accurately estimated. Right atrium: ??The atrium was normal in size. Pericardium: ??There was no pericardial effusion. Systemic veins: Inferior vena cava: The vessel was ellen l in size. Measurements Left ventricle ? Value ?12/03/2012 Reference LV ID, ED, PLAX ?4.6 ?? cm ? 3.5 - 6.0 LV ID, ES, PLAX ?3.0 ?? cm ? 2.1 - 4.0 LV PW thickness, ED, PLAX ?0.8 ?? cm ? LV end-diastolic volume, 1-p ? 29 ?ml ? A2C LV ejection fraction, 1-p ?65 ?% ? A2C LV end-diastolic volume, 1-p ? 35 ?ml ? 80 ? A4C LV ejection fraction, 1-p ?58 ?% ?59 ? A4C LV IVRT, DP ?71 ?ms ? 70 ? 60 - 100 LV e', lateral ? 0.109 m/sec ??0.091 ? LV E/e', lateral ? 7 ?12 ? LV e', medial ?0.101 m/sec ?? LV E/e', medial ?7 ? LV e', average ? 0.105 m/sec ?? LV E/e', average ? 7 ? Ventricular septum ? Value ?12/03/2012 Reference IVS thickness, ED, PLAX ?0.7 ?? cm ? Aorta ?Value ?12/03/2012 Reference Aortic root ID ? 2.4 ?? cm ? Ascending aorta ID, A-P ?2.3 ?? cm ? Ascending aorta ID, A-P, S ? 2.3 ?? cm ? 2.2 ? Left atrium ?Value ?12/03/2012 Reference LA ID, A-P, ES ? 3.4 ?? cm ? 3.7 ? LA ID/bsa, A-P ? 2.1 ?? cm/m^2 2.0 ?<=2.2 LA area, ES, A4C ? 19.7 ??cm^2 ?? 8.8 - 23.4 LA area, ES, A2C ? 18 ?cm^2 ?? LA volume, ES, 2-p ? 61 ?ml ? LA volume/bsa, ES, 2-p ? 37 ?ml/m^2 LA/aortic root ratio ? 1.42 ? Mitral valve ? Value ?12/03/2012 Reference Mitral E-wave peak velocity ?0.74 ??m/sec ??1.09 ? Mitral A-wave peak velocity ?0.72 ??m/sec ??0.72 ? Mitral deceleration time ? 151 ?? ms ? 197 ?150 - 230 Mitral peak gradient, D ?2.2 ?? mm Hg ??4.8 ? Mitral E/A ratio, peak ? 1 ?1.5 ? Tricuspid valve ?Value ?12/03/2012 Reference Tricuspid regurg peak ?1.8 ?? m/sec ?? velocity Tricuspid peak RV-RA ? 13.2 ??mm Hg ?? gradient Tricuspid maximal regurg ? 1.82 ??m/sec ?? velocity, PISA Legend: (L) ??and ??(H) ??william values outside sp ecified reference range. I have personally reviewed the images an d have reviewed and edited the reported findings. Electronically signed by Kenneth Fabian MD 09/14/2016 16:13 Procedure Note Kenneth Fabian MD - 09/14/2016 *Interpreting Group:* *[facility]* [address] [place] [address] Date of study: 09/14/2016 Transthoracic Echocardiography M-mode, complete 2D, complete spectral D oppler, and color Doppler *STUDY CONCLUSIONS* Summary: 1. Left ventricle: The cavity size was n ormal. Wall thickness was normal. Systolic function was normal. T he estimated ejection fraction was 60-65%. Wall motion was normal; the re were no regional wall motion abnormalities. 2. Right ventricle: The cavity size was normal. Wall thickness was normal. Systolic function was normal. *PATIENT PRESENTATION* Height: 154.9cm ((61in) ) S/D Pressure: 113 / 64 Weight: 59.9kg ((131.7lb) ) BSA: 1.62m^2 Test start time: 02:10 PM. Test stop time: 02:40 PM. ATTENDING Néstor Cai Robert G REFERRING Esparza, Vivian R STEEL SPAR OPERATORИрина Bryant FELLOW Darrell Lambert MD PERFORMING [facility], Op *PROCEDURE DATA* Procedure information: This study was in terpreted by [facility]. Pertin ent images and digital data are archived for permanent storage and are a vailable for subsequent review. Study status: Routine. Transthoracic ech ocardiography. M-mode, complete 2D, complete spectral Doppler, and color Doppler. A Transthoracic Echocardiogram was perform ed. Scanning was performed from the parasternal, apical, subcostal, and suprasternal notch acoustic windows. Images were obtained using an [employer] 12 cardiac ultrasound machine. Image quality was adequate. Ziyad dy completion: The patient tolerated the procedure well. There were no complications. *INDICATIONS AND HISTORY* Indications: Personal history of other d iseases of the circulatory system (Z86.79). History: PMH: H/O endocarditis, now preg nant. Labs, prior tests, procedures, and surge ry: Transthoracic echocardiography (12/04/19). *CARDIAC ANATOMY* Left ventricle: The cavity size was norm al. Wall thickness was normal. Systolic function was normal. The estima murali ejection fraction was 60-65%. Wall motion was normal; there we re no regional wall motion abnormalities. Aortic valve: Trileaflet; normal thickne ss leaflets. Mobility was not restricted. Doppler: Transvalvular veloc ity was within the normal range. There was no stenosis. There was no regurgitation. Aorta: Aortic root: The aortic root was normal in size. Mitral valve: Structurally normal valve. Mobility was not restricted. Doppler: Transvalvular veloc ity was within the normal range. There was no evidence for stenosi s. There was trivial regurgitation. Peak gradient (D): 2.2mm Hg. Left atrium: The atrium was normal in si ze. Right ventricle: The cavity size was nor mal. Wall thickness was normal. Systolic function was normal. Pulmonic valve: The valve appears to be grossly normal. Doppler: Transvalvular velocity was within the no rmal range. There was no evidence for stenosis. There was no regu rgitation. Tricuspid valve: Structurally normal doretha ve. Doppler: Transvalvular velocity was within the normal range. Th ere was no evidence for stenosis. There was no regurgitation. Pulmonary artery: Systolic pressure coul d not be accurately estimated. Right atrium: The atrium was normal in s ize. Pericardium: There was no pericardial ef fusion. Systemic veins: Inferior vena cava: The vessel was ellen l in size. Measurements Left ventricle Value 12/03/2012 Referen LV ID, ED, PLAX 4.6 cm 3.5 - 6.0 LV ID, ES, PLAX 3.0 cm 2.1 - 4.0 LV PW thickness, ED, PLAX 0.8 cm ------ ---- LV end-diastolic volume, 1-p 29 ml ---- ------ A2C LV ejection fraction, 1-p 65 % -------- -- A2C LV end-diastolic volume, 1-p 35 ml 80 - --------- A4C LV ejection fraction, 1-p 58 % 59 ----- ----- A4C LV IVRT, DP 71 ms 70 60 - 100 LV e', lateral 0.109 m/sec 0.091 ------ ---- LV E/e', lateral 7 12 LV e', medial 0.101 m/sec -- -------- LV E/e', medial 7 LV e', average 0.105 m/sec - --------- LV E/e', average 7 --------- - Ventricular septum Value 12/03/2012 Ref erence IVS thickness, ED, PLAX 0.7 cm -------- -- Aorta Value 12/03/2012 Reference Aortic root ID 2.4 cm ------ ---- Ascending aorta ID, A-P 2.3 cm -------- -- Ascending aorta ID, A-P, S 2.3 cm 2.2 - --------- Left atrium Value 12/03/2012 Reference LA ID, A-P, ES 3.4 cm 3.7 LA ID/bsa, A-P 2.1 cm/m^2 2.0 <=2.2 LA area, ES, A4C 19.7 cm^2 8 .8 - 23.4 LA area, ES, A2C 18 cm^2 --- ------- LA volume, ES, 2-p 61 ml --- ------- LA volume/bsa, ES, 2-p 37 ml/m^2 ------ ---- LA/aortic root ratio 1.42 -- -------- Mitral valve Value 12/03/2012 Reference Mitral E-wave peak velocity 0.74 m/sec 1.09 Mitral A-wave peak velocity 0.72 m/sec 0.72 Mitral deceleration time 151 ms 197 150 - 230 Mitral peak gradient, D 2.2 mm Hg 4.8 - --------- Mitral E/A ratio, peak 1 1.5 Tricuspid valve Value 12/03/2012 Refere nce Tricuspid regurg peak 1.8 m/sec ------- --- velocity Tricuspid peak RV-RA 13.2 mm Hg ------- --- gradient Tricuspid maximal regurg 1.82 m/sec --- ------- velocity, PISA Legend: (L) and (H) william values outside specifie d reference range. I have personally reviewed the images an d have reviewed and edited the reported findings. Electronically signed by Kenneth Fabian MD 09/14/2016 16:13 Performing Organization Address City/State/ZIP Code Phon e Number [facility] [place] documented in this encounter Visit Diagnoses Diagnosis History of bacterial endocarditis during - Primary Supervision of other high-risk documented in this encounter Care Teams Display Associate Relationship Specialty Start Date End Date None, Provider PCP - General 05/30/16 08/29/16 documented as of this encounter
--- OUTSIDE RECORDS SUMMARY | 2022-05-22 03:26 | XMS_ITS | Encounter Summary ---
:1990 Author Organization [facility] Address [address] [place] [address] Care Team Providers Name Role Phone None, Provider Primary Care Provider Unavailable Unknown, Provider Primary Care Provider Aster Hickman NP Primary Care Provider None, Provider Primary Care Provider Unavailable Yadira Hernandez MD Primary Care Provider [phone] Unselected, Md COHEN Primary Care Provider Unavailable Unknown, Provider Primary Care Provider None, Provider Primary Care Provider Unavailable Encounter Details Date Type Department Care Team Description 02/02/2011 Historical Results Only [facility] - [place], Amarilis Connell, [facility] Lab - Main [facility] [place] [address] Social History Tobacco Use Types Packs/Day Years Used Date Current Every Day Smoker Alcohol Use Standard Drinks/Week Comments No 0 [...] Not assessed Sources of support: [facility] Barriers to change: None Counseling was provided to assess readin ess, confidence and/or barriers to self-care. To learn more about your health please v isit: [email or web address]-Resources/Xifbesvlo-Qypodd-[email or web address] documented as of this encounter Procedures Procedure Name Priority Date/Time Associated Diagnosis Comme nts PAP TEST Routine 02/02/2011 16:48 EDT Results for this procedure are i n the results section . documented in this encounter Results PAP TEST (02/02/2011 16:48 EDT) Specimen Narrative [facility] - 011 15:43 EDT Name: AMAYA MARY ? : [birth year] ?Age/Sex: 28/F ?Unit#: [id number] ? Loc: AGO ? Status: REG POV ?? Reg Date: 02/02/11 ? Pt.Phone Number : ? Specimen: [id number] ?LORENE HSU: SOUT ?Spec Date:02/02/11 ? Physician Copies: ?Josep Ho MD ? Tissues: ? Cervical/Endo Pap ?NONE,NONE ? CPT: 77108 ?? Units: ??1 ? CYTOLOGY DIAGNOSIS SPECIMEN ADEQUACY: ?Satisfactory for evaluation. Transformation zone component present. GENERAL CATEGORIZATION: ?Negative fo r Intraepithelial Lesion or Malignancy DESCRIPTIVE DIAGNOSIS: ?? Shift in jose m present suggestive of bacterial vaginosis. RECOMMENDATIONS/COMMENTS: ?None. ORDER QUERIES: LMP: 05/18/10 - 05/18/10 ? Y Post ? N ??PREVIOUS ATYPICAL: Y BCP/HRT? N Rad Rx? N IUD? N ??PAP PLUS HPV? N ??REFLEX TO HR-HPV IF ASCUS ?? REFLEX TO HPV 16/18 IF HPV POS/PAP NEG ?? HPV REGARDLESS?RFLX HPV IF LSIL ?? IF ASCUS DO HPV? N Signed Akhil Souza CT(ASCP) 02/09/11 ? By the signature above, the attending ph ysician certifies that he/she has personally conducted a gross and/or microscopic exa mination of the described specimens and rendered or confirmed the above diagnosi s. Test Performed by [facility], [address] [place] [address] Coffee Shop Aide: Maggie Webb MD PHD Performing Organization Address City/State/ZIP Code Phon e Number [facility] [address] [place] [address] LAB documented in this encounter Visit Diagnoses Not on filedocumented in this encounter Care Teams Clinical Rehabilitation Specialist Relationship Specialty Start Date End Date None, Provider PCP - General 12/31/10 11/29/12 Unknown, ProviderMD PCP - General 11/30/12 10/10/13 Aster Hickman NP PCP - General 10/11/13 05/29/[address] [place] [address] None, Provider PCP - General 05/30/16 08/29/16 Yadira Hernandez MD PCP - General 08/30/16 10/05/16 Md Castle MD PCP - General 10/06/16 01/22/17 Unknown, MD Joey PCP - General 01/23/17 02/02/17 None, Provider PCP - General 02/03/17 documented as of this encounter
--- OUTSIDE RECORDS SUMMARY | 2022-05-22 03:26 | XMS_ITS | Encounter Summary ---
:1990 Author Organization [facility] Address [address] [place] [address] Care Team Providers Name Role Phone None, Provider Primary Care Provider Unavailable Reason for Visit Reason Onset Date Comments Appointment Related 07/19/2016 Encounter Details Date Type Department Care Team Description 07/19/2016 Telephone [facility] Vanessa Gar Ap pointment Related Women's Services - [facility] [place] [address] [place] [address] Social History Tobacco Use Types [...] Telephone Encounter - Vanessa Gar RN - 07/19/2016 1501 EST PC from [facility] at [facility] requesting dating ultrasound for Amaya who is believed to be approximately 8-9 weeks , LMP unsure. She has also requested approval from [facility] for patient to be established for [place] care here at [facility], awaiting approval. Ultrasound scheduled f or 07/28/16 @ 13:15. Ledy hopes that she will have approval by that time and will be able to set up [facility] by that time following u/s. Ledy states that she will be faxing over notes from their clinic. documented in this encounter Plan of Treatment Not on filedocumented as of this encounter Visit Diagnoses Diagnosis Amenorrhea - Primary Absence of menstruation documented in this encounter Care Teams Drag Down Relationship Specialty Start Date End Date None, Provider PCP - General 05/30/16 08/29/16 documented as of this encounter
--- OUTSIDE RECORDS SUMMARY | 2022-05-22 03:26 | XMS_ITS | Encounter Summary ---
:[address] [facility] Address [address] [place] [address] Care Team Providers Name Role Phone Aster Hickman PAVAN Primary Care Provider Reason for Visit Reason Comments Other globus Encounter Details Date Type Department Care Team Description 10/14/2013 Office Visit [facility] Chris Lino Globu s pharyngeus (Primary Dx); ENT- [facility] MD Niko LPRD (laryngopharyngeal reflux disease); [address] [facility] [address] Chronic laryngitis; [place], [place] [id number] [place] [address] Tobacco abuse [phone] [facility], [address] [place] [address] (Wo rk) Social History Tobacco Use [...] as of this encounter Discharge Diagnoses Diagnosis 530.81 ESOPHAGEAL REFLUX[ICD-9-CM] 476.0 CHRONIC LARYNGITIS[ICD-9-CM] 306.4 PSYCHOGENIC GI DISEASE[ICD-9-CM] documented in this encounter Discharge Disposition Disposition Code Departure Means Destination Auto Discharge documented in this encounter Progress Notes Chris Lino MD - 10/14/2013 1430 EST Subjective: Patient ID: [id number] Mary is an 23 y.o. female. Chief Complaint Patient presents with ??? Other globus Aster Hickman has requested that I see Amaya Mary in consultation regarding lump in throat sensation. HPI Amaya Mary is seen today with complaints of a lump in throat sensation. This has been present for 5 months, gradual in onset. She has been constantly clearing her throat. No dysphagia or sore throat. She has some mild hoarseness but this is longstanding and has not changed for better or for worse. No cough or hemoptysis. She denies classic GERD symptoms. No improvement with several short trialsof H2 blockers or PPIs. No asthma or allergy history. She is a long- time smoker (since age 12) but is not smoking currently while incarcerated. No etoh currently. Modest water and caffeine intake. No recent intubation or trauma. Patient Active Problem List Diagnosis ??? Arterial embolism of upper extremity Past Medical History Diagnosis Date ??? Hepatitis C No past surgical history on file. No family history on file. Social History Social History ??? Marital Status: Single Spouse Name: N/A Number of Children: N/A ??? Years of Education: N/A Occupational History ??? Not on file. Social History Main Topics ??? Smoking status: Current Every Day Smoker ??? Smokeless tobacco: Not on file ??? Alcohol Use: No ??? Drug Use: Not on file ??? Sexually Active: Not on file Other Topics Concern ??? Not on file Social History Narrative ??? No narrative on file Outpatient Prescriptions Marked as Taking for the 10/14/13 encounter (Office Visit) with Chris Lino MD Medication Sig Dispense Refill ??? cetirizine (ZYRTEC) 10 mg tablet Take 10 mg by mouth daily. ??? citalopram (CELEXA) 20 mg tablet Take 20 mg by mouth daily. ??? pantoprazole (PROTONIX) 20 mg tablet Take 40 mg by mouth daily. ??? QUEtiapine (SEROQUEL) 50 mg tablet Take 50 mg by mouth 2 times daily 75mg in am/125mg in pm . ??? ranitidine (ZANTAC) 150 mg tablet Take 150 mg by mouth 2 times daily. No Facility-Administered Medications for the 10/14/13 encounter (Office Visit) with Chris Lino MD. Allergies Allergen Reactions ??? Bee Pollens Review of Systems Constitutional: Negative for fever, chills, weight loss and malaise/fatigue. HENT: Negative for hearing loss, ear pain, congestion, sore throat and tinnitus. Eyes: Negative for blurred vision, double vision and photophobia. Respiratory: Negative for cough, hemoptysis, shortness of breath and wheezing. Cardiovascular: Negative for chest pain, palpitations, claudication and leg swelling. Gastrointestinal: Negative for heartburn. Musculoskeletal: Negative for myalgias and joint pain. Skin: Negative for rash. Neurological: Negative for sensory change, focal weakness and headaches. Endo/Heme/Allergies: Negative for environmental allergies. Does not bruise/bleed easily. - See HPI Objective: There were no vitals taken for this visit. Physical Exam Department of Otolaryngology PHYSICAL EXAMINATION CONSTITUTIONAL: VITAL SIGNS: Not reviewed APPEARANCE: The patient appears alert, cooperative, and comfortable and in handcuffs. ABILITY TO COMMUNICATE / VOICE: mild hoarseness HEAD AND FACE: INSPECTION: Normal without apparent scars, lesions, or masses. PALPATION: There are no masses or sinus tenderness. SALIVARY GLANDS: Submandibular and Parotid glands are normal bilaterally FACIAL STRENGTH: Intact and symmetrical bilaterally EXTERNAL EAR & NOSE: No external ear or nose deformity noted EYES: EYES: no nystagmus EARS, NOSE, MOUTH AND THROAT: OTOSCOPY: Right external auditory canal: patent and non-inflamed Left external auditory canal: patent and non-inflamed Right tympanic membrane: intact and normally mobile without retraction, perforation or effusion Left tympanic membrane: intact and normally mobile without retraction, perforation or effusion WHISPER/TUNING FORK: Hearing subjectively normal NOSE: normal turbinates and mucosa: septum in midline LIPS, TEETH & GUMS: multiple caries present ORAL CAVITY & OROPHARYNX: normal HYPOPHARYNX & PHARYNGEAL AQUINO: See flexible exam report LARYNX: See flexible exam report NASOPHARYNX: See flexible exam report NECK: GENERAL: Supple, no asymmetry or crepitus, trachea midline THYROID: Normal LYMPHATIC: CERVICAL LYMPH NODES: No pathologic cervical lymphadenopathy noted RESPIRATORY: LUNGS: Not examined CARDIOVASCULAR: CARDIOVASCULAR: Not examined NEUROLOGIC: NEUROLOGIC: Normal mood and affect Endoscopy Procedure Note Pre-procedure Diagnosis: Globus sensation Post-procedure Diagnosis: same Indications: Macroglossia preventing mirror examination Excessive gag reflex - preventing mirror examination Anesthesia: Cophenylcaine Endoscopy Type: Laryngoscopy using a flexible laryngoscope Procedure Details: With the patient sitting upright in the examining chair informed consent was obtained. The right nostril was topically anesthetized with spray. After waiting an appropriate period of time for anesthesia/ vasoconstriction to become effective (if this was applicable), the scope was passed into the rightnostril and the nasopharynx, oropharynx, hypopharynx and larynx were examined. Condition: Patient tolerated procedure well and left the office in a stable condition. Complications: None Findings: Nasopharynx: Normal exam of choanae, eustachian tubes, and adenoids for age Oropharynx: Normal exam of tongue base, tonsils, and posterior pharynx Hypopharynx: Normal piriform sinuses noted, no pooling of secretions Supraglottis: Normal Posterior Commissure: Erythematous Right True Vocal Fold: Edematous Left True Vocal Fold: Edematous Vocal Fold Mobility: Normal bilaterally Assessment: Encounter Diagnoses Name Primary? Globus pharyngeus Yes ??? LPRD (laryngopharyngeal reflux disease) ??? Chronic laryngitis ??? Tobacco abuse Plan: Symptoms of chronic throat clearing, lump in throat sensation are consistent with LPR/GERD. Laryngoscopy shows posterior laryngeal erythema, also c/w LPR/GERD. No other abnormalities or concerning findings- patient reassured. I recommend protonix 40 mg a day for a minimum of 3-4 month Diet and lifestyle changes also reviewed STOP SMOKING!!! RTO PRN documented in this encounter Plan of Treatment Not on filedocumented as of this encounter Visit Diagnoses Diagnosis Globus pharyngeus - Primary Gastrointestinal malfunction arising fro m mental factors LPRD (laryngopharyngeal reflux disease) Other diseases of larynx Chronic laryngitis Tobacco abuse Tobacco use disorder documented in this encounter Discontinued Medications Medication Sig Discontinue Reason Start Date End Date ARIPiprazole (ABILIFY) 10 Take 10 mg by 0 10/14/2013 mg tablet mouth daily. chlorhexidine (PERIDEX) Swish and spit 15 12/31/2010 10/14/2013 0.12 % solution mL 2 times daily. DO NOT SWALLOW. traZODone (DESYREL) 100 mg Take 150 mg by 10/14/2013 tablet mouth at bedtime. documented as of this encounter Historical Medications This list may reflect changes made after this encounter. Medication Sig Dispensed Refills Start Date End Date cetirizine (ZYRTEC) 10 mg Take 10 mg by mouth 0 10/06/2016 tablet daily. Reported on 09/22/2016 ranitidine (ZANTAC) 150 Take 150 mg by mouth 0 10/06/2016 mg tablet 2 times daily. Reported on 10/06/2016 QUEtiapine (SEROQUEL) 50 Take 50 mg by mouth 0 11/08/2016 mg tablet 2 times daily. Reported on 11/07/2016 pantoprazole (PROTONIX) Take 40 mg by mouth 0 10/06/2016 20 mg tablet daily. Reported on 10/06/2016 citalopram (CELEXA) 20 mg Take 20 mg by mouth 0 10/06/2016 tablet daily. Reported on 10/06/2016 added in this encounter Care Teams Ux Designer Relationship Specialty Start Date End Date Aster Hickman NP PCP - General 10/11/13 05/29/[address] [place] [id number] documented as of this encounter
--- OUTSIDE RECORDS SUMMARY | 2022-05-22 03:26 | XMS_ITS | Encounter Summary ---
:1990 Author Organization [facility] Address [address] [place] [address] Care Team Providers Name Role Phone Unknown, Provider Primary Care Provider Reason for Visit Reason Comments Fever See T-Call. L calf and L pal m pain x5days per Pt. L palm swollen. Fever 38.3, HR 140. Last Tylenol #3 at 0 900. Keflex x2days. Encounter Details Date Type Department Care Team Description 11/30/2012 - [facility] Ngoc Ackerman MD [address] [facility], [address] [place] [address] Cellulitis (Primary Dx); 12/05/2012 Encounter General Surgery Andre Raya MD [address] [place] [address] Fever; Unit Jackie Lopez MD [address] [place] [address] Hand pain; [address] [facility] Arterial embolism ([facility]); [place], [place] Calf pain; [id number] IVDU (intravenous drug user) ; [phone] Upper limb elisha rial embolus ([facility]) Social History Tobacco Use Types Packs/Day Years Used Date Current Every Day Smoker Alcohol Use Standard Drinks/Week Comments No 0 (1 standard drink = 0.6 oz pure alcoho l) Sex Assigned at Date Recorded Not on file documented as of this encounter Last Filed Vital Signs Vital Sign Reading Time Taken Comments Blood Pressure 110/61 12/05/2012 0554 EDT Pulse 85 12/05/2012 0554 EDT Temperature 36.7 ??C (98.1 ??F) 12/05/2012 0554 EDT Respiratory Rate 17 12/04/20122231 EDT Oxygen Saturation 95% 12/04/20122231 EDT Inhaled Oxygen Concentration - - Weight 73.5 kg (162 lb) 11/30/20122010 EDT Height - - Body Mass Index - - documented in this encounter Functional Status Cognitive Status Response Date of Assessment Because of a physical, mental, or emotional condition, do Ye s 12/01/2012 you have serious difficulty concentrating, remembering, or making decisions? 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 Secondary Diagnoses: Infective thromboembolisms Principal Procedure: PICC placement Date: 12/04/2012 Condition at Discharge: Improved Assessment at Discharge: Filed Vitals: 12/04/12 0631 12/04/12 1358 12/04/12 2232 12/05/12 0554 BP: 108/55 113/61 102/57 110/61 Pulse: 77 85 Temp: 36.6 ??C (97.9 ??F) 36.7 ??C (98.1 ??F) 35.6 ??C (96.1 ??F) 36.7 ??C (98.1 ??F) TempSrc: Tympanic Tympanic Resp: 16 17 17 Weight: SpO2: 96% 95% Gen: awake, alert, nad, legs cuffed to the bed HEENT: no scleral icterus or conjunctival injection CV: RRR no murmur appreciated; radial and DP pulses 2+ bilaterally Resp: CTAB Abd: soft, NTTP, +BS, no organomegaly noted Ext: left hand with pain and resolved edema over medial hand with no erythema; left calf with an area of induration over the lateral calf with no skin findings. Neuro: grossly normal Hospital Course: Ms. Mary is a 22 yo F, currently incarcerated, who presented to the ED on 11/30/2102 complaining of left hand pain and fever that began 5 days prior, and left calf pain that began 3 days prior. She has a history of IVDU but insisted that she had not used in ~ 4 months and always uses clean needles and an alcohol swab on her skin. She had been started on Keflex one day [employer] for thesesymptoms with no resolution. Left upper and lower dopplers demonstrated occlusion of the distal leftradial artery but were otherwise negative for DVT. CT angiography of the UE was not diagnostic 2/2 technical problems with the timing of the contrast. Vancomycin was started on admission for presumed in fective endocarditis and therapeutic lovenox was started the evening after admission. Hematology wasconsulted and recommended therapeutic Lovenox pending further clarification of the source of the embolus. ECHO done on 12/03 showed a probable small mitral valve vegetation. ID was consulted and recommended switching the Vancomycin to Ceftriaxone 2 g daily. Hematology recommended discontinuing the Lovenox. Amaya was discharged to [facility] on 12/05/2012. She should received ceftriaxone 2 g IV daily through her PICC line for one month (at completion of her therapy, she should have her PICC line removed). She should have her LFTs and CBC checked weekly as ceftriaxone can cause agranulocytosis, neutropenia/leukopenia, anemia, thrombocytopenia and elevation of AST and ALT. Amaya refused booster hepatitis B vaccine and the first dose of the hepatitis A vaccine . No follow up imaging is recommended. Relevant Studies at Discharge: ECHO 12/05/2012 *STUDY CONCLUSIONS* Summary: 1. Left ventricle: The cavity size was normal. Wall thickness was normal. Systolic function was normal. Wall motion was normal; there were no regional wall motion abnormalities. 2. Mitral valve: There was a possible, small, 5mm (L) x 3mm (W), mobile vegetation on the atrial aspect of the tip of the posterior leaflet. Trivial regurgitation. RAD US DOPPLER UPPER EXTREMITY VENOUS UNILATERAL Nov 30, 2012 10:37:00 PM Clinical history/Comments:arm/hand swelling Comparison: None Technique: Static, cine, and selected color Doppler images of theleft upper extremity veins were obtained. Findings: The left internal jugular, innominate, subclavian, axillary, brachial, basilic, and cephalic veins show no evidence of intraluminal thrombus. There is normal augmentation. The superficial veins of the left forearm are followed down to the wrist. At the level of the wrist cannot, incidental note was made of absence of flow in the radial artery. This was followed for a roughly 3 cm segment from the base of the thumb through the palm. Echogenic material within this segment presumably reflects clot. The segments of the radial artery proximal to this have normal Doppler flow and normal waveforms. Impression: 1. No evidence of deep venous thrombosis inthe left upper extremity. 2. Occlusion of the distal left radial artery. CT angiography of the upper extremity is indicated for further evaluation. RAD US DOPPLER LOWER EXTREMITY VENOUS UNILATERAL Nov 30, 2012 10:34:00 PM Clinical history/Comments:FEVER Comparison: None Technique: Static, cine, and selected color Doppler images of the left lower extremity veins were obtained. Findings: The left external iliac, common femoral, proximal greater saphenous, femoral, and popliteal veins demonstrate no evidence of intraluminal thrombus. There is normal augmentation, compression, and respiratory phasicity. The peroneal and posterior tibial veins are seen to be patent on Doppler imaging. The soft tissues of the left calf are normal. Impression: No evidence of deep venous thrombosis in the left lower extremity. Last Lab Results at Discharge: CBC: Recent Labs Basename 12/04/12 0726 12/03/12 0530 WBC 4.04 4.51 HGB 11.1* 11.5* HCT 32.5* 32.9* MCV 84 84 PLT 211 182 BMP: Recent Labs Basename 12/04/12 0726 12/03/12 0530 CREATININE 0.57 0.58 BUN 13 14 NA 142 140 K 4.6 4.3 CL 105 104 CO2 26 26 CALCIUM -- -- PHOS -- -- MG -- -- Coags: Recent Labs Basename 12/04/12 0726 PROTIME 11.9 INR 1.0 PTT 33 Medications prior to admission that will be resumed at discharge: Medication Sig Dispense Refill ??? acetaminophen (TYLENOL) 325 mg tablet Take 650 mg by mouth 2 times daily. ??? traZODone (DESYREL) 100 mg tablet Take 150 mg by mouth at bedtime. ??? ibuprofen (MOTRIN) 800 mg tablet Take 800 mg by mouth 3 times daily. ??? ARIPiprazole (ABILIFY) 10 mg tablet Take 10 mg by mouth daily. ??? chlorhexidine (PERIDEX) 0.12 % solution Swish and spit 15 mL 2 times daily. DO NOT SWALLOW. 1 Bottle 0 Ceftriaxone 2 g IV daily x 1 month (will be ordered at correctional facility) Hospitalist Attending Attestation: I have interviewed and examined the patient. I have personally reviewed all laboratory and radiographic data as well as applicable prior records. I agree with findings and plan of care as documented bythe resident, Dr Harper. Additions/changes in bolded purple italics. Plan discussed with Aster Hickman NP at correctional facility. Jackie Lopez MD cc: DOCTOR CUCO MD Md No Pcp Discharge Summary Completed by: Jammie Harper MD documented in this encounter Discharge Instructions InstructionsJammie Harper MD - 12/05/2012 Diet: Regular Activity: Activity as tolerated Driving: No driving Skin/Wound Care: Not applicable Bathing: No restrictions Pending Results: Hepatitis C RNA Symptoms to Call Your Doctor About: Fever greater than 100.4 or chills Recurrance of symptoms that brought you to the hospital Shortness of breath or rapid breathing Appointments: No follow up required. Follow-up Services Contacted at Discharge: none New medications at discharge: Ceftriaxone 2 g IV daily x 1 month Medications prior to admission that will be resumed at discharge: Medication Sig Dispense Refill ??? acetaminophen (TYLENOL) 325 mg tablet Take 650 mg by mouth 2 times daily. ??? traZODone (DESYREL) 100 mg tablet Take 150 mg by mouth at bedtime. ??? ibuprofen (MOTRIN) 800 mg tablet Take 800 mg by mouth 3 times daily. ??? ARIPiprazole (ABILIFY) 10 mg tablet Take 10 mg by mouth daily. ??? chlorhexidine (PERIDEX) 0.12 % solution Swish and spit 15 mL 2 times daily. DO NOT SWALLOW. 1 Bottle 0 New orders for discharge: Weekly LFTs, CBC documented in this encounter Medications at Time of Discharge Medication Sig Dispensed Refills Start Date End Date acetaminophen (TYLENOL) Take 650 mg by mouth 0 11/14/2016 325 mg tablet 2 times daily. Reported on 10/06/2016 ARIPiprazole (ABILIFY) 10 Take 10 mg by mouth 0 10/14/2013 mg tablet daily. chlorhexidine (PERIDEX) Swish and spit 15 mL 1 Bottle 0 10/14/2013 0.12 % solution 2 times daily. DO NOT SWALLOW. ibuprofen (MOTRIN) 800 mg Take 800 mg by mouth 0 07/29/2016 tablet 3 times daily. traZODone (DESYREL) 100 Take 150 mg by mouth 0 10/14/2013 mg tablet at bedtime. documented as of this encounter Discharge Disposition Disposition Code Departure Means Destination Discharged to Other Facility documented in this encounter Progress Notes Peggy Sung RN - 12/05/2012 1352 EDT Pt slated for discharge this day. Per the physician the [facility] tells that they need no assist with medications for IV administration. Pt ready for DC. Peggy Sung RN CCM 0430 Junior Alejandra MD - 12/04/2012 1838 EDT Hematology Progress Note Admit Date: 11/30/2012 Hospital Day: LOS: 4 days Date of Service: 12/04/2012 Subjective: Vancomycin switched to Ceftriaxone 2 g QD; Improvement in hand pain with resolution of edema. Patient is a 22 yo incarcerated female with hx of hep C, IVDU admitted with subjective fever, chillsfor 5 days, then woke up on 11/30 with L calf pain, as well as pain, edema, discoloration of her L wrist and hand in a medial ulnar distribution. No history of bleeding or clotting before. No Hx of miscarriage (has 2 children, 1 and 2 yo). Review of Systems: Denies fevers, chills, diaphoresis, new pain. All 10 systems have been reviewed and are negative except for the mentioned above. Medications: Current Facility-Administered Medications Medication Route Frequency ??? cefTRIAXone (ROCEPHIN) 2,000 mg in sodium chloride 0.9 % 50 mL IVPB intravenous DAILY ??? alteplase (CATHFLO ACTIVASE) injection 2 mg intercatheter PRN ??? sodium chloride 0.9 % flush 10 mL intercatheter PRN ??? sodium chloride 0.9 % flush 20 mL intercatheter PRN ??? sodium chloride 0.9 % flush 10 mL intercatheter Q7 Days PRN ??? docusate sodium (COLACE) capsule 100 mg oral BID PRN ??? senna (SENOKOT) tablet 2 Tab oral AT BEDTIME PRN ??? acetaminophen (TYLENOL) tablet 650 mg oral BID ??? ARIPiprazole (ABILIFY) tablet 10 mg oral DAILY ??? ibuprofen (MOTRIN) tablet 800 mg oral TID ??? traZODone (DESYREL) tablet 150 mg oral QHS ??? HYDROcodone-acetaminophen (LORTAB) 5-500 mg tablet 1 Tab oral Q6H PRN ??? enoxaparin (LOVENOX) injection 70 mg subcutaneous Q12H Objective: VS: Patient Vitals for the past 8 hrs: BP Resp Temp SpO2 O2 Device 12/04/12 1413 - - - - Room air 12/04/12 1358 113/61 mmHg 17 36.7 ??C (98.1 ??F) 96 % Room air Weight: Weight : 73.483 kg (162 lb) Physical Exam: General appearance: Awake, alert, oriented x3, NAD. Head: Normocephalic, without obvious abnormality, atraumatic Eyes: conjunctivae/corneas clear. PERRL, EOM's intact. Neck: supple, symmetrical, trachea midline, no adenopathy, no carotid bruit and no JVD Lungs: clear to auscultation bilaterally Heart: regular rate and rhythm, S1, S2 normal, no murmur, click, rub or gallop Abdomen: soft, non-tender, non-distended; bowel sounds present, no palpable hepatosplenomegaly Extremities: Left hand: medial hand.wrist with minimal edema, erythema dissolved. Tinel's sign test negative. Phalen???s Maneuver marginal. LE: No cyanosis. No discoloration. Normal strength. or cords bilaterally. No varicose vein. Skin: No splinter hemorrhage. Data Review: Labs: CBC: Recent Labs Basename 12/04/12 0726 12/03/12 0530 12/02/12 0710 WBC 4.04 4.51 5.70 HGB 11.1* 11.5* 11.3* HCT 32.5* 32.9* 32.8* MCV 84 84 85 PLT 211 182 164 BMP: Recent Labs Basename 12/04/12 0726 12/03/12 0530 12/02/12 0710 CREATININE 0.57 0.58 0.55 BUN 13 14 16 NA 142 140 141 K 4.6 4.3 4.2 CL 105 104 105 CO2 26 26 27 CALCIUM -- -- -- PHOS -- -- -- MG -- -- -- Coags: Recent Labs Basename 12/04/12 0726 PROTIME 11.9 INR 1.0 PTT 33 Imaging: US LUE: Impression: 1. No evidence of deep venous thrombosis in the left upper extremity. 2. Occlusion of the distal left radial artery. CT angiography of the upper extremity is indicated for further evaluation. CT angio failed due to technical difficulties. US LLE: No DVT TTE: 1. Left ventricle: The cavity size was normal. Wall thickness was normal. Systolic function wasnormal. Wall motion was normal; there were no regional wall motion abnormalities. 2. Mitral valve: There was a possible, small, 5mm (L) x 3mm (W), mobile vegetation on the atrial aspect of the tip of the posterior leaflet. Trivial regurgitation. Assessment: 22 y.o. incarcerated woman with Hx of Hep C, ivdu admitted with fever chills for 5 days, then acute left hand pain (ulnar distribution). DDx includes embolic disease (atrial or ventricular thrombus, paradoxical embolism) and septic emboli. Pt does have a U/S result indicating occlusion in distal left radial artery, but her symptoms are onulnar side. Therefore, U/S finding could be incidental. The presence of MV vegetation in addition to her history and symptoms are concerning for infectious endocarditis. There is no evidence that prophylactic anticoagulation reduces the incidence of emboli with [place] valve IE. The 2012 ACCP guideline recommends against routine anticoagulation therapy and against routine antiplatelet therapy. We do want to get a confirmative CT angio of left UE if possible. This will work as her baseline if she develops any recurrent symptoms that indicated not caused by IE. Her repeated coagulation are normal (Pt, PTT), therefore no need of PT/mixing study. Recommendations: 1. Consider to repeat CT angio of left UE. Please discuss with Radiology. 2. F/U blood culture. 3. Stop both Lovenox and ASA. Geoffrey Madrigal, fellow Pt was seen/discussed with the attending Dr. Dennis. Attestation statement: I saw and examined the patient with the resident/fellow. I agree with the findings and plan of care documented in the resident's/fellow's note. Best course appears to be treating underlying infection and stopping anticoagulation for now. Junior Dennis MD Jackie Ha MD - 12/04/2012 1418 EDT Internal Medicine DAILY PROGRESS NOTE Admit Date: 11/30/2012 Hospital day: LOS: 4 days Date of Service: 12/04/2012 CC: Left hand and calf pain Summary of Last 24hrs: ECHO yesterday showed possible small MV vegetation ID consulting Vancomycin switched to Ceftriaxone 2 g QD Subjective: Ongoing improvement in hand pain with resolution of edema; calf pain still persistent. Nervous aboutPICC placement. Denies fevers, chills, diaphoresis, new pain, visual changes, GONZALEZ. Review of Systems A ten point review of systems performed and negative except as noted in subjective Objective: Blood pressure 113/61, pulse 77, temperature 36.7 ??C (98.1 ??F), temperature source Tympanic, resp.rate 17, weight 73.483 kg (162 lb), SpO2 96.00%. There is no height on file to calculate BMI. Gen: awake, alert, nad, legs cuffed to the bed HEENT: no scleral icterus or conjunctival injection CV: RRR no murmur appreciated; radial and DP pulses 2+ bilaterally Resp: CTAB Abd: soft, NTTP, +BS, no organomegaly noted Ext: left hand with pain and resolved edema over medial hand with no erythema; left calf with an area of induration over the lateral calf with no skin findings. Neuro: grossly normal : no fisher Current Facility-Administered Medications Medication Route Frequency ??? cefTRIAXone (ROCEPHIN) 2,000 mg in sodium chloride 0.9 % 50 mL IVPB intravenous DAILY ??? alteplase (CATHFLO ACTIVASE) injection 2 mg intercatheter PRN ??? docusate sodium (COLACE) capsule 100 mg oral BID PRN ??? senna (SENOKOT) tablet 2 Tab oral AT BEDTIME PRN ??? acetaminophen (TYLENOL) tablet 650 mg oral BID ??? ARIPiprazole (ABILIFY) tablet 10 mg oral DAILY ??? ibuprofen (MOTRIN) tablet 800 mg oral TID ??? traZODone (DESYREL) tablet 150 mg oral QHS ??? HYDROcodone-acetaminophen (LORTAB) 5-500 mg tablet 1 Tab oral Q6H PRN ??? enoxaparin (LOVENOX) injection 70 mg subcutaneous Q12H Data Review: CBC: Recent Labs Basename 12/04/12 0726 12/03/12 0530 12/02/12 0710 WBC 4.04 4.51 5.70 HGB 11.1* 11.5* 11.3* HCT 32.5* 32.9* 32.8* MCV 84 -- -- PLT 211 182 164 BMP: Recent Labs Basename 12/04/12 0726 12/03/12 0530 12/02/12 0710 CREATININE 0.57 0.58 0.55 BUN 13 14 16 NA 142 140 141 K 4.6 4.3 4.2 CL 105 104 105 CO2 26 26 27 CALCIUM -- -- -- PHOS -- -- -- MG -- -- -- Coags: Recent Labs Basename 12/04/12 0726 PROTIME 11.9 INR 1.0 PTT 33 Radiology: ECHO STUDY CONCLUSIONS* Summary: 1. Left ventricle: The cavity size was normal. Wall thickness was normal. Systolic function was normal. Wall motion was normal; there were no regional wall motion abnormalities. 2. Mitral valve: There was a possible, small, 5mm (L) x 3mm (W), mobile vegetation on the atrial aspect of the tip of the posterior leaflet. Trivial regurgitation. Assessment: 22 y.o. female with history of IV drug use presented with what appears to be transient occlusion of the radial artery, pain in the left medial hand and left lateral calf. ECHO c/w likely MV vegetation.Overall presentation concerning for culture negative infective endocarditis. ID consulted. Therapeutic anticoagulation is being continued for now pending hematology recommendations. Plan: MV vegetation with transient left radial artery occlusion, concern for infective endocarditits - Blood cultures remain negative - ID consulting - Vancomycin changed to ceftriaxone 2 g QD - PICC today; lorazepam 0.5 mg PO x 1 - Continue enoxaparin for now - hematology consulting; recommendations appreciated re: continuation of enoxaparin - acetaminophen, ibuprofen, Vicodin PRN Psych Continue home Abilify and trazodone Diet Regular PPX: Enoxaparin Code: Full Dispo: Uncertain; pending ID recs; dispo complicated as pt is former IVDU and will be discharged with a PICC; it is unclear how long she will be incarcerated (scheduled for court date at beginning of December to determine sentencing duration, discussed importance of not using the PICC line for illicit drug use regardless of where patient is, she expressed understanding of this) JAMMIE HARPER MD--PGY2 Pager # [phone] 12/04/2012 14:18 Hospitalist Attending Attestation: I have interviewed and examined the patient. I have personally reviewed all laboratory and radiographic data as well as applicable prior records. I agree with findings and plan of care as documented bythe resident, Dr Harper. Additions/changes in bolded purple italics. Jackie Lopez MD Jamie Amin PT - 12/04/2012 1116 EDT [facility] Physical Therapy Contact Note Date of Service: 12/04/2012 PT referral received. Pt with leg pain and unsteady gait at time of referral. Pt now with less pain,gait steady and pt independent in room per pt and RN. PT eval declined as no PT needs established. Encouraged increased pt activity and Recommended RN speak with guard to determine best way for pt to increase ambulation(i.e.hallway) in a manner that is appropriate. No eval initiated. JAMIE CHAMBERS PT 12/04/2012 11:16 Jackie Ha MD - 12/03/2012 1502 EDT Internal Medicine DAILY PROGRESS NOTE Admit Date: 11/30/2012 Hospital day: LOS: 3 days Date of Service: 12/03/2012 CC: Left hand and calf pain Summary of Last 24hrs: ECHO this AM showed possible small MV vegetation ID consulted Subjective: Mild improvement in hand pain (no longer as swollen); calf pain still persistent. Pt aware of possible vegetation and ID consult. Denies fevers, chills, diaphoresis, new pain, visual changes, GONZALEZ. Review of Systems A ten point review of systems performed and negative except as noted in subjective Objective: 12/02 1500 - 12/03 1459 In: 920 [P.O.:720] Out: - Blood pressure 110/58, pulse 100, temperature 36.6 ??C (97.9 ??F), temperature source Tympanic, resp. rate 16, weight 73.483 kg (162 lb), SpO2 99.00%. There is no height on file to calculate BMI. Gen: awake, alert, nad, legs cuffed to the bed HEENT: no scleral icterus or conjunctival injection CV: RRR no murmur appreciated; radial and DP pulses 2+ bilaterally Resp: CTAB Abd: soft, NTTP, +BS, no organomegaly noted Ext: left hand with pain and edema over medial hand with no erythema; left calf with an area of induration over the lateral calf with no skin findings. Neuro: Moving ext x 4, motor and sensation intact, face symetric : no fisher Current Facility-Administered Medications Medication Route Frequency ??? vancomycin (VANCOCIN) IVPB 1,000 mg intravenous Q8H ??? docusate sodium (COLACE) capsule 100 mg oral BID PRN ??? senna (SENOKOT) tablet 2 Tab oral AT BEDTIME PRN ??? acetaminophen (TYLENOL) tablet 650 mg oral BID ??? ARIPiprazole (ABILIFY) tablet 10 mg oral DAILY ??? ibuprofen (MOTRIN) tablet 800 mg oral TID ??? traZODone (DESYREL) tablet 150 mg oral QHS ??? HYDROcodone-acetaminophen (LORTAB) 5-500 mg tablet 1 Tab oral Q6H PRN ??? enoxaparin (LOVENOX) injection 70 mg subcutaneous Q12H Data Review: CBC: Recent Labs Basename 03/25/13 0530 12/02/12 0710 12/01/12 0549 WBC 4.51 5.70 8.78 HGB 11.5* 11.3* 12.4 HCT 32.9* 32.8* 35.2 MCV 84 -- -- PLT 182 164 174 BMP: Recent Labs Basename 12/03/12 0530 12/02/12 0710 12/01/12 0549 11/30/121946 CREATININE 0.58 0.55 0.65 -- BUN 14 16 12 -- NA 140 141 142 -- K 4.3 4.2 3.7 -- CL 104 105 102 -- CO2 26 27 31 -- CALCIUM -- -- -- 8.7 PHOS -- -- -- -- MG -- -- -- -- Coags: Recent Labs Basename 12/01/12 0549 PROTIME 13.8* INR 1.2* PTT 29 LFTs: Recent Labs Basename 11/30/121946 ALT 29 AST 11* GGT -- ALKPHOS 79 Radiology: ECHO STUDY CONCLUSIONS* Summary: 1. Left ventricle: The cavity size was normal. Wall thickness was normal. Systolic function was normal. Wall motion was normal; there were no regional wall motion abnormalities. 2. Mitral valve: There was a possible, small, 5mm (L) x 3mm (W), mobile vegetation on the atrial aspect of the tip of the posterior leaflet. Trivial regurgitation. Assessment: 22 y.o. female with history of IV drug use presented with what appears to be transient occlusion of the radial artery, pain in the left medial hand and left lateral calf. ECHO c/w likely MV vegetation.ID consulted. Overall presentation of transient radial artery occlusion and new MV vegetation concerning for endocarditis, blcx neg so far but had received abx [employer] which may effect cx data. Occlusion symptoms have improved since admission and patient is on anticoagulation. Plan: MV vegetation, transient L radial artery occlusion, ?endocarditis - Blood cultures remain negative - ID consulted - Vancomycin - Continue enoxaparin for now - hematology consulting; recommendations appreciated re: continuation - acetaminophen, ibuprofen, Vicodin PRN Psych Continue home Abilify and trazodone Diet Regular PPX: Enoxaparin Code: Full Dispo: Uncertain; pending ID recs JAMMIE HARPER MD--PGY2 Pager # [phone] 12/03/2012 15:02 Hospitalist Attending Attestation: I have interviewed and examined the patient. I have personally reviewed all laboratory and radiographic data as well as applicable prior records. I agree with findings and plan of care as documented bythe resident, Dr Harper. Additions/changes in bolded purple italics. Hospitalization discussed w/ Dr Howie Buitrago. Jackie Lopez MD praguJunior jose MD - 12/03/2012 1131 EDT Hematology Progress Note Admit Date: 11/30/2012 Hospital Day: LOS: 3 days Date of Service: 12/03/2012 Subjective: CTA technically failed ; Enoxaparin 1 mg/kg started Mild improvement in hand pain, no longer swollen. Calf pain still persistent. Patient is a 22 yo incarcerated female with hx of hep C, IVDU admitted with subjective fever, chills, L calf pain, as well as pain, edema, discoloration of her L wrist and hand in a medial distribution. No history of bleeding or clotting before. No Hx of miscarriage (has 2 children, 1 and 2 yo). Review of Systems: Denies fevers, chills, diaphoresis, new pain. All 10 systems have been reviewed and are negative except for the mentioned above. Medications: Current Facility-Administered Medications Medication Route Frequency ??? vancomycin (VANCOCIN) IVPB 1,000 mg intravenous Q8H ??? docusate sodium (COLACE) capsule 100 mg oral BID PRN ??? senna (SENOKOT) tablet 2 Tab oral AT BEDTIME PRN ??? acetaminophen (TYLENOL) tablet 650 mg oral BID ??? ARIPiprazole (ABILIFY) tablet 10 mg oral DAILY ??? ibuprofen (MOTRIN) tablet 800 mg oral TID ??? traZODone (DESYREL) tablet 150 mg oral QHS ??? HYDROcodone-acetaminophen (LORTAB) 5-500 mg tablet 1 Tab oral Q6H PRN ??? enoxaparin (LOVENOX) injection 70 mg subcutaneous Q12H Objective: VS: Patient Vitals for the past 8 hrs: BP Resp Temp SpO2 O2 Device 12/03/12 0523 104/52 mmHg 16 35.6 ??C (96.1 ??F) 100 % Room air Weight: Weight : 73.483 kg (162 lb) Physical Exam: General appearance: Awake, alert, oriented x3, NAD. Head: Normocephalic, without obvious abnormality, atraumatic Eyes: conjunctivae/corneas clear. PERRL, EOM's intact. Neck: supple, symmetrical, trachea midline, no adenopathy, no carotid bruit and no JVD Lungs: clear to auscultation bilaterally Heart: regular rate and rhythm, S1, S2 normal, no murmur, click, rub or gallop Abdomen: soft, non-tender, non-distended; bowel sounds present, no palpable hepatosplenomegaly Extremities: Medial hand.wrist with trace edema, minimal erythema. No cyanosis. No discoloration. Nosplinter hemorrhage. Normal strength. Pain with L calf palpation. No edema or cords bilaterally. No varicose vein. Data Review: Labs: CBC: Recent Labs Basename 12/03/12 0530 12/02/12 0710 12/01/12 0549 WBC 4.51 5.70 8.78 HGB 11.5* 11.3* 12.4 HCT 32.9* 32.8* 35.2 MCV 84 85 84 PLT 182 164 174 BMP: Recent Labs Basename 12/03/12 0530 12/02/12 0710 12/01/12 0549 11/30/12 1947 CREATININE 0.58 0.55 0.65 -- BUN 14 16 12 -- NA 140 141 142 -- K 4.3 4.2 3.7 -- CL 104 105 102 -- CO2 26 27 31 -- CALCIUM -- -- -- 8.7 PHOS -- -- -- -- MG -- -- -- -- Coags: Recent Labs Basename 12/01/12 0549 PROTIME 13.8* INR 1.2* PTT 29 Imaging: US LUE: Impression: 1. No evidence of deep venous thrombosis in the left upper extremity. 2. Occlusion of the distal left radial artery. CT angiography of the upper extremity is indicated for further evaluation. CT angio failed due to technical difficulties. US LLE: No DVT TTE: 1. Left ventricle: The cavity size was normal. Wall thickness was normal. Systolic function wasnormal. Wall motion was normal; there were no regional wall motion abnormalities. 2. Mitral valve: There was a possible, small, 5mm (L) x 3mm (W), mobile vegetation on the atrial aspect of the tip of the posterior leaflet. Trivial regurgitation. Assessment: 22 y.o. incarcerated woman with Hx of hep c, ivdu admitted with acute left hand pain (ulnar distribution) and associated fever/chills for 5 days. DDx includes embolic disease (atrial or ventricular thrombus, paradoxical embolism) and septic emboli. Pt does have a U/S proved occlusion in distal left radial artery, but her symptoms are at ulnar side. Therefore, U/S finding could be incidental. The presence of MV vegetation in addition to her history and symptoms are concerning for infectious endocarditis, but she does not have leukocytosis, and current blood culture is negative. ID is consulted as well. Over the course, if this case is proved to be IE, there is no evidence that prophylactic anticoagulation reduces the incidence of emboli with [place] valve IE. The 2012 ACCP guideline recommends against routine anticoagulation therapy and againstroutine antiplatelet therapy. Recommendations: 1. Consider to repeat CT angio of left UE. Please discuss with Radiology. 2. F/U blood culture 3. Continue Lovenox for now. We'll re-evaluate this case if CT angio can be repeated . Pt was seen/discussed with the attending Dr. Dennis. Attestation statement: I saw and examined the patient with the resident/fellow. I agree with the findings and plan of care documented in the resident's/fellow's note. Junior Dennis MD Peggy Reno RN - 12/03/2012 9002 EDT 22 year old woman admitted with occlusion per MD. Awaiting blood cultures. Pt is currently incarcerated with a guard @ her bedside. Will anticipate a return to previous level of function. Case Management will follow for any needing assistance with transition back to retirement once the pt is stable and ready for discharge. Will coordinate with patient's insurance as needed. Peggy Sung RN CCM [id number] [facility] - 12/02/2012 1224 EDT Pharmacy Note - Re: Vancomycin 22 yo female continues on empiric vancomycin treatment for SIRS, ? infective endocarditis. O: 12/02: Scr=0.55 Vancomycin trough level = 5.3 mcg/ml (drawn at 0930) A/P: - Timing of trough level appropriate. Level drawn prior to 4th dose. - Given low level and patient age, suggest adjusting vancomycin dose to 1000 mg Q 8 hrs with goal ofgetting level >10 mcg/ml. - Pharmacy will order a repeat trough level on 12/04 AM to assess this dose increase. Thanks, Charity Lewis, Pharm.D Pager [phone] Howie Buitrago MD - 12/02/2012 0844 EDT Internal Medicine DAILY PROGRESS NOTE Admit Date: 11/30/2012 Hospital day: LOS: 2 days Date of Service: 12/02/2012 CC: Left hand and calf pain Summary of Last 24hrs: CTA technically failed Enoxaparin 1 mg/kg started Subjective: Still with ongoing pain in her left medial hand and lateral calf. Denies current fevers, chills, chest pain/palpitations. Brief episode of abdominal pain that resolved spontaneously. Review of Systems A ten point review of systems performed and negative except as noted in subjective Objective: 12/01 0700 - 12/02 0659 In: 1610 [P.O.:1210] Out: - Blood pressure 105/57, pulse 100, temperature 36.7 ??C (98.1 ??F), temperature source Tympanic, resp. rate 16, weight 73.483 kg (162 lb), SpO2 94.00%. There is no height on file to calculate BMI. Gen: awake, alert, nad, legs cuffed to the bed HEENT: no scleral icterus or conjunctival injection, MMM with no oral lesions CV: RRR no murmur appreciated; radial and DP pulses 2+ bilaterally Resp: CTAB Abd: soft, NTTP, +BS, no organomegaly noted Ext: left hand with pain and edema over medial hand with no erythema; left calf with an area of induration over the lateral calf with no skin findings. Neuro: Moving ext x 4, motor and sensation intact, face symetric Current Facility-Administered Medications Medication Route Frequency ??? docusate sodium (COLACE) capsule 100 mg oral BID PRN ??? senna (SENOKOT) tablet 2 Tab oral AT BEDTIME PRN ??? acetaminophen (TYLENOL) tablet 650 mg oral BID ??? ARIPiprazole (ABILIFY) tablet 10 mg oral DAILY ??? ibuprofen (MOTRIN) tablet 800 mg oral TID ??? traZODone (DESYREL) tablet 150 mg oral QHS ??? vancomycin (VANCOCIN) IVPB 1,000 mg intravenous Q12H ??? HYDROcodone-acetaminophen (LORTAB) 5-500 mg tablet 1 Tab oral Q6H PRN ??? enoxaparin (LOVENOX) injection 70 mg subcutaneous Q12H Data Review: CBC: Recent Labs Basename 12/02/12 0710 12/01/12 0549 11/30/121946 WBC 5.70 8.78 10.40 HGB 11.3* 12.4 12.0 HCT 32.8* 35.2 34.9 MCV 85 -- -- PLT 164 174 164 BMP: Recent Labs Basename 12/02/12 0710 12/01/12 0549 11/30/121946 CREATININE 0.55 0.65 0.63 BUN 16 12 11 NA 141 142 139 K 4.2 3.7 4.1 CL 105 102 101 CO2 27 31 26 CALCIUM -- -- 8.7 PHOS -- -- -- MG -- -- -- Coags: Recent Labs Basename 12/01/12548 PROTIME 13.8* INR 1.2* PTT 29 LFTs: Recent Labs Basename 11/30/121946 ALT 29 AST 11* GGT -- ALKPHOS 79 Radiology: Dopplers negative for upper/lower DVT; Positive for occlusion of the distal left radial artery Assessment: 22 y.o. female with history of IV drug use presented with what appears to be transient occlusion of the radial artery, pain in the left medial hand and left lateral calf. Signs/symptoms most concerningfor infectious endocarditis despite unusual presentation, but must also consider inflammatory cause vs vasculitis vs clotting disorder. Clinical picture not c/w cellulitis. Patient being covered with vancomycin and therapeutic enoxaparin. Echocardiogram ordered but will not likely be done over the weekend. Plan: SIRS concerning for Sepsis, however, no clear infectious cause and HD stable - Vancomycin - blood cx pending, NGTD Left wrist pain, left calf pain - US evidence of radial artery clot; most concerning for endocarditis given h/o IV drug use ECHO Monday to assess for endocarditis Enoxaparin 1 mg/kg BID CRP, ESR elevated CK negative Hematology consulted, recommendations appreciated Tylenol, ibuprofen Vicodin PRN Consider vascular surgery consult if limb becomes compromised Psych Continue home Abilify and trazodone Diet Regular PPX: Enoxaparin Code: Full Dispo: Uncertain JAMMIE HARPER MD--PGY2 Pager # [phone] 12/02/2012 8:44 ATTENDING ATTESTATION: Date of service: 12/02/2012 I have interviewed and examined the patient. I personally reviewed laboratories studies, radiographic studies, ECG, and prior records. I discussed the case with: the medicine house staff team. I agree with and edited (in Blue the findings and plan of care as documented in the note above. HOWIE BUITRAGO MD [facility] Inpatient Service 12/02/2012 14:58 Jammie Alegria MD - 12/01/2012 7224 EDT Brief PGY-2 Update Given US evidence of arterial clot, will treat with therapeutic Lovenox dose today (40 mg already given this morning; will start 1 mg/kg BID tonight). Will consult hematology in AM. Jammie Harper MD Howie Conde MD - 12/01/2012 9929 EDT Internal Medicine DAILY PROGRESS NOTE Admit Date: 11/30/2012 Hospital day: LOS: 1 day Date of Service: 12/01/2012 CC: Left hand and calf pain Summary of Last 24hrs: Admitted to IM service US significant for distal left radial artery occlusion Vancomycin started ECHO ordered Subjective: Still with ongoing pain in her left medial hand and lateral calf. Denies current fevers, chills, chest pain/palpitations. Denies h/o previous problems with clotting/bleeding or known family h/o clotting. Again reports most recent IV drug use 4 months ago and adamantly states that she always used cleanneedles and alcohol swab on her skin (other than the one time that she used a dirty needle from her mother and got hep C). Review of Systems A ten point review of systems performed and negative except as noted in subjective Objective: Blood pressure 97/64, pulse 100, temperature 37.3 ??C (99.1 ??F), temperature source Tympanic, resp.rate 18, weight 73.483 kg (162 lb), SpO2 98.00%. There is no height on file to calculate BMI. Gen: awake, alert, nad, legs cuffed to the bed HEENT: no scleral icterus or conjunctival injection, MMM with no oral lesions CV: RRR no murmur appreciated; radial and DP pulses 2+ bilaterally Resp: CTAB Abd: soft, NTTP, +BS, no organomegaly noted Ext: left hand with pain and edema over medial hand with no erythema; left calf with an area of induration over the lateral calf with no skin findings. Neuro: Moving ext x 4, motor and sensation intact, face symetric Current Facility-Administered Medications Medication Route Frequency ??? docusate sodium (COLACE) capsule 100 mg oral BID PRN ??? senna (SENOKOT) tablet 2 Tab oral AT BEDTIME PRN ??? acetaminophen (TYLENOL) tablet 650 mg oral BID ??? ARIPiprazole (ABILIFY) tablet 10 mg oral DAILY ??? ibuprofen (MOTRIN) tablet 800 mg oral TID ??? traZODone (DESYREL) tablet 150 mg oral QHS ??? vancomycin (VANCOCIN) IVPB 1,000 mg intravenous Q12H ??? HYDROcodone-acetaminophen (LORTAB) 5-500 mg tablet 1 Tab oral Q6H PRN Data Review: CBC: Recent Labs Basename 12/01/12 0549 11/30/127 WBC 8.78 10.40 HGB 12.4 12.0 HCT 35.2 34.9 MCV 84 -- PLT 174 164 BMP: Recent Labs Basename 12/01/12 0549 11/30/121946 CREATININE 0.65 0.63 BUN 12 11 NA 142 139 K 3.7 4.1 CL 102 101 CO2 31 26 CALCIUM -- 8.7 PHOS -- -- MG -- -- Coags: Recent Labs Basename 12/01/12 0549 PROTIME 13.8* INR 1.2* PTT 29 LFTs: Recent Labs Basename 11/30/121946 ALT 29 AST 11* GGT -- ALKPHOS 79 Radiology: Dopplers negative for upper/lower DVT; Positive for occlusion of the distal left radial artery Assessment: 22 y.o. female with history of IV drug use presented with what appears to be transient occlusion of the radial artery, pain in the left medial hand and left lateral calf. Signs/symptoms most concerningfor infectious endocarditis despite unusual presentation, but must also consider inflammatory cause vs vasculitis vs clotting disorder. Clinical picture not c/w cellulitis. Patient being covered with vancomycin. Echocardiogram ordered but will not likely be done over the weekend. Plan: SIRS concerning for Sepsis, however, no clear infectious cause - blood cx pending Left wrist pain, left calf pain CT angio of left hand to further assess ECHO when possible to assess for endocarditis Continue vancomycin Tylenol, ibuprofen Vicodin PRN Will check CRP, ESR Blood cultures pending Check ck Psych Continue home Abilify and trazodone Diet Regular PPX: Enoxaparin Code: Full Dispo: Uncertain JAMMIE HARPER MD--PGY2 Pager # [phone] 12/01/2012 7:35 ATTENDING ATTESTATION: Date of service: 12/01/2012 I have interviewed and examined the patient. I personally reviewed laboratories studies, radiographic studies, ECG, and prior records. I discussed the case with: the medicine house staff team. I agree with and edited (in Blue) the findings and plan of care as documented in the note above. HOWIE BUITRAGO MD [facility] Inpatient Service 12/01/2012 13:38 documented in this encounter H&P Notes Elver, Andre - 12/01/2012 9441 EDT Internal Medicine -- Admission H+P Admit Date: 11/30/2012 Date of Service: 12/01/2012 PCP: DOCTOR CUCO MD Chief Complaint: Left hand pain, left calf pain HPI: Amaya Mary is a 22 y.o. female past medical history significant for IV drug use, hepatitis C and incarceration that presents with left hand and left calf pain that first started about 5 daysago. Patient reports she has not used Suboxone for the last 4 months. She has not smoked cigarettes for the last 4 months. Patient does not take oral contraceptives. The pain first started about 5 daysago and is described as sharp and has become progressively worse over this time. The patient notes that she has lost function of her left hand but it is painful to do fine motor movements. The pain is located along the ulnar side at the base of her hand on her wrist. At the same time the patient has noticed her calf becoming painful as well to the point where it is affecting her ambulation. She also notes that she has had subjective fevers and sweats at night during this course. Otherwise, the patient is healthy and has no chronic medical problems. Patient does not have a history of easy bruising or bleeding, had her tonsils removed. Patient was started on Kelfex a day prior to admission which failed to improve ehr symptoms. She was transferred to the [facility] ED for further evaluation. No chest pain no dyspnea, no palpitations, no new rash, no syncope or presyncope, no known sick contacts, no viral prodrome, no trauma. PMH PSH Past Medical History Diagnosis Date ??? Hepatitis C tonsils removed Social History Family History IV drug user, Suboxone Nicotine dependence no family history of clotting disorders Medications Prescriptions prior to admission Medication Sig Dispense Refill ??? acetaminophen (TYLENOL) 325 mg tablet Take 650 mg by mouth 2 times daily. ??? acetaminophen-codeine (TYLENOL #3) 300-30 mg per tablet Take 2 Tabs by mouth every 8 hours as needed. ??? cephALEXin (KEFLEX) 500 mg capsule Take 500 mg by mouth every 12 hours. ??? promethazine (PHENERGAN) 25 mg tablet Take 25 mg by mouth 2 times daily. 5 days, starting 11/29/12 ??? traZODone (DESYREL) 100 mg tablet Take 150 mg by mouth at bedtime. ??? ibuprofen (MOTRIN) 800 mg tablet Take 800 mg by mouth 3 times daily. ??? ARIPiprazole (ABILIFY) 10 mg tablet Take 10 mg by mouth daily. ??? naproxen (NAPROSYN) 500 mg tablet Take 1 Tab by mouth 2 times daily as needed for Pain. 30 Tab 0 ??? chlorhexidine (PERIDEX) 0.12 % solution Swish and spit 15 mL 2 times daily. DO NOT SWALLOW. 1 Bottle 0 Allergies Allergies Allergen Reactions ??? Bee Pollens Review of Systems: Pertinent items are noted in Subjective/HPI Objective/Physical Exam: VS: Blood pressure 109/60, pulse 100, temperature 36.4 ??C (97.5 ??F), temperature source Tympanic, resp. rate 18, weight 73.483 kg (162 lb), SpO2 97.00%. Weight: Weight : 73.483 kg (162 lb) Exam: Gen.: Young female, no acute distress, sitting comfortably in ED stretcher HEENT: Poor dentition, moist mucous membranes, no cervical adenopathy Multiple crusting herpetic lesions over the lips and around the mouth. Respiratory: Clear to auscultation bilaterally no wheezes rhonchi or rails Cardiovascular: Tachycardia regular rhythm no rubs murmurs or gallops Abdomen: Nontender nondistended positive bowel sounds Neuro: Nonfocal exam, grossly intact Skin: No signs of cellulitis or rash No janeway lesions or osler's nodes. No visible trak markes on the arms. Musculoskeletal: Tender to palpation along ulnar segment of left wrist, slightly warm to touch, no reduction in diameter movement, sensation, or cap refill. Left calf was tender to palpation, no signs of skin changes, strength full throughout Left wrist slightly edematous Pressure Ulcer Present on admission? No Data Review: NA Labs: I have personally reviewed CBC: Lab Results Component Value Date WBC 10.40 11/30/2012 RBC 4.17 11/30/2012 HGB 12.0 11/30/2012 HCT 34.9 11/30/2012 MCV 84 11/30/2012 MCH 28.7 11/30/2012 MCHC 34.4 11/30/2012 PLT 164 11/30/2012 NEUTROABS 7.59 11/30/2012 BMP: Lab Results Component Value Date NA 139 11/30/2012 K 4.1 11/30/2012 CL 101 11/30/2012 CO2 26 11/30/2012 BUN 11 11/30/2012 CREATININE 0.63 11/30/2012 CALCIUM 8.7 11/30/2012 LABALBU 4.0 11/30/2012 Other Studies: UE Doppler: Impression: 1. No evidence of deep venous thrombosis in the left upper extremity. 2. Occlusion of the distal left radial artery. CT angiography of the upper extremity is indicated for further evaluation. LE Doppler: Impression: No evidence of deep venous thrombosis in the left lower extremity. Assessment/Problems: (update problem list daily as appropriate) Patient Active Problem List Diagnoses Date Noted ??? (H)Cellulitis 11/30/2012 This is a 22 y.o. female with history of IV drug use that presents with what appears to be transientocclusion of the radial artery and concern for infectious endocarditis. On exam, this does not appear to be a cellulitis. Patient will be covered with vancomycin and an echocardiogram will be performedtomorrow morning. Plan: Left wrist pain: -Doppler demonstrated occlusion of the radial artery, on exam radial pulse was strong and left hand is slightly more edematous -Skin does not demonstrate signs of cellulitis -Possibility of clot being thrown from another infectious source -Echocardiogram pending for tomorrow morning -Vancomycin 15 mg per kilogram twice a day - While IE is the most likely diagnosis other inherited and spontaneous. acquired clotting disordersremain in the differential such as factor V, APS, Lupus Anticoagulant etc. - adding INR/PTT for Am if abnormal or rash or other signs develop could purse further workup. Left calf pain: -Lower extremity ultrasound negative for DVT -Does not show signs of cellulitis Unifying diagnosis would be septic embolism second to IE. Blood cultures pedning. Depression: -Continue Abilify and trazodone DVT Prophylaxis: Ambulate Code Status: Full Code Discharge Plan: Pending echocardiogram, [facility] Antwan Mijares MD 12/01/2012 3:19 R2 Addendum 12/01/2012 I have discussed this patient with Dr. Mijares and has been staffed with Dr. Raya. See admittingH&P for full details. In brief this is a 22 y.o.female who p/w 5 days of left-sided hand pain and left calf pain. She is currently incarcerated and has a history of IV drug use he states most recent use of IV drugs was 4 months ago. She has also been having fevers and chills. In the emergency department she had an elevatedd-dimer and edematous hands and a virtually ultrasound was performed which had concern for left radial thrombosis and occlusion. She also had left calf pain and had a negative lower extremity Doppler. Physical exam is remarkable for edematous right wrist and hands. Normal cardiac exam with no murmurs. Clear lung exam. HEENT exam was significant for oral lesions that were consistent with herpes. Leftradial pulse completely normal. Tenderness to palpation around her left wrist joint as well as a small area of bruising medially. There is also evidence of prior lacerations over her wrists bilaterally. 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 I have reviewed Dr. Mijares's and Dr. Saxena's Addenda note and agreewith the findings, assessment and plan as outlined above with my additions in Blue. I have personally reviewed the labs and visualized any radiology results. Andre Raya MD documented in this encounter Procedure Notes Natalie Myers RN - 12/04/2012 1420 EDTAssociated Order(s): INSERT PICC LINE Central Catheter Insertion First Catheter This Session station engineer main line: Patient Location: [place] [id number] Preliminary Data: Insertion Date: 12/04/12 Insertion Time: 1245 First Supervisor Poultry Processing: Natalie Myers RN RN/CASTILLO Documenting Procedure: Leeann Vazquez MA Pre-procedure: Time Out / Final Moment Performed: Yes Hand Hygiene Immediately Prior To Procedure: Yes Site Disinfected-2% Chlorhex/70% Alcohol: Yes Procedure Site Completely Dry: Yes Entire Patient Draped in Sterile Fashion: Yes Intra-procedure: Sterile Gloves Used: Yes Cap, Mask, and Sterile Gown - Operators: Yes Sterile Field Maintained: Yes Cap and Mask Worn - All Personnel: Yes Post-procedure: Sterile Dressing Applied - Sterile Technique: Yes Dressing Dated And Timed: Yes Needle Passes: [facility] RN Makes 2 Or Fewer Needle Passes: 2 or fewer passes Physician Documentation Pre-Procedure: Procedure To Be Performed: New central line placement Indication: New indication Conditions Present: 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 Central Line Type: Central Catheter Type: PICC PICC Type: Solo PICC Central Line Details: Line Location: Right;Basilic Line Lumens (#): Single Central Line Size: 4 Fr Line Coating: Non-antimicrobial coated Vessel Size: 5 mm Vein Depth (cm): 1.25 cm Line Trim Length: 47 cm Line External Length: 6 cm Catheter Secured At (cm):: Other (Comment) (6 cm) Responsible Service / IR Details: Responsible Service: [facility] RN Lidocaine 1% - Route/Dose (cc's): Subcutaneous;1 Central Line Materials and Methods: Number of Attempts: 1 Number of Sites Attempted: 1 Number of Kits Used: 1 Location Device Used: Ultrasound;[place] Central Line Operators: Number Of Operators: 1 First Supervisor [employer]'s Name: Natalie Myers First Supervisor [employer]'s Title: Vascular clerical clerk Unless otherwise noted, there were no complications, no blood loss and no cultures obtained. Natalie Myers RN 12/04/2012 14:20 documented in this encounter Consult Notes Rena Evans MD - 12/03/2012 1407 EDT In-Patient Infectious Disease Consultation Date of Admission: 11/30/2012 Date of Consultation: 12/03/[address] Me[facility] Reason for consultation: Mitral Valve Vegetation, Presumed infectious endocarditis HPI: Amaya Mary is a 22 year old woman with past history significant for untreated Hep C, Bipolar disorder, Previous IVDU (suboxone) who presented to [facility] 11/30/2012 in transfer from [facility] for fever, rigors, left hand and calf pain. Patient has been incarcerated for approximately the last 4 months, reporting that her last IVDU was on the day of her incarceration (using suboxone). Approximately 1 month ago she developed left sided flank/abdominal pain. Urinalysis at the time was notable for apparent microscopic hematuria (10/23), she was initially treated with pain medication but as this did not resolve she ultimately received a 10 day course of Ciprofloxacin (starting 11/02) for presumed UTI despite lack of urinary symptoms. She reports feeling better subsequently. Then approximately 4-5 days prior to admission she began to develop fevers (102.3F) and rigors with leftsided hand pain. She reports that the hand pain became severe with associated purplish discolorationand mild swelling. Approximately 2 days prior to admission she developed left calf pain and mild swelling as well. She initiated on Keflex 1 day prior to admission and then sent to [facility] as symptoms were not improving. Upon initial presentation notable findings were ultrasound of left hand showing lackof flow in the distal radial artery--wrist-->3cm into palm, WBC 10.4. Blood cultures were obtained and she was initiated on Vancomycin for presumed bacterial endocarditis. Over the intervening time she has defervesced. She was started on therapeutic Lovenox for apparent embolic phenomenon. Echocardiogram obtained today showed possible small [id number] vegetation on posterior leaflet of mitral valve. Currently she reports feeling significantly improved. Denies further fevers or rigors. Pain in hand and calf improving. Still with feeling of mild swelling in those areas but resolution of discoloration. No changes in vision, no recurrence of flank pain, no sensory deficit. ROS; a complete 10 point ROS is otherwise negative No menses in 2 years - since of her child PMH: Bipolar Hep C untreated Hx IVDU Incarceration SH: Previously lived with Grandfather in [place], Has been incarcerated, Hx IVDU. Allergies: NKDA FH: non-contributory Medications: I have reviewed the NOV. Current antibiotics include Vancomycin 1gm Q8hr Physical Examination: BP 110/58 Pulse 100 Temp(Src) 36.6 ??C (97.9 ??F) (Tympanic) Resp 16 Wt 73.483 kg (162 lb) SpO2 99% General: Alert, cooperative, NAD, conversant Eyes; EOMI, no petechiae, no conjunctival petechiae Ears, nose, throat; no sinus or mastoid tenderness Cardiovascular: RRR, No murmur or rub Respiratory: clear to ausculation no WRR Gastrointestinal: Normal BS, non-tender without HSM Musculoskeletal; Very slight swelling of left hand and left calf. Mild left upper, posterior calf tenderness. Pulses equal bilaterally at radial, ulnar, dorsalis pedis. Genitourinary; Deferred Integumentary; no rash Neurological; non-focal Lymphatic; no lymph nodes palpable Extremities; No clubbing, cyanosis; pulses 2+, No splinter hemorrhages Skin - acne of face and anterior trunk. +Scabbed perioral ulcerations Data: Labs reviewed notable for WBC 4.5 (45%N), Hct 32.9, PLT 182, BCX 11/30 NGTD. ESR/ CRP 47/ 7.7 Nl AST/ALT D dimer 532 CK wnl UA neg Radiology: Echocardiogram with [id number] vegetation on mitral valve Impression 1. Mitral valve vegetation: Unclear if this represents true infective endocarditis, however no good alternative explanation for apparent recurrent embolization and would therefore continue to treat with antibiotics. Suspect that if infective endocarditis likely to be slower growing organism and likely not MRSA as appears to have defervesced so quickly upon arrival. Would continue to follow cultures and scale back from MRSA agent. Culture negativity potentially due to Keflex prior to admission. Will likely need prolonged course of IV Abx, hopefully this can be administered at the correctional facility. 2. Left Hand/Calf Pain: Apparent ischemic pain from lack of circulation although imaging finding of radial distribution blockage is at odds with patients description of cyanosis on medial aspect of palm (ulnar distribution). However, with given clinical improvement would agree with continuation for therapeutic anticoagulation. 3. Recurrent Embolization: Previous left flank pain 1 month prior possibly contracts representative of embolicevent to either Kidney or Spleen. Now with hand/calf symptoms, recurrent nature argues for treatment. 4. Untreated Hepatitis C: HCV antibody checked recently at correctional facility, but no viral load obtained. Would therefore evaluate more fully with viral load as well as immunity to HAV, HBV. Plan 1. Recommend D/C Vancomycin 2. Recommend start Ceftriaxone 2gm Daily 3. Will need PICC placement for prolonged ABX 4. Will need to arrange for administration of IV ABX while incarcerated, can hopefully finish full course. 5. Continue to follow 11/30 cultures 6. Recommend check Hep C viral load, Hep B antibodies, Hep A antibodies 7. Will follow, please call with questions Patient seen and discussed with Dr. Rena Mojica 12/03/2012 17:34 Attending attestation: Pt personally interviewed and examined. Data reviewed. In addition I called the infirmary at the correctional facility to obtain additional information. Patient seen with Dr. Mojica. H/P/A and P reviewed. I agree with his note above. Additions made in different font. Patient with history of IVDU (last July 2012). Patient was injecting suboxone mixed with tap water. She had no history of injection site infection. In mid October she was seen in the [facility] flank/left upper quadrant pain with hematuria on urinalysis. She was treated with ciprofloxacinfor presumed UTI although no evidence of pyuria on UA. Of note she had no fever documented in October. She then was well until last week when she developed high fever and acute onset of throbbing pain in her left hand followed by pain in her left calf. She was treated empirically with cephalexin prior to transfer to [facility] for further management. She has been treated empirically with IV vancomycin with resolution of her fever and decrease in her WBC. Shehas also been treated with anticoagulation with improvement in her left hand and left calf symptoms.ECHO however demonstrated ? Vegetation on MV but admission blood cultures have been NG. On exam she has subtle swelling of the LUE and LLE. She is a strong radial pulse in the LUE with decreased ulnar pulse. Pulses in her LLE are intact. No murmur can be appreciated on exam. Abdominal exam is benign. She has no CVA or spinal tenderness. Complicated problem as patient has had signs and symptoms to suggest embolic phenomenon. ?to kidney and possibly spleen and to left hand and possibly LLE. No other explanation for these findings. She has no other localizing complaints. She was febrile prior to admission. PE only remarkable for subtle findings in her left hand and LLE. No hematuria on UA here. No anemia or thrombocytopenia, but inflammatory markers are elevated. She is at increased risk for endocarditis because of IVDU. No recent IVDU but could have SBE related to skin organism such as PLASTICS SEASONER OPERATOR, alpha strep, Propionibacterium, Bailey. Nothing to suggest acute endocarditis. Unfortunately blood cultures were obtained after antibiotics. Blood cultures are really the best test for endocarditis but with prior antibiotics negative blood cultures cannot be used to rule out endocarditis. In view of prior antibiotics I think would be very difficult to make a definitive diagnosis of endocarditis. Echo findings alone are not diagnostic. The main concern is that the patient has had ? Recurrent embolic phenomenon. It would be difficult to stop her antimicrobial therapy and follow her clinically at this point. My concern is that she may have partially treated endocarditis. I donot want to put her at risk for further embolic disease. I think we will need to continue to treat her for culture-negative endocarditis secondary to prior antimicrobial therapy. Nothing to suggest resistant staph as etiology if blood cultures negative after cephalexin. Could treat empirically with cephalosporin such as ceftriaxone 2 g IV once a day. It is possible that admission blood cultures stillmay become positive especially if we are dealing with Bailey or other slow-growing organism such asnutritionally variant strep or Propionibacterium. We will need to discuss with the correctional facility regarding logistics of outpatient IV antibiotics The patient has not been assessed for activity of her hepatitis C - would check HCV RNA Would also check HBV and HAV antibodies - negative she would be a candidate for Twinrix vaccine RENA EVANS MD 12/03/2012 19:01 Anastacia Pedro MD - 12/02/2012 1228 EDT HEMATOLOGY/ONCOLOGY CONSULT NOTE Admit Date: 11/30/2012 Date of Service: 12/02/2012 REASON FOR CONSULT: Probable LUE embolic event CONSULT REQUESTED BY: Dr. Harper HISTORY OF PRESENT ILLNESS: Patient is a 22 yo incarcerated female with hx of hep C, IVDU admitted with 5 days of subjective fever, chills, L calf pain, as well as pain, edema, loss of fine motor control, tingling and violaceous discoloration of her L wrist and hand in a medial distribution. Doppler US of the LUE is significant for occlusion of distal L radial artery. She denies weight loss, cough, chest pain, lower extremity edema/cords, headache, slurred speech, gait instability, paraesthesia, lateralizing motor weakness, and abdominal complaints. PMH PSH Past Medical History Diagnosis Date ??? Hepatitis C Adenoidectomy CURRENT MEDICATIONS PRIOR TO ADMISSION MEDICATIONS Current Facility-Administered Medications Medication Route Frequency ??? vancomycin (VANCOCIN) IVPB 1,000 mg intravenous Q8H ??? docusate sodium (COLACE) capsule 100 mg oral BID PRN ??? senna (SENOKOT) tablet 2 Tab oral AT BEDTIME PRN ??? acetaminophen (TYLENOL) tablet 650 mg oral BID ??? ARIPiprazole (ABILIFY) tablet 10 mg oral DAILY ??? ibuprofen (MOTRIN) tablet 800 mg oral TID ??? traZODone (DESYREL) tablet 150 mg oral QHS ??? HYDROcodone-acetaminophen (LORTAB) 5-500 mg tablet 1 Tab oral Q6H PRN ??? enoxaparin (LOVENOX) injection 70 mg subcutaneous Q12H Prescriptions prior to admission Medication Sig Dispense Refill ??? acetaminophen (TYLENOL) 325 mg tablet Take 650 mg by mouth 2 times daily. ??? acetaminophen-codeine (TYLENOL #3) 300-30 mg per tablet Take 2 Tabs by mouth every 8 hours as needed. ??? cephALEXin (KEFLEX) 500 mg capsule Take 500 mg by mouth every 12 hours. ??? promethazine (PHENERGAN) 25 mg tablet Take 25 mg by mouth 2 times daily. 5 days, starting 11/29/12 ??? traZODone (DESYREL) 100 mg tablet Take 150 mg by mouth at bedtime. ??? ibuprofen (MOTRIN) 800 mg tablet Take 800 mg by mouth 3 times daily. ??? ARIPiprazole (ABILIFY) 10 mg tablet Take 10 mg by mouth daily. ??? naproxen (NAPROSYN) 500 mg tablet Take 1 Tab by mouth 2 times daily as needed for Pain. 30 Tab 0 ??? chlorhexidine (PERIDEX) 0.12 % solution Swish and spit 15 mL 2 times daily. DO NOT SWALLOW. 1 Bottle 0 ALLERGIES Allergies Allergen Reactions ??? Bee Pollens SOCIAL HISTORY FAMILY HISTORY Incarcerated. Hx of IVDU and etoh abuse. 15 pyh. Denies illicit drugs, etoh and smoking since her incarceration. Has 2 children. No family hx of bleeding or clotting disorders REVIEW OF SYSTEMS: A complete 10 point review of systems was performed and is otherwise negative. OBJECTIVE: Temp: [36.4 ??C (97.5 ??F)-36.7 ??C (98.1 ??F)] , Pulse: --, Resp: [16] , BP: (100-111)/(55-57) , SpO2: [94 %-95 %] General appearance: Awake, alert, oriented x3, NAD. Head: Normocephalic, without obvious abnormality, atraumatic Eyes: conjunctivae/corneas clear. PERRL, EOM's intact. Neck: supple, symmetrical, trachea midline, no adenopathy, no carotid bruit and no JVD Lungs: clear to auscultation bilaterally Heart: regular rate and rhythm, S1, S2 normal, no murmur, click, rub or gallop Abdomen: soft, non-tender, non-distended; bowel sounds present, no palpable hepatosplenomegaly Extremities: Medial hand.wrist with trace edema, mild erythema, weakness. No cyanosis. Normal strength. Pain with L calf palpation. No edema or cords bilaterally. Normal sensation. Data Review Recent Labs Basename 12/02/12 0710 12/01/12 0549 11/30/121946 WBC 5.70 8.78 10.40 HGB 11.3* 12.4 12.0 HCT 32.8* 35.2 34.9 PLT 164 174 164 Recent Labs Basename 12/02/12 0710 12/01/12 0549 11/30/121946 NA 141 142 139 K 4.2 3.7 4.1 CL 105 102 101 CO2 27 31 26 BUN 16 12 11 CREATININE 0.55 0.65 0.63 Recent Labs Basename 12/01/12 0549 PROTIME 13.8* INR 1.2* PTT 29 Imaging: US LUE: Impression: 1. No evidence of deep venous thrombosis in the left upper extremity. 2. Occlusion of the distal left radial artery. CT angiography of the upper extremity is indicated for further evaluation. US LLE: No dvt Assessment: 22 y.o. incarcerated woman with hx of hep c/ivdu admitted with acute LUE arterial occlusion and associated fever/chills for 5 days. DDX includes embolic disease (atrial or ventricular thrombus, endocarditis, paradoxical embolism) and less likely in situ thromboses (thrombophilia, injury). Agree with continuing full anticoagulation and current evaluation for cardioembolic source. Ongoing anticoagulation can interfere with thrombophilia tests and there is no urgency to completing hypercoagulable work-up as it will not change release manager in the acute setting. PT is prolonged which could indicate presence of an inhibitor. Recommendations: 1. TTE.with bubble study 2. PT mixing study 3. Continue lovenox 1mg/kg q12 Attestation statement: I saw and examined the patient with the resident/fellow. I agree with the findings and plan of care documented in the resident's/fellow's note. Patient was seen/discussed with the attending Dr. documented in this encounter ED Notes Kj Peguero - 12/01/2012 0133 EDT Pt to floor with PSS. Ngoc Huitron MD - 11/30/2012 2322 EDT DOS: 11/30/2012 Chief Complaint Patient presents with ??? Fever See T-Call. L calf and L palm pain x5days per Pt. L palm swollen. Fever 38.3, HR 140. Last Tylenol #3 at 0900. Keflex x2days. The patient is a 22 y.o. female who presents today with Fever HPI Comments: [facility]. She has been an inmate there for 4 months. She has had increasing pain and swelling in the left hand for about 4 days. She is also increasing pain and swelling in the left calf. She denies any injury to the area. Shedenies any injection or trauma. She does have a history of injection drug use in the past but has been incarcerated for the last 4 months. I did speak with the nursing staff at the [facility] who says that she was febrile yesterday. She was evaluated in the clinic and started on Keflex. Her pain and swelling increased today so he sent her for further evaluation. She denies any prior history similar problems. She denies chest pain or shortness of breath. No abdominal pain nausea or vomiting. The history is provided by the patient and a caregiver. Fever Primary symptoms of the febrile illness include fever, myalgias and arthralgias. Primary symptoms donot include fatigue, headaches, cough, shortness of breath, abdominal pain, nausea, vomiting, diarrhea, dysuria or rash. Review of Systems Constitutional: Positive for fever. Negative for chills and fatigue. HENT: Negative for congestion, sore throat and rhinorrhea. Eyes: Negative for redness and visual disturbance. Respiratory: Negative for cough and shortness of breath. Cardiovascular: Negative for chest pain and palpitations. Gastrointestinal: Negative for nausea, vomiting, abdominal pain and diarrhea. Genitourinary: Negative for dysuria, frequency and flank pain. Musculoskeletal: Positive for myalgias, joint swelling and arthralgias. Negative for back pain. Skin: Negative for rash. Neurological: Negative for syncope, light-headedness and headaches. Psychiatric/Behavioral: Negative for confusion. All other systems reviewed and are negative. Past Medical History Diagnosis Date ??? Hepatitis C History reviewed. No pertinent past surgical history. Allergies Allergen Reactions ??? Bee Pollens History Substance Use Topics ??? Smoking status: Current Everyday Smoker ??? Smokeless tobacco: Not on file ??? Alcohol Use: No No family history on file. Vital Signs Temp: 36.7 ??C (98 ??F) Temp src: Oral Pulse: 100 Heart Rate: 130 BPM Resp: 20 SpO2: 100 % BP: 111/68 mmHg BP Device: BP Machine Patient Position: Semi fowlers BP Cuff Location: Left arm O2 Device: None (Room air) Physical Exam Nursing note and vitals reviewed. Constitutional: She is oriented to person, place, and time. She appears well- developed and well-nourished. HENT: Head: Normocephalic and atraumatic. Right Ear: External ear normal. Left Ear: External ear normal. Nose: Nose normal. Eyes: Pupils are equal, round, and reactive to light. Right eye exhibits no discharge. Left eye exhibits no discharge. Neck: Normal range of motion. Neck supple. Cardiovascular: Normal rate, regular rhythm, normal heart sounds and intact distal pulses. Exam reveals no gallop and no friction rub. No murmur heard. Pulmonary/Chest: Breath sounds normal. No respiratory distress. She has no wheezes. She has no rales. She exhibits no tenderness. Abdominal: Soft. She exhibits no distension and no mass. There is no tenderness. There is no reboundand no guarding. Musculoskeletal: She is erythema and swelling of the entire palm of the left hand. Is more pronounced over the ulnarside than the radial side. She is tender over the ulnar side of the palm but less so over the radialside. Distal capillary refill sensation are intact. She is limited range of motion due to pain in the hand. No fluctuance or nodule felt. There is erythema and tenderness in the left calf in an area that is about 10 x 15 cm. It is warm but again no cord or mass felt. Distal pulses are intact. Careful exam for needle tracks did not revealany acute needle tracks. Neurological: She is alert and oriented to person, place, and time. She has normal strength. No sensory deficit. She exhibits normal muscle tone. Skin: Skin is warm and dry. No rash noted. Psychiatric: She has a normal mood and affect. Her behavior is normal. Thought content normal. Radiology orders: HAND 2 VIEWS RAD US DOPPLER LOWER EXTREMITY VENOUS UNILATERAL RAD US DOPPLER UPPER EXTREMITY VENOUS UNILATERAL HAND 2 VIEWS Final result not shown here.: HAND 3 OR MORE VIEWS (Results Pending) RAD US DOPPLER LOWER EXTREMITY VENOUS UNILATERAL (Results Pending) RAD US DOPPLER UPPER EXTREMITY VENOUS UNILATERAL (Results Pending) Procedures ED Course: A medical screening exam was performed. An IV is established. She had blood cultures x2 sent, and vancomycin IV was administered. Lab Results URINE CULTURE IF UA POSITIVE - NON POCT URINALYSIS ONLY (Final result) Component (Lab Inquiry) Result Time Culture if Indicated 11/30/122216 Culture not indicated by urinalysis results. COMPREHENSIVE METABOLIC PANEL (CMP) (Final result) Abnormal Component (Lab Inquiry) Result Time Potassium Sodium Chloride CO2 Total Alkaline Phosphatase 11/30/122037 4.1 139 101 26 79 Result Time Bilirubin, Total AST ALT Albumin Total Protein 11/30/122037 0.7 11 (L) 29 4.0 7.2 Result Time Creatinine GFR, Calculated BUN Calcium Calculated Calcium 11/30/122037 0.63 >60 11 8.7 9.1 Result Time Glucose, Serum Fasting? 11/30/122037 91 Unknown D-DIMER (Final result) Abnormal Component (Lab Inquiry) Result Time D-Dimer 11/30/122037 532 (H) CUTOFF VALUE FOR THE EXCLUSION OF DVT and PE: 230 ng/mL D-dimer units BACTERIAL CULTURE, BLOOD (In process) Result time:11/30/122036 URINALYSIS (Final result) Abnormal Component (Lab Inquiry) Result Time Color, UA CLARITY U GLUCOSE U BILIRUBIN, UR KETONES 11/30/122036 Yellow Clear Neg Neg 2+ (A) Result Time Specific [place], Urine BLOOD U PH, UR Protein, UA Urobilinogen, UA 11/30/122036 1.020 Neg 6.5 Neg 0.2 Result Time NITRITE LEUK sarah, UR 11/30/122036 Neg Neg UA REFLEX (Final result) Component (Lab Inquiry) Result Time UA BILLING 11/30/122036 Microscopic not indicated. BACTERIAL CULTURE, BLOOD (In process) Result time:11/30/122035 HEMAGRAM AND DIFFERENTIAL (Final result) Result time:11/30/122020 HEMAGRAM (Final result) Component (Lab Inquiry) Result Time WBC RBC Hemoglobin HCT MCV 11/30/122020 10.40 4.17 12.0 34.9 84 Result Time MCH MCHC PLT RDW-CV 11/30/122020 28.7 34.4 164 13.1 DIFFERENTIAL (Final result) Component (Lab Inquiry) Result Time Neutrophils Lymphocytes Monocytes Eosinophils Basophils 11/30/122020 72.9 18.9 6.9 0.8 0.5 Result Time ABS Neutrophils ABS Lymphs ABS Monocytes ABS Eosinophils ABS Basophils 11/30/122020 7.59 1.96 0.71 0.08 0.05 Result Time Type of Diff: 11/30/122020 Automated Laboratories are essentially unremarkable. I did get a venous Doppler ultrasound of both left upper and lower extremity. Lower extremity was negative for DVT or other acute abnormality. Left upper extremity did not show DVT but did show some thrombosis in the radial artery. This is suspicious for injection drug use although she denies this. She has no murmur or other systemic signs consistent with endocarditis. However, given the degree of swelling and pain with thrombosis I do think she should be admitted forIV therapy. Internal medicine has been consulted and she will be admitted to their service. Disposition: Admitted The patient's pain was managed to an adequate level weighing risk vs. benefit of further medications. Upon departure from the Emergency Department, the patient's pain was 2 on a zero to ten scale. Condition at departure from the Emergency Department: Stable Discharge Prescriptions New Prescriptions No Discharge Prescriptions for this patient MDM Number of Diagnoses or Management Options Cellulitis: Diagnosis management comments: 5 Final diagnoses: Cellulitis PCP: DOCTOR CUCO MD 11/30/2012 23:22 Colleen Perez - 11/30/20122023 EDT Blood drawn via butterfly needle per protocol, cultures tube(s) sent to lab per order. Colleen Perez - 11/30/20122022 EDT Blood drawn via saline lock per protocol, tiger, blue, purple and cultures tube(s) sent to lab per order. Colleen Perez - 11/30/2012 181 EDT Pt arrives in [facility], corrections officers calling to request approval to remove Pt from [facility] for full assessment. L calf not visualized yet. Rudy Hayes - 11/30/2012 1806 EDT TCALL: AMAYA MARY 1990 REFERRED FROM CORRECTIONS. 22 YOF T102.3 FOR 2 DAYS ON TYLENOL +BENADRYL, STARTED KEFLEX 500MG BID. (L) HAND SWOLLEN + (L) CALF PAIN. ? FOREIGN BODY (LYF). documented in this encounter Miscellaneous Notes Scanned Note-Null - INSURANCE EXECUTIVE, SCAN 2 - 12/14/2012 1120 EDT canned Note- Null - INSURANCE EXECUTIVE, SCAN 2 - 12/07/2012 1429 EDT canned Note- Null - INSURANCE EXECUTIVE, SCAN 2 - 12/07/2012 1429 EDT lan of Meggan Tipton RN - 12/05/2012 1558 EDT Problem: DISCHARGE PLANNING Goal: Patient???s Continuum Of Care Needs Are Met Data: Order to discharge patient. Patient currently incarcerated at [facility]. Guard at bedside. VSS upon discharge. Pt c/o pain 5/10 in calf/hand- declining pain medication. PICC linein place, dressing CDI. Lung sounds clear. HR normal. Abdomen non-distended. Skin intact, trace edema on left hand/ left calf. Voiding without difficulty. Ambulating independently, steady gait. Action: Discussed discharge plan/instructions with patient. [facility] spoke with DOMO Phan. Educated/encouraged patient to receive Hep B/C vaccine ordered. Handed packet of requested information to guard at bedside. Response: Patient refused vaccination. Answered all questions. Patient verbalized understanding of discharge. Left unit in wheelchair with guard. Meggan Medina RN 12/05/2012 1420 lan of Omid - Amber Kern RN - 12/05/2012 0156 EDT Problem: PAIN Goal: Patient???s Pain And Discomfort Are Adequately Managed Outcome: Ongoing Data: Pt rates pain 7 out of 10 in left arm. Pt's pulses palpable, skin warm to touch, and positive CSMTs. Action: Pt medicated with IBU 800mg PO, Tylenol 650mg PO. Pt encourage to rest. Response: Upon reassessment of pain, pt was sleeping. Call light within reach. Amber Batista RN 12/05/2012 1:52 lan of Meggan Tipton RN - 12/04/2012 1849 EDT Problem: ACTIVITY INTOLERANCE/IMPAIRED MOBILITY Goal: Mobility/Activity Is Maintained At Optimum Level For Patient Data: Patient with impaired mobility s/p hospitalization, cellulitis. Patient verbalizes ambulating in room independently to bathroom. Has not ambulated in [place] in several days per patient. Action: Encouraged patient to ambulate OOB in [place]. Ambulated with patient one large loop around [place] (patient independent, with school guard) Response: Patient states, it feels better than before, it doesn't hurt to walk. Patient ambulated with normal gait without assistance. Tolerated well. Will continue to encourage mobility. Meggan Medina RN 12/04/2012 1600 lan of Amber Edwards RN - 12/04/2012 0151 EDT Problem: PAIN Goal: Patient???s Pain And Discomfort Are Adequately Managed Outcome: Ongoing Data: Pt states I do not have any pain but rates pain level 5 out of ten. Pt's left calf and left hand tender to touch. Positive CSMTs. Action: Pt medicated with Motrin 800mg PO. Response: Upon reassessment pt is sleeping comfortably in bed. Call light within reach. Amber Batista RN 12/04/2012 1:48 lan of Care Pushpa Mcdonald - 12/03/2012 1715 EDT Problem: PAIN Goal: Patient???s Pain And Discomfort Are Adequately Managed Data: Pain rated at 6/10. Action: Administered pain meds (see mar). Response: Pt rating pain tolerable at 5/10. Will continue to monitor for pain. Pushpa Beach RN 12/03/2012 17:12 canned Note-Null - INSURANCE EXECUTIVE, SCAN 2 - 12/03/2012 0732 EDT lan of Mahogany Santiago - 12/03/2012 0311 EDT Problem: PAIN Goal: Patient???s Pain And Discomfort Are Adequately Managed Outcome: Ongoing Data: Pt reporting 8/10 pain within left hand/calf. Noted to be slightly edematous/pink. CSMT's intact. Action: Medicated with Lortab/tyl/motrin. Response: Will continue to assess. Mahogany Servin RN 12/03/2012 3:10 lan of Pushpa Watts - 12/02/2012 1549 EDT Problem: PAIN Goal: Patient???s Pain And Discomfort Are Adequately Managed Data: Pt reports pain as high as 8/10. Action: Administered pain meds (see mar). Pt repositions self. Offered drink. Response: Pt reporting pain tolerable at 6/10. Will continue to monitor. Pushpa Beach RN 12/02/2012 15:48 lan of Cyril Figueroa RN - 12/02/2012 0431 EDT Problem: SKIN INTEGRITY Goal: Skin Integrity Is Maintained Or Improved Data: pt left hand and leg has areas of cellulitis Action: assessed skin, assessed pain level, assessed CSMTS Response: CSMTs are WNL, area of pinkness has decreased, swelling has decreased Cyril Erickson RN 12/02/2012 4:30 lan of Jasmin Du - 12/01/2012 3373 EDT Problem: SKIN INTEGRITY Goal: Skin Integrity Is Maintained Or Improved Data: Pt has ankle shackles applied bilaterally. Pt's left palm, wrist, calf warm, painful to touch. Action: Inspected skin around ankles. Skin dry and flaky but no breakdown noted at ankles. Pt complains only of pain and discomfort at Left wrist/palm and left calf. No skin breakdown noted in those sites. Applied lotion to ankles bilaterally at dry spots. Response: Pt slightly unstable when ambulating due to pain in LLE. Otherwise, no skin breakdown noted, Jasmin Mcadams RN 12/01/2012 18:53 lan of Care - Jasmin Mcadams - 12/01/2012 1808 EDT Problem: PSYCHOSOCIAL Goal: Demonstrates Ability To [facility] With Hospitalization Data: Pt tearful and anxious for IV insertion and blood draws. Action: Encouraged pt to verbalize feelings. Encouraged pt to take slow deep breaths. Attempted to cluster Care and needle sticks. Response: Pt tolerating treatments fairly. Appropriately verbalized feelings. Jasmin Mcadams RN 12/01/2012 18:05 lan of Cyril Figueroa RN - 12/01/2012 0544 EDT Problem: SKIN INTEGRITY Goal: Skin Integrity Is Maintained Or Improved Data: pt admitted for cellulitis, stated having pain in leg making it difficult to stand, also pain/swelling in hand making it difficult to grasps Action: assessed skin, assessed CSMTs, assessed neurological checks Response: areas of cellulitis are light pink, slightly swollen, CSMTs are WNL, neuro checks are WNL Cyril Erickson RN 12/01/2012 5:41 canned Note-Null - INSURANCE EXECUTIVE, SCAN 2 - 12/01/2012 0051 EDT canned Note- Null - INSURANCE EXECUTIVE, SCAN 2 - 12/01/2012 0051 EDT canned Note- Null - INSURANCE EXECUTIVE, SCAN 2 - 11/30/2012 4798 EDT documented in this encounter Plan of Treatment Not on filedocumented as of this encounter Procedures Procedure Name Priority Date/Time Associated Comments Diagnosis CHEST PA CENTRAL STAT 12/04/2012 15:02 Results for this LINE/PICC/ET EDT procedure are i n TUBE,INITIAL INSERTION the r esults section. INSERT PICC LINE Routine 12/04/2012 14:20 Results for this EDT procedure are i n the results section. HCV RNA DETECT QUANT Routine 12/04/2012 7:26 Resu lts for this EDT procedure are i n the results section. HEPATITIS A TOTAL Routine 12/04/2012 7:26 Results for this ANTIBODY W REFLEX EDT procedure are in the results section. HEPATITIS B CORE Routine 12/04/2012 7:26 Results for this ANTIBODY (TOTAL) EDT procedure a re in the results section. DIFFERENTIAL Routine 12/04/2012 7:26 Results for this EDT procedure are i n the results section. HEPATITIS B SURFACE Routine 12/04/2012 7:26 Resul ts for this ANTIBODY EDT procedure are i n the results section. HEPATITIS B SURFACE Routine 12/04/2012 7:26 Resul ts for this ANTIGEN EDT procedure are i n the results section. PTT Routine 12/04/2012 7:26 Results for this EDT procedure are i n the results section. PROTIME Routine 12/04/2012 7:26 Results for this EDT procedure are i n the results section. COMPLETE BLOOD COUNT Routine 12/04/2012 7:26 Resu lts for this EDT procedure are i n the results section. COMPLETE BLOOD COUNT Routine 12/04/2012 7:26 AND DIFFERENTIAL EDT BUN Routine 12/04/2012 7:26 Results for this EDT procedure are i n the results section. CREATININE Routine 12/04/2012 7:26 Results for this EDT procedure are i n the results section. VANCOMYCIN TROUGH Routine 12/04/2012 7:26 Results for this EDT procedure are i n the results section. ELECTROLYTES Routine 12/04/2012 7:26 Results for this EDT procedure are i n the results section. ECHOCARDIOGRAM Routine 12/03/2012 9:20 Results fo r this EDT procedure are i n the results section. DIFFERENTIAL Routine 12/03/2012 5:30 Results for this EDT procedure are i n the results section. COMPLETE BLOOD COUNT Routine 12/03/2012 5:30 Resu lts for this EDT procedure are i n the results section. COMPLETE BLOOD COUNT Routine 12/03/2012 5:30 AND DIFFERENTIAL EDT BUN Routine 12/03/2012 5:30 Results for this EDT procedure are i n the results section. CREATININE Routine 12/03/2012 5:30 Results for this EDT procedure are i n the results section. ELECTROLYTES Routine 12/03/2012 5:30 Results for this EDT procedure are i n the results section. INPATIENT ADD-ON Routine 12/02/2012 14:50 Results for this EDT procedure are i n the results section. VANCOMYCIN TROUGH Routine 12/02/2012 9:30 Results for this EDT procedure are i n the results section. DIFFERENTIAL Routine 12/02/2012 7:10 Results for this EDT procedure are i n the results section. COMPLETE BLOOD COUNT Routine 12/02/2012 7:10 Resu lts for this EDT procedure are i n the results section. COMPLETE BLOOD COUNT Routine 12/02/2012 7:10 AND DIFFERENTIAL EDT BUN Routine 12/02/2012 7:10 Results for this EDT procedure are i n the results section. CREATININE Routine 12/02/2012 7:10 Results for this EDT procedure are i n the results section. ELECTROLYTES Routine 12/02/2012 7:10 Results for this EDT procedure are i n the results section. CT ANGIO UPPER 12/01/2012 13:13 Results f or this EXTREMITY W/WO CONTRAST EDT proc edure are in the results section. SED RATE Routine 12/01/2012 12:46 Results for this EDT procedure are i n the results section. INPATIENT ADD-ON Routine 12/01/2012 10:50 Results for this EDT procedure are i n the results section. INPATIENT ADD-ON Routine 12/01/2012 10:45 Results for this EDT procedure are i n the results section. SCREENING GLUCOSE Routine 12/01/2012 5:49 Results for this EDT procedure are i n the results section. INPATIENT ADD-ON Routine 12/01/2012 5:49 Results for this EDT procedure are i n the results section. DIFFERENTIAL Routine 12/01/2012 5:49 Results for this EDT procedure are i n the results section. PTT Routine 12/01/2012 5:49 Results for this EDT procedure are i n the results section. PROTIME Routine 12/01/2012 5:49 Results for this EDT procedure are i n the results section. COMPLETE BLOOD COUNT Routine 12/01/2012 5:49 Resu lts for this EDT procedure are i n the results section. COMPLETE BLOOD COUNT Routine 12/01/2012 5:49 AND DIFFERENTIAL EDT HIV 1/2 ANTIGEN AND Routine 12/01/2012 5:49 Resul ts for this ANTIBODY, 4TH EDT procedure are in GENERATION the results section. C REACTIVE PROTEIN Routine 12/01/2012 5:49 Result s for this EDT procedure are i n the results section. QUANT BETA HCG, Routine 12/01/2012 5:49 Results f or this EDT procedure are i n the results section. BUN Routine 12/01/2012 5:49 Results for this EDT procedure are i n the results section. CREATININE Routine 12/01/2012 5:49 Results for this EDT procedure are i n the results section. CK Routine 12/01/2012 5:49 Results for this EDT procedure are i n the results section. ELECTROLYTES Routine 12/01/2012 5:49 Results for this EDT procedure are i n the results section. RAD US DOPPLER LOWER STAT 11/30/2012 22:34 Res ults for this EXTREMITY VENOUS EDT procedure a re in UNILATERAL the results section. RAD US DOPPLER UPPER STAT 11/30/2012 22:34 Res ults for this EXTREMITY VENOUS EDT procedure a re in UNILATERAL the results section. URINALYSIS WITH STAT 11/30/2012 20:11 Results for this MICROSCOPIC IF POSITIVE EDT proc edure are in the results section. UA REFLEX Routine 11/30/2012 20:11 Results for this EDT procedure are i n the results section. URINE CULTURE IF Routine 11/30/2012 20:11 Results for this POSITIVE EDT procedure are i n the results section. BACTERIAL CULTURE, Routine 11/30/2012 19:48 Resul ts for this BLOOD EDT procedure are i n the results section. BACTERIAL CULTURE, Routine 11/30/2012 19:48 Resul ts for this BLOOD EDT procedure are i n the results section. DIFFERENTIAL Routine 11/30/2012 19:47 Results for this EDT procedure are i n the results section. D-DIMER STAT 11/30/2012 19:47 Results for this EDT procedure are i n the results section. COMPLETE BLOOD COUNT Routine 11/30/2012 19:47 Res ults for this EDT procedure are i n the results section. COMPLETE BLOOD COUNT STAT 11/30/2012 19:47 AND DIFFERENTIAL EDT COMPREHENSIVE METABOLIC STAT 11/30/2012 19:47 Results for this PANEL (CMP) EDT procedure are i n the results section. HAND 2 VIEWS 11/30/2012 18:44 Results for this EDT procedure are i n the results section. documented in this encounter Results CHEST PA CENTRAL LINE/PICC/ET TUBE,INITIAL INSERTION (12/04/2012 15:02 EDT) Anatomical Region Laterality Modality Other Specimen Narrative [facility] - 12/04/2012 15:21 EDT CHEST 1 VIEW INITIAL LINE, ET INSERTION ??Dec 04, 2012 03:02:00 PM Signs and Symptoms/Comments: ?? PICC kade cement for abx, Dx: left radial artery occlusion Comparisons: none Dual-energy technique with reconstructio ns in normal, soft tissue and bone windows was used. Findings: The lungs are clear and there is no evid ence of pleural disease or pneumothorax. The cardiac silhouette and pulmonary vascularity are normal. The skeleton is unremarkable for age. The tip of the right PICC overlies expected location of the a triocaval junction. Impression: Satisfactory PICC position Procedure Note 12/04/2012 CHEST 1 VIEW INITIAL LINE, ET INSERTION Dec 04, 2012 03:02:00 PM Signs and Symptoms/Comments: PICC placem ent for abx, Dx: left radial artery occlusion Comparisons: none Dual-energy technique with reconstructio ns in normal, soft tissue and bone windows was used. Findings: The lungs are clear and there is no evid ence of pleural disease or pneumothorax. The cardiac silhouette and pulmonary vascularity are normal. The skeleton is unremarkable for age. The tip of the right PICC overlies expected location of the a triocaval junction. Impression: Satisfactory PICC position Performing Organization Address City/State/ZIP Code Phon e Number [facility] INSERT PICC LINE (12/04/2012 14:20 EDT) Narrative Natalie Myers RN - 12/04/2012 14:20 ED Natalie Mock RN ? 12/04/2012 14:20 Central Catheter Insertion First Catheter This Session ?station engineer main line: Patient Location: B320/02 Preliminary Data: Insertion Date: 12/04/12 Insertion Time: 1245 First Supervisor Poultry Processing: Natalie Myers RN RN/MA Documenting Procedure: Leeann vasquez MA Pre-procedure: Time Out / Final Moment Performed: Yes Hand Hygiene Immediately Prior To Proced ure: Yes Site Disinfected-2% Chlorhex/70% Alcohol : Yes Procedure Site Completely Dry: Yes Entire Patient Draped in Sterile Fashion : Yes Intra-procedure: Sterile Gloves Used: Yes Cap, Mask, and Sterile Gown - Operators: Yes Sterile Field Maintained: Yes Cap and Mask Worn - All Personnel: Yes Post-procedure: Sterile Dressing Applied - Sterile Techn ique: Yes Dressing Dated And Timed: Yes Needle Passes: VA RN Makes 2 Or Fewer Needle Passes: 2 or fewer passes ?Physician Documentation Pre-Procedure: Procedure To Be Performed: New central l ine placement Indication: New indication Conditions Present: Other (Comment) (gracia g term abx) Line Priority: Routine Follow-Up X-ray: Yes Consent Obtained: Yes The patient and/or family have been prov ided education/training to minimize the risk of central line-ass ociated bloodstream infections. Central Line Type: Central Catheter Type: PICC PICC Type: Solo PICC Central Line Details: Line Location: Right;Basilic Line Lumens (#): Single Central Line Size: 4 Fr Line Coating: Non-antimicrobial coated Vessel Size: 5 mm Vein Depth (cm): 1.25 cm Line Trim Length: 47 cm Line External Length: 6 cm Catheter Secured At (cm):: Other (Commen t) (6 cm) Responsible Service / IR Details: Responsible Service: GRACIE OLIVEROS Lidocaine 1% - Route/Dose (cc's): Subcut aneous;1 Central Line Materials and Methods: Number of Attempts: 1 Number of Sites Attempted: 1 Number of Kits Used: 1 Location Device Used: Ultrasound;[place] Central Line Operators: Number Of Operators: 1 First Supervisor Poultry Processing's Name: Natalie Myers First Supervisor Poultry Processing's Title: Vascular clerical clerk Unless otherwise noted, there were no co mplications, no blood loss and no cultures obtained. Natalie Myers RN ?? 12/04/2012 ?? 14:20 Procedure Note Natalie Myers RN - 12/04/2012 14:20 ED T Central Catheter Insertion First Catheter This Session station engineer main line: Patient Location: B320/02 Preliminary Data: Insertion Date: 12/04/12 Insertion Time: 1245 First Supervisor Poultry Processing: Natalie Myers RN RN/MA Documenting Procedure: Leeann vasquez MA Pre-procedure: Time Out / Final Moment Performed: Yes Hand Hygiene Immediately Prior To Proced ure: Yes Site Disinfected-2% Chlorhex/70% Alcohol : Yes Procedure Site Completely Dry: Yes Entire Patient Draped in Sterile Fashion : Yes Intra-procedure: Sterile Gloves Used: Yes Cap, Mask, and Sterile Gown - Operators: Yes Sterile Field Maintained: Yes Cap and Mask Worn - All Personnel: Yes Post-procedure: Sterile Dressing Applied - Sterile Techn ique: Yes Dressing Dated And Timed: Yes Needle Passes: VA RN Makes 2 Or Fewer Needle Passes: 2 or fewer passes Physician Documentation Pre-Procedure: Procedure To Be Performed: New central l ine placement Indication: New indication Conditions Present: Other (Comment) (gracia g term abx) Line Priority: Routine Follow-Up X-ray: Yes Consent Obtained: Yes The patient and/or family have been prov ided education/training to minimize the risk of central line-associated bloodstream infections. Central Line Type: Central Catheter Type: PICC PICC Type: Solo PICC Central Line Details: Line Location: Right;Basilic Line Lumens (#): Single Central Line Size: 4 Fr Line Coating: Non-antimicrobial coated Vessel Size: 5 mm Vein Depth (cm): 1.25 cm Line Trim Length: 47 cm Line External Length: 6 cm Catheter Secured At (cm):: Other (Commen t) (6 cm) Responsible Service / IR Details: Responsible Service: GRACEI OLIVEROS Lidocaine 1% - Route/Dose (cc's): Subcut aneous;1 Central Line Materials and Methods: Number of Attempts: 1 Number of Sites Attempted: 1 Number of Kits Used: 1 Location Device Used: Ultrasound;[place] Central Line Operators: Number Of Operators: 1 First Supervisor Poultry Processing's Name: Natalie Myers First Supervisor Poultry Processing's Title: Vascular clerical clerk Unless otherwise noted, there were no co mplications, no blood loss and no cultures obtained. Natalie Myers RN 12/04/2012 14:20 DIFFERENTIAL (12/04/2012 7:26 EDT) Pathologist Sig nature Neutrophils 57.1 45.5 - 79.7 % [facility] Lymphocytes 31.2 15.0 - 46.8 % [facility] Monocytes 6.0 1.8 - 12.0 % [facility] Eosinophils 4.4 0.6 - 6.9 % [facility] Basophils 1.3 0.2 - 1.4 % [facility] ABS Neutrophils 2.31 2.20 - 8.85 K/cmm [facility] ABS Lymphs 1.26 1.09 - 3.30 K/cmm [facility] ABS Monocytes 0.24 0.1 - 0.8 K/cmm [facility] ABS Eosinophils 0.18 0.03 - 0.61 K/cmm [facility] ABS Basophils 0.05 0.01 - 0.11 K/cmm [facility] Type of Diff: Automated [facility] Specimen Performing Organization Address City/[facility] Phon e Number [facility] [address] [place] [address] SERVICES [facility] [address] [place] [address] (ABNORMAL) HEMAGRAM (12/04/2012 7:26 EDT) Pathologist Sig nature WBC 4.04 4.0 - 12.4 K/cmm [facility] RBC 3.84 (L) 3.86 - 5.04 M/cmm [facility] Hemoglobin 11.1 (L) 11.6 - 15.2 gm/dl [facility] HCT 32.5 (L) 34.9 - 44.4 % [facility] MCV 84 81 - 98 fl [facility] MCH 29.0 26.7 - 33.3 pg [facility] MCHC 34.3 32.1 - 35.9 gm/dl [facility] PLT 211 141 - 320 K/cmm [facility] RDW-CV 12.9 11.7 - 14.6 % [facility] Specimen Performing Organization Address City/[facility]/ZIP Code Phon e Number [facility] [address] [place] [address] SERVICES [facility] [address] [place] [address] VANCOMYCIN TROUGH (12/04/2012 7:26 EDT) Pathologist [facility] Vancomycin Trough 16.1 10.0 - 20.0 [facility] Comment: ug/ml LAB Vancomycin Trough: ??15.0-20.0 ug/mL [for Staphylococcus aureus bacteremia, endocarditis, meningitis, osteomyelitis, pneumonia.] Vancomycin Dose Not Given [facility] Start Date LAB Vancomycin Dose Not Given [facility] Start Time LAB Type of Draw Not Given [facility] Specimen Performing Organization Address [facility]/ZIP [facility] Phon e Number [facility] [address] [place] [address] SERVICES [facility] [address] [place] [address] HEPATITIS B SURFACE ANTIGEN (12/04/2012 7:26 EDT) Pathologist [facility] Hepatitis B Surface NegativeComment: [facility] LA B Ag Reference Range: Negative Specimen Blood specimen (specimen) Performing Organization Address [facility] Phon e Number [facility] [address] [place] [address] SERVICES [facility] [address] [place] [address] HEPATITIS B SURFACE ANTIBODY (12/04/2012 7:26 EDT) Pathologist [facility] Hepatitis B Indeterminate - consider retesting or reimmuniza tion. [facility] Surface Ab Comment: LAB Reference Range: Unvaccinated: ??Negative Vaccinated: ??Positive HBs Antibody, 9.1 mIU/mL [facility] Quant Comment: LAB Indeterminate - consider retesting or reimmunization. Reference Range: Positive: >=12.0 mIU/mL Indeterminate: >=5.0 to <12.0 mIU/mL Negative: <5.0 mIU/mL Specimen Blood specimen (specimen) Performing Organization Address [facility]/ZIP Code Phon e Number [facility] [address] [place] [address] SERVICES [facility] [address] [place] [address] HEPATITIS B CORE ANTIBODY (12/04/2012 7:26 EDT) Pathologist [facility] Hep B Core Ab Negative [facility] Comment: Reference Range: ??Negative Interpretation depends on clinical setting. Specimen Blood specimen (specimen) Performing Organization Address [facility] Phon e Number [facility] [address] [place] [address] SERVICES [facility] [address] [place] [address] HEPATITIS A TOTAL ANTIBODY (12/04/2012 7:26 EDT) Pathologist Sig nature Hep A Antibody NegativeComment: [facility] Reference Range: Negative Specimen Blood specimen (specimen) Performing Organization Address [facility] Phon e Number [facility] [address] [place] [address] SERVICES [facility] [address] [place] [address] HCV RNA DETECT QUANT (12/04/2012 7:26 EDT) HCV RNA Detect 926 IU/mL [facility] Comment: LAB Reference Range: ??Undetected The quantification range of this assay is 43 IU/mL to 69,000,000 IU/mL. Testing was performed by the [employer] TaqMan HCV Test ([employer] Specimen Blood specimen (specimen) Performing Organization Address [facility] Phon e Number [facility] [address] [place] [address] SERVICES [facility] [address] [place] [address] CREATININE (12/04/2012 7:26 EDT) Pathologist Sig nature Creatinine 0.57 0.52 - 1.04 mg/dl [facility] GFR, Calculated >60 >60 ml/min/1.73m2 [facility] Specimen Blood specimen (specimen) Performing Organization Address [facility]/ZIP [facility] [place] Number [facility] [address] [place] [address] SERVICES [facility] [address] [place] [address] BUN (12/04/2012 7:26 EDT) Pathologist Sig nature BUN 13 10 - 26 mg/dl [facility] Specimen Blood specimen (specimen) Performing Organization Address [facility] Phon e Number [facility] [address] [place] [address] SERVICES [facility] [address] [place] [address] ELECTROLYTES (12/04/2012 7:26 EDT) Pathologist Sig nature Sodium 142 136 - 145 mEq/L [facility] Potassium 4.6 3.5 - 5.0 mEq/L [facility] Chloride 105 96 - 110 mEq/L [facility] CO2 26 24 - 32 mEq/L [facility] Specimen Blood specimen (specimen) Performing Organization Address [facility] [facility]/ZIP [facility] [place] [facility] [address] [place] [address] SERVICES [facility] [address] [place] [address] PTT (12/04/2012 7:26 EDT) Pathologist Sig nature PTT 33Comment: Therapeutic 26 - 37 secs [facility] Heparin range: 65-100 seconds Specimen Blood specimen (specimen) Performing Organization Address [facility]/ZIP [facility] Ph[place] Number [facility] [address] [place] [address] SERVICES [facility] [address] [place] [address] PROTIME (12/04/2012 7:26 EDT) Pro Time 11.9 9.5 - 13.1 [facility] secs I.N.R. 1.0 0.9 - 1.1 [facility] Comment: Ratio Moderate Intensity Coumadin INR = 2.0-3.0 Adjustments in anticoagulant therapy dose should be based upon the INR and NOT the Pro Time. Specimen Blood specimen (specimen) Performing Organization Address [facility] Phon e Number [facility] [address] [place] [address] SERVICES [facility] [address] [place] [address] ECHOCARDIOGRAM (12/03/2012 9:20 EDT) Specimen Narrative CARDIOLOGY - 12/03/2012 10:28 EDT *Interpreting Group:* *[facility]* [address] [place] [address] *STUDY CONCLUSIONS* Summary: 1. Left ventricle: The cavity size was n ormal. Wall ?? thickness was normal. Systolic funct ion was normal. Wall ?? motion was normal; there were no reg ional wall motion ?? abnormalities. 2. Mitral valve: There was a possible, s mall, 5mm (L) x 3mm ?? (W), mobile vegetation on the atrial aspect of the tip of ?? the posterior leaflet. Trivial regur gitation. *PATIENT PRESENTATION* Height: ? 154.9cm (61in ) S/D Pressure: 104 / 52 Weight: ? 73.5kg (161.7lb ) BSA: ?1.81m^2 Test start time: ??09:20 AM. Test stop time: ??10:03 AM. COLLEGE COACH ??Arianna Delatorre ANNALISE REFERRING ?No Pcp, ADMITTING ?Andre Raya ATTENDING ?Jackie Lopez ORDERING ? Jackie Lopez REFERRING ?Jackie Lopez PERFORMING ?? [facility], COLLEGE COACH ??Socorro Templeton *PROCEDURE DATA* Procedure information: ??This study was interpreted by [facility] at [facility]. ??Study status: Routine. Transthoracic echocardiography. ??M-mode, complete 2D, complete spectral Doppler, and color Dop pler. A Transthoracic Echocardiogram was performed. Scanning w as performed from the parasternal, apical, subcostal, and supr asternal notch acoustic windows. Images were obtained using a [employer] IE33 4 cardiac ultrasound machine. Image quality was ad equate. ??Study completion: The patient tolerated the procedure well . *INDICATIONS AND HISTORY* Indications: ?? Cellulitis - unspec. 682 .9. ??Edema 782.3. ?? *CARDIAC ANATOMY* Left ventricle: ??The cavity size was no rmal. Wall thickness was normal. Systolic function was normal. Wa ll motion was normal; there were no regional wall motion abnormaliti es. Aortic valve: ?? Trileaflet; normal thic kness leaflets. Mobility was not restricted. ??Doppler: ??Transvalvul ar velocity was within the normal range. There was no stenosis. ??N o regurgitation. Aorta: ??Aortic root: The aortic root wa s normal in size. Mitral valve: ?? Structurally normal doretha ve. ?? Mobility was not restricted. There was a possible, small, 5mm (L) x 3mm (W), mobile vegetation on the atrial aspect of the t ip of the posterior leaflet. Doppler: ??Transvalvular velocity was wi thin the normal range. There was no evidence for stenosis. ??Trivial regurgitation. ?Peak gradient: 4.8mm Hg (D). Left atrium: ??The atrium was normal in size. Right ventricle: ??The cavity size was n ormal. Wall thickness was normal. Systolic function was normal. Pulmonic valve: ?Structurally normal valve. ?? Cusp separation was normal. ??Doppler: ??Transvalvular veloc ity was within the normal range. There was no evidence for stenosis. ??No significant regurgitation. Tricuspid valve: ?? Structurally normal valve. ?Doppler: Transvalvular velocity was within the no rmal range. ??Trivial regurgitation. Pulmonary artery: ?? The main pulmonary artery was normal-sized. Pulmonary systolic pressure was within t he normal range, estimated to be 25mm Hg. Right atrium: ??The atrium was normal in size. Pericardium: ??There was no pericardial effusion. Systemic veins: Inferior vena cava: The vessel was ellen l in size. *MEASUREMENT TABLES* 2D measurements ?Normal Left ventricle Area, ED, A4C ?25.7 cm^2 ?? 17.7-47.3 Area, ES, A4C ?14.7 cm^2 ?? 7.9-31.5 Fractional area change, A4C ?43 % ?--------- Volume, ED, MOD, 1-plane ? 80 ml ? --------- Volume, ES, MOD, 1-plane ? 33 ml ? --------- Ejection fraction, MOD, 1-plane ?59 % ?--------- Stroke volume, MOD, 1-plane ?47 ml ? --------- Volume index, ED, MOD, 1-plane ? 44 ml/m^2 --------- Volume index, ES, MOD, 1-plane ? 18 ml/m^2 --------- Stroke index, MOD, 1-plane ? 26 ml/m^2 --------- Aorta Root diameter, ED ?22 mm ? --------- Ascending aorta anterior-posterior ? 22 mm ? --------- diameter, S Left atrium Anterior-posterior dimension ? 37 mm ? --------- Anterior-posterior dimension index ? 2.05 cm/m^2 <2.2 Superior-inferior dimension, A4C ? 37 mm ? 29-53 ?? M-mode measurements ?Normal Left ventricle LV internal dimension, ED ?42 mm ? 37-56 LV internal dimension, ES ?29 mm ? --------- Fractional shortening ?31 % ?29-45 LV posterior wall, ED ? 9 mm ? 6-11 Septal/posterior wall ratio, ED ? 1.1 ?--------- Relative wall thickness, ED ? 0.4 ?<0.45 Volume, ED, Teichholz ?78.6 ml ? --------- Volume, ES, Teichholz ?32.2 ml ? --------- Ejection fraction, Teichholz ?*59 % ?64-83 Volume index, ED, Teichholz ?44 ml/m^2 --------- Volume index, ES, Teichholz ?18 ml/m^2 --------- Wall mass ? 127.8 g ?--------- Wall mass index ?70.8 g/m^2 ??--------- Mass/height ?0.82 g/cm ?? --------- Ventricular septum Septal thickness, ED ? 10 mm ? --------- ?? Doppler measurements ? Normal Left ventricle IVRT ? 70 ms ? 60-100 Ea, lateral annulus, tissue Doppler ? 9.1 cm/s ?? --------- E/Ea, lateral annulus, tissue Doppler ?12 ?--------- Mitral valve Peak E-wave velocity ?109 cm/s ?? --------- Peak A-wave velocity ? 71.6 cm/s ?? --------- Deceleration time ? 197 ms ? 150-230 Peak gradient, D ?4.8 mm Hg ??--------- Peak E/A ratio ?1.5 ?--------- Legend: Mean values are shown as u=mean value. Asterisk (*) morse values outside specif ied normal range. Electronically signed by Brenden Meek MD [id number] Procedure Note 12/03/2012 *Interpreting Group:* *[facility]* [address] [place] [address] *STUDY CONCLUSIONS* Summary: 1. Left ventricle: The cavity size was n ormal. Wall thickness was normal. Systolic function was normal. Wall motion was normal; there were no region al wall motion abnormalities. 2. Mitral valve: There was a possible, s mall, 5mm (L) x 3mm (W), mobile vegetation on the atrial as pect of the tip of the posterior leaflet. Trivial regurgit ation. *PATIENT PRESENTATION* Height: 154.9cm (61in ) S/D Pressure: 104 / 52 Weight: 73.5kg (161.7lb ) BSA: 1.81m^2 Test start time: 09:20 AM. Test stop time: 10:03 AM. COLLEGE COACH Gissel Cartwright RN RDCS REFERRING No Pcp, ADMITTING [facility] ATTENDING [facility], Jackie ORDERING [facility], Jackie REFERRING [facility], Jackie PERFORMING [facility], COLLEGE COACH Socorro Templeton *PROCEDURE DATA* Procedure information: This study was in terpreted by [facility] at [facility]. Study status: Routine. Transthoracic echocardiography. M-mode, complete 2D, complete spectral Doppler, and color Dop pler. A Transthoracic Echocardiogram was performed. Scanning w as performed from the parasternal, apical, subcostal, and supr asternal notch acoustic windows. Images were obtained using a [employer] IE33 4 cardiac ultrasound machine. Image quality was ad equate. Study completion: The patient tolerated the procedure well . *INDICATIONS AND HISTORY* Indications: Cellulitis - unspec. 682.9. Edema 782.3. *CARDIAC ANATOMY* Left ventricle: The cavity size was norm al. Wall thickness was normal. Systolic function was normal. Wa ll motion was normal; there were no regional wall motion abnormaliti es. Aortic valve: Trileaflet; normal thickne ss leaflets. Mobility was not restricted. Doppler: Transvalvular v elocity was within the normal range. There was no stenosis. No regurgitation. Aorta: Aortic root: The aortic root was normal in size. Mitral valve: Structurally normal valve. Mobility was not restricted. There was a possible, small, 5mm (L) x 3mm (W), mobile vegetation on the atrial aspect of the t ip of the posterior leaflet. Doppler: Transvalvular velocity was with in the normal range. There was no evidence for stenosis. Trivial re gurgitation. Peak gradient: 4.8mm Hg (D). Left atrium: The atrium was normal in si ze. Right ventricle: The cavity size was nor mal. Wall thickness was normal. Systolic function was normal. Pulmonic valve: Structurally normal valv e. Cusp separation was normal. Doppler: Transvalvular velocity was within the normal range. There was no evidence for stenosis. No s ignificant regurgitation. Tricuspid valve: Structurally normal doretha ve. Doppler: Transvalvular velocity was within the no rmal range. Trivial regurgitation. Pulmonary artery: The main pulmonary art trista was normal-sized. Pulmonary systolic pressure was within t he normal range, estimated to be 25mm Hg. Right atrium: The atrium was normal in s ize. Pericardium: There was no pericardial ef fusion. Systemic veins: Inferior vena cava: The vessel was ellen l in size. *MEASUREMENT TABLES* 2D measurements Normal Left ventricle Area, ED, A4C 25.7 cm^2 17.7-47.3 Area, ES, A4C 14.7 cm^2 7.9-31.5 Fractional area change, A4C 43 % ------- -- Volume, ED, MOD, 1-plane 80 ml --------- Volume, ES, MOD, 1-plane 33 ml --------- Ejection fraction, MOD, 1-plane 59 % --- ------ Stroke volume, MOD, 1-plane 47 ml ------ --- Volume index, ED, MOD, 1-plane 44 ml/m^2 --------- Volume index, ES, MOD, 1-plane 18 ml/m^2 --------- Stroke index, MOD, 1-plane 26 ml/m^2 --- ------ Aorta Root diameter, ED 22 mm --------- Ascending aorta anterior-posterior 22 mm --------- diameter, S Left atrium Anterior-posterior dimension 37 mm ----- ---- Anterior-posterior dimension index 2.05 cm/m^2 <2.2 Superior-inferior dimension, A4C 37 mm 2 9-53 M-mode measurements Normal Left ventricle LV internal dimension, ED 42 mm 37-56 LV internal dimension, ES 29 mm -------- - Fractional shortening 31 % 29-45 LV posterior wall, ED 9 mm 6-11 Septal/posterior wall ratio, ED 1.1 ---- ----- Relative wall thickness, ED 0.4 <0.45 Volume, ED, Teichholz 78.6 ml --------- Volume, ES, Teichholz 32.2 ml --------- Ejection fraction, Teichholz *59 % 64-83 Volume index, ED, Teichholz 44 ml/m^2 -- ------- Volume index, ES, Teichholz 18 ml/m^2 -- ------- Wall mass 127.8 g --------- Wall mass index 70.8 g/m^2 --------- Mass/height 0.82 g/cm --------- Ventricular septum Septal thickness, ED 10 mm --------- Doppler measurements Normal Left ventricle IVRT 70 ms 60-100 Ea, lateral annulus, tissue Doppler 9.1 cm/s --------- E/Ea, lateral annulus, tissue Doppler 12 --------- Mitral valve Peak E-wave velocity 109 cm/s --------- Peak A-wave velocity 71.6 cm/s --------- Deceleration time 197 ms 150-230 Peak gradient, D 4.8 mm Hg --------- Peak E/A ratio 1.5 --------- Legend: Mean values are shown as u=mean value. Asterisk (*) morse values outside specif ied normal range. Electronically signed by Brenden Meek MD [id number] Performing Organization Address City/State/ZIP Code Phon e Number [facility] CARDIOLOGY (ABNORMAL) DIFFERENTIAL (12/03/2012 5:30 EDT) Pathologist Sig nature Neutrophils 45.1 (L) 45.5 - 79.7 % [facility] Lymphocytes 43.1 15.0 - 46.8 % [facility] Monocytes 6.7 1.8 - 12.0 % [facility] Eosinophils 4.0 0.6 - 6.9 % [facility] Basophils 1.1 0.2 - 1.4 % [facility] ABS Neutrophils 2.03 (L) 2.20 - 8.85 K/cmm [facility] ABS Lymphs 1.94 1.09 - 3.30 K/cmm [facility] ABS Monocytes 0.30 0.1 - 0.8 K/cmm [facility] ABS Eosinophils 0.18 0.03 - 0.61 K/cmm [facility] ABS Basophils 0.05 0.01 - 0.11 K/cmm [facility] Type of Diff: Automated [facility] Specimen Performing Organization Address City/[facility]/ZIP Code Phon e Number [facility] [address] [place] [address] SERVICES [facility] [address] [place] [address] (ABNORMAL) HEMAGRAM (12/03/2012 5:30 EDT) Pathologist Sig nature WBC 4.51 4.0 - 12.4 K/cmm [facility] RBC 3.91 3.86 - 5.04 M/cmm [facility] Hemoglobin 11.5 (L) 11.6 - 15.2 gm/dl [facility] HCT 32.9 (L) 34.9 - 44.4 % [facility] MCV 84 81 - 98 fl [facility] MCH 29.4 26.7 - 33.3 pg [facility] MCHC 35.0 32.1 - 35.9 gm/dl [facility] PLT 182 141 - 320 K/cmm [facility] RDW-CV 13.1 11.7 - 14.6 % [facility] Specimen Performing Organization Address [facility] Phon e Number [facility] [address] [place] [address] SERVICES [facility] [address] [place] [address] CREATININE (12/03/2012 5:30 EDT) Pathologist Sig nature Creatinine 0.58 0.52 - 1.04 mg/dl [facility] GFR, Calculated >60 >60 ml/min/1.73m2 [facility] Specimen Blood specimen (specimen) Performing Organization Address City/[facility]/ZIP Code Phon e Number [facility] [address] [place] [address] SERVICES [facility] [address] [place] [address] BUN (12/03/2012 5:30 EDT) Pathologist Sig nature BUN 14 10 - 26 mg/dl [facility] Specimen Blood specimen (specimen) Performing Organization Address City/[facility]/ZIP Code Phon e Number [facility] [address] [place] [address] SERVICES [facility] [address] [place] [address] ELECTROLYTES (12/03/2012 5:30 EDT) Pathologist Sig nature Sodium 140 136 - 145 mEq/L [facility] Potassium 4.3 3.5 - 5.0 mEq/L [facility] Chloride 104 96 - 110 mEq/L [facility] CO2 26 24 - 32 mEq/L [facility] Specimen Blood specimen (specimen) Performing Organization Address [facility] Phon e Number [facility] [address] [place] [address] SERVICES [facility] [address] [place] [address] INPATIENT ADD-ON (12/02/2012 14:50 EDT) Tests to be added PT MIXING STUDY [facility] MONSIVAIS (PLEASE PERFORM ON BLOOD FROM 12/01 IF POSSIBLE) Number for problems PASS [facility] Accession number NA [facility] Specimen Performing Organization Address [facility]/ZIP [facility] [place] Number [facility] [address] [place] [address] SERVICES [facility] [address] [place] [address] (ABNORMAL) VANCOMYCIN TROUGH (12/02/2012 9:30 EDT) Vancomycin Trough 5.3 (L) 10.0 - 20.0 [facility] Comment: ug/ml LAB Vancomycin Trough: ??15.0-20.0 ug/mL [for Staphylococcus aureus bacteremia, endocarditis, meningitis, osteomyelitis, pneumonia.] Vancomycin Dose [id number] [facility] Start Date LAB Vancomycin Dose 0900 [facility] Start Time LAB Type of Draw VENIPUNCTURE/HEELSTIC [facility] Landaverde (PREFERRED) LAB Specimen Blood specimen (specimen) Performing Organization Address [facility]/ZIP [facility] Ph[place] Number [facility] [address] [place] [address] SERVICES [facility] [address] [place] [address] DIFFERENTIAL (12/02/2012 7:10 EDT) Pathologist Sig nature Neutrophils 61.4 45.5 - 79.7 % [facility] Lymphocytes 26.4 15.0 - 46.8 % [facility] Monocytes 7.5 1.8 - 12.0 % [facility] Eosinophils 3.7 0.6 - 6.9 % [facility] Basophils 1.0 0.2 - 1.4 % [facility] ABS Neutrophils 3.49 2.20 - 8.85 K/cmm [facility] ABS Lymphs 1.51 1.09 - 3.30 K/cmm [facility] ABS Monocytes 0.43 0.1 - 0.8 K/cmm [facility] ABS Eosinophils 0.21 0.03 - 0.61 K/cmm [facility] ABS Basophils 0.06 0.01 - 0.11 K/cmm [facility] Type of Diff: Automated [facility] Specimen Performing Organization Address [facility] Phon e Number [facility] [address] [place] [address] SERVICES [facility] [address] [place] [address] (ABNORMAL) HEMAGRAM (12/02/2012 7:10 EDT) Pathologist Sig nature WBC 5.70 4.0 - 12.4 K/cmm [facility] RBC 3.87 3.86 - 5.04 M/cmm [facility] Hemoglobin 11.3 (L) 11.6 - 15.2 gm/dl [facility] HCT 32.8 (L) 34.9 - 44.4 % [facility] MCV 85 81 - 98 fl [facility] MCH 29.2 26.7 - 33.3 pg [facility] MCHC 34.5 32.1 - 35.9 gm/dl [facility] PLT 164 141 - 320 K/cmm [facility] RDW-CV 12.9 11.7 - 14.6 % [facility] Specimen Performing Organization Address [facility] Phon e Number [facility] [address] [place] [id number] SERVICES [facility] [address] [place] [address] CREATININE (12/02/2012 7:10 EDT) Pathologist Sig nature Creatinine 0.55 0.52 - 1.04 mg/dl [facility] GFR, Calculated >60 >60 ml/min/1.73m2 [facility] Specimen Blood specimen (specimen) Performing Organization Address City/[facility]/ZIP Code Phon e Number [facility] [address] [place] [address] SERVICES [facility] [address] [place] [address] BUN (12/02/2012 7:10 EDT) Pathologist Sig nature BUN 16 10 - 26 mg/dl [facility] Specimen Blood specimen (specimen) Performing Organization Address City/[facility]/ZIP Code Phon e Number [facility] [address] [place] [address] SERVICES [facility] [address] [place] [address] ELECTROLYTES (12/02/2012 7:10 EDT) Pathologist Sig nature Sodium 141 136 - 145 mEq/L [facility] Potassium 4.2 3.5 - 5.0 mEq/L [facility] Chloride 105 96 - 110 mEq/L [facility] CO2 27 24 - 32 mEq/L [facility] Specimen Blood specimen (specimen) Performing Organization Address [facility] Phon e Number [facility] [address] [place] [address] SERVICES [facility] [address] [place] [address] CT ANGIO UPPER EXTREMITY (12/01/2012 13:13 EDT) Anatomical Region Laterality Modality Other Specimen Narrative [facility] - 12/02/2012 12:47 EDT Examination: CT angiogram of the left upper extremity performed on December 01, 2012. Clinical History: Radial artery clot det ected on ultrasound, CTA recommended to further evaluate. Technique: Helical imaging was performed from the l evel of the left shoulder to the level of the left hand during arteri al phase of contrast administration. There are no previous st udies for comparison. Findings: Because of venous contamination and pablo y timing of the contrast bolus, the arteries beyond the distal fo rearm are not well evaluated. To the level of the distal left forearm, the right distal ulnar and radial arteries appear patent. The visua lized left subclavian, and brachial arteries are also patent. There is significant opacification of the venous structures secondary to in jection through a IV in the left arm. No other bony or muscular abno rmalities are noted. Impression: 1. Nondiagnostic left upper extremity CT A. Procedure Note 12/02/2012 Examination: CT angiogram of the left up per extremity performed on December 01, 2012. Clinical History: Radial artery clot det ected on ultrasound, CTA recommended to further evaluate. Technique: Helical imaging was performed from the l evel of the left shoulder to the level of the left hand during arteri al phase of contrast administration. There are no previous st udies for comparison. Findings: Because of venous contamination and pablo y timing of the contrast bolus, the arteries beyond the distal fo rearm are not well evaluated. To the level of the distal left forearm, the right distal ulnar and radial arteries appear patent. The visua lized left subclavian, and brachial arteries are also patent. There is significant opacification of the venous structures secondary to in jection through a IV in the left arm. No other bony or muscular abno rmalities are noted. Impression: 1. Nondiagnostic left upper extremity CT A. Performing Organization Address City/[facility]/ZIP Code Phon e Number [facility] MCHV RADIOLOGY (ABNORMAL) SED. RATE:RADHA (12/01/2012 12:46 EDT) Pathologist Sig nature Sed. Rate Radha 47 (H) 0 - 20 mm/hr [facility] Specimen Blood specimen (specimen) Performing Organization Address [facility]/ZIP Code Phon e Number [facility] [address] [place] [address] SERVICES [facility] [address] [place] [address] INPATIENT ADD-ON (12/01/2012 10:50 EDT) Pathologist Sig nature Tests to be added CRP,SED RATE [facility] Number for problems [address] [facility] Accession number [id number] CALLED [facility] YUDITH B3 LAV TOP TOO OLD FOR SWE 3.23.13 1053AM [place] Specimen Performing Organization Address City/[facility]/ZIP Code Phon e Number [facility] [address] [place] [address] SERVICES [facility] [address] [place] [address] INPATIENT ADD-ON (12/01/2012 10:45 EDT) Tests to be added SERUM [facility] TEST Number for problems [address] [facility] Accession number [id number] [facility] Specimen Performing Organization Address [facility] Phon e Number [facility] [address] [place] [address] SERVICES [facility] [address] [place] [address] (ABNORMAL) CK (12/01/2012 5:49 EDT) Pathologist Sig nature CK <25 (L)Comment: Add 30 - 135 U/L [facility] on order Specimen Performing Organization Address [facility] Phon e Number [facility] [address] [place] [address] SERVICES [facility] [address] [place] [address] INPATIENT ADD-ON (12/01/2012 5:49 EDT) Pathologist Sig nature Tests to be added CK [facility] Number for problems Not Given [facility] Accession number [id number] [facility] Specimen Performing Organization Address [facility] Phon e Number [facility] [address] [place] [address] SERVICES [facility] [address] [place] [address] HCG (12/01/2012 5:49 EDT) Quant Beta HCG, <5 <5 mIU/ml [facility] Preg Comment: LAB Reference Range: Negative = <5 Indeterminate = 5-25 recommend repeat in 48 hours. Positive = >25 Specimen Performing Organization Address [facility] Phon e Number [facility] [address] [place] [address] SERVICES [facility] [address] [place] [address] (ABNORMAL) C-REACTIVE PROTEIN (12/01/2012 5:49 EDT) Pathologist Sig nature C-Reactive Protein 7.7 (H) <1.0 mg/dl [facility] Specimen Performing Organization Address [facility]/ZIP [facility] [facility] [place] [facility] [address] [place] [address] SERVICES [facility] [address] [place] [address] DIFFERENTIAL (12/01/2012 5:49 EDT) Pathologist Sig nature Neutrophils 65.6 45.5 - 79.7 % [facility] Lymphocytes 23.0 15.0 - 46.8 % [facility] Monocytes 9.1 1.8 - 12.0 % [facility] Eosinophils 1.5 0.6 - 6.9 % [facility] Basophils 0.8 0.2 - 1.4 % [facility] ABS Neutrophils 5.77 2.20 - 8.85 K/cmm [facility] ABS Lymphs 2.02 1.09 - 3.30 K/cmm [facility] ABS Monocytes 0.80 0.1 - 0.8 K/cmm [facility] ABS Eosinophils 0.13 0.03 - 0.61 K/cmm [facility] ABS Basophils 0.07 0.01 - 0.11 K/cmm [facility] Type of Diff: Automated [facility] Specimen Performing Organization Address City/[facility] Phon e Number [facility] [address] [phone] SERVICES [facility] [address] [place] [address] HEMAGRAM (12/01/2012 5:49 EDT) Pathologist Sig nature WBC 8.78 4.0 - 12.4 K/cmm [facility] RBC 4.17 3.86 - 5.04 M/cmm [facility] Hemoglobin 12.4 11.6 - 15.2 gm/dl [facility] HCT 35.2 34.9 - 44.4 % [facility] MCV 84 81 - 98 fl [facility] MCH 29.6 26.7 - 33.3 pg [facility] MCHC 35.1 32.1 - 35.9 gm/dl [facility] PLT 174 141 - 320 K/cmm [facility] RDW-CV 13.1 11.7 - 14.6 % [facility] Specimen Performing Organization Address [facility] Phon e Number [facility] [address] [place] [address] SERVICES [facility] [address] [place] [address] (ABNORMAL) SCREENING GLUCOSE (12/01/2012 5:49 EDT) Pathologist Sig nature Glucose, Screening 108 (H) 70 - 100 mg/dl [facility] Specimen Performing Organization Address [facility] Phon e Number [facility] [address] [place] [address] SERVICES [facility] [address] [place] [address] (ABNORMAL) PROTIME (12/01/2012 5:49 EDT) Pathologist [facility] Pro Time 13.8 (H) 9.5 - 13.1 [facility] secs I.N.R. 1.2 (H) 0.9 - 1.1 [facility] Comment: Ratio Moderate Intensity Coumadin INR = 2.0-3.0 Adjustments in anticoagulant therapy dose should be based upon the INR and NOT the Pro Time. Specimen Blood specimen (specimen) Performing Organization Address [facility] Phon e Number [facility] [address] [place] [address] SERVICES [facility] [address] [place] [address] PTT (12/01/2012 5:49 EDT) Pathologist [facility] PTT 29Comment: Therapeutic 26 - 37 secs [facility] Heparin range: 65-100 seconds Specimen Blood specimen (specimen) Performing Organization Address [facility] Phon e Number [facility] [address] [place] [address] SERVICES [facility] [address] [place] [address] HIV 1/2 ANTIBODY (12/01/2012 5:49 EDT) [facility] HIV 1/2 Antibody Negative [facility] Comment: LAB Reference Range: ??Negative Assayed utilizing [employer] chemiluminescent technology. Specimen Blood specimen (specimen) Performing Organization Address [facility] Phon e Number [facility] [address] [place] [address] SERVICES [facility] [address] [place] [address] CREATININE (12/01/2012 5:49 EDT) [facility] Creatinine 0.65 0.52 - 1.04 mg/dl [facility] GFR, Calculated >60 >60 ml/min/1.73m2 [facility] Specimen Blood specimen (specimen) Performing Organization Address [facility]/State/ZIP Code Phon e Number [facility] [address] [place] [address] SERVICES [facility] [address] [place] [address] BUN (12/01/2012 5:49 EDT) Pathologist Sig nature BUN 12 10 - 26 mg/dl [facility] Specimen Blood specimen (specimen) Performing Organization Address [facility] Phon e Number [facility] [address] [place] [address] SERVICES [facility] [address] [place] [address] ELECTROLYTES (12/01/2012 5:49 EDT) Pathologist Sig nature Sodium 142 136 - 145 mEq/L [facility] Potassium 3.7 3.5 - 5.0 mEq/L [facility] Chloride 102 96 - 110 mEq/L [facility] CO2 31 24 - 32 mEq/L [facility] Specimen Blood specimen (specimen) Performing Organization Address [facility] Phon e Number [facility] [address] [place] [address] SERVICES [facility] [address] [place] [address] RAD US DOPPLER UPPER EXTREMITY VENOUS UNILATERAL (11/30/2012 22:34 EDT) Anatomical Region Laterality Modality Other Specimen Narrative [facility] - 12/01/2012 22:16 EDT RAD US DOPPLER UPPER EXTREMITY VENOUS UNILATERAL ??Nov 30, 2012 10:37:00 PM Clinical history/Comments: arm/hand swel ling Comparison: None Technique: ??Static, cine, and selected color Doppler images of the left upper extremity veins were obtained . Findings: The left internal jugular, inn ominate, subclavian, axillary, brachial, basilic, and cephali c veins show no evidence of intraluminal thrombus. There is normal a ugmentation. The superficial veins of the left forearm are followed d own to the wrist. At the level of the wrist cannot, incidental no te was made of absence of flow in the radial artery. This was foll owed for a roughly 3 cm segment from the base of the thumb throu gh the palm. Echogenic material within this segment presumably reflects clot. The segments of the radial artery proximal to this gonzalez ve normal Doppler flow and normal waveforms. Impression: 1. No evidence of deep venous thrombosis in the left upper extremity. 2. Occlusion of the distal left radial a rtery. CT angiography of the upper extremity is indicated for further evaluation. Dr. Gilliam reviewed the case with NGOC ACKERMAN MD ??at 10:30 p.m. on 11/30/2012. I have personally reviewed the images an d the above interpretation and agree with the findings. Procedure Note Magdaleno Gilliam MD - 12/01/2012 RAD US DOPPLER UPPER EXTREMITY VENOUS UN ILATERAL Nov 30, 2012 10:37:00 PM Clinical history/Comments: arm/hand swel ling Comparison: None Technique: Static, cine, and selected co yariel Doppler images of the left upper extremity veins were obtained . Findings: The left internal jugular, inn ominate, subclavian, axillary, brachial, basilic, and cephali c veins show no evidence of intraluminal thrombus. There is normal a ugmentation. The superficial veins of the left forearm are followed d own to the wrist. At the level of the wrist cannot, incidental no te was made of absence of flow in the radial artery. This was foll owed for a roughly 3 cm segment from the base of the thumb throu gh the palm. Echogenic material within this segment presumably reflects clot. The segments of the radial artery proximal to this gonzalez ve normal Doppler flow and normal waveforms. Impression: 1. No evidence of deep venous thrombosis in the left upper extremity. 2. Occlusion of the distal left radial a rtery. CT angiography of the upper extremity is indicated for further evaluation. Dr. Gilliam reviewed the case with NGOC ACKERMAN MD at 10:30 p.m. on 11/30/2012. I have personally reviewed the images an d the above interpretation and agree with the findings. Performing Organization Address City/State/ZIP Code Phon e Number [facility] RAD US DOPPLER LOWER EXTREMITY VENOUS UNILATERAL (11/30/2012 22:34 EDT) Anatomical Region Laterality Modality Other Specimen Narrative [facility] - 12/01/2012 20:23 EDT RAD US DOPPLER LOWER EXTREMITY VENOUS UNILATERAL ??Nov 30, 2012 10:34:00 PM Clinical history/Comments: FEVER Comparison: None Technique: ??Static, cine, and selected color Doppler images of the left lower extremity veins were obtained . Findings: The left external iliac, commo n femoral, proximal greater saphenous, femoral, and popliteal veins demonstrate no evidence of intraluminal thrombus. ??There is normal augmentation, compression, and respiratory phasicity. The peroneal and posterior tibial veins are seen to be patent on Doppler imaging . The soft tissues of the left calf are normal. Impression: No evidence of deep venous thrombosis in the left lower extremity. Dr. Gilliam reviewed the case with NGOC ACKERMAN MD ??at 10:30 p.m. on 11/30/2012. I have personally reviewed the images an d the above interpretation and agree with the findings. Procedure Note Magdaleno Gilliam MD - 12/01/2012 RAD US DOPPLER LOWER EXTREMITY VENOUS UN ILATERAL Nov 30, 2012 10:34:00 PM Clinical history/Comments: FEVER Comparison: None Technique: Static, cine, and selected co yariel Doppler images of the left lower extremity veins were obtained . Findings: The left external iliac, commo n femoral, proximal greater saphenous, femoral, and popliteal veins demonstrate no evidence of intraluminal thrombus. There is normal a ugmentation, compression, and respiratory phasicity. The peroneal and posterior tibial veins are seen to be patent on Doppler imaging . The soft tissues of the left calf are normal. Impression: No evidence of deep venous thrombosis in the left lower extremity. Dr. Gilliam reviewed the case with NGOC ACKERMAN MD at 10:30 p.m. on 11/30/2012. I have personally reviewed the images an d the above interpretation and agree with the findings. Performing Organization Address City/State/ZIP Code Phon e Number [facility] UA REFLEX (11/30/2012 20:11 EDT) Pathologist Sig nature UA Billing Microscopic not [facility] indicated. Specimen Performing Organization Address City/State/ZIP Code Phon e Number [facility] [address] [place] [address] SERVICES [facility] [address] [place] [address] URINE CULTURE IF UA POSITIVE - NON POCT URINALYSIS ONLY (11/30/2012 20:11 EDT) Culture if Culture not [facility] Indicated indicated by urinalysis results. Specimen Urine (substance) - Urine Performing Organization Address City/State/ZIP Code Phon e Number [facility] [address] [place] [address] SERVICES [facility] [address] [place] [address] (ABNORMAL) URINALYSIS (11/30/2012 20:11 EDT) Pathologist Sig nature Color, UA Yellow [facility] Clarity, UA Clear [facility] Glucose, UA Neg Neg [facility] Bilirubin, UA Neg Neg [facility] Ketones, UA 2+ (A) Neg [facility] Specific [place], 1.020 1.001 - 1.035 [facility] Urine Blood, UA Neg Neg [facility] pH, UA 6.5 4.6 - 8.0 [facility] Protein, UA Neg Neg [facility] Urobilinogen, UA 0.2 0.2 - 1.0 [facility] E.U./dl Nitrite, UA Neg Neg [facility] Leuk Esterase Neg Neg [facility] Specimen Urine (substance) - Urine Performing Organization Address [facility] Phon e Number [facility] [address] [place] [address] SERVICES [facility] [address] [place] [address] BACTERIAL CULTURE, BLOOD (11/30/2012 19:48 EDT) Specimen Description Blood Right Arm Total volume of blood collected: 5 ml Volume of blood collected may not be [facility] adequate for detection of bacteremia/septicemia. Result No growth [facility] Report Status 12/05/2012 Final [facility] Specimen Other (qualifier value) - Blood Performing Organization Address [facility] Phon e Number [facility] [address] [place] [address] SERVICES [facility] [address] [place] [address] BACTERIAL CULTURE, BLOOD (11/30/2012 19:48 EDT) Specimen Description Blood Left Arm [facility] Total volume of blood collected: 10 ml Result No growth [facility] Report Status 12/05/2012 Final [facility] Specimen Other (qualifier value) - Blood Performing Organization Address [facility]/[place]IP [facility] [place] [facility] [address] [place] [address] SERVICES [facility] [address] [place] [address] DIFFERENTIAL (11/30/2012 19:47 EDT) Pathologist Sig nature Neutrophils 72.9 45.5 - 79.7 % [facility] Lymphocytes 18.9 15.0 - 46.8 % [facility] Monocytes 6.9 1.8 - 12.0 % [facility] Eosinophils 0.8 0.6 - 6.9 % [facility] Basophils 0.5 0.2 - 1.4 % [facility] ABS Neutrophils 7.59 2.20 - 8.85 K/cmm [facility] ABS Lymphs 1.96 1.09 - 3.30 K/cmm [facility] ABS Monocytes 0.71 0.1 - 0.8 K/cmm [facility] ABS Eosinophils 0.08 0.03 - 0.61 K/cmm [facility] ABS Basophils 0.05 0.01 - 0.11 K/cmm [facility] Type of Diff: Automated [facility] Specimen Performing Organization Address [facility] Phon e Number [facility] [address] [phone] SERVICES [facility] [address] [place] [address] HEMAGRAM (11/30/2012 19:47 EDT) Pathologist Sig nature WBC 10.40 4.0 - 12.4 K/cmm [facility] RBC 4.17 3.86 - 5.04 M/cmm [facility] Hemoglobin 12.0 11.6 - 15.2 gm/dl [facility] HCT 34.9 34.9 - 44.4 % [facility] MCV 84 81 - 98 fl [facility] MCH 28.7 26.7 - 33.3 pg [facility] MCHC 34.4 32.1 - 35.9 gm/dl [facility] PLT 164 141 - 320 K/cmm [facility] RDW-CV 13.1 11.7 - 14.6 % [facility] Specimen Performing Organization Address [facility] Phon e Number [facility] [address] [place] [address] SERVICES [facility] [address] [place] [address] (ABNORMAL) D-DIMER (11/30/2012 19:47 EDT) Pathologist Sig nature D-Dimer 532 (H)Comment: CUTOFF <230 ng/mL [facility] VALUE FOR THE EXCLUSION OF DVT and PE: 230 ng/mL D-dimer units Specimen Blood specimen (specimen) Performing Organization Address [facility] Phon e Number [facility] [address] [place] [address] SERVICES [facility] [address] [place] [address] (ABNORMAL) COMPREHENSIVE METABOLIC PANEL (CMP) (11/30/2012 19:47 EDT) Pathologist Sig nature Potassium 4.1 3.5 - 5.0 mEq/L [facility] Sodium 139 136 - 145 mEq/L [facility] Chloride 101 96 - 110 mEq/L [facility] CO2 26 24 - 32 mEq/L [facility] Total Alkaline 79 38 - 126 U/L [facility] Phosphatase Bilirubin, Total 0.7 0.2 - 1.3 mg/dl [facility] AST 11 (L) 15 - 46 U/L [facility] ALT 29 9 - 52 U/L [facility] Albumin 4.0 3.4 - 4.9 g/dl [facility] Total Protein 7.2 6.5 - 8.3 g/dl [facility] Creatinine 0.63 0.52 - 1.04 [facility] mg/dl GFR, Calculated >60 >60 [facility] ml/min/1.73m2 BUN 11 10 - 26 mg/dl [facility] Calcium 8.7 8.5 - 10.5 [facility] mg/dl Calculated Calcium 9.1 8.5 - 10.5 [facility] mg/dl Glucose, Serum 91 70 - 100 mg/dl [facility] Fasting? Unknown [facility] Specimen Blood specimen (specimen) Performing Organization Address City/[facility]/ZIP Code Phon e Number [facility] [address] [place] [address] SERVICES [facility] [address] [place] [address] HAND 2 VIEWS (11/30/2012 18:44 EDT) Anatomical Region Laterality Modality Other Specimen Narrative [facility] - 11/30/2012 19:39 EDT HAND 2 VIEWS ??Nov 30, 2012 06:44:00 PM Clinical History/Comments: hand swelling , fever, ? FB Comparison: None available. Findings: Left hand PA and lateral views are obtai yue. Positioning is relatively suboptimal with thumb and fin gers held in a partially flexed position. There is a relatively d iffuse pattern of soft tissue swelling. No acute fracture is identifie d. No radiopaque soft tissue foreign body is demonstrated. Procedure Note 11/30/2012 HAND 2 VIEWS Nov 30, 2012 06:44:00 PM Clinical History/Comments: hand swelling , fever, ? FB Comparison: None available. Findings: Left hand PA and lateral views are obtai yue. Positioning is relatively suboptimal with thumb and fin gers held in a partially flexed position. There is a relatively d iffuse pattern of soft tissue swelling. No acute fracture is identifie d. No radiopaque soft tissue foreign body is demonstrated. 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) Embolism and thrombosis of arteries of u pper extremity documented in this encounter Administered Medications Inactive Administered Medications - up to 3 most recent administrations Medication Order MAR Action Action Date Dose Rate Site acetaminophen (TYLENOL) tablet Given 11/30/2012 19:45 EDT 1,000 mg 1,000 mg 1,000 mg, oral, NOW X1, 1 dose, On 11/30/12 at 1900, STAT acetaminophen (TYLENOL) tablet 650 mg Given 12/01/2012 6:12 EDT 650 mg 650 mg, oral, EVERY 6 HOURS PRN, Starting on 12/01/12 at 0215, Until 12/01/12 at 0622, Pain, STAT acetaminophen (TYLENOL) tablet 650 mg Given 12/05/2012 9:39 EDT 650 mg 650 mg, oral, 2 TIMES DAILY, First dose on Mon12/01/12 at 0900, Until Discontinued, STAT Given 12/04/2012 21:04 EDT 650 mg Given 12/04/2012 9:13 EDT 650 mg ARIPiprazole (ABILIFY) tablet 10 mg Given 12/05/2012 9:40 EDT 10 mg 10 mg, oral, DAILY, First dose on Mon12/01/12 at 0900, Until Discontinued, STAT Given 12/04/2012 9:12 EDT 10 mg Given 12/03/2012 10:40 EDT 10 mg cefTRIAXone (ROCEPHIN) 2,000 mg in sodium Given 12/05/2012 9:42 EDT 2,000 mg chloride 0.9 % 50 mL IVPB 2,000 mg, intravenous, Administer over 30 Minutes, DAILY, 14 doses, First dose on Mon12/04/12 at 0900, Last dose on Mon12/17/12 at 0900, Routine Given 12/04/2012 9:12 EDT 2,000 mg enoxaparin (LOVENOX) injection 40 mg Given 12/01/2012 13:34 EDT 40 mg 40 mg, subcutaneous, DAILY, First dose on Mon12/01/12 at 1215, Until Discontinued, Routine enoxaparin (LOVENOX) injection 40 mg Given 12/05/2012 9:40 EDT 40 mg 40 mg, subcutaneous, DAILY, First dose on Mon12/05/12 at 0900, Until Discontinued, Routine enoxaparin (LOVENOX) injection 70 mg Given 12/04/2012 21:06 EDT 80 mg 70 mg (1 mg/kg ? 73.5 kg), subcutaneous, EVERY 12 HOURS, First dose on Mon12/01/12 at 2100, Until Discontinued, Routine Given 12/04/2012 9:14 EDT 70 mg Given 12/03/2012 20:34 EDT 70 mg HYDROcodone-acetaminophen (LORTAB) 5-500 mg Given 11/30/2012 23:29 EDT 1 Tablet tablet 1 Tab 1 Tablet, oral, NOW X1, 1 dose, On Mon11/30/12 at 2330, STAT HYDROcodone-acetaminophen (LORTAB) 5-500 mg Given 12/05/2012 6:0 9 EDT 1 Tablet tablet 1 Tab 1 Tablet, oral, EVERY 6 HOURS PRN, Starting on Mon12/01/12 at 0621, Until Mon12/05/12 at 1642, Pain, Routine Given 12/04/2012 15:31 EDT 1 Tablet Given 12/04/2012 9:12 EDT 1 Tablet ibuprofen (MOTRIN) tablet 800 mg Given 12/05/2012 13:21 EDT 800 mg 800 mg, oral, 3 TIMES DAILY, First dose on Mon12/01/12 at 0900, Until Discontinued, STAT Given 12/05/2012 9:40 EDT 800 mg Given 12/04/2012 21:06 EDT 800 mg LORazepam (ATIVAN) tablet 0.5 mg Given 12/04/2012 13:12 EDT 0.5 mg 0.5 mg, oral, NOW X1, 1 dose, On Mon12/04/12 at 1330, Routine traZODone (DESYREL) tablet 150 mg Given 12/04/2012 21:05 EDT 150 mg 150 mg, oral, AT BEDTIME, First dose on Mon12/01/12 at 2100, Until Discontinued, STAT Given 12/03/2012 23:27 EDT 150 mg Given 12/01/2012 20:39 EDT 150 mg vancomycin (VANCOCIN) IVPB 1,000 mg Given 11/30/2012 21:13 EDT 1,000 mg 1,000 mg (15 mg/kg ? 73.5 kg), intravenous, Administer over 60 Minutes, EVERY 12 HOURS, 1 dose, First dose on Mon11/30/12 at 1930, STAT vancomycin (VANCOCIN) IVPB 1,000 mg Given 12/02/2012 9:46 EDT 1,000 mg 1,000 mg (15 mg/kg ? 73.5 kg), intravenous, Administer over 60 Minutes, EVERY 12 HOURS, 14 doses, First dose on Mon12/01/12 at 0900, Last dose on Mon12/07/12 at 2100, Routine Given 12/01/2012 20:54 EDT 1,000 mg Given 12/01/2012 8:44 EDT 1,000 mg vancomycin (VANCOCIN) IVPB 1,000 mg Given 12/03/2012 23:23 EDT 1,000 mg 1,000 mg, intravenous, Administer over 60 Minutes, EVERY 8 HOURS, 21 doses, First dose (after last modification) on Mon12/02/12 at 1600, Last dose on Mon12/09/12 at 0800, Routine Given 12/03/2012 16:31 EDT 1,000 mg Given 12/03/2012 10:37 EDT 1,000 mg documented in this encounter Discontinued Medications Medication Sig Discontinue Reason Start Date End Date promethazine (PHENERGAN) Take 25 mg by mouth 12/05/2012 25 mg tablet 2 times daily. 5 days, starting 11/29/12 cephALEXin (KEFLEX) 500 Take 500 mg by mouth 12/05/2012 mg capsule every 12 hours. acetaminophen-codeine Take 2 Tabs by mouth 12/05/2012 (TYLENOL #3) 300-30 mg every 8 hours as per tablet needed. naproxen (NAPROSYN) 500 Take 1 Tab by mouth 12/31/2010 12/05/2012 mg tablet 2 times daily as needed for Pain. documented as of this encounter Historical Medications This list may reflect changes made after this encounter. Medication Sig Dispensed Refills Start Date End Date ARIPiprazole (ABILIFY) 10 Take 10 mg by mouth 0 10/14/2013 mg tablet daily. ibuprofen (MOTRIN) 800 mg Take 800 mg by mouth 0 07/29/2016 tablet 3 times daily. traZODone (DESYREL) 100 Take 150 mg by mouth 0 10/14/2013 mg tablet at bedtime. promethazine (PHENERGAN) Take 25 mg by mouth 0 12/05/2012 25 mg tablet 2 times daily. 5 days, starting 11/29/12 cephALEXin (KEFLEX) 500 Take 500 mg by mouth 0 12/05/2012 mg capsule every 12 hours. acetaminophen-codeine Take 2 Tabs by mouth 0 12/05/2012 (TYLENOL #3) 300-30 mg every 8 hours as per tablet needed. acetaminophen (TYLENOL) Take 650 mg by mouth 0 11/14/2016 325 mg tablet 2 times daily. Reported on 10/06/2016 added in this encounter Active and Recently Administered Medications Times are shown in EDT. Scheduled Medication Order 12/03/2012 12/04/2012 12/05/2012 acetaminophen (TYLENOL) tablet 650 mg (CANCELED) 1040 (Given - Provider: [place])2031 (Given - Provider: Amber Kern RN) 912 (Given - Provider: Meggan Medina RN)2103 (Given - Provider: Amber Kern RN) 0939 (Given - Provider: Meggan Medina RN) 650 mg, oral, 2 TIMES DAILY, First dose on 12/01/12 at 0900, Until Discontinued ARIPiprazole (ABILIFY) tablet 10 mg (CANCELED) 1040 (G iven - Provider: [place]) 0912 (Given - Provider: Meggan Medina RN) 0940 (G iven - Provider: Meggan Medina RN) 10 mg, oral, DAILY, First dose on 12/01/12 at 0900, Until Dis continued cefTRIAXone (ROCEPHIN) 2,000 mg in sodium chloride 0.9 % 50 mL IVPB (CANCELED) 09 (Given - Provider: Meggan Medina RN) 0942 (Given - Provider: Meggan Medina RN) 2,000 mg, intravenous, for 30 Minutes, D AILY, 14 doses, First dose on Mon12/04/12 at 0900, Last dose on Mon12/17/12 at 0900 enoxaparin (LOVENOX) injection 40 mg (CANCELED) 0940 (Given - Provider: Meggan Medina RN) 40 mg, subcutaneous, DAILY, First dose o n 12/05/12 at 0900, Until Discontinued enoxaparin (LOVENOX) injection 70 mg (CANCELED) 1040 ( Given - Provider: [place])2033 (Given - Provider: Amber Kern RN) 0914 (Given - Provider: Meggan Medina RN)2105 (Given - Provider: Amebr Kern RN) 1 mg/kg ? 73.5 kg = 70 mg, subcutaneous, EVERY 12 HOURS, First dose on 12/01/12 at 2100, Until Discontinued ibuprofen (MOTRIN) tablet 800 mg (CANCELED) 1040 (Give n - Provider: Pushpa Beach)1503 (Given - Provider: Pushpa Beach)203 (Given - Provider: Amber Kern RN) 0913 (Given - Provider: Meggan muniz RN)1420 (Given - Provider: Meggan Medina RN)210 (Given - Provider: Amber Kern RN) 0940 (Given - Provider: Meggan Medina RN)1321 (Given - Provider: Meggan Medina RN - Comment: Given early) 800 mg, oral, 3 TIMES DAILY, First dose on 12/01/12 at 0900, Until Discontinued LORazepam (ATIVAN) tablet 0.5 mg (COMPLETED) 1312 (Given - Provider: Meggan Medina RN) 0.5 mg, oral, NOW X1, 1 dose, 12/04/12 at 1330 traZODone (DESYREL) tablet 150 mg (CANCELED) 2327 (Giv en - Provider: Amber Kern RN) 2105 (Given - Provider: Amber Kern RN) 150 mg, oral, AT BEDTIME, First dose on 12/01/12 at 2100, Until Discontinued vancomycin (VANCOCIN) IVPB 1,000 mg (CANCELED) 1037 (G iven - Provider: Pushpa Beach)1631 (Given - Provider: Pushpa Beach)2323 (Given - Provider: Amber Kern RN) 0730 (Trough Due - Provider: Gracie Oliva [facility] - Comment: Prior to 0800 dose on 12/04/12) 1,000 mg, intravenous, for 60 Minutes, E VERY 8 HOURS, 21 doses, First dose on 12/02/12 at 1600, Last dose on 12/09/12 at 0800 PRN Medication Order 12/03/2012 12/04/2012 12/05/2012 HYDROcodone-acetaminophen (LORTAB) 5-500 mg tablet 1 T ab (CANCELED) 0523 (Given - Provider: Mahogany Servin)1138 (Given - Provider: Pushpa Beach)1745 (Given - Provider: Pushpa Beach) 0912 (Given - Provider: Meggan Medina RN)1531 (Given - Provider: Meggan Medina RN) 0609 (Given - Provider: Amber Kern RN) 1 Tab, oral, EVERY 6 HOURS PRN, Starting 12/01/12 at 0621, Until 12/05/12 at 1642, Pain documented in this encounter Orders Medications Ordered That Might Not Have Count Last Ord ered Date First Ordered Date Been Administered hepatitis A & B vaccine (PF) (TWINRIX) 1 3 720-20 EL unit-mcg/mL intramuscular injection 0.5 mL hepatitis A vaccine (PF) (HAVRIX) 1,440 1 12/06/19 13 Dea unit/mL intramuscular injection 1 mL hepatitis B vaccine (PF) (ENGERIX-B) 20 1 12/06/19 13 mcg/mL intramuscular injection 1 mL alteplase (CATHFLO ACTIVASE) injection 2 1 013 mg sodium chloride 0.9 % flush 10 mL 2 12/04/2012 sodium chloride 0.9 % flush 20 mL 1 12/04/2012 docusate sodium (COLACE) capsule 100 mg 1 12/02/19 13 enoxaparin (LOVENOX) injection 30 mg 1 12/01/2012 senna (SENOKOT) tablet 2 Tab 1 12/01/2012 Nursing Count Last Ordered Date First Ordered Date MEASURE WEIGHT 1 12/01/2012 PT Count Last Ordered Date First Ordered Date PT EVALUATION AND TREAT 1 12/02/2012 IV Count Last Ordered Date First Ordered Date IV REQUEST 1 12/01/2012 Admission Count Last Ordered Date First Ordered Date STATUS: INPATIENT ACUTE ADMISSION 1 11/30/2012 Transfer Count Last Ordered Date First Ordered Date NOTIFY PPS OF DISCHARGE COMPLETE 12/05/2012 CHANGE ATTENDING TO: 12/03/2012 PPS NOTIFICATION OF PATIENT ARRIVAL ON 3 UNIT Discharge Count Last Ordered Date First Ordered Date DISCHARGE PATIENT 1 12/05/2012 documented in this encounter Care Teams Pcb Design Engineer Relationship Specialty Start Date End Date Unknown, Provider, PCP - General 11/30/12 10/10/13 documented as of this encounter
--- OUTSIDE RECORDS SUMMARY | 2022-05-22 03:26 | XMS_ITS | Encounter Summary ---
:1990 Author Organization [facility] Address [address] [place] [address] Care Team Providers Name Role Phone None, Provider Primary Care Provider Unavailable Reason for Visit Reason Comments Dental Pain Pt to ED with 2 broken teeth today Encounter Details Date Type Department Care Team Description 12/31/2010 Emergency [facility] Niko Dunne PA-C [address] [facility], [address] [place] [address] Pain, dental; Emergency Department - Emergency, MD Kiersten Chipped tooth [facility] [address], [place] [id number] Social History Tobacco Use Types Packs/Day Years Used Date Current Every Day Smoker Alcohol Use Standard Drinks/Week Comments No 0 (1 standard drink = 0.6 oz pure alcoho l) Sex Assigned at Date Recorded Not on file documented as of this encounter Last Filed Vital Signs Vital Sign Reading Time Taken Comments Blood Pressure 112/56 12/31/2010 1359 EDT Pulse 95 12/31/2010 1359 EDT Temperature 36.3 ??C (97.3 ??F) 12/31/2010 1359 EDT Respiratory Rate 16 12/31/2010 1359 EDT Oxygen Saturation 99% 12/31/2010 1359 EDT Inhaled Oxygen Concentration - - Weight - - Height - - Body Mass Index - - documented in this encounter Discharge Instructions InstructionsNiko Dunne PA - 12/31/2010 Take Naproxen for pain Take antibiotics until they are gone May also take Tylenol 1000 mg every 4-6 hours up to 4 times/day Use Peridex mouthwash; do not swallow AttachmentsThe following attachments cannot be sent through Care Everywhere. BROKEN TOOTH: AFTER YOUR VISIT ([place])DENTAL PAIN: AFTER YOUR VISIT ([place]) documented in this encounter Medications at Time of Discharge Medication Sig Dispensed Refills Start Date End Date chlorhexidine (PERIDEX) Swish and spit 15 1 Bottle 0 12/3110/14/2013 0.12 % solution mL 2 times daily. DO NOT SWALLOW. naproxen (NAPROSYN) 500 mg Take 1 Tab by mouth 30 Tab 0 12/31/2010 12/05/2012 tablet 2 times daily as needed for Pain. penicillin v potassium Take 2 Tabs by 80 Tab 0 201 1 01/10/2011 (VEETID) 250 mg tablet mouth 4 times daily for 10 days. documented as of this encounter Ordered Prescriptions Prescription Sig Dispensed Refills Start Date End Date chlorhexidine (PERIDEX) Swish and spit 15 1 Bottle 0 12/3110/14/2013 0.12 % solution mL 2 times daily. DO NOT SWALLOW. penicillin v potassium Take 2 Tabs by 80 Tab 0 1 01/10/2011 (VEETID) 250 mg tablet mouth 4 times daily for 10 days. naproxen (NAPROSYN) 500 mg Take 1 Tab by mouth 30 Tab 0 12/31/2010 12/05/2012 tablet 2 times daily as needed for Pain. documented in this encounter Discharge Disposition Disposition Code Departure Means Destination Home or Self Nursing Home documented in this encounter ED Notes Niko Dunne PA - 12/31/2010 1430 EDT Images from the original note were not included. DOS: 12/31/2010 Chief Complaint Patient presents with ??? Dental Pain Pt to ED with 2 broken teeth today The patient is a 20 y.o. female who presents today with Dental Pain HPI Comments: This 20-year-old female presents with complaints of left lower dental pain for approximately one hour. The patient states she bit down and broke 2 teeth while eating potato chips. The patient notes poor dentition and prior dental caries. She states the pain is 7/10. She notes tenderness to palpation. The patient states she called her dentist who cannot see her for one month; she does not have a primary care physician. She is here from [facility], visiting a friend. The history is provided by the patient. Dental Pain This is a new problem. The current episode started less than 1 hour ago. The problem occurs constantly. The problem has not changed since onset. The pain is at a severity of 7/10. The pain is moderate.She has tried nothing for the symptoms. Review of Systems Constitutional: Negative for fever and chills. HENT: Positive for dental problem. Negative for sore throat, facial swelling, trouble swallowing andneck stiffness. Respiratory: Negative for shortness of breath and stridor. Gastrointestinal: Negative for vomiting. Skin: Negative for color change. Neurological: Negative for headaches. History reviewed. No pertinent past medical history. History reviewed. No pertinent past surgical history. No Known Allergies History Substance Use Topics ??? Smoking status: Current Everyday Smoker ??? Smokeless tobacco: Not on file ??? Alcohol Use: No History reviewed. No pertinent family history. Vital Signs Temp: 36.3 ??C (97.3 ??F) Temp src: Tympanic Pulse: 95 Resp: 16 SpO2: 99 % BP: 112/56 mmHg BP Device: BP Machine Patient Position: Sitting BP Cuff Location: Right arm O2 Device: None (Room air) Physical Exam Nursing note and vitals reviewed. Constitutional: She is oriented to person, place, and time. Vital signs are normal. She appears well-developed and well-nourished. She does not appear ill. No distress. HENT: Head: Normocephalic and atraumatic. No trismus in the jaw. Mouth/Throat: Uvula is midline, oropharynx is clear and moist and mucous membranes are normal. No oral lesions. Dental caries present. No dental abscesses or uvula swelling. No oropharyngeal exudate, posterior oropharyngeal edema, posterior oropharyngeal erythema or tonsillar abscesses. Eyes: Extraocular motions are normal. Neck: Normal range of motion. Neck supple. Cardiovascular: Normal rate, regular rhythm and normal heart sounds. Pulmonary/Chest: Effort normal and breath sounds normal. Musculoskeletal: Normal range of motion. Lymphadenopathy: She has no cervical adenopathy. Neurological: She is alert and oriented to person, place, and time. Skin: Skin is warm and dry. No erythema. Psychiatric: She has a normal mood and affect. Her behavior is normal. Radiology orders: None Procedures ED Course: A medical screening exam was performed. Patient with poor dentition, presents after tooth injury while biting into potato chips. She has follow up with her dentist. She was given prophylactic antibiotics due to poor dentition. Inferior alveolar dental block performed with 0.5% Marcaine, 1.8 mL, using a 27-gauge needle on left side, with good anesthesia. The patient was given prescription for Naproxenand Peridex. Disposition: Discharged The patient's pain was managed to an adequate level weighing risk vs. benefit of further medications. Upon departure from the Emergency Department, the patient's pain was 1 on a zero to ten scale. Condition at departure from the Emergency Department: Improved Discharge Prescriptions New Prescriptions CHLORHEXIDINE (PERIDEX) 0.12 % SOLUTION Swish and spit 15 mL 2 times daily. DO NOT SWALLOW. NAPROXEN (NAPROSYN) 500 MG TABLET Take 1 Tab by mouth 2 times daily as needed for Pain. PENICILLIN V POTASSIUM (VEETID) 250 MG TABLET Take 2 Tabs by mouth 4 times daily for 10 days. MDM Number of Diagnoses or Management Options Chipped tooth: Pain, dental: Diagnosis management comments: 3 + dental block Amount and/or Complexity of Data Reviewed Review and summarize past medical records: yes 1. Pain, dental (525.9AG) 2. Chipped tooth (873.63T) PCP: NO PCP Jd Curtis was available for supervision. 01/01/2011 13:18 documented in this encounter Miscellaneous Notes Scanned Note-Null - Inpatient, MD Donna - 12/31/2010 0000 EDT documented in this encounter Plan of Treatment Not on filedocumented as of this encounter Visit Diagnoses Diagnosis Pain, dental Unspecified disorder of the teeth and rutledge pporting structures Chipped tooth Open wound of tooth (broken) (fractured) (due to trauma), without mention of complication documented in this encounter Care Teams Pari Mutuel Ticket Seller Relationship Specialty Start Date End Date None, Provider PCP - General 12/31/10 11/29/12 documented as of this encounter
--- OUTSIDE RECORDS SUMMARY | 2022-05-22 03:26 | XMS_ITS | Continuity of Care Document ---
:1990 Author Organization [facility] Address [address] [place] [address] Care Team Providers Name Role Phone PCP, No Primary Care Physician Unavailable Allergies, Adverse Reactions, Alerts No allergy information available. Medications No medication information available. Problem List No problem information available. Procedures Procedure Date Status Urine Culture April 21, 2016 active Relevant Diagnostic Tests and/or Laboratory Data Laboratory Results Test Date/Time Result Interp. Ref. Range Result Comment Urine RBC April 21, 2016 40-75 /hpf High 9:40am Urine WBC April 21, 2016 40-75 /hpf High 9:40am Urine Squamous April 21, 2016 1+ /hpf Epithelial Cells 9:40am Urine Bacteria April 21, 2016 1+ /hpf High 9:40am Urine Mucus April 21, 2016 Present 9:40am Urine Culture Done April 21, 2016 Yes U RINE SPECIMEN 9:40am CULTURED Advance Directives Advance Directive Response Recorded Date/Time Does the patient have a living will? No Aug us2015 10:10am Does the patient have an advanced directive? No April 21, 2016 10:10am Power of Workers Compensation Legal Secretary? No April 21, 2016 10:1 0am Hospital Discharge Instructions No known hospital discharge instructions. Encounters Encounter Facility Location Admit Date Discharge Date Attending Provider Departed [facility] Emergency April 21April 21, [facility] 2015 9:23am 2015 10:43am Functional Status No known functional status. Immunizations No known immunizations. Payers Payer Policy Type Covered Covered Relationship Subscriber Subs criber Id Name Republican Republican Id SELF PAY Personal TODD SELF/SAME TODD CARDENAS PATIENT RONALD Plan of Care No known plan of care. Social History No known social history. Vital Signs No known vital signs results.
--- OUTSIDE RECORDS SUMMARY | 2022-05-22 03:26 | XMS_ITS | Encounter Summary ---
:1990 Author Organization [facility] Address [address] [place] [address] Care Team Providers Name Role Phone Unavailable Primary Care Provider Unavailable Encounter Details Date Type Department Care Team Description 01/02/2003 Hospital Encounter [facility] - [address], MD [address] [facility] [address] [place] [id number] [place] [address], [address] [place] [address] (Wo rk) Social History Tobacco [...]
== END 2022-05-22 01:46 | disposition home or self-care (01) ==
LOC: ER 03:22
PROVIDERS: Emergency Provider Student in an Organized Health Care Education/Training Program
DX: F11.20 Opioid dependence, uncomplicated (principal); F17.210 Nicotine dependence, cigarettes, uncomplicated; F17.290 Nicotine dependence, other tobacco product, uncomplicated
CPT/HCPCS: 99282; 81003; 81015

== ENCOUNTER 2023-07-23 13:08 | Observation (INO) | payer MEDICAID, SELFPAY ==
[2023-07-23] VITALS (40 sets, daily range): BP systolic 111–156; BP diastolic 63–93; PULSE 61–89; RESP 17–37; TEMP 37.2–38; O2SAT 93–100
--- NOTE | 2023-07-23 13:00 | RT.EKG_ITS ---
APPROVED REPORT Exam: Resting ECG Reason for Exam: deshawn Patient Location: E HR:70 bpm ECG Measurements Heart Rate 70 AXIS DC 125 P 28 QRSd 97 QRS 80 QT 399 T 58 QTc 431 Conclusion Sinus rhythm..V-rate 60- [address] segment or T wave abnormalities to suggest occlusive MT
--- NOTE | 2023-07-23 13:15 | DI.RAD_ITS ---
Exam(s) XR PORTABLE CHEST AP EXAM: XR PORTABLE CHEST AP CLINICAL HISTORY: seizure. TECHNIQUE: 2D digital imaging was performed. COMPARISON: No exams were available for comparison FINDINGS: Single AP portable view. Heart size is upper normal. The mediastinum is not widened. Lungs are clear. No infiltrates nor obvious pleural effusions. IMPRESSION: No acute pulmonary findings on this single AP portable view of the chest. DATA REPOSITORY: RADIATION DOSE DELIVERED:
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
[2023-07-23 14:03] LABS: BE (Venous) 6 mmol/L (-2-3); HCO3 (Venous) 30 mmol/L (23-28); O2 Sat (Venous) 58 %; TCO2 (Venous) 27 mmol/L (24-29); pCO2 (Venous) 42 mmHg (41-51); pH (Venous) 7.46 (7.31-7.41); pO2 (Venous) 32 mmHg
[2023-07-23 14:04] LABS: Lactate 1.6 mmol/L (0.6-1.4)
[2023-07-23 14:08] LABS: Abs Immature Grans 0.05 10^3/uL (0.0-0.06); Absolute Basophil Count 0.03 10^3/uL (0.0-0.2); Absolute Lymphocyte Count 1.71 10^3/uL (1.2-3.4); Absolute Monocyte Count 0.73 10^3/uL (0.1-0.8); Absolute Neutrophil Count 7.45 10^3/uL (1.2-6.7); Basophils % 0.3; HCT 40.2 % (36.0-46.0); Immature Grans % 0.5; Lymphocytes % 17.2; MCH 24.3 pg (27.0-33.0); MCHC 32.3 % (32.0-36.0); MCV 75 fL (80-95); MPV 10.1 fL (8.0-11.0); Monocytes % 7.3; Neutrophils % 74.7; Platelet Count 303 10^3/uL (130-400); RBC 5.35 10^6/uL (3.93-5.22); RDW 13.6 % (11.7-14.6); RDW-SD 36.3 fL; WBC 9.97 10^3/uL (4.4-10.8)
[2023-07-23 14:22] LABS: ALT 20 U/L (14-59); AST 13 U/L (15-37); Albumin 3.6 g/dL (3.4-5.0); Alkaline Phosphatase 50 U/L (46-116); BUN 25 mg/dL (7-18); Bilirubin, Total 0.7 mg/dL (0.2-1.0); CREATININE 0.9 mg/dL (0.55-1.02); Calcium 9.5 mg/dL (8.5-10.1); Chloride 103 mmol/L (98-107); Creatine Kinase 61 U/L (26-192); ETHANOL BLOOD < 3.0 mg/dL (<10); Estimated GFR 87.65 (mL/min/1.73m2); Glucose 111 mg/dL (74-106); Potassium 3.4 mmol/L (3.5-5.1); Sodium 138 mmol/L (136-145); Total Protein 8.6 g/dL (6.4-8.2)
[2023-07-23 14:27] LABS: HCG Quant, Pregnancy 1 mIU/mL (1-3)
[2023-07-23 14:29] LABS: Salicylate < 2.8 mg/dL (<2.8)
[2023-07-23 14:30] LABS: Acetaminophen < 2 ug/mL (10-30)
--- NOTE | 2023-07-23 14:30 | DI.CT_ITS ---
Exam(s) CT HEAD WO EXAM: CT HEAD WO CLINICAL HISTORY: seizure. TECHNIQUE: Imaging Protocol: Axial computed tomography images with coronal and sagittal reformatted images were created and reviewed COMPARISON: No exams were available for comparison FINDINGS: There are no skull fractures. There is no fluid in the visualized paranasal sinuses. There is no evidence of intracranial hemorrhage, mass effect, or shift of midline structures. There are no extra-axial fluid collections. The ventricles are not enlarged or shifted and there is no blo od within the ventricular system nor within the basal cisterns. IMPRESSION: No acute intracranial findings on this noninfused CT scan of the brain. Called by myself to ER RADIATION DOSE DELIVERED: Total DLP DATA REPOSITORY: All CT scans at this facility are submitted to the National Radiology Data Registry (NRDR) Dose Index Registry (DIR) with the [employer] (ACR). RADIATION OPTIMIZATION: All CT scans at this facility use at least one of these dose optimization te chniques: automated exposure control; mA and/or kV adjustment per patient size (includes targeted exa ms where dose is matched to clinical indication); or iterative reconstruction.
--- NOTE | 2023-07-23 14:33 | DI.VRAD_ITS ---
PROCEDURE INFORMATION: Exam: XR Chest Exam date and time: 07/23/2023 2:13 PM Age: 32 years old Clinical indication: Other: Seizure TECHNIQUE: Imaging protocol: Radiologic exam of the chest. Views: 1 view. COMPARISON: No relevant prior studies available. FINDINGS: Lungs: Unremarkable. No consolidation. Pleural spaces: Unremarkable. No pleural effusion. No pneumothorax. Heart/Mediastinum: Unremarkable. No cardiomegaly. Bones/joints: Unremarkable. IMPRESSION: No acute findings. Dictated and Authenticated by: Winifred Burr MD. Ordering:PHILOMENA Capone MD
[2023-07-23] MEDS: Normal Saline 1,000 ML 1000 ML IV (14:35)
[2023-07-23] MEDS: Potassium Chloride 20 MEQ TABCR PO (15:41)
[2023-07-23] MEDS: Acetaminophen 325 MG TAB 650 MG PO (16:41)
[2023-07-23 17:00] LABS: Source Nasal/Nares
[2023-07-23 17:31] LABS: COVID-19 PCR Negative (Negative)
--- NOTE | 2023-07-23 18:08 | HPE_ITS ---
Date of service: 07/23/23 Time of Service: 18:09 Assessment and Plan Assessment and plan (1) Seizure-like activity: Status: Acute Assessment and plan: Continue Keppra neuro consult EEG in AM BMP in AM (2) Drug dependence: Status: Acute Assessment and plan: Not on any program at this time (3) On deep vein thrombosis (DVT) prophylaxis: Status: Acute Assessment and plan: On lovenox SC (4) Discharge planning issues: Status: Acute Assessment and plan: Return to facility History of Present Illness History of Present Illness Chief Complaint: Tonic-Clonic acitivity Narrative: This 32 years old female patient residing in a correctional facility and with a medical history (reported by patient but not verifiable? of seizure disorder, presented for evaluation? of status epilepticus to the Ed at [facility] today via EMS. At the correctional facility, EMS reported the patient having 15- 30 minutes of witnessed generalized tonic-clonic activity and was given 2mg of IM ativan prior to their arrival. During transport, 10-15 seconds tonic-clonic activity reported by EMS ?for which? the patient received 10 mg of Versed. In the Ed the patient not seizing, but was somnolent without definite post-ictal signs. The patient reported daily seizures and being on anti- seizure medicines in the past could not recall where or exactly she was diagnosed with seizure disorder or the name of the provider; this could not be retraced in the [facility] records on the patient. The patient also mentioned not having have the seizure medicine for many year. The head CT w/o contrast in the ED showed no acute intracranial findings. The chest XR showed no acute pulmonary findings. The EKG showed NSR, HR 70 w/o signs of AK. The patient denied. regular alcohol use, history of withdrawal seizures, or any current infectious symptoms or recent head trauma. Vital signs were stable.labs were unremarkable except for mild hypokalemia, lactic was 1.6. UA and UDS pending urine. [facility] neurology consulted, case discussed with Dr. Villareal who recommended loading dose of keppra 60mg/kg followed by initiation of 500mg PO keppra BID, as well as overnight observation. Per Dr. Villareal, no indication for emergent or continuos EEG, if no further seizure activity overnight appropriate for discharge home on PO keppra to outpatient follow-up with neurology. The hospitalist was called and the patient was accepted for overnight observation for evaluation and management of tonic- clonic seizures Review of Systems Constitutional Constitutional: Reports body ache(s), Denies excessive sweating, Reports fatigue, Denies fever(s) and Reports weakness Eyes Eyes: Denies change in vision ENT Ears, Nose, Mouth, and Throat: Denies dysphagia and Reports dizziness Cardiovascular Cardiovascular: Reports chest pain (post seizure activity) Respiratory Respiratory: Denies cough, Denies hemoptysis and Denies pain with cough Gastrointestinal Gastrointestinal: Reports change in stool character (blood at the correctional facility for 5 days), Denies dysphagia, Reports diarrhea and Reports nausea Genitourinary Genitourinary: Reports hematuria and Reports difficulty voiding (burning) Musculoskeletal Musculoskeletal: Reports arthralgias Neurologic Neurologic: Denies abnormal speech, Reports dizziness, Denies other visual disturbances, Reports convulsions, Reports seizure-like activity and Reports weakness Endocrine Endocrine: Denies excessive sweating and Reports fatigue Hematologic/Lymphatic Hematologic/Lymphatic: Denies lymphadenopathy PFSH All Active Problems (Updated 07/23/23 @ 18:56 by Liliya Bowden APRN) On deep vein thrombosis (DVT) prophylaxis (Acute) Discharge planning issues (Acute) Seizure-like activity (Acute) Rh negative state in antepartum period (Acute) History of pyelonephritis (Acute) First trimester (Acute) Drug dependence (Acute) Drug abuse of mother (Acute) (Acute) 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) Positive test (Acute) Medical History Hepatitis C Kidney infection Surgical History History of tonsillectomy Family History Mother Diabetes Maternal Grandmother Bipolar 1 disorder Asthma COPD with asthma Maternal Grandfather Cancer Social History Smoking/Tobacco Use Status: Current every day Tobacco Type: cigarettes Years smoked: 18 and e-cigarettes Tobacco: How many years used: 15 Smoking risk assessment performed?: Yes Alcohol Intake: never Drug use: Daily Substance use type: crack/cocaine, opiates and painkillers Details: Pt w/ daily cocaine and fentanyl usage. Per pt 100 bags fentanyl daily for about 1yr. No longer in [facility] program. Per pt, 'Its been awhile but I'd like to try it again' Housing: homeless Current gender identity: female Do you feel safe at home: Yes Do you feel safe in your relationship?: Yes History History 2 4 Para 3 Hx # Term Pregnancies 3 Multiple births 0 Hx # Pregnancies 0 Ectopic pregnancies 0 AB induced 0 Hx Number of Living Children 3 AB spontaneous 0 Past Pregnancies Del. Date GA/Weeks # Preg Succ Route Wgt Sex Labor Lgth Anesth esia Location [facility] 03/03/10 38 No vaginal 3005.049 g Male 48 hrs [facility] 02/18/11 38 No vaginal 3033.399 g Female 48 hrs [facility] 02/28/17 37 No vaginal 4195.729 g Male 48 hrs [facility] other Delivery Date: 03/03/10 Last Updated by: Tiffanie Flowers CNM long labor w/o c/o. Delivery Date: 02/18/11 Last Updated by: Tiffanie Flowers CNM long labor w/o c/o. Delivery Date: 02/28/17 Last Updated by: Tiffanie Flowers CNM probable pre-eclampsia low platelets thus no epidural denies seizure. ? if mgso4 given. Meds Allergies and Home Medications Allergies Allergy/AdvReac Type Severity Reaction Status Date / Time No Known Allergies Allergy Unverified 10/15/20 09:26 Exam Narrative Exam Narrative: Constitutional The patient is lying in bed difficult to arouse but awaken with deep tactile stimuli, c/o of achyness since the seizures, wants to drink or eat a popsicle and not cooperative during the interview. The patient is without acute distress and is thin, disheveled. HENMT: Head is normocephalic, no lymphadenopathy, poor dentition, black teeth rooth and missing teeth. Facial structures with normal appearance Eyes: Well aligned, intact ROM Neck: Normal ROM, no meningeal signs Neuro:alert and oriented to self, person, place and situation, knows it 2022. No neurological focal deficit, PERRLA Chest:Chest is symmetrical and normal appearance Resp: Normal respiratory pattern,unlabored breathing, clear lung bilaterally Cardio: regular rhythm, S1, S2, no murmur, capillary refill<3 sec., bilateral radial and dorsalis pedis pulses are positive, palpable GI: Abdomen is not distended, soft and non tender, bowel sounds are present : Negative Costovertebral angle tenderness, Back/spine/Pelvis: No back tenderness, normal alignment Integumentary: No skin lesions or rash Extremities: strength 5/5 to bilateral lower and upper extremities Psych: RASS 0, her mood is irritable when awaken and irritable and labile affect. Results Labs 07/23/23 13:55 07/23/23 13:55 Labs: Laboratory Results - last 24 hr 07/23/23 07/23/23 07/23/23 13:07 13:55 16:54 WBC 9.97 RBC 5.35 H Hgb 13.0 Hct 40.2 MCV 75 L MCH 24.3 L MCHC 32.3 RDW 13.6 Plt Count 303 MPV 10.1 Immature Gran % 0.5 Neutrophils % 74.7 Lymphocytes % 17.2 Monocytes % 7.3 Eosinophils % 0.0 Basophils % 0.3 Nucleated RBC % 0.0 Absolute Neutrophils 7.45 H Absolute Lymphocytes 1.71 Absolute Monocytes 0.73 Absolute Eosinophils 0.00 Absolute Basophils 0.03 VBG pH 7.46 H VBG pCO2 42 VBG pO2 32 VBG HCO3 30 H VBG Total CO2 27 VBG O2 Saturation 58 VBG Base Excess 6 H VBG Lactate 1.6 H Sodium 138 Potassium 3.4 L Chloride 103 Carbon Dioxide 30.0 Anion Gap 5.0 BUN 25 H Creatinine 0.9 Est GFR (CKD-EPI 2020) 87.65 Glucose 111 H Calcium 9.5 Total Bilirubin 0.7 AST 13 L ALT 20 Alkaline Phosphatase 50 Creatine Kinase 61 Total Protein 8.6 H Albumin 3.6 Beta HCG, Quant Cancelled 1 Salicylates < 2.8 Acetaminophen < 2 Ethyl Alcohol < 3.0 COVID-19 Source Nasal/Nares SARS-CoV-2 (PCR) Negative Last Vital Signs Temp 37.8 C H 07/23/23 18:03 Pulse 65 07/23/23 18:03 Resp 18 07/23/23 18:03 BP 143/88 H 07/23/23 18:03 Pulse Ox 100 07/23/23 18:03 Time Spent Time spent with Patient: >75 minutes Time was spent: preparing to see the patient(eg.review tests), obtaining and/or reviewing separately otained hiistory, ordering medications,tests, procedures, referring, communicating with other health home care physical therapist, indepentently interpreting results, counseling the patient and care coordination
[2023-07-23 18:10] LABS: Bilirubin Negative (Negative); Blood Moderate (Negative); Clarity Cloudy (Clear); Glucose Negative (Negative); Ketones 15 mg/dL (Negative); Leukocyte Esterase Large (Negative); Nitrite Negative (Negative)
--- NOTE | 2023-07-23 18:14 | NUR.NOTE ---
1530: Unsuccessful straight cath, Kasi reddy MD aware of white and yellow vaginal discharge and labial lesion. M/S charge nurse notified of same. Nursing Note:
[2023-07-23 18:17] LABS: Bacteria Many HPF (Negative); C & S Indicated? No/Sq. Contamination; Casts Negative LPF (Negative); Crystals Negative HPF (Negative); Epithelial Cells Many HPF (Negative); Mucus Trace (Negative); WBC 20-50 HPF (0-5)
[2023-07-23 18:28] LABS: *AMPHETAMINES SCREEN URINE Negative (Negative); *BARBITURATES SCREEN URINE Negative (Negative); *BENZODIAZEPINES SCREEN URINE Positive (Negative); Cannabinoids THC Negative (Negative); Cocaine Screen,Urine Positive (Negative); METHADONE URINE SCREEN Negative (Negative); OPIATES URINE SCREEN Negative (Negative)
[2023-07-23 18:29] LABS: Tricyclic Antidepressants Negative (Negative)
[2023-07-23] MEDS: cefTRIAXone 1 GM/50 ML BAG IVPB (20:08)
[2023-07-23] MEDS: Normal Saline Flush 10 ML SYR IVP (20:08)
[2023-07-23] MEDS: Enoxaparin 40 MG/0.4 ML SYR SC (20:08)
[2023-07-24 00:29] VITALS: BP 132/80; PULSE 66; RESP 14; TEMP 37.7; O2SAT 96
--- NOTE | 2023-07-24 01:24 | NUR.NOTE ---
Pt is arguing and screaming at her correctional officers . Pt is kicking and throwing her drink across room to the wall. The chairman and chief executive officer had to restrain both arms. Pt wants a sedative to put her back to sleep. Called [employer] combination teacher MD to come and assess pt. came and talked with pt. Pt quit at this time. Correctional officers at bedside. Pt can move wrist and hands in her cuffs. can put one finger next to her wrist under the cuff at his time. Note:
[2023-07-24] MEDS: Melatonin 3 MG TAB 6 MG PO (02:13)
[2023-07-24] MEDS: QUEtiapine 100 MG TAB 200 MG PO (02:13)
--- NOTE | 2023-07-24 02:15 | NUR.NOTE ---
New orders received. Pt was quiet with eyes closed. Had to call her name several times to wake her up to take medication. Checked her wrist cuff were able to move freely and there was space to put one finger under. Pt had been turning her arms trying to take the zip-ties off. Nursing Note:
--- NOTE | 2023-07-24 02:28 | TELEP.MEDR_ITS ---
Date of service: 07/24/23 Time of Service: 02:28 Telepharmacy Home Med Rec Allergies Allergies: No Known Allergies Allergy (Unverified 10/15/20 09:26) Interview Person Interviewed: * RN at [facility] Quality Quality of Interview/Accuracy of Medication List: Excellent Changes made to Home Medication List: ADDITIONS: * Hydroxyzine 50mg po bid for 7 days started 07/21/23 * Clonidine 0.1 mg po bid for 7 days started 07/21/23 * Ibuprofen 600mg po tid for 7 days started 07/21/23 * Zofran 4mg po tid prn DELETIONS: * None CHANGES: * None Additional Notes Additional Notes: * Updated medication list with information from previous facility, no other medications noted by facility or in surescript data. Recommended Changes Recommended Changes(reason for recommendation): * None Attestation: The home medication list is now updated to the best of my knowledge and is ready to be reconciled by the provider. Please contact the TelePharmacy Medication Reconciliation Pharmacist at for any questions.
--- NOTE | 2023-07-24 02:28 | TELEP.MEDREC ---
Date of service: 07/24/23 Time of Service: 02:28 Telepharmacy Home Med Rec Allergies Allergies: No Known Allergies Allergy (Unverified 10/15/20 09:26) Interview Person Interviewed: RN at [facility] Quality Quality of Interview/Accuracy of Medication List: Excellent Changes made to Home Medication List: ADDITIONS: Hydroxyzine 50mg po bid for 7 days started 07/21/23 Clonidine 0.1 mg po bid for 7 days started 07/21/23 Ibuprofen 600mg po tid for 7 days started 07/21/23 Zofran 4mg po tid prn DELETIONS: None CHANGES: None Additional Notes Additional Notes: Updated medication list with information from previous facility, no other medications noted by facility or in surescript data. Recommended Changes Recommended Changes(reason for recommendation): None Attestation: The home medication list is now updated to the best of my knowledge and is ready to be reconciled by the provider. Please contact the TelePharmacy Medication Reconciliation Pharmacist at for any questions.
[2023-07-24 07:01] LABS: Abs Immature Grans 0.02 10^3/uL (0.0-0.06); Absolute Basophil Count 0.04 10^3/uL (0.0-0.2); Absolute Eosinophil Count 0.01 10^3/uL (0.0-0.7); Absolute Lymphocyte Count 1.95 10^3/uL (1.2-3.4); Absolute Monocyte Count 0.51 10^3/uL (0.1-0.8); Absolute Neutrophil Count 5.85 10^3/uL (1.2-6.7); Basophils % 0.5; Eosinophils % 0.1; HCT 36.5 % (36.0-46.0); Immature Grans % 0.2; Lymphocytes % 23.3; MCH 24.8 pg (27.0-33.0); MCHC 32.9 % (32.0-36.0); MCV 75 fL (80-95); MPV 10.7 fL (8.0-11.0); Monocytes % 6.1; Neutrophils % 69.8; Platelet Count 273 10^3/uL (130-400); RBC 4.84 10^6/uL (3.93-5.22); RDW 13.7 % (11.7-14.6); WBC 8.38 10^3/uL (4.4-10.8)
[2023-07-24 07:29] LABS: ALT 15 U/L (14-59); AST 14 U/L (15-37); Alkaline Phosphatase 40 U/L (46-116); BUN 16 mg/dL (7-18); Bilirubin, Total 0.7 mg/dL (0.2-1.0); CREATININE 0.6 mg/dL (0.55-1.02); Calcium 8.6 mg/dL (8.5-10.1); Chloride 105 mmol/L (98-107); Estimated GFR 122.99 (mL/min/1.73m2); Glucose 105 mg/dL (74-106); Magnesium 1.9 mg/dL (1.8-2.4); Potassium 3.8 mmol/L (3.5-5.1); Sodium 139 mmol/L (136-145); Total Protein 7.6 g/dL (6.4-8.2)
[2023-07-24 07:36] VITALS: BP 103/69; PULSE 102; RESP 18; TEMP 37.3; O2SAT 97
[2023-07-24] MEDS: levETIRAcetam 500 MG TAB PO (08:51)
--- NOTE | 2023-07-24 10:57 | PDOC.CMIN ---
Date of service: 07/24/23 Time of Service: 10:57 Care Management Initial Assmt Initial Assessment REASON FOR HOSPITALIZATION:: seizure like activity PREVIOUS FUNCTIONAL STATUS/SOCIAL/FAMILY SUPPORTS:: Amaya is currently incarcerated in [facility]. ADVANCE DIRECTIVES:: none PFSH All Active Problems (Updated 07/23/23 @ 18:56 by Liliya Bowden APRN) On deep vein thrombosis (DVT) prophylaxis (Acute) Discharge planning issues (Acute) Seizure-like activity (Acute) Rh negative state in antepartum period (Acute) History of pyelonephritis (Acute) First trimester (Acute) Drug dependence (Acute) Drug abuse of mother (Acute) (Acute) 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) Positive test (Acute) Medical History Hepatitis C Kidney infection Surgical History History of tonsillectomy Family History Mother Diabetes Maternal Grandmother Bipolar 1 disorder Asthma COPD with asthma Maternal Grandfather Cancer Social History Smoking/Tobacco Use Status: Current every day Tobacco Type: cigarettes Years smoked: 18 and e-cigarettes Tobacco: How many years used: 15 Smoking risk assessment performed?: Yes Alcohol Intake: never Drug use: Daily Substance use type: crack/cocaine, opiates and painkillers Details: Pt w/ daily cocaine and fentanyl usage. Per pt 100 bags fentanyl daily for about 1yr. No longer in [facility] program. Per pt, 'Its been awhile but I'd like to try it again' Housing: homeless Current gender identity: female Do you feel safe at home: Yes Do you feel safe in your relationship?: Yes History History 4 Para 3 Hx # Term Pregnancies 3 Multiple births 0 Hx # Pregnancies 0 Ectopic pregnancies 0 AB induced 0 Hx Number of Living Children 3 AB spontaneous 0 Past Pregnancies Del. Date GA/Weeks # Preg Succ Route Wgt Sex Labor Lgth Anesthesia Location [facility] 03/03/10 38 No vaginal 3005.049 g Male 48 hrs [facility] 02/18/11 38 No vaginal 3033.399 g Female 48 hrs [facility] 02/28/17 37 No vaginal 4195.729 g Male 48 hrs [facility] other Delivery Date: 03/03/10 Last Updated by: Tiffanie Flowers CNM long labor w/o c/o. Delivery Date: 02/18/11 Last Updated by: Tiffanie Flowers CNM long labor w/o c/o. Delivery Date: 02/28/17 Last Updated by: Tiffanie Flowers CNM probable pre-eclampsia low platelets thus no epidural denies seizure. ? if mgso4 given.
[2023-07-24] MEDS: Ciprofloxacin 0.3% 2.5 ML BTL OU (10:58)
[2023-07-24 11:10] VITALS: BP 120/79; PULSE 75; RESP 18; TEMP 37.8; O2SAT 98
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
--- NOTE | 2023-07-24 12:11 | PDOC.CMPRO ---
Date of service: 07/24/23 Time of Service: 12:11 Care Management Progress Note Progress Note Text Progress Note Text: Amaya was admitted on from the [facility] after reported seizure-like activity. She has a history of seizure but has not been taking her medication for quite some time. She did well overnight with no new seizure-like activity and will be discharged back to custodial with correctional facility staff and vehicle.
== END 2023-07-24 12:44 ==
LOC: ER 16:35 → MS 17:51
PROVIDERS: Nurse Practitioner Acute Care; Admitting Provider Internal Medicine; Emergency Provider Student in an Organized Health Care Education/Training Program; Visit Provider Internal Medicine
DX: R56.9 Unspecified convulsions (principal); E87.6 Hypokalemia; F19.20 Other psychoactive substance dependence, uncomplicated; F17.210 Nicotine dependence, cigarettes, uncomplicated; F17.290 Nicotine dependence, other tobacco product, uncomplicated; Z59.01 Sheltered homelessness
CPT/HCPCS: 00123; 36415; 36416; 80053; 80307; 81025; 82550; 82805; 82962; 87635; 93005; 96361; 96365; 96367; 96372; 96375; 99291; J1650; 70450; 71045; 80320; 80329; 81003; 81015; 83605; 83735; 84702; 85025; 87086; 93010; 99223; 99239; J0696; J1953